=== PATIENT | female | born 1975 | race Caucasian/White ===

== ENCOUNTER → 2017-03-07 | Outpatient (CLI) | payer BC ==
[~2017-03-07] MED LIST: OXYC1SOL5 PO
== END ==
LOC: CLAB 13:34
PROVIDERS: ATTEND Obstetrics & Gynecology Gynecologic Oncology
DX: C56.9 Malignant neoplasm of unspecified ovary (principal)

== ENCOUNTER → 2017-03-15 | Outpatient (CLI) | payer BC ==
[2017-03-15 07:56] LABS: AUTOMATED NEUTROPHIL # 1.7 TH/MM3 (1.8-7.7); EOSINOPHIL % 0.9 % (0.0-4.0); HEMATOCRIT 40.3 % (35.0-46.0); HEMOGLOBIN 14.1 GM/DL (11.6-15.3); LYMPH % 46.1 % (9.0-44.0); LYMPHOCYTE # 2.1 TH/MM3 (1.0-4.8); MEAN CORPUSCULAR HEMOGLOBIN 31.4 PG (27.0-34.0); MEAN CORPUSCULAR HGB CONC 34.9 % (32.0-36.0); MEAN PLATELET VOLUME 6.7 FL (7.0-11.0); MONO % 13.6 % (0.0-8.0); MONOCYTE # 0.6 TH/MM3 (0-0.9); NEUT % 38.4 % (16.0-70.0); PLATELET COUNT 371 TH/MM3 (150-450); RED BLOOD COUNT 4.48 MIL/MM3 (4.00-5.30); RED CELL DISTRIBUTION WIDTH 15.2 % (11.6-17.2); WHITE BLOOD COUNT 4.5 TH/MM3 (4.0-11.0)
[2017-03-15 08:36] LABS: BICARBONATE 29.3 MEQ/L (21.0-32.0); CALCIUM 8.4 MG/DL (8.5-10.1); CREATININE 0.66 MG/DL (0.50-1.00)
== END ==
LOC: CLAB 07:20
PROVIDERS: ATTEND Obstetrics & Gynecology Gynecologic Oncology
DX: C56.9 Malignant neoplasm of unspecified ovary (principal); R19.00 Intra-abdominal and pelvic swelling, mass and lump, unspecified site
CPT/HCPCS: 36415; 80048; 85025

== ENCOUNTER → 2017-04-05 | Outpatient (CLI) | payer BC ==
[2017-04-05 08:14] LABS: AUTOMATED NEUTROPHIL # 1.8 TH/MM3 (1.8-7.7); BASOPHIL % 0.9 % (0.0-2.0); EOSINOPHIL # 0.1 TH/MM3 (0-0.4); EOSINOPHIL % 1.6 % (0.0-4.0); HEMO FLAGS DIFF FINAL; LYMPH % 46.1 % (9.0-44.0); LYMPHOCYTE # 2.2 TH/MM3 (1.0-4.8); MEAN CELL VOLUME 91.5 FL (80.0-100.0); MEAN CORPUSCULAR HEMOGLOBIN 31.4 PG (27.0-34.0); MEAN CORPUSCULAR HGB CONC 34.3 % (32.0-36.0); MONO % 12.8 % (0.0-8.0); NEUT % 38.6 % (16.0-70.0); PLATELET COUNT 343 TH/MM3 (150-450); RED BLOOD COUNT 4.59 MIL/MM3 (4.00-5.30); RED CELL DISTRIBUTION WIDTH 17.8 % (11.6-17.2); WHITE BLOOD COUNT 4.7 TH/MM3 (4.0-11.0)
[2017-04-05 08:33] LABS: BICARBONATE 28.1 MEQ/L (21.0-32.0)
== END ==
LOC: CLAB 07:37
PROVIDERS: ATTEND Obstetrics & Gynecology Gynecologic Oncology
DX: C56.9 Malignant neoplasm of unspecified ovary (principal)
CPT/HCPCS: 36415; 80048; 85025

== ENCOUNTER → 2017-04-19 | Outpatient (CLI) | payer BC ==
[2017-04-19 15:31] LABS: AUTOMATED NEUTROPHIL # 5.2 TH/MM3 (1.8-7.7); BASOPHIL # 0.1 TH/MM3 (0-0.2); BASOPHIL % 1.1 % (0.0-2.0); EOSINOPHIL # 0.3 TH/MM3 (0-0.4); EOSINOPHIL % 3.2 % (0.0-4.0); HEMATOCRIT 42.5 % (35.0-46.0); HEMO FLAGS DIFF FINAL; LYMPH % 24.6 % (9.0-44.0); MEAN CELL VOLUME 91.6 FL (80.0-100.0); MEAN CORPUSCULAR HEMOGLOBIN 31.4 PG (27.0-34.0); MEAN CORPUSCULAR HGB CONC 34.3 % (32.0-36.0); MONO % 6.8 % (0.0-8.0); NEUT % 64.3 % (16.0-70.0); PLATELET COUNT 307 TH/MM3 (150-450); RED BLOOD COUNT 4.64 MIL/MM3 (4.00-5.30); RED CELL DISTRIBUTION WIDTH 18.7 % (11.6-17.2); WHITE BLOOD COUNT 8.1 TH/MM3 (4.0-11.0)
[2017-04-19 16:04] LABS: BICARBONATE 26.2 MEQ/L (21.0-32.0); POTASSIUM 3.6 MEQ/L (3.5-5.1)
== END ==
LOC: CLAB 15:14
PROVIDERS: ATTEND Obstetrics & Gynecology Gynecologic Oncology
DX: C56.9 Malignant neoplasm of unspecified ovary (principal); R19.00 Intra-abdominal and pelvic swelling, mass and lump, unspecified site
CPT/HCPCS: 36415; 80048; 85025

== ENCOUNTER 2017-05-01 21:52 | Emergency (ER) | payer BC ==
[~2017-05-01] VITALS: Ht 170.2 cm; Wt 104.5 kg
[2017-05-01] MEDS ORDERED: IOHEXOL 350 MG/ML 10 ML VIAL (for RAD DIAG) IVCONTRAST ONE (21:53)
[2017-05-01 21:54] VITALS: BP 142/101; PULSE 124; RESP 18; TEMP 100; O2SAT 97
[2017-05-01] MEDS ORDERED: SODIUM CHLOR 0.9% 1000 ML INJ 1,000 ML IV SCH (22:53)
[2017-05-01] MEDS ORDERED: SODIUM CHLORIDE 0.9% FLUSH 10 ML FLUSH IV FLUSH PRN (23:00)
[2017-05-01] MEDS ORDERED: MORPHINE SULFATE 4 MG/ML INJ IV PUSH ONE (23:00)
[2017-05-01] MEDS ORDERED: PROCHLORPERAZINE INJ 10 MG/2 ML VIAL IV PUSH ONE (23:00)
[2017-05-01 23:05] VITALS: RESP 19; O2SAT 98
--- NOTE | 2017-05-01 23:14 | RADRPT ---
EXAM DATE/TIME: 05/01/2017 23:10 [facility] COMPARISON: No previous studies available for comparison. INDICATIONS : Shortness of breath, pain in lower portion of chest. MEDICAL HISTORY : None. SURGICAL HISTORY : Infusaport. ENCOUNTER: Initial ACUITY: 1 day PAIN SCORE: 0/10 LOCATION: Bilateral chest FINDINGS: There is a right internal jugular CT compatible [id number]-m-Rizx in place with tip overlying the SVC. Th e heart size is normal. The lungs are clear. CONCLUSION: No acute disease. Miguel Mcdaniel MD on May 01, 2017 at 23:12 Board Certified Radiologist. This report was verified electronically.
[2017-05-01 23:23] LABS: AUTOMATED NEUTROPHIL # 5.2 TH/MM3 (1.8-7.7); BASOPHIL % 0.6 % (0.0-2.0); EOSINOPHIL # 0.3 TH/MM3 (0-0.4); EOSINOPHIL % 3.5 % (0.0-4.0); HEMATOCRIT 40.2 % (35.0-46.0); HEMOGLOBIN 14.2 GM/DL (11.6-15.3); LYMPH % 26.3 % (9.0-44.0); MEAN CELL VOLUME 91.6 FL (80.0-100.0); MEAN CORPUSCULAR HEMOGLOBIN 32.4 PG (27.0-34.0); MEAN CORPUSCULAR HGB CONC 35.3 % (32.0-36.0); MONOCYTE # 0.2 TH/MM3 (0-0.9); NEUT % 67.6 % (16.0-70.0); PLATELET COUNT 248 TH/MM3 (150-450); RED BLOOD COUNT 4.39 MIL/MM3 (4.00-5.30); RED CELL DISTRIBUTION WIDTH 17.3 % (11.6-17.2); WHITE BLOOD COUNT 7.7 TH/MM3 (4.0-11.0)
[2017-05-01 23:46] LABS: ALBUMIN 3.6 GM/DL (3.4-5.0); ALT (GPT) 113 U/L (10-53); AST (GOT) 85 U/L (15-37); BICARBONATE 28.4 MEQ/L (21.0-32.0); BLOOD UREA NITROGEN 8 MG/DL (7-18); CALCIUM 8.4 MG/DL (8.5-10.1); CHLORIDE 107 MEQ/L (98-107); CREATININE 0.69 MG/DL (0.50-1.00); GLOMERULAR FILTRATION RATE 94 ML/MIN (>89); GLUCOSE,RANDOM 108 MG/DL (74-106); LIPASE 128 U/L (73-393); SODIUM (NA) 142 MEQ/L (136-145)
[2017-05-01 23:48] LABS: ALKALINE PHOSPHATASE 84 U/L (45-117); TOTAL BILIRUBIN ADULT 0.7 MG/DL (0.2-1.0)
[2017-05-02] MEDS ORDERED: DIATRIZOATE MEGLUM/DIATRIZOATE SOD 9 ML CUP ONE (01:19)
--- NOTE | 2017-05-02 03:00 | PD ---
HPI Chief Complaint: Abdominal Pain Time Seen by Provider: 22:44 Travel History International Travel<30 days: No Contact w/Intl Traveler<30days: No Traveled to known affect area: No History of Present Illness HPI This is a 42-year-old female with a history of ovarian cancer, presents today with complaints of abdominal pain. The patient also reports low-grade fever. She denies any vomiting. She denies any diarrhea. She reports the pain is in her right lateral abdominal area. She reports it feels tighter than normal. She reports having chemotherapy last week. She denies a previous history of neutropenia. There are no other complaints. PFSH Past Medical History Cancer: Yes (OVARIAN) Cardiovascular Problems: No Chemotherapy: Yes Diabetes: No Endocrine: No Genitourinary: No Hepatitis: No Hiatal Hernia: No Immune Disorder: No Medical other: No Musculoskeletal: No Neurologic: No Psychiatric: No Reproductive: Yes (OVARTIAN CA ) Respiratory: No Immunizations Current: No Thyroid Disease: No ?: Not : 6 Para: 1 Miscarriage: 1 : 4 Past Surgical History Abdominal Surgery: No AICD: No Body Medical Devices: IMPLANTED PORT RIGHT CHEST Cardiac Surgery: No Ear Surgery: No Endocrine Surgery: No Eye Surgery: No Genitourinary Surgery: No Gynecologic Surgery: Yes (11/07 HYSTERECTOMY) Joint Replacement: No Oral Surgery: No Pacemaker: No Thoracic Surgery: Yes (IMPLANTED PORT) Social History Alcohol Use: No Tobacco Use: No Substance Use: No Allergies-Medications (Allergen,Severity, Reaction): Coded Allergies: No Known Allergies (Verified , 03/09/15) Reported Meds & Prescriptions Reported Meds & Active Scripts Active Oxycodone/Acetaminophen 5 mg/325 mg 1 Tab Tab 1 Tab PO Q4H PRN Review of Systems Except as stated in HPI: all other systems reviewed are Neg General / Constitutional: Positive: Fever, No: Chills HENT: No: Headaches, Neck Pain Cardiovascular: No: Chest Pain or Discomfort, Palpitations Respiratory: No: Cough, Shortness of Breath Gastrointestinal: Positive: Abdominal Pain, No: Nausea, Vomiting, Diarrhea, Hematemesis, Hematochezia Genitourinary: No: Frequency, Dysuria Musculoskeletal: No: Weakness, Pain Neurologic: No: Weakness, Headache Physical Exam Narrative GENERAL: Well-nourished, well-developed patient, in no acute distress. SKIN: Focused skin assessment warm/dry. HEAD: Normocephalic/atraumatic. EYES: No scleral icterus. No injection or drainage. NECK: Supple, trachea midline. No JVD or lymphadenopathy. CARDIOVASCULAR: Regular rate and rhythm without murmurs, gallops, or rubs. RESPIRATORY: Breath sounds equal bilaterally. No accessory muscle use. GASTROINTESTINAL: Abdomen soft, nondistended. She has tenderness to palpation in the right lateral abdominal area. There is no rebound or guarding. MUSCULOSKELETAL: No cyanosis, or edema. NEUROLOGICAL: Awake and alert. Cranial nerves II through XII intact. Motor grossly within normal limits. Five out of 5 muscle strength in all muscle groups. Normal speech. Data Data Last Documented VS Vital Signs Date Time Temp Pulse Resp B/P (MAP) Pulse Ox O2 Delivery O2 Flow Rate FiO2 05/01/17 23:05 19 98 Room Air 05/01/17 21:54 100.0 124 Orders Orders Complete Blood Count With Diff (05/01/17 22:53) Comprehensive Metabolic Panel (05/01/17 22:53) Lipase (05/01/17 22:53) Lactic Acid (05/01/17 22:53) Urinalysis - C+S If Indicated (05/01/17 22:53) Iv Access Insert/Monitor (05/01/17 22:53) Ecg Monitoring (05/01/17 22:53) Oximetry (05/01/17 22:53) Morphine Inj (Morphine Inj) (05/01/17 23:00) Sodium Chlor 0.9% 1000 Ml Inj (Ns 1000 M (05/01/17 22:53) Sodium Chloride 0.9% Flush (Ns Flush) (05/01/17 23:00) Chest, Single Ap (05/01/17 22:53) Prochlorperazine Inj (Compazine Inj) (05/01/17 23:00) Ct Abd/Pel W Iv Contrast(Rout) (05/02/17 22:53) Oral Contrast - Adult (05/02/17 01:19) Diatrizoate Liq ( Gastroview Liq) (05/02/17 01:19) Iohexol 350 Inj (Omnipaque 350 Inj) (05/01/17 21:53) Potassium Chloride (Kcl) (05/02/17 05:00) Labs Laboratory Tests Test 05/01/17 03:55 05/01/17 22:55 05/02/17 04:30 White Blood Count 7.7 TH/MM3 Red Blood Count 4.39 MIL/MM3 Hemoglobin 14.2 GM/DL Hematocrit 40.2 % Mean Corpuscular Volume 91.6 FL Mean Corpuscular Hemoglobin 32.4 PG Mean Corpuscular Hemoglobin Concent 35.3 % Red Cell Distribution Width 17.3 % Platelet Count 248 TH/MM3 Mean Platelet Volume 7.0 FL Neutrophils (%) (Auto) 67.6 % Lymphocytes (%) (Auto) 26.3 % Monocytes (%) (Auto) 2.0 % Eosinophils (%) (Auto) 3.5 % Basophils (%) (Auto) 0.6 % Neutrophils # (Auto) 5.2 TH/MM3 Lymphocytes # (Auto) 2.0 TH/MM3 Monocytes # (Auto) 0.2 TH/MM3 Eosinophils # (Auto) 0.3 TH/MM3 Basophils # (Auto) 0.0 TH/MM3 CBC Comment DIFF FINAL Differential Comment Blood Urea Nitrogen 8 MG/DL Creatinine 0.69 MG/DL Random Glucose 108 MG/DL Total Protein 7.0 GM/DL Albumin 3.6 GM/DL Calcium Level 8.4 MG/DL Alkaline Phosphatase 84 U/L Aspartate Amino Transf (AST/SGOT) 85 U/L Alanine Aminotransferase (ALT/SGPT) 113 U/L Total Bilirubin 0.7 MG/DL Sodium Level 142 MEQ/L Potassium Level 3.4 MEQ/L Chloride Level 107 MEQ/L Carbon Dioxide Level 28.4 MEQ/L Anion Gap 7 MEQ/L Estimat Glomerular Filtration Rate 94 ML/MIN Lipase 128 U/L Lactic Acid Level 1.0 mmol/L Urine Color YELLOW Urine Turbidity CLEAR Urine pH 5.5 Urine Specific [place] GREATER THAN 1.050 Urine Protein TRACE mg/dL Urine Glucose (UA) NEG mg/dL Urine Ketones NEG mg/dL Urine Occult Blood TRACE Urine Nitrite NEG Urine Bilirubin NEG Urine Urobilinogen LESS THAN 2.0 MG/DL Urine Leukocyte Esterase NEG Urine RBC LESS THAN 1 /hpf Urine WBC 2 /hpf Urine Squamous Epithelial Cells 2 /hpf Urine Mucus FEW /lpf Microscopic Urinalysis Comment CULT NOT INDICATED MDM Medical Decision Making Medical Screen Exam Complete: Yes Emergency Medical Condition: Yes Differential Diagnosis Appendicitis versus cholecystitis versus bowel obstruction versus metastatic lesion Narrative Course 42-year-old female history of ovarian cancer, extensive metastases of right sided abdominal pain. The patient denies any diarrhea or vomiting. She did have a low-grade temperature when she initially arrived. Patient's white count is within normal limits. Lactic acid is 1. The rest of her electrolytes look within normal limits except for slightly elevated transaminases. A CT scan of the abdomen pelvis reveals liver steatosis with this some ascites. Patient's had previous studies in the past. Urinalysis is within normal limits. The patient be discharged with a prescription for hydrocodone/ibuprofen. She'll be told to take that as needed for pain. She'll follow up with her oncologist and primary care physician for further evaluation of the liver enzyme elevation. Her calcium was slightly low and she was given potassium replacement here. She' ll be instructed to increase her potassium rich foods. Diagnosis Primary Impression: Abdominal pain Additional Impressions: mild hypokalemia Elevated transaminase level Steatosis of liver History of ovarian cancer mild ascites Additional Instructions: Follow up with your oncologist and primary care physician. Return if worsening discomfort. Increase her potassium rich foods i.e., green leafy vegetables, citrus, bananas. Med/Other Pt SpecificInfo: Prescription(s) given Scripts Hydrocodone-Ibuprofen (Hydrocodone-Ibuprofen) 7.5-200 Mg Tab 1 TAB PO Q6H Y for PAIN, #10 TAB 0 Refills Prov: Tye Izaguirre MD 05/02/17 Disposition: 01 DISCHARGE HOME Condition: Stable Tye Izaguirre MD May 02, 2017 03:00
--- NOTE | 2017-05-02 03:42 | RADRPT ---
EXAM DATE/TIME: 05/02/2017 02:20 [facility] COMPARISON: No previous studies available for comparison. INDICATIONS : Abdomen pain. IV CONTRAST: 75 cc Omnipaque 350 (iohexol) IV ORAL CONTRAST: Prescribed oral contrast ingested. RADIATION DOSE: 12.55 CTDIvol (mGy) MEDICAL HISTORY : Carcinoma, not otherwise specified. SURGICAL HISTORY : Hysterectomy. ENCOUNTER: Initial ACUITY: 1 day PAIN SCALE: 5/10 LOCATION: Bilateral abdomen TECHNIQUE: Volumetric scanning of the abdomen and pelvis was performed. Using automated exposure control and ad justment of the mA and/or kV according to patient size, radiation dose was kept as low as reasonably achievable to obtain optimal diagnostic quality images. DICOM format image data is available electro nically for review and comparison. FINDINGS: LOWER LUNGS: The visualized lower lungs are clear. LIVER: There is diffuse decreased attenuation to the liver without focal hepatic lesions. The gallbladder is unremarkable. SPLEEN: Normal size without lesion. PANCREAS: Within normal limits. KIDNEYS: Normal in size and shape. There is no mass, stone or hydronephrosis. ADRENAL GLANDS: Within normal limits. VASCULAR: There is no aortic aneurysm. BOWEL/MESENTERY: The stomach, small bowel, and colon demonstrate no acute abnormality. There is no free intraperitone al air. There is a mild amount of ascites seen in the paracolic gutter regions especially on the righ t and in the pelvis. ABDOMINAL WALL: Within normal limits. RETROPERITONEUM: There is no lymphadenopathy. BLADDER: No wall thickening or mass. REPRODUCTIVE: The patient is status post hysterectomy. A pelvic mass is not seen. INGUINAL: There is no lymphadenopathy or hernia. MUSCULOSKELETAL: Within normal limits for patient age. CONCLUSION: 1. Mild ascites. 2. Hepatic steatosis. Miguel Mcdaniel MD on May 02, 2017 at 3:38 Board Certified Radiologist. This report was verified electronically.
[2017-05-02 04:53] LABS: BILIRUBIN, URINE NEG (NEG); BLOOD, URINE TRACE (NEG); GLUCOSE,URINE NEG (NEG); KETONE, URINE NEG (NEG); MUCUS URINE FEW /lpf (OCC); NITRITE,URINE NEG (NEG); PH, URINE 5.5 (5.0-8.5); SQUAMOUS EPITHELIAL CELL URINE 2 /hpf (0-5); URINE COLOR YELLOW (YELLW/STRAW); URINE LEUKOCYTE ESTERASE NEG (NEG)
[2017-05-02] MEDS ORDERED: POTASSIUM CHLORIDE 10 MEQ CONTROLLED RELEASE TAB PO ONE (05:00)
[2017-05-02] MEDS ORDERED: HYDR7.5T76 PO (05:01)
== END 2017-05-02 05:30 | disposition home or self-care (01) ==
LOC: NEPE 21:52
DX: R10.9 Unspecified abdominal pain (principal); E87.6 Hypokalemia; K76.0 Fatty (change of) liver, not elsewhere classified; Z85.43 Personal history of malignant neoplasm of ovary
CPT/HCPCS: 71010; 74177; 80053; 81001; 83605; 83690; 85025; 96361; 96374; 96375; 99285; J0780; J2270; J7030; Q9963; Q9967

== ENCOUNTER 2017-09-01 07:41 | Day surgery (SDC) | payer BC ==
[~2017-09-01 07:41] MED LIST changes: +HYDR7.5T76 PO
[2017-09-01 08:06] VITALS: BP 150/89; PULSE 115; RESP 16; TEMP 98.8; O2SAT 97
[2017-09-01 09:38] VITALS: BP 119/70; PULSE 104; RESP 16; TEMP 98.8; O2SAT 97
[2017-09-01] MEDS ORDERED: LIDOCAINE HCL 1% 20 ML VIAL ONE (09:44)
[2017-09-01 09:48] VITALS: BP 123/74; PULSE 107; RESP 16; O2SAT 99
--- NOTE | 2017-09-01 14:54 | RADRPT ---
EXAM DATE/TIME: 09/01/2017 07:59 [facility] COMPARISON: No previous studies available for comparison. EXTERNAL COMPARISON: [facility], CT ABDOMEN & PELVIS W/CONTRAST, Jul 03 2014, US ABDOMEN COMPLETE, June 27. INDICATIONS : Ascites. MEDICAL HISTORY : Carcinoma, ovarian. Pelvic mass. Ascites. SURGICAL HISTORY : Hysterectomy. Chest port. Paracentesis. Chemotherapy. ENCOUNTER: Subsequent ACUITY: 1 week PAIN SCORE: 6/10 LOCATION: Left lower quadrant FLUID: Total volume of 3,000 cc of clear, yellow fluid was removed. Fluid was discarded. Paracentesis was therapeutic only. Post procedure scanning reveals no hematoma or other complication. TECHNIQUE: 1. Ultrasound guidance for abdominal paracentesis. 2. Paracentesis. The risks, benefits, and alternatives to ultrasound guided paracentesis were explained to the patient in detail including the risk of bleeding and infection. Written and verbal informed consent was obt ained. With the patient on the ultrasound table, ultrasound imaging was used to select the most appropriate approach for paracentesis. Overlying skin was prepped and draped in the usual sterile fashion and wi th a local anesthetic, a dermatotomy was made with an 11 blade scalpel. A 6 Filipino Ixm-C-qwzeaves ca theter was introduced into the peritoneal cavity and fluid was collected. The patient tolerated the procedure well and left the ultrasound suite in stable condition. CONCLUSION: Uncomplicated ultrasound guided paracentesis. Abhilash Abdi MD on September 01, 2017 at 14:50 Board Certified Radiologist. This report was verified electronically.
== END 2017-09-01 10:17 | disposition home or self-care (01) ==
LOC: HRAD 07:41 → HRIP 07:42 → HRAD 10:17
PROVIDERS: ATTEND Nurse Practitioner Family
DX: R18.8 Other ascites (principal)
CPT/HCPCS: 49083; C1729

== ENCOUNTER 2017-09-20 07:27 | Day surgery (SDC) | payer BC ==
[2017-09-20] MEDS: ALBUMIN HUMAN 25% 12.5GM-W/25GM FOR 37.5GM IV (09:50)
[2017-09-20] MEDS: ALBUMIN HUMAN 25% 25GM-W/12.5GM FOR 37.5GM IV (09:50)
[2017-09-20] MEDS ORDERED: LIDOCAINE HCL 1% 20 ML VIAL (12:28)
== END 2017-09-20 10:39 | disposition home or self-care (01) ==
LOC: HRAD 07:27 → HRIP 09:39 → HRAD 10:39
DX: R18.8 Other ascites (principal); Z85.43 Personal history of malignant neoplasm of ovary; Z92.3 Personal history of irradiation
CPT/HCPCS: 49083; 96365

== ENCOUNTER → 2017-09-20 | Outpatient (CLI) | DX: R79.1 Abnormal coagulation profile (principal) ==

== ENCOUNTER 2017-10-27 09:20 | Day surgery (SDC) | payer BC ==
[~2017-10-27 09:20] MED LIST changes: -ACET300T2 PO; -ALPR.5 PO; -METO25TA3 PO; -TRAM50TA PO
[2017-10-27 10:44] VITALS: BP 146/100; PULSE 121; RESP 16; TEMP 98.7; O2SAT 98
[2017-10-27 10:49] VITALS: BP 150/101
[2017-10-27 10:56] VITALS: BP 150/100
[2017-10-27] MEDS ORDERED: ALBUMIN 25% INJ 0 ML IV ONE (11:45)
[2017-10-27 12:15] VITALS: BP_SYST 113; BP_SYST 143; BP_DIAS 79; PULSE 110; PULSE 113; RESP 18; TEMP 98.7; O2SAT 97
[2017-10-27 12:30] VITALS: BP 147/83; PULSE 109; RESP 17; O2SAT 96
--- NOTE | 2017-10-27 13:10 | RADRPT ---
EXAM DATE: 10/27/2017 12:36 PM EDT AGE/SEX: 42 years / Female INDICATIONS: Ascites. CLINICAL DATA: This is the patient's sequela encounter. Patient reports that signs and symptoms have been present for 1 month and indicates a pain score of 6/10. MEDICAL/SURGICAL HISTORY: . Ovarian Cancer. . . Pelvic mass. Hysterectomy. P ort placement. COMPARISON: [facility] – [place], [place], US GUIDED ABD PARACENTESIS, 09/20/2017. . FLUID: Total volume of 2,900 cc of clear, yellow fluid was removed. Fluid was discarded. Paracentesis was th erapeutic only. . . TECHNIQUE: Ultrasound guidance for abdominal paracentesis. Paracentesis. The risks, benefits, and alternatives to ultrasound guided paracentesis were explained to the patient in detail including the risk of bleeding and infection. Written and verbal informed consent was obt ained. With the patient on the ultrasound table, ultrasound imaging was used to select the most appropriate approach for paracentesis. Overlying skin was prepped and draped in the usual sterile fashion and wi th a local anesthetic, a dermatotomy was made with an 11 blade scalpel. A 6 Haitian [id number]-P-[id number] ca theter was introduced into the peritoneal cavity and fluid was collected. Post procedure scanning reveals no hematoma or other complication. The patient tolerated the procedu re well and left the ultrasound suite in stable condition. FINDINGS: Successful ultrasound-guided paracentesis as described above. CONCLUSION: 1. Successful ultrasound-guided paracentesis. Electronically signed by: Watson Ledesma MD 10/27/2017 1:09 PM EDT
== END 2017-10-27 12:59 | disposition home or self-care (01) ==
LOC: HRAD 09:20 → HRIP 09:21 → HRAD 12:59
PROVIDERS: ATTEND Obstetrics & Gynecology Gynecologic Oncology
DX: R18.8 Other ascites (principal); C56.9 Malignant neoplasm of unspecified ovary
CPT/HCPCS: 49083; C1729

== ENCOUNTER → 2017-10-27 | Outpatient (CLI) | payer BC ==
[~2017-10-27] MED LIST changes: +ACET300T2 PO; +ALPR.5 PO; +METO25TA3 PO; +TRAM50TA PO
[2017-10-27 10:00] LABS: HEMATOCRIT 39.6 % (35.0-46.0); HEMOGLOBIN 13.7 GM/DL (11.6-15.3); MEAN CELL VOLUME 84.9 FL (80.0-100.0); MEAN CORPUSCULAR HEMOGLOBIN 29.4 PG (27.0-34.0); MEAN CORPUSCULAR HGB CONC 34.6 % (32.0-36.0); MEAN PLATELET VOLUME 6.7 FL (7.0-11.0); PLATELET COUNT 354 TH/MM3 (150-450); RED BLOOD COUNT 4.67 MIL/MM3 (4.00-5.30); RED CELL DISTRIBUTION WIDTH 14.2 % (11.6-17.2); WHITE BLOOD COUNT 6.3 TH/MM3 (4.0-11.0)
[2017-10-27 10:04] LABS: INTERNATIONAL NORMALIZED RATIO 1.2 RATIO
[2017-10-27 20:35] LABS: BICARBONATE 23.9 MEQ/L (21.0-32.0); CALCIUM 8.5 MG/DL (8.5-10.1); CREATININE 0.76 MG/DL (0.50-1.00)
== END ==
LOC: CLAB 09:12
PROVIDERS: ATTEND Obstetrics & Gynecology Gynecologic Oncology
DX: C56.9 Malignant neoplasm of unspecified ovary (principal); R19.00 Intra-abdominal and pelvic swelling, mass and lump, unspecified site
CPT/HCPCS: 36415; 80048; 85027; 85610

== ENCOUNTER 2017-10-28 16:53 | Inpatient (IN) | payer BC ==
[~2017-10-28] VITALS: Ht 165.1 cm; Wt 99.7 kg
[2017-10-28] VITALS (8 sets, daily range): BP systolic 142–164; BP diastolic 85–99; PULSE 123–145; RESP 18–20; TEMP 98; O2SAT 90–98
[2017-10-28] MEDS ORDERED: PROCHLORPERAZINE INJ 10 MG/2 ML VIAL IV PUSH ONE (17:30)
[2017-10-28] MEDS ORDERED: SODIUM CHLORIDE 0.9% FLUSH 10 ML FLUSH IV FLUSH PRN ×2 (17:30→21:45)
[2017-10-28] MEDS ORDERED: HYDROmorphone HCL PF 1 MG/ML VIAL IVS ONE (17:30)
--- NOTE | 2017-10-28 17:33 | PD ---
HPI Chief Complaint: Abdominal Pain Time Seen by Provider: 17:04 Travel History International Travel<30 days: No Contact w/Intl Traveler<30days: No Traveled to known affect area: No History of Present Illness HPI The patient was seen and examined in the presence of the nurse. This patient has recurrent metastatic ovarian cancer. It spread to her omentum. She gets recurrent paracentesis for ascites. She had this yesterday. She has chronic bilateral upper quadrant pains for at least 6 months. However today they are worse than usual. This prompted her visit. She is having a lot of pain there. She is considering a retry of chemotherapy but currently not on any medications. Symptoms are severe. No alleviating factors. No exacerbating factors. She is not having fever or vomiting. PFSH Past Medical History Cancer: Yes (OVARIAN) Cardiovascular Problems: No Chemotherapy: Yes Diabetes: No Diminished Hearing: No Endocrine: No Genitourinary: No Hepatitis: No Hiatal Hernia: No Immune Disorder: No Musculoskeletal: No Neurologic: No Psychiatric: No Reproductive: Yes (OVARTIAN CA ) Respiratory: No Immunizations Current: No Thyroid Disease: No Influenza Vaccination: No ?: Not : 6 Para: 1 Miscarriage: 1 : 4 Past Surgical History Abdominal Surgery: No AICD: No Body Medical Devices: IMPLANTED PORT RIGHT CHEST Cardiac Surgery: No Ear Surgery: No Endocrine Surgery: No Eye Surgery: No Genitourinary Surgery: No Gynecologic Surgery: Yes (11/07 HYSTERECTOMY) Hysterectomy: Yes Joint Replacement: No Oral Surgery: No Pacemaker: No Thoracic Surgery: Yes (IMPLANTED PORT) Other Surgery: Yes Social History Alcohol Use: No Tobacco Use: No Substance Use: No Allergies-Medications (Allergen,Severity, Reaction): Coded Allergies: No Known Allergies (Verified Allergy, Unknown, 10/28/17) Reported Meds & Prescriptions Reported Meds & Active Scripts Active No Active Prescriptions or Reported Medications Review of Systems General / Constitutional: No: Fever Eyes: No: Visual changes HENT: No: Headaches Cardiovascular: Positive: Tachycardia, No: Chest Pain or Discomfort Respiratory: No: Shortness of Breath Gastrointestinal: Positive: Abdominal Pain Genitourinary: No: Dysuria Musculoskeletal: No: Pain Skin: No Rash Neurologic: No: Weakness Psychiatric: Positive: Anxiety, No: Depression Endocrine: No: Polydipsia Hematologic/Lymphatic: No: Easy Bruising Physical Exam Narrative GENERAL: Well-nourished, well-developed patient with abdominal pain . SKIN: Focused skin assessment reveals no rash and nodules. Skin is Warm and dry. HEAD: Atraumatic. Normocephalic. EYES: Pupils equal and round. No scleral icterus. No injection or drainage. ENT: No nasal bleeding or discharge. Mucous membranes pink and moist. NECK: Trachea midline. No JVD. CARDIOVASCULAR: Regular rate and rhythm. No murmur appreciated. Tachycardic 130 RESPIRATORY: No accessory muscle use. Clear to auscultation. Breath sounds equal bilaterally. GASTROINTESTINAL: Abdomen soft, some upper quadrant tenderness without rebound or guarding. Some distention. Hepatic and splenic margins not palpable. MUSCULOSKELETAL: No obvious deformities. No clubbing. No cyanosis. No edema. NEUROLOGICAL: Awake and alert. No obvious cranial nerve deficits. Motor grossly within normal limits. Normal speech. PSYCHIATRIC: Anxious mood and affect; insight and judgment normal. Data Data Last Documented VS Vital Signs Date Time Temp Pulse Resp B/P (MAP) Pulse Ox O2 Delivery O2 Flow Rate FiO2 10/28/17 22:10 129 18 97 Nasal Cannula 2.00 10/28/17 19:49 147/86 (106) 10/28/17 16:56 98.0 Orders Orders Complete Blood Count With Diff (10/28/17 17:27) Comprehensive Metabolic Panel (10/28/17 17:27) Lipase (10/28/17 17:27) Prothrombin Time / Inr (Pt) (10/28/17 17:27) Act Partial Throm Time (Ptt) (10/28/17 17:27) Ct Abd/Pel W Iv Contrast(Rout) (10/28/17 17:27) Ecg Monitoring (10/28/17 17:27) NPO (10/28/17 17:27) Sodium Chloride 0.9% Flush (Ns Flush) (10/28/17 17:30) Prochlorperazine Inj (Compazine Inj) (10/28/17 17:30) Hydromorphone Pf Inj (Dilaudid Pf Inj) (10/28/17 17:45) Iohexol 350 Inj (Omnipaque 350 Inj) (10/28/17 18:10) Electrocardiogram (10/28/17 ) Ct Thorax/ Chest Wo Iv Contras (10/28/17 ) Place In Observation (10/28/17 ) Vital Signs (Adult) Q4H (10/28/17 21:45) Activity Oob With Assistance (10/28/17 21:45) Can Filling And Closing Machine Tender / Telemetry .CONTINUOUS (10/28/17 21:45) Intake + Output JOSE.QSHIFT (10/28/17 21:45) Diet Regular Basic (10/29/17 Breakfast) Sodium Chloride 0.9% Flush (Ns Flush) (10/28/17 21:45) Sodium Chloride 0.9% Flush (Ns Flush) (10/29/17 09:00) Metoclopramide Inj (Reglan Inj) (10/28/17 21:45) Comprehensive Metabolic Panel (10/29/17 06:00) Complete Blood Count With Diff (10/29/17 06:00) Scd Bilateral/Knee High JOSE.BID (10/28/17 21:45) Enmanuel Bilateral/Knee High JOSE.QSHIFT (10/28/17 21:46) Acetaminophen (Tylenol) (10/28/17 21:45) Oxycodone (Roxicodone) (10/28/17 21:45) Docusate Sodium-Senna (Keturah-Colace) (10/29/17 09:00) Magnesium Hydroxide Liq (Milk Of Magnesi (10/28/17 21:45) Sennosides (Senokot) (10/28/17 21:45) Bisacodyl Supp (Dulcolax Supp) (10/28/17 21:45) Lactulose Liq (Lactulose Liq) (10/28/17 21:45) Consult Traffic Control Operator Oncology (10/28/17 ) Us Guided Abd Paracentesis (10/28/17 ) Peritoneal Cell Count + Diff (10/28/17 21:45) Fluid Culture And Gram Stain (10/28/17 21:45) Cytology Request For Service (10/28/17 21:45) Hydromorphone Pf Inj (Dilaudid Pf Inj) (10/28/17 22:15) Labs Laboratory Tests Test 10/28/17 17:30 White Blood Count 8.3 TH/MM3 Red Blood Count 5.01 MIL/MM3 Hemoglobin 14.8 GM/DL Hematocrit 44.3 % Mean Corpuscular Volume 88.4 FL Mean Corpuscular Hemoglobin 29.6 PG Mean Corpuscular Hemoglobin Concent 33.5 % Red Cell Distribution Width 13.6 % Platelet Count 416 TH/MM3 Mean Platelet Volume 7.1 FL Neutrophils (%) (Auto) 66.5 % Lymphocytes (%) (Auto) 22.4 % Monocytes (%) (Auto) 8.1 % Eosinophils (%) (Auto) 1.0 % Basophils (%) (Auto) 2.0 % Neutrophils # (Auto) 5.4 TH/MM3 Lymphocytes # (Auto) 1.9 TH/MM3 Monocytes # (Auto) 0.7 TH/MM3 Eosinophils # (Auto) 0.1 TH/MM3 Basophils # (Auto) 0.2 TH/MM3 CBC Comment DIFF FINAL Differential Comment Prothrombin Time 12.0 SEC Prothromb Time International Ratio 1.2 RATIO Activated Partial Thromboplast Time 24.8 SEC Blood Urea Nitrogen 3 MG/DL Creatinine 0.64 MG/DL Random Glucose 103 MG/DL Total Protein 6.6 GM/DL Albumin 2.6 GM/DL Calcium Level 8.5 MG/DL Alkaline Phosphatase 87 U/L Aspartate Amino Transf (AST/SGOT) 28 U/L Alanine Aminotransferase (ALT/SGPT) 19 U/L Total Bilirubin 1.0 MG/DL Sodium Level 138 MEQ/L Potassium Level 3.4 MEQ/L Chloride Level 103 MEQ/L Carbon Dioxide Level 22.0 MEQ/L Anion Gap 13 MEQ/L Estimat Glomerular Filtration Rate 102 ML/MIN Lipase 124 U/L MDM Medical Decision Making Medical Screen Exam Complete: Yes Emergency Medical Condition: Yes Medical Record Reviewed: Yes Differential Diagnosis Exacerbation of chronic abdominal pain, obstruction, perforation Narrative Course I have reviewed the patient's electronic medical record. Reviewed her oncologist note from 3 weeks ago. Reviewed her labs and paracentesis note from yesterday Lab studies sent I gave her 5 mg IV Compazine and 1 mg IV Dilaudid for symptom relief CT of abdomen pelvis shows significant ascites and findings consistent with known metastatic ovarian cancer. I reviewed her EKG which shows sinus tachycardia Is a regular narrow complex sinus rhythm with clear P and T waves for each QRS Given her anasarca I had concern for pericardial effusion with her tachycardia She went back to the CT scanner to get a CT of the chest to rule out pericardial effusion. She only has trace pericardial fluid. She has a small pleural effusion. She is not short of breath. She does not have any chest pain or pleuritic symptoms. PE is in the differential but I felt pericardial effusion more important to rule out. After 4+ hours in the ER she is still having significant tachycardia. No hypotension or fever. She does not look septic nor toxic. I reviewed with the hospitalist will admit Diagnosis Primary Impression: Abdominal pain Qualified Codes: R10.10 - Upper abdominal pain, unspecified Additional Impressions: Ovarian cancer Qualified Codes: C56.9 - Malignant neoplasm of unspecified ovary Sinus tachycardia Admitting Information Admitting Physician Requests: Admit Scripts No Active Prescriptions or Reported Meds Mariano Burleson MD Oct 28, 2017 17:33
[2017-10-28] MEDS ORDERED: HYDROmorphone HCL PF 2 MG/ML VIAL IV PUSH ONE (17:45)
[2017-10-28 17:52] LABS: AUTOMATED NEUTROPHIL # 5.4 TH/MM3 (1.8-7.7); BASOPHIL # 0.2 TH/MM3 (0-0.2); EOSINOPHIL # 0.1 TH/MM3 (0-0.4); HEMATOCRIT 44.3 % (35.0-46.0); HEMOGLOBIN 14.8 GM/DL (11.6-15.3); LYMPH % 22.4 % (9.0-44.0); LYMPHOCYTE # 1.9 TH/MM3 (1.0-4.8); MEAN CELL VOLUME 88.4 FL (80.0-100.0); MEAN CORPUSCULAR HEMOGLOBIN 29.6 PG (27.0-34.0); MEAN CORPUSCULAR HGB CONC 33.5 % (32.0-36.0); MEAN PLATELET VOLUME 7.1 FL (7.0-11.0); MONO % 8.1 % (0.0-8.0); MONOCYTE # 0.7 TH/MM3 (0-0.9); NEUT % 66.5 % (16.0-70.0); PLATELET COUNT 416 TH/MM3 (150-450); RED BLOOD COUNT 5.01 MIL/MM3 (4.00-5.30); RED CELL DISTRIBUTION WIDTH 13.6 % (11.6-17.2); WHITE BLOOD COUNT 8.3 TH/MM3 (4.0-11.0)
[2017-10-28 18:03] LABS: CHLORIDE 103 MEQ/L (98-107); SODIUM (NA) 138 MEQ/L (136-145)
[2017-10-28 18:06] LABS: CALCIUM 8.5 MG/DL (8.5-10.1)
[2017-10-28 18:07] LABS: ALBUMIN 2.6 GM/DL (3.4-5.0); BLOOD UREA NITROGEN 3 MG/DL (7-18); GLUCOSE,RANDOM 103 MG/DL (74-106)
[2017-10-28 18:08] LABS: INTERNATIONAL NORMALIZED RATIO 1.2 RATIO
[2017-10-28 18:09] LABS: ALT (GPT) 19 U/L (10-53); AST (GOT) 28 U/L (15-37)
[2017-10-28 18:10] LABS: CREATININE 0.64 MG/DL (0.50-1.00); GLOMERULAR FILTRATION RATE 102 ML/MIN (>89)
[2017-10-28] MEDS ORDERED: IOHEXOL 350 MG/ML 10 ML VIAL (for RAD DIAG) IVCONTRAST ONE (18:10)
[2017-10-28 18:11] LABS: TOTAL PROTEIN 6.6 GM/DL (6.4-8.2)
[2017-10-28 18:12] LABS: ALKALINE PHOSPHATASE 87 U/L (45-117)
--- NOTE | 2017-10-28 18:37 | RADRPT ---
EXAM DATE: 10/28/2017 6:12 PM EDT AGE/SEX: 42 years / Female INDICATIONS: Bilateral upper quadrant pain and low back pain. CLINICAL DATA: This is the patient's initial encounter. Patient reports that signs and symptoms have been present for 2 days and indicates a pain score of 10/10. MEDICAL/SURGICAL HISTORY: Carcinoma, ovarian. Hysterectomy. ORAL CONTRAST: No oral contrast ingested. RADIATION DOSE: 21.25 CTDI (mGy) COMPARISON: [facility] – [place], CT ABDOMEN & PELVIS W CONTRAST, 05/02/2017. . TECHNIQUE: Multiple contiguous axial images were obtained through the abdomen and pelvis following b olus infusion of 90 ml Omnipaque 350 (iohexol) nonionic water-soluble contrast as a single exam dos e. No oral contrast ingested. Using automated exposure control and adjustment of the mA and/or kV ac cording to patient size, the radiation dose was kept as low as reasonably achievable to obtain optima l diagnostic quality images. FINDINGS: There is a small right-sided pleural effusion which is a new finding since April 2000. Since the prior exam there is interval development of severe ascites. No acute finding is identified in the liver, spleen, adrenals, kidneys or pancreas. No calcified gallstones or biliary ductal dilata tion. There is mild mural thickening of bowel which can sometimes be seen with ascites. Reportedly there is a history of ovarian carcinoma. There is a mass in the left lower quadrant measur ing up to 5.9 x 3.4 there cm which is slightly increased from previous measurements of 5.1 x 2.3 cm. There is also a new cystic appearing lesion in the left pelvic sidewall measuring by 3.1 cm and locul ated fluid in the lower right pelvis adjacent to the rectum measuring up to 8.6r by 4.7 cm. On image #63 of series 2 there is a suspected 2 cm mesenteric lymph node that has developed. CONCLUSION: 1. Development of severe ascites in patient with reported history of ovarian carcinoma. There is inc rease in size of a mesenteric lymph node as above as well as increase in size in the left lower quadr ant mass and loculated fluid or cysts in the lower pelvis as above. There is some mural thickening of bowel sometimes seen with ascites. No new liver lesions. 2. Development of small right pleural effusion. Electronically signed by: Adeel Avina MD 10/28/2017 6:35 PM EDT
--- NOTE | 2017-10-28 20:49 | RADRPT ---
EXAM DATE: 10/28/2017 8:45 PM EDT AGE/SEX: 42 years / Female INDICATIONS: Pericardial effusion. CLINICAL DATA: This is the patient's initial encounter. Patient reports that signs and symptoms have been present for 1 day and indicates a pain score of 0/10. MEDICAL/SURGICAL HISTORY: Carcinoma, ovarian. Hysterectomy. RADIATION DOSE: 18.01 CTDI (mGy) COMPARISON: No prior exams available for comparison. TECHNIQUE: Multiple contiguous axial images were obtained through the chest without contrast. Image s were obtained in suspended respiration using multiple row detector helical technique. Using automa beny exposure control and adjustment of the mA and/or kV according to patient size, radiation dose was kept as low as reasonably achievable to obtain optimal diagnostic quality images. FINDINGS: There is a small right-sided pleural effusion. No left effusion. Trace pericardial fluid. Right-sided [id number] is in superior vena cava. No lung mass or adenopathy to suggest metastatic disease. Upper abdomen reveals severe ascites. CONCLUSION: 1. Negative for metastatic disease to the thorax. Trace pericardial fluid. Small right pleural effus ion. Electronically signed by: Adeel Avina MD 10/28/2017 8:48 PM EDT
[2017-10-28] MEDS ORDERED: LACTULOSE SYRUP 20 GM/30 ML CUP PO PRN (21:45)
[2017-10-28] MEDS ORDERED: ACETAMINOPHEN 325 MG TAB PO PRN (21:45)
[2017-10-28] MEDS ORDERED: SENNOSIDES 8.6 MG TAB PO PRN (21:45)
[2017-10-28] MEDS ORDERED: BISACODYL 10 MG SUPP RECTAL PRN (21:45)
[2017-10-28] MEDS ORDERED: HYDROmorphone HCL PF 2 MG/ML VIAL IV PRN (22:15)
[2017-10-29] VITALS (7 sets, daily range): BP systolic 135–168; BP diastolic 88–104; PULSE 75–136; RESP 18–20; TEMP 96.9–98.8; O2SAT 95–98
[2017-10-29] MEDS: METOCLOPRAMIDE HCL 10 MG/2 ML VIAL IV PUSH PRN ×3 (02:46→21:14)
[2017-10-29 07:38] LABS: AUTOMATED NEUTROPHIL # 4.2 TH/MM3 (1.8-7.7); BASOPHIL % 0.3 % (0.0-2.0); EOSINOPHIL # 0.1 TH/MM3 (0-0.4); EOSINOPHIL % 0.8 % (0.0-4.0); HEMATOCRIT 42.2 % (35.0-46.0); HEMOGLOBIN 14.1 GM/DL (11.6-15.3); LYMPH % 22.3 % (9.0-44.0); LYMPHOCYTE # 1.5 TH/MM3 (1.0-4.8); MEAN CELL VOLUME 89.4 FL (80.0-100.0); MEAN CORPUSCULAR HEMOGLOBIN 29.8 PG (27.0-34.0); MEAN CORPUSCULAR HGB CONC 33.3 % (32.0-36.0); MONO % 10.1 % (0.0-8.0); MONOCYTE # 0.7 TH/MM3 (0-0.9); NEUT % 66.5 % (16.0-70.0); PLATELET COUNT 377 TH/MM3 (150-450); RED BLOOD COUNT 4.72 MIL/MM3 (4.00-5.30); RED CELL DISTRIBUTION WIDTH 13.8 % (11.6-17.2); WHITE BLOOD COUNT 6.5 TH/MM3 (4.0-11.0)
[2017-10-29 07:49] LABS: CHLORIDE 103 MEQ/L (98-107); SODIUM (NA) 139 MEQ/L (136-145)
[2017-10-29 07:59] LABS: CALCIUM 8.4 MG/DL (8.5-10.1)
[2017-10-29 08:00] LABS: ALBUMIN 2.5 GM/DL (3.4-5.0); BICARBONATE 27.5 MEQ/L (21.0-32.0); BLOOD UREA NITROGEN 4 MG/DL (7-18); GLUCOSE,RANDOM 86 MG/DL (74-106)
[2017-10-29 08:03] LABS: ALT (GPT) 17 U/L (10-53); AST (GOT) 22 U/L (15-37); CREATININE 0.49 MG/DL (0.50-1.00); GLOMERULAR FILTRATION RATE 139 ML/MIN (>89)
[2017-10-29 08:04] LABS: TOTAL BILIRUBIN ADULT 0.7 MG/DL (0.2-1.0); TOTAL PROTEIN 6.4 GM/DL (6.4-8.2)
[2017-10-29 08:05] LABS: ALKALINE PHOSPHATASE 84 U/L (45-117)
[2017-10-29] MEDS: DOCUSATE SODIUM 50 MG/SENNA 8.6 MG TAB PO SCH ×2 (08:44→21:00)
[2017-10-29] MEDS: SODIUM CHLORIDE 0.9% FLUSH 10 ML FLUSH IV FLUSH SCH ×2 (08:48→20:59)
--- NOTE | 2017-10-29 11:02 | MB ---
cc: Mayank Delgado MD,Haley Alba MD DATE: 10/29/2017 REASON FOR CONSULTATION: Ovarian cancer, abdominal pain, ascites and a desire to change treatment plan. PATIENT PROFILE: The patient is a 42-year-old white female. She has never been . She has 2 children; a son, age 21 and a son, age 9. She lives alone. She was born in [place]. 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 She does not smoke and does not drink. HISTORY OF PRESENT ILLNESS: The patient was diagnosed with stage IIIc ovarian cancer in 06/2014. She received preoperative chemotherapy with carboplatin and Taxol. She had definitive surgery on 11/07/2014, consisting of a hysterectomy and bilateral salpingo-oophorectomy. 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 She went on to receive additional postoperative chemotherapy and received a total of 11 cycles of carboplatin and Taxol, completing treatment in 05/2015. She subsequently relapsed and received gemcitabine and then gemcitabine and carboplatin. She developed progressive disease recently and was started on niraparib, which is a PARP inhibitor, about 6 weeks ago; she is BRCA negative. Of recent, she has had problems either tolerating the medicine or progression of disease with worsening ascites. She recently went to [facility] for a second opinion and the physician she saw recommended weekly Taxol with Avastin. This Monday, she had a paracentesis with the removal of 5000 mL of fluid. She felt immediately better and but unfortunately has returned to the hospital due to worsening pain. She had a CT of the abdomen and pelvis again on 10/28/2017 showing the development of severe ascites. Mesenteric lymph nodes have increased in size. She is uncomfortable. She has required narcotics for pain control. She would like to begin the new treatment regimen as soon as possible. PAST SURGICAL HISTORY: 1. On 11/06/2014, T[facility]BSO for stage IIIC ovarian cancer. 2. Port placement. PAST MEDICAL HISTORY: No medical problems except as related to her ovarian cancer. MEDICATIONS: None. ALLERGIES: NONE. FAMILY HISTORY: Noncontributory. REVIEW OF SYSTEMS: Notable for the abdominal pain, fullness, occasional burning in the upper abdomen. It is otherwise unremarkable for all systems. LABORATORY STUDIES: On 10/29/2017, hemoglobin 14; white count 6500; platelets 377,000. Electrolytes, BUN, creatinine and liver function tests are normal. Most recent CA-125 is 112 on 04/27/2017. If there are other values available, I do not have them. PHYSICAL EXAMINATION: GENERAL: Reveals a pleasant female, supine in bed. She is not in any immediate distress. The abdomen is moderately distended. VITAL SIGNS: Blood pressure 150/95, respiratory rate 18, pulse 100, afebrile, O2 saturation 95 percent. HEENT: Head is normocephalic. Sclerae and conjunctivae are normal. Oropharynx unremarkable. LYMPHATICS: There is no cervical, supraclavicular, axillary or inguinal adenopathy. HEART: Regular rate and rhythm. LUNGS: Clear, without rales, wheezes, or rhonchi. ABDOMEN: Distended. There is gross ascites. I cannot feel any masses. EXTREMITIES: Trace edema. MUSCULOSKELETAL: no tenderness NEUROLOGIC: No focal weakness. Cognition and affect normal. SKIN: Normal. ADDITIONAL RADIOGRAPHIC STUDIES: On 10/28/2017, patient had a CT of the thorax. She has a small right pleural effusion. ASSESSMENT: The patient is a 42-year-old female who was diagnosed with stage III ovarian cancer in 06/2014 and has received 11 cycles of carboplatin and Taxol, as well as definitive surgery. She relapsed and was treated with gemcitabine and then gemcitabine and carboplatin. She most recently has been treated with a PARP inhibitor, but only for a limited amount of time. She now appears to have progression of disease. She has returned from [facility] and the suggestion was to treat her with Taxol and Avastin. PLAN: 1. She is uncomfortable. She still has a great deal of abdominal ascites remaining. - recommendation is a paracentesis as soon as possible and then home. 2. She needs to get treatment underway. I spoke to Dr. James by phone this morning and subsequent to this, his nurse, Vicky Redd. Shortly after discharge, the patient will contact Dr. James' office and arrangements will be made for an appointment this week to begin treatment with Taxol and Avastin. I have spoken with the patient's hospitalist, Dr. Mendez. She will arrange for the paracentesis and then following this, the patient can go home. At this point, nothing further to add. MD ODETTE Antony , 09:54 AM , 11:00 AM MTDNeal
--- NOTE | 2017-10-29 11:21 | HHI.HP ---
[facility] No Primary Care Physician Admission Diagnosis abd pain, ovarian cancer, persistent sinus tachycardia Diagnoses: Chief Complaint: Abdominal pain Travel History International Travel<30 Days: No Contact w/Intl Traveler <30 Da: No Traveled to Known Affected Are: No History of Present Illness This patient is a very pleasant 42-year-old female with a known history of ovarian cancer and metastases thereof. She has omental disease. She has recurrent ascites. 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 Patient's complaining of quite a bit of pain which is severe and not radiating and local as to the abdominal cavity. She had no nausea or vomiting or diarrhea. She is quite a bit of ascites and has undergone recurrent paracentesis due to this issue. She has not had any fevers or chills. Did speak with the radiologist to expect to do a paracentesis in the a.m. Patient has also had persistent tachycardia for years. It is worse now with increased abdominal discomfort and with pain. It is sinus tach. Patient also admits some anxiety. Care plan discussed with the oncology team and the nursing team as well as the patient Review of Systems Constitutional: DENIES: Diaphoretic episodes, Fatigue, Fever, Weight gain, Weight loss, Chills, Dizziness, Change in appetite, Night Sweats Endocrine: DENIES: Abnorml menstrual pattern, Heat/cold intolerance, Polydipsia , Polyuria, Polyphagia Eyes: DENIES: Blurred vision, Diplopia, Eye inflammation, Eye pain, Vision loss , Photosensitivity, Double Vision Ears, nose, mouth, throat: DENIES: Tinnitus, Hearing loss, Vertigo, Nasal discharge, Oral lesions, Throat pain, Hoarseness, Ear Pain, Running Nose, Epistaxis, Sinus Pain, Toothache, Odynophagia Respiratory: DENIES: Apneas, Cough, Snoring, Wheezing, Hemoptysis, Sputum production, Shortness of breath Cardiovascular: DENIES: Chest pain, Palpitations, Syncope, Dyspnea on Exertion , PND, Lower Extremity Edema, Orthopnea, Claudication Gastrointestinal: COMPLAINS OF: Abdominal pain, DENIES: Black stools, Bloody stools, Constipation, Diarrhea, Nausea, Vomiting, Difficulty Swallowing, Anorexia Genitourinary: DENIES: Abnormal vaginal bleeding, Dysmenorrhea, Dyspareunia, Sexual dysfunction, Urinary frequency, Urinary incontinence, Urgency, Hematuria , Dysuria, Nocturia, Vaginal discharge Musculoskeletal: DENIES: Joint pain, Muscle aches, Stiffness, Joint Swelling, Back pain, Neck pain Integumentary: DENIES: Abnormal pigmentation, Pruritus, Rash, Nail changes, Breast masses, Breast skin changes, Nipple discharge Hematologic/lymphatic: DENIES: Bruising, Lymphadenopathy Immunologic/allergic: DENIES: Eczema, Urticaria Neurologic: DENIES: Abnormal gait, Headache, Localized weakness, Paresthesias, Seizures, Speech Problems, Tremor, Poor Balance Psychiatric: COMPLAINS OF: Anxiety, DENIES: Confusion, Mood changes, Depression , Hallucinations, Agitation, Suicidal Ideation, Homicidal Ideation, Delusions Except as stated in HPI: all other systems reviewed are Neg Past Family Social History Past Medical History Ovarian cancer Past Surgical History Port placement Hysterectomy Reported Medications She denies Allergies: Coded Allergies: No Known Allergies (Verified Allergy, Unknown, 10/28/17) Active Ordered Medications Reviewed in the EMR Family History Hypertension Social History Employed No tobacco alcohol dependency Lives with her family Physical Exam Vital Signs Vital Signs Date Time Temp Pulse Resp B/P (MAP) Pulse Ox O2 Delivery O2 Flow Rate FiO2 10/29/17 08:00 98.8 136 18 164/100 (121) 95 150/98 (115) 10/29/17 08:00 112 10/29/17 07:45 97 Nasal Cannula 2.00 10/29/17 05:10 96.9 75 20 137/88 (104) 97 10/29/17 00:00 98.1 125 20 141/88 (105) 98 10/28/17 22:55 129 20 151/99 (116) 97 Nasal Cannula 2.00 10/28/17 22:10 129 18 97 Nasal Cannula 2.00 10/28/17 21:23 134 18 98 Nasal Cannula 2.00 10/28/17 19:54 20 95 Nasal Cannula 2.00 10/28/17 19:51 145 20 90 Room Air 10/28/17 19:49 142 20 147/86 (106) 96 Room Air 10/28/17 18:27 123 18 142/85 (104) 96 Room Air 10/28/17 16:56 98.0 145 20 164/93 (116) 98 Physical Exam GENERAL: This is a well-nourished, well-developed patient, in no apparent distress. SKIN: No rashes, ecchymoses or lesions. Cool and dry. HEAD: Atraumatic. Normocephalic. No temporal or scalp tenderness. EYES: Pupils equal round and reactive. Extraocular motions intact. No scleral icterus. No injection or drainage. ENT: Nose without bleeding, purulent drainage or septal hematoma. Throat without erythema, tonsillar hypertrophy or exudate. Uvula midline. Airway patent. NECK: Trachea midline. No JVD or lymphadenopathy. Supple, nontender, no meningeal signs. CARDIOVASCULAR: Sinus tachycardia without murmurs, gallops, or rubs. RESPIRATORY: Clear to auscultation. Breath sounds equal bilaterally. No wheezes , rales, or rhonchi. GASTROINTESTINAL: Abdomen soft, minimally tender r, mildly distended. No hepato -splenomegaly, or palpable masses. No guarding. MUSCULOSKELETAL: Extremities without clubbing, cyanosis, or edema. No joint tenderness, effusion, or edema noted. No calf tenderness. Negative Homans sign bilaterally. NEUROLOGICAL: Awake and alert. Cranial nerves II through XII intact. Motor and sensory grossly within normal limits. Five out of 5 muscle strength in all muscle groups. Normal speech. Laboratory Laboratory Tests Test 10/28/17 17:30 10/29/17 06:19 White Blood Count 8.3 6.5 Red Blood Count 5.01 4.72 Hemoglobin 14.8 14.1 Hematocrit 44.3 42.2 Mean Corpuscular Volume 88.4 89.4 Mean Corpuscular Hemoglobin 29.6 29.8 Mean Corpuscular Hemoglobin Concent 33.5 33.3 Red Cell Distribution Width 13.6 13.8 Platelet Count 416 377 Mean Platelet Volume 7.1 7.0 Neutrophils (%) (Auto) 66.5 66.5 Lymphocytes (%) (Auto) 22.4 22.3 Monocytes (%) (Auto) 8.1 10.1 Eosinophils (%) (Auto) 1.0 0.8 Basophils (%) (Auto) 2.0 0.3 Neutrophils # (Auto) 5.4 4.2 Lymphocytes # (Auto) 1.9 1.5 Monocytes # (Auto) 0.7 0.7 Eosinophils # (Auto) 0.1 0.1 Basophils # (Auto) 0.2 0.0 CBC Comment DIFF FINAL DIFF FINAL Differential Comment Prothrombin Time 12.0 Prothromb Time International Ratio 1.2 Activated Partial Thromboplast Time 24.8 Blood Urea Nitrogen 3 4 Creatinine 0.64 0.49 Random Glucose 103 86 Total Protein 6.6 6.4 Albumin 2.6 2.5 Calcium Level 8.5 8.4 Alkaline Phosphatase 87 84 Aspartate Amino Transf (AST/SGOT) 28 22 Alanine Aminotransferase (ALT/SGPT) 19 17 Total Bilirubin 1.0 0.7 Sodium Level 138 139 Potassium Level 3.4 3.9 Chloride Level 103 103 Carbon Dioxide Level 22.0 27.5 Anion Gap 13 9 Estimat Glomerular Filtration Rate 102 139 Lipase 124 Result Diagram: 10/29/17 0619 10/29/17 0619 Imaging Last Impressions Abdomen/Pelvis CT 10/28/17 1727 Signed Impressions: CONCLUSION: 1. Development of severe ascites in patient with reported history of ovarian c arcinoma. There is increase in size of a mesenteric lymph node as above as well as increase in size in the left lower quadrant mass and loculated fluid or cys ts in the lower pelvis as above. There is some mural thickening of bowel someti mes seen with ascites. No new liver lesions. 2. Development of small right pleural effusion. Chest CT 10/28/17 0000 Signed Impressions: CONCLUSION: 1. Negative for metastatic disease to the thorax. Trace pericardial fluid. Sma ll right pleural effusion. Caprini VTE Risk Assessment Caprini VTE Risk Assessment: Mod/High Risk (score >= 2) Caprini Risk Assessment Model Point Value = 1 Point Value = 2 Point Value = 3 Point Value = 5 Age 41-60 Minor surgery BMI > 25 kg/m2 Swollen legs Varicose veins or History of unexplained or recurrent spontaneous Oral contraceptives or hormone replacement Sepsis (< 1 month) Serious lung disease, including pneumonia (< 1 month) Abnormal pulmonary function Acute myocardial infarction Congestive heart failure (< 1 month) History of inflammatory bowel disease Medical patient at bed rest Age 61-74 Arthroscopic surgery Major open surgery (> 45 min) Laparoscopic surgery (> 45 min) Malignancy Confined to bed (> 72 hours) Immobilizing plaster cast Central venous access Age >= 75 History of VTE Family history of VTE Factor V Leiden Prothrombin [id number] Lupus anticoagulant Anticardiolipin antibodies Elevated serum homocysteine Heparin-induced thrombocytopenia Other congenital or acquired thrombophilia Stroke (< 1 month) Elective arthroplasty Hip, pelvis, or leg fracture Acute spinal cord injury (< 1 month) Prophylaxis Regimen Total Risk Factor Score Risk Level Prophylaxis Regimen 0-1 Low Early ambulation 2 Moderate Order ONE of the following: *Sequential Compression Device (SCD) *Heparin 5000 units SQ BID 3-4 Higher Order ONE of the following medications: *Heparin 5000 units SQ TID *Enoxaparin/Lovenox 40 mg SQ daily (WT < 150 kg, CrCl > 30 mL/min) *Enoxaparin/Lovenox 30 mg SQ daily (WT < 150 kg, CrCl > 10-29 mL/min) *Enoxaparin/Lovenox 30 mg SQ BID (WT < 150 kg, CrCl > 30 mL/min) AND/OR *Sequential Compression Device (SCD) 5 or more Highest Order ONE of the following medications: *Heparin 5000 units SQ TID (Preferred with Epidurals) *Enoxaparin/Lovenox 40 mg SQ daily (WT < 150 kg, CrCl > 30 mL/min) *Enoxaparin/Lovenox 30 mg SQ daily (WT < 150 kg, CrCl > 10-29 mL/min) *Enoxaparin/Lovenox 30 mg SQ BID (WT < 150 kg, CrCl > 30 mL/min) AND *Sequential Compression Device (SCD) Assessment and Plan Problem List: (1) Ovarian cancer ICD Code: C56.9 - Ovarian cancer Status: Acute Plan: With ascites, for paracentesis D/W oncology for outpatient oncology follow-up (2) Sinus tachycardia ICD Code: R00.0 - Tachycardia, unspecified Status: Acute Plan: Possibly due to ascites versus anxiety We will add some Xanax in expect paracentesis in a.m. Code Status full code Problem Qualifiers (1) Ovarian cancer: Qualified Codes: C56.9 - Malignant neoplasm of unspecified ovary Tata Mendez MD Oct 29, 2017 11:21
--- NOTE | 2017-10-29 13:32 | EKG ---
Date Performed: 10/28/2017 Time Performed: 19:09:36 PTAGE: 42 years EKG: ATRIAL FLUTTER/TACHYCARDIA WITH RAPID VENTRICULAR RESPONSE NONSPECIFIC ST & T-WAVE ABNORMAL ITY ABNORMAL RHYTHM ECG PREVIOUS TRACING : 10/29/1996 18.02 Rate has increased significantly since the prior tracing wi th nonspecific ST-T changes. Clinical correlation recommended. DOCTOR: Raji Rodrigez Interpretating Date/Time 10/29/2017 13:31:38
[2017-10-29] MEDS: ALPRAZolam 0.5 MG TAB PO PRN (13:53)
[2017-10-29] MEDS ORDERED: cloNIDine HCL 0.1 MG TAB PO PRN (20:30)
[2017-10-29] MEDS: MAGNESIUM HYDROXIDE SUSP 30 ML CUP PO PRN (21:13)
[2017-10-30] VITALS (8 sets, daily range): BP systolic 125–140; BP diastolic 85–102; PULSE 101–151; RESP 18–22; TEMP 97.5–98.5; O2SAT 95–98
[2017-10-30] MEDS: MAGNESIUM HYDROXIDE SUSP 30 ML CUP PO PRN (04:04)
[2017-10-30] MEDS: METOCLOPRAMIDE HCL 10 MG/2 ML VIAL IV PUSH PRN ×2 (04:04→09:02)
[2017-10-30] MEDS: DOCUSATE SODIUM 50 MG/SENNA 8.6 MG TAB PO SCH ×2 (08:07→09:01)
[2017-10-30] MEDS: SODIUM CHLORIDE 0.9% FLUSH 10 ML FLUSH IV FLUSH SCH (09:10)
[2017-10-30] MEDS: ALPRAZolam 0.5 MG TAB PO PRN (09:16)
--- NOTE | 2017-10-30 11:57 | HHI.DCPOC ---
Discharge Care Plan Diagnosis: (1) Ascites (2) Ovarian cancer (3) Sinus tachycardia Goals to Promote Your Health * To prevent worsening of your condition and complications * To maintain your health at the optimal level Directions to Meet Your Goals Take your medications as prescribed Follow your dietary instruction Follow activity as directed Keep your appointments as scheduled Take your immunizations and boosters as scheduled If your symptoms worsen call your PCP, if no PCP go to Urgent Care Center or Emergency Room Smoking is Dangerous to Your Health. Avoid second hand smoke Call the 24-hour hour crisis hotline for domestic abuse at Tata Mendez MD Oct 30, 2017 11:56
[2017-10-30] MEDS ORDERED: METO25TA3 PO (11:58)
[2017-10-30] MEDS ORDERED: ALPR.5 PO (11:58)
[2017-10-30] MEDS ORDERED: TRAM50TA PO (11:58)
[2017-10-30] MEDS ORDERED: METOPROLOL TARTRATE 25 MG TAB PO SCH (12:00)
--- NOTE | 2017-10-30 12:20 | HHI.PR ---
Subjective Remarks Patient seen and evaluated in follow-up for abdominal pain secondary to ascites (likely secondary to ovarian cancer). 5 L removed off of paracentesis today. Heart rate improved. Patient asymptomatic. Discharge plans discussed with patient Objective Vitals Vital Signs Date Time Temp Pulse Resp B/P (MAP) Pulse Ox O2 Delivery O2 Flow Rate FiO2 10/30/17 11:55 125/85 (98) 10/30/17 11:35 97.7 137 22 140/89 (106) 97 10/30/17 08:00 97.5 134 22 140/100 (113) 95 10/30/17 04:00 98.0 132 18 138/98 (111) 97 10/30/17 00:19 98.5 123 18 138/102 (114) 98 10/29/17 20:40 98.2 127 18 168/104 (125) 98 160/98 (118) 10/29/17 16:00 97.8 129 18 135/97 (110) 98 10/29/17 14:54 20 I/O 10/29/17 10/29/17 10/29/17 10/30/17 10/30/17 10/30/17 07:00 15:00 23:00 07:00 15:00 23:00 Intake Total 480 ml 600 ml 480 ml Balance 480 ml 600 ml 480 ml Intake Oral 480 ml 600 ml 480 ml # Voids 1 3 2 # Bowel Movements 0 Result Diagram: 10/29/17 0619 10/29/17 0619 Imaging Last Impressions Abdomen/Pelvis CT 10/28/17 1727 Signed Impressions: CONCLUSION: 1. Development of severe ascites in patient with reported history of ovarian c arcinoma. There is increase in size of a mesenteric lymph node as above as well as increase in size in the left lower quadrant mass and loculated fluid or cys ts in the lower pelvis as above. There is some mural thickening of bowel someti mes seen with ascites. No new liver lesions. 2. Development of small right pleural effusion. Chest CT 10/28/17 0000 Signed Impressions: CONCLUSION: 1. Negative for metastatic disease to the thorax. Trace pericardial fluid. Sma ll right pleural effusion. Objective Remarks GENERAL: This is a well-nourished, well-developed patient, in no apparent distress. CARDIOVASCULAR:sinus tachy without murmurs, gallops, or rubs. RESPIRATORY: Clear to auscultation. Breath sounds equal bilaterally. No wheezes , rales, or rhonchi. GASTROINTESTINAL: Abdomen soft, non-tender, nondistended. Normal active bowel sounds MUSCULOSKELETAL: Extremities without clubbing, cyanosis, or edema. NEURO: Alert & Oriented x4 to person, place, time, situation. Moves all ext x4 Procedures Paracentesis, over 5 L removed A/P Problem List: (1) Ovarian cancer ICD Code: C56.9 - Ovarian cancer Status: Acute Plan: Status post paracentesis with improvement in discomfort Discharge plans continue Discussed with patient and mom at bedside (2) Sinus tachycardia ICD Code: R00.0 - Tachycardia, unspecified Status: Acute Plan: Possibly due to ascites versus anxiety Continue Xanax and pain medication Improved after paracentesis Add Lopressor also due to elevated blood pressures which have been consistent per patient Assessment and Plan Discharge home Activity unrestricted Diet regular Problem Qualifiers (1) Ovarian cancer: Qualified Codes: C56.9 - Malignant neoplasm of unspecified ovary Tata Mendez MD Oct 30, 2017 12:20
[2017-10-30] MEDS ORDERED: LIDOCAINE HCL 1% 30 ML VIAL SQ ONE (12:54)
[2017-10-30 13:05] LABS: PERITONEAL BASO 1 %; PERITONEAL EOS 2 %
[2017-10-30 13:06] LABS: PERITONEAL LYMPHS 86 %; PERITONEAL MESOTHELIAL 3 %; PERITONEAL MONOS 2 %; PERITONEAL POLYS(SEGS) 6 %
[2017-10-30 13:07] LABS: PERITONEAL RBC 208 /MM3 (0-0)
[2017-10-30] MEDS ORDERED: ACET300T2 PO (15:17)
--- NOTE | 2017-10-30 16:47 | RADRPT ---
EXAM DATE: 10/30/2017 11:48 AM EDT AGE/SEX: 42 years / Female INDICATIONS: Ascites. CLINICAL DATA: This is the patient's sequela encounter. Patient reports that signs and symptoms have been present for 3 days and indicates a pain score of 3/10. MEDICAL/SURGICAL HISTORY: . Ovarian Cancer. . . Pelvic mass. Hysterectomy. Po rt placement. COMPARISON: [facility] [place] GUIDED ABD PARACENTESIS, 10/27/2017. . FLUID: Total volume of 5,900 cc of clear, yellow fluid was removed. Fluid was sent to lab for ordered studie s. . . TECHNIQUE: Ultrasound guidance for abdominal paracentesis. Paracentesis. The risks, benefits, and alternatives to ultrasound guided paracentesis were explained to the patient in detail including the risk of bleeding and infection. Written and verbal informed consent was obt ained. With the patient on the ultrasound table, ultrasound imaging was used to select the most appropriate approach for paracentesis. Overlying skin was prepped and draped in the usual sterile fashion and wi th a local anesthetic, a dermatotomy was made with an 11 blade scalpel. A 6 Serbian Saf-T -centesis c atheter was introduced into the peritoneal cavity and fluid was collected. Post procedure scanning reveals no hematoma or other complication. The patient tolerated the procedu re well and left the ultrasound suite in stable condition. CONCLUSION: 1. Uncomplicated paracentesis. Electronically signed by: Kristopher Heart MD 10/30/2017 4:46 PM EDT
--- NOTE | 2017-10-30 22:50 | EKG ---
Date Performed: 10/30/2017 Time Performed: 12:28:08 PTAGE: 42 years EKG: ATRIAL FLUTTER/ATRIAL FIBRILLATION WITH RAPID VENTRICULAR RESPONSE NONSPECIFIC T-WAVE ABNOR MALITY ABNORMAL ECG PREVIOUS TRACING : 10/28/2017 19.09 DOCTOR: Jenelle Mckeon Interpretating Date/Time 10/30/2017 22:49:12
== END 2017-10-30 17:49 | disposition home or self-care (01) | DRG 755 ==
LOC: PHED 16:53 → PHEDA 22:38 → PH3A 23:05
PROVIDERS: ADMIT Hospitalist; ATTEND Hospitalist
PROC: 0W9G3ZZ Drainage of Peritoneal Cavity, Percutaneous Approach (ICD-10-PCS; principal; 2017-10-30)
DX: C56.9 Malignant neoplasm of unspecified ovary (principal); R18.8 Other ascites; J90 Pleural effusion, not elsewhere classified; R00.0 Tachycardia, unspecified; F41.9 Anxiety disorder, unspecified; R03.0 Elevated blood-pressure reading, without diagnosis of hypertension; Z92.21 Personal history of antineoplastic chemotherapy; Z90.710 Acquired absence of both cervix and uterus
CPT/HCPCS: 49083; 71250; 74177; 80053; 83690; 85025; 85610; 85730; 87070; 87205; 88112; 88305; 89051; 93005; 96374; 96375; C1729; J0780; J1170; J2765; Q9967

== ENCOUNTER 2017-12-18 12:06 | Inpatient (IN) ==
--- NOTE | 2017-12-18 13:12 | ED ---
HPI General Chief complaint: Abdominal Pain Stated complaint: constipation Time Seen by Provider: 12/18/17 12:58 History of Present Illness HPI narrative: 42-year-old female with history of ovarian cancer presents for evaluation of abdominal pain/distention, decreased appetite, constipation. She reports that she has not had a bowel movement over the past week. Over the past 2 days she has developed generalized abdominal pain, bloating sensation, constant, no aggravating or relieving factors. She reports that she one episode of foul-smelling emesis yesterday evening. She reports decreased appetite over the past several days. Denies chest pain, shortness of breath, cough, congestion, dysuria, fevers or chills. Her oncologist is Dr. James. Last chemotherapy was 3 days ago. No other complaints. Related Data Home Medications Medication Instructions Recorded Confirmed omeprazole 20 mg PO DAILY 12/18/17 12/18/17 Allergies Allergy/AdvReac Type Severity Reaction Status Date / Time No Known Allergies Allergy Verified 12/18/17 12:42 Review of Systems Except as stated in HPI: all other systems reviewed are negative REPLACED BY [facility] Social History Social History Substance History: No History of Abuse Second Hand Smoke Exposure: No Smoking Status: Never smoker How Often Do You Have a Drink Containing Alcohol: Never Recent Travel in [place] within the Last 8 Weeks: No Recent Out of Country Travel within the Last 8 Weeks: No Immunization History Tetanus Immunization: Unsure Hx Influenza Vaccine This Season: Yes Exam Narrative Exam Narrative: GENERAL: This is a ill-appearing female who is in no acute distress. She is noted to be tachycardic SKIN: Warm and dry. HEAD: Atraumatic. Normocephalic. EYES: Pupils equal and round. No scleral icterus. No injection or drainage. ENT: No nasal bleeding or discharge. Dry mucous membranes. NECK: Trachea midline. No JVD. CARDIOVASCULAR: Tachycardic rate. No murmur appreciated. RESPIRATORY: No accessory muscle use. Clear to auscultation. Breath sounds equal bilaterally. GASTROINTESTINAL: Abdomen distended, generalized tenderness to palpation without guarding. MUSCULOSKELETAL: No obvious deformities. No clubbing. No cyanosis. No edema. NEUROLOGICAL: Awake and alert. No obvious cranial nerve deficits. Motor grossly within normal limits. Normal speech. Course Initial Documented Vital Signs Temperature 97.4 F L 12/18/17 12:22 Pulse Rate 147 H 12/18/17 12:22 Respiratory Rate 20 12/18/17 12:22 Blood Pressure 108/85 12/18/17 12:22 Pulse Oximetry 99 12/18/17 12:22 Last Documented Vital Signs Temperature 97.4 F L 12/18/17 12:22 Pulse Rate 113 H 12/18/17 16:37 Respiratory Rate 18 12/18/17 16:37 Blood Pressure 123/85 12/18/17 16:37 Pulse Oximetry 96 12/18/17 16:37 Medical Decision Making MDM Narrative Medical decision making narrative: The patient was placed on ECG monitoring pulse oximetry. A 12 EKG was obtained revealing sinus tachycardia with a rate of 140. Lab work, CT abdomen and pelvis is been ordered. Page for her oncologist has been placed. Normal saline administered. She is declining antiemetics or pain medication. Discussed with allyson Cuevas chief arson division with Dr. James, reports that the patient frequently gets therapeutic paracentesis, last one was in late October however. Studies reveal a small bowel obstruction as well as persistent ascites. Discussed with the on-call surgeon Dr. Rushing who comes see the patient. Discussed again with Mason, along with Dr. Jerez, request an NG tube at low intermittent suction. They are happy to consult during the patient's admission. The patient will be admitted to the medicine team. Differential Diagnosis Differential Diagnosis: Ascites, obstruction, colitis, dehydration, chemotherapy side effect, electrolyte abnormality Lab Data Result diagrams: 12/18/17 13:14 12/18/17 13:14 Lab Results 12/18/17 12/18/17 12/18/17 Range/Units 13:14 13:14 13:14 WBC 5.4 (4.0-11.0) th/mm3 RBC 5.36 H (4.00-5.30) mil/mm3 Hgb 15.5 H (11.6-15.3) gm/dL Hct 46.3 H (35.0-46.0) % MCV 86.3 (80.0-100.0) fL MCH 29.0 (27.0-34.0) pg MCHC 33.6 (32.0-36.0) % RDW 17.6 H (11.6-17.2) % Plt Count 152 (150-450) th/mm3 MPV 7.7 (7.0-11.0) fL Neut % (Auto) 74.5 H (16.0-70.0) % Lymph % (Auto) 22.5 (9.0-44.0) % [place] % (Auto) 2.5 (0.0-8.0) % Eos % (Auto) 0.2 (0.0-4.0) % Baso % (Auto) 0.3 (0.0-2.0) % Neut # (Auto) 4.0 (1.8-7.7) th/mm3 Lymph # (Auto) 1.2 (1.0-4.8) th/mm3 [place] # (Auto) 0.1 (0.0-0.9) th/mm3 Eos # (Auto) 0.0 (0.0-0.4) th/mm3 Baso # (Auto) 0.0 (0.0-0.2) th/mm3 WBC Differential . Differential Comment Auto diff final PT (9.8-11.6) sec INR Ratio APTT (24.3-30.1) sec Sodium 134 L (136-145) meq/L Potassium 4.7 (3.5-5.1) meq/L Chloride 97 L (98-107) meq/L Carbon Dioxide 27.3 (21.0-32.0) meq/L Anion Gap 10 (5-15) meq/L BUN 12 (7-18) mg/dL Creatinine 0.60 (0.50-1.00) mg/dL Estimated GFR Greater than 89 (>89) mL/min Random Glucose 66 L (74-106) mg/dL Lactic Acid 2.7 H (0.4-2.0) mmol/L Calcium 7.1 L* (8.5-10.1) mg/dL Prot Corrected Calcium 8.4 L (8.5-10.1) mg/dL Total Bilirubin 0.8 (0.2-1.0) mg/dL AST 76 H (15-37) U/L ALT 37 (10-53) U/L Alkaline Phosphatase 91 (45-117) U/L Total Protein 4.8 L (6.4-8.2) g/dL Albumin 2.0 L (3.4-5.0) g/dL Lipase 24 L (73-393) U/L 12/18/17 Range/Units 13:48 WBC (4.0-11.0) th/mm3 RBC (4.00-5.30) mil/mm3 Hgb (11.6-15.3) gm/dL Hct (35.0-46.0) % MCV (80.0-100.0) fL MCH (27.0-34.0) pg MCHC (32.0-36.0) % RDW (11.6-17.2) % Plt Count (150-450) th/mm3 MPV (7.0-11.0) fL Neut % (Auto) (16.0-70.0) % Lymph % (Auto) (9.0-44.0) % [place] % (Auto) (0.0-8.0) % Eos % (Auto) (0.0-4.0) % Baso % (Auto) (0.0-2.0) % Neut # (Auto) (1.8-7.7) th/mm3 Lymph # (Auto) (1.0-4.8) th/mm3 [place] # (Auto) (0.0-0.9) th/mm3 Eos # (Auto) (0.0-0.4) th/mm3 Baso # (Auto) (0.0-0.2) th/mm3 WBC Differential Differential Comment PT 13.4 H (9.8-11.6) sec INR 1.3 Ratio APTT 28.5 (24.3-30.1) sec Sodium (136-145) meq/L Potassium (3.5-5.1) meq/L Chloride (98-107) meq/L Carbon Dioxide (21.0-32.0) meq/L Anion Gap (5-15) meq/L BUN (7-18) mg/dL Creatinine (0.50-1.00) mg/dL Estimated GFR (>89) mL/min Random Glucose (74-106) mg/dL Lactic Acid (0.4-2.0) mmol/L Calcium (8.5-10.1) mg/dL Prot Corrected Calcium (8.5-10.1) mg/dL Total Bilirubin (0.2-1.0) mg/dL AST (15-37) U/L ALT (10-53) U/L Alkaline Phosphatase (45-117) U/L Total Protein (6.4-8.2) g/dL Albumin (3.4-5.0) g/dL Lipase (73-393) U/L Imaging Data Radiologist's impression: Abdomen/Pelvis CT 12/18/17 12:58 CONCLUSION: 1. Compared with October 28 there is interval development of small bowel dilatation to about 5.5 cm with distal terminal ileum and colonic decompression characteristic of a distal small bowel obstruction. 2. Multiloculated ascites is similar in appearance to prior exam. 3. Previous right pleural effusion has decreased in size. 4. Increase in fatty infiltration of the liver since October 28. Discharge Plan Discharge Disposition Patient Disposition: 30 Still Patient Discharge Condition Condition: Stable Discharge Details Diagnosis: Small bowel obstruction, Hypocalcemia, Dehydration Physicians Team ED Provider: Brenna Echevarria ED Midlevel Provider: Pb Vega Primary Care Provider: Primary Care Patricia Garcia Rxs /Orders / Referrals /Forms Prescriptions: No Action omeprazole 20 mg Capsule,Delayed Release(Dr/Ec) 20 mg PO DAILY RF: 0 Status ED Status: With Doctor
[2017-12-18] MEDS ORDERED: Sod Chloride 0.9% Inj 1,000 ML IV.CONT SCH (13:15)
[2017-12-18 13:47] LABS: Baso % (Auto) 0.3 % (0.0-2.0); Eos % (Auto) 0.2 % (0.0-4.0); Hematocrit 46.3 % (35.0-46.0); Hemoglobin 15.5 gm/dL (11.6-15.3); Lymph # (Auto) 1.2 th/mm3 (1.0-4.8); Lymph % (Auto) 22.5 % (9.0-44.0); Mean Corpuscular HGB Conc 33.6 % (32.0-36.0); Mean Corpuscular Volume 86.3 fL (80.0-100.0); Mean Platelet Volume 7.7 fL (7.0-11.0); Mono # (Auto) 0.1 th/mm3 (0.0-0.9); Mono % (Auto) 2.5 % (0.0-8.0); Neut % (Auto) 74.5 % (16.0-70.0); Platelet Count 152 th/mm3 (150-450); Red Blood Count 5.36 mil/mm3 (4.00-5.30); Red Cell Distribution Width 17.6 % (11.6-17.2); White Blood Count 5.4 th/mm3 (4.0-11.0)
[2017-12-18 14:14] LABS: Activated Partial Thrombo Time 28.5 sec (24.3-30.1); INR 1.3 Ratio; Prothrombin Time 13.4 sec (9.8-11.6)
[2017-12-18 15:20] LABS: Alanine Aminotransferase 37 U/L (10-53); Alkaline Phosphatase 91 U/L (45-117); Anion Gap 10 meq/L (5-15); Aspartate Aminotransferase 76 U/L (15-37); Blood Urea Nitrogen 12 mg/dL (7-18); Calcium 7.1 mg/dL (8.5-10.1); Carbon Dioxide 27.3 meq/L (21.0-32.0); Chloride 97 meq/L (98-107); Glomerular Filtration Rate Greater Than 89 mL/min (>89); Glucose,Random 66 mg/dL (74-106); Lipase 24 U/L (73-393); Potassium 4.7 meq/L (3.5-5.1); Sodium 134 meq/L (136-145); Total Protein 4.8 g/dL (6.4-8.2)
--- NOTE | 2017-12-18 15:45 | CT ---
EXAM DATE: 12/18/2017 3:28 PM EDT AGE/SEX: 42 years / Female INDICATIONS: Diffuse abdomen pain and vomiting today. CLINICAL DATA: This is the patient's initial encounter. Patient reports that signs and symptoms have been present for 1 day and indicates a pain score of 7/10. MEDICAL/SURGICAL HISTORY: Carcinoma, ovarian. None. ORAL CONTRAST: No oral contrast ingested. RADIATION DOSE: 10.54 CTDI (mGy) COMPARISON: [facility], CT ABDOMEN & PELVIS W CONTRAST, 10/28/2017. . TECHNIQUE: Multiple contiguous axial images were obtained through the abdomen and pelvis following b olus infusion of 83 ml Omnipaque 350 (iohexol) nonionic water-soluble contrast as a single exam dos e. No oral contrast ingested. Using automated exposure control and adjustment of the mA and/or kV ac cording to patient size, radiation dose was kept as low as reasonably achievable to obtain optimal di agnostic quality images. DICOM format image data is available electronically for review and comparis on. FINDINGS: There is trace right pleural fluid, improved from October 28. There is fatty infiltration of the liver. Spleen, adrenals, kidneys and pancreas demonstrate no acute findings. No calcified gallstones. Again seen is loculated ascites similar to October 28. There is interval dilatation of multiple small maryjane wel loops with decompressed colon and the distal portion of the terminal ileum. Small bowel measures up to about 5.5 cm in diameter. No free air. Loculated fluid collections in the pelvis are similar to prior examination. Reported his tory of ovarian cancer. CONCLUSION: 1. Compared with October 28 there is interval development of small bowel dilatation to about 5.5 cm wit h distal terminal ileum and colonic decompression characteristic of a distal small bowel obstruction. 2. Multiloculated ascites is similar in appearance to prior exam. 3. Previous right pleural effusion has decreased in size. 4. Increase in fatty infiltration of the liver since October 28. Electronically signed by: Adeel Avina MD 12/18/2017 3:44 PM EDT
[2017-12-18] MEDS ORDERED: Sod Chloride 0.9% Inj 1,000 ML IV.SIG ONE (16:11)
[2017-12-18] MEDS ORDERED: Calcium Gluconate Inj 1 GM in Sodium Chlor 0.9% Inj 90 ML IV.SIG ONE (16:12)
[2017-12-18] MEDS ORDERED: Calcium Chloride Inj 1 GM in Sodium Chlor 0.9% Inj 100 ML IV.SIG ONE (17:00)
[2017-12-18] MEDS ORDERED: Bisacodyl 10 MG Supp RECTAL PRN (17:59)
[2017-12-18 18:01] LABS: Bilirubin,Urine Negative (Negative); Clarity,Urine Clear (Clear); Color,Urine Yellow (Yellw/Straw); Glucose,Urine (UA) Negative (Negative); Leukocyte Esterase,Urine Negative (Negative); Nitrite,Urine Negative (Negative); Specific Gravity,Urine 1.029 (1.002-1.035); Squamous Epithelial Cell,Urine <1 /hpf (0-5); Urobilinogen,Urine 4 or Greater mg/dL (Less than 2)
--- NOTE | 2017-12-18 18:05 | P.HP ---
History of Present Illness Service: [facility] Primary Care Physician: No Primary Care Physician Chief Complaint: Abdominal pain History of Present Illness: 42 YOWF with history of ovarian cancer s/p hysterectomy and partial omentectomy in 2014 and now currently undergoing chemotherapy for recurrence presented to the ED with generalized abdominal pain, nausea, and vomiting. The patient reports she has had abdominal discomfort for months but in the last 2-3 days the pain has become unbearable. Her pain is especially worst in the epigastric region and she has had some associated fullness and distention. She has also had intermittent vomiting during the past couple months that she states has a fecal odor. In the past two days she hasn't been able to tolerate any oral intake because of the pressure in her abdomen. She states she hasn't passed flatus in "months." Her last BM was about a week ago and prior to that she was having small of amounts of liquid, nonbloody diarrhea. She endorses some shortness of breath that she attributes to her abdominal pressure. She states she has been belching frequently and even her belches are foul-smelling. Her oncologist is Dr. James and her last chemo was 3 days ago. 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 She was admitted back in October for similar abdominal pain and during that admission she had a paracentesis with 3.4L fluid removal as well as an EGD that showed esophagitis and multiple gastric ulcers. Inpatient Certification: I certify that the inpatient services were ordered in accordance with Medicare regulations governing the order. This includes certification that hospital inpatient services are reasonable and necessary and in the case of services not specified as inpatient-only under 42 CFR 419.22(n), that they are appropriately provided as inpatient services in accordance to with the 2-midnight benchmark under 43 CFR 412.3(e) Estimated Total Length of Stay (Days): 3 Plans for Post Hospital Care: Not yet determined Review of Systems All other systems reviewed negative except as stated in HPI PMFSH - History History Provided By: Patient - Medical History Medical History: Medical History (Last Reviewed 12/18/17 @ 18:21 by Marixa Post MD) Carcinomatosis Gastric ulcer History of hysterectomy Ascites Ovarian cancer Port-A-Cath in place - Family History Family History: Family History (Last Updated 12/18/17 @ 18:22 by Marixa Post MD) Mother Hypertension Father Kidney malignancy - Tobacco History Second Hand Smoke Exposure: No Smoking Status: Never smoker - Alcohol History How Often Do You Have a Drink Containing Alcohol: Never - Substance Use History Substance History: No History of Abuse - Travel History Recent Travel in the [place] Within the Last 8 Weeks: No Recent Travel Out of the Country Within the Last 8 Weeks: No - Immunization History Tetanus Immunization: Unsure Hx Influenza Vaccine This Season: Yes Medications and Allergies Active Medications: Active Medications Al Hydroxide/Mg Hydroxide (Milk Of Magnesia Liq) 30 ml PO Q12H PRN PRN Reason: Mild Constipation Bisacodyl (Dulcolax Supp) 10 mg RECTAL DAILY PRN PRN Reason: SEVERE CONSITIPATION Sodium Chloride (Ns Inj) 1,000 mls @ 100 mls/hr IV.CONT .Q10H AMIRA Last Infusion: 12/18/17 14:52 Dose: Infused Lactulose (Lactulose Liq) 30 ml PO DAILY PRN PRN Reason: SEVERE CONSITIPATION Ondansetron HCl (Zofran Inj) 4 mg IV.PUSH Q6H PRN PRN Reason: NAUSEA OR VOMITING Sennosides (Senokot) 17.2 mg PO Q12H PRN PRN Reason: Moderate Constipation Sodium Chloride (Ns Flush) 2 ml IV.FLUSH PRN PRN PRN Reason: FLUSH AFTER USING IV ACCESS Allergies Allergy/AdvReac Type Severity Reaction Status Date / Time No Known Allergies Allergy Verified 12/18/17 12:42 Home Medications Medication Instructions Recorded Confirmed Type omeprazole 20 mg PO DAILY 12/18/17 12/18/17 History Exam Vital signs: Vital Signs 12/18/17 12:22 12/18/17 12:56 12/18/17 13:27 Temperature 97.4 F L Pulse Rate 147 H 131 H Respiratory Rate 20 14 Blood Pressure 108/85 124/57 L Pulse Oximetry 99 96 96 12/18/17 16:37 Temperature Pulse Rate 113 H Respiratory Rate 18 Blood Pressure 123/85 Pulse Oximetry 96 Intake & Output 12/17/17 12/18/17 12/18/17 18:59 06:59 18:59 Intake Total 1000 / 1000 Balance 1000 / 1000 Weight 83.915 kg Intake: IV 1000 / 1000 NS Inj 1,000 ML @ 100 mls/hr IV 1000 / 1000 .CONT .Q10H AMIRA Rx#:[id number] Narrative: GENERAL: Chronically ill-appearing female laying in bed appearing uncomfortable. SKIN: Warm and dry. HEENT: AT/NC. Pupils equal and round. Dry mucous membranes. NECK: Supple no tender LAD or JVD. CHEST: Port in place. No surrounding erythema. HEART: RRR no m/r/g. LUNGS: CTAB without wheezes or crackles. ABDOMEN: Hypoactive BS. Mildly distended, epigastric TTP. No guarding or rebound. Foul-smelling belches. EXTREMITIES: No LE edema. NEURO: Awake and alert. Nonfocal. Results - Labs CBC & Chem 7: 12/18/17 13:14 12/18/17 13:14 Labs: Laboratory Results - last 24 hr 12/18/17 12/18/17 12/18/17 13:14 13:14 13:14 WBC 5.4 RBC 5.36 H Hgb 15.5 H Hct 46.3 H MCV 86.3 MCH 29.0 MCHC 33.6 RDW 17.6 H Plt Count 152 MPV 7.7 Neut % (Auto) 74.5 H Lymph % (Auto) 22.5 [place] % (Auto) 2.5 Eos % (Auto) 0.2 Baso % (Auto) 0.3 Neut # (Auto) 4.0 Lymph # (Auto) 1.2 [place] # (Auto) 0.1 Eos # (Auto) 0.0 Baso # (Auto) 0.0 WBC Differential . Differential Comment Auto diff final PT INR APTT Sodium 134 L Potassium 4.7 Chloride 97 L Carbon Dioxide 27.3 Anion Gap 10 BUN 12 Creatinine 0.60 Estimated GFR Greater than 89 Random Glucose 66 L Lactic Acid 2.7 H Calcium 7.1 L* Prot Corrected Calcium 8.4 L Total Bilirubin 0.8 AST 76 H ALT 37 Alkaline Phosphatase 91 Total Protein 4.8 L Albumin 2.0 L Lipase 24 L 12/18/17 13:48 WBC RBC Hgb Hct MCV MCH MCHC RDW Plt Count MPV Neut % (Auto) Lymph % (Auto) [place] % (Auto) Eos % (Auto) Baso % (Auto) Neut # (Auto) Lymph # (Auto) [place] # (Auto) Eos # (Auto) Baso # (Auto) WBC Differential Differential Comment PT 13.4 H INR 1.3 APTT 28.5 Sodium Potassium Chloride Carbon Dioxide Anion Gap BUN Creatinine Estimated GFR Random Glucose Lactic Acid Calcium Prot Corrected Calcium Total Bilirubin AST ALT Alkaline Phosphatase Total Protein Albumin Lipase - Imaging Impressions Abdomen/Pelvis CT 12/18/17 12:58 CONCLUSION: 1. Compared with October 28 there is interval development of small bowel dilatation to about 5.5 cm with distal terminal ileum and colonic decompression characteristic of a distal small bowel obstruction. 2. Multiloculated ascites is similar in appearance to prior exam. 3. Previous right pleural effusion has decreased in size. 4. Increase in fatty infiltration of the liver since October 28. Caprini VTE Risk Assessment Caprini VTE Risk Assessment: Moderate/High Risk (score >= 2) Caprini Risk Assessment Model: Point Value = 1 Point Value = 2 Point Value = 3 Point Value = 5 Age 41-60 Minor surgery BMI > 25 kg/m2 Swollen legs Varicose veins or History of unexplained or recurrent spontaneous Oral contraceptives or hormone replacement Sepsis (< 1 month) Serious lung disease, including pneumonia (< 1 month) Abnormal pulmonary function Acute myocardial infarction Congestive heart failure (< 1 month) History of inflammatory bowel disease Medical patient at bed rest Age 61-74 Arthroscopic surgery Major open surgery (> 45 min) Laparoscopic surgery (> 45 min) Malignancy Confined to bed (> 72 hours) Immobilizing plaster cast Central venous access Age >= 75 History of VTE Family history of VTE Factor V Leiden Prothrombin [id number] Lupus anticoagulant Anticardiolipin antibodies Elevated serum homocysteine Heparin-induced thrombocytopenia Other congenital or acquired thrombophilia Stroke (< 1 month) Elective arthroplasty Hip, pelvis, or leg fracture Acute spinal cord injury (< 1 month) Prophylaxis Regimen: Total Risk Factor Score Risk Level Prophylaxis Regimen 0-1 Low Early ambulation 2 Moderate Order ONE of the following: *Sequential Compression Device (SCD) *Heparin 5000 units SQ BID 3-4 Higher Order ONE of the following medications: *Heparin 5000 units SQ TID *Enoxaparin/Lovenox 40 mg SQ daily (WT < 150 kg, CrCl > 30 mL/min) *Enoxaparin/Lovenox 30 mg SQ daily (WT < 150 kg, CrCl > 10-29 mL/min) *Enoxaparin/Lovenox 30 mg SQ BID (WT < 150 kg, CrCl > 30 mL/min) AND/OR *Sequential Compression Device (SCD) 5 or more Highest Order ONE of the following medications: *Heparin 5000 units SQ TID (Preferred with Epidurals) *Enoxaparin/Lovenox 40 mg SQ daily (WT < 150 kg, CrCl > 30 mL/min) *Enoxaparin/Lovenox 30 mg SQ daily (WT < 150 kg, CrCl > 10-29 mL/min) *Enoxaparin/Lovenox 30 mg SQ BID (WT < 150 kg, CrCl > 30 mL/min) AND *Sequential Compression Device (SCD) Assessment and Plan - Plan 42 year old female with recurrent ovarian cancer admitted for SBO. 1. SBO - CT A/P showing interval development of small bowel dilatation with distal terminal ileum and colonic decompression characteristic of the distal SBO. There is multiloculated ascites similar from prior exam. Previous right pleural effusion has decreased in size - Lactic acid 2.1, repeat 1.1 - NPO - NGT - Zofran PRN - IV morphine and Dilaudid PRN - IV fluids - Incentive spirometer 2. Dehydration - Pt appears dry on exam - Tachycardic and mildly hypotensive on presentation - Bolused 1 L in the ED - H&H likely with hemoconcentration 3. Hypocalcemia - Likely secondary to dehydration - Protein corrected calcium is 8.4 - Given dextrose and calcium chloride in the ED - Monitor 4. Hypoglycemia - Glucose 66 on admission - D5 NS at 100 ml/hr since NPO 5. 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 James who is consulted 6. Gastric ulcers - Protonix IV 7. Shortness of breath - Check CXR - CT A/P showing small R pleural effusion, decreased in size from prior - Supplemental O2 PRN 8. Elevated AST - CT A/P showing worsening fatty infiltration - Monitor DVT prophylaxis: SCDs until she is evaluated by surgery Code Status: Full Discussed Condition With: Patient and his mother
[2017-12-18] MEDS ORDERED: Morphine Inj 4 MG/ML Vial IM PRN (18:30)
[2017-12-18] MEDS ORDERED: HYDROmorphone PF Inj 2 MG/ML Vial IV.PUSH PRN (18:31)
--- NOTE | 2017-12-18 18:47 | XR ---
EXAM DATE: 12/18/2017 6:42 PM EDT AGE/SEX: 42 years / Female INDICATIONS: Patient experiencing some shortness of breath with history of ovarian cancer. CLINICAL DATA: This is the patient's initial encounter. Patient reports that signs and symptoms have been present for 1 day and indicates a pain score of 8/10. MEDICAL/SURGICAL HISTORY: Carcinoma, ovarian. None. COMPARISON: POI, XR CHEST PA AND LAT, 12/01/2017. . FINDINGS: There is a lesser degree of inspiration when compared to prior chest x-ray. There is marked elevation of left hemidiaphragm the level of the hilum and stop the right lung appears clear and stop the hear t is normal in size. [id number] catheter tip projects in the right atrium. CONCLUSION: Significant elevation of the left hemidiaphragm and submaximal inspiration both lungs. Electronically signed by: Kristopher Baer MD 12/18/2017 6:46 PM EDT
[2017-12-18] MEDS: Pantoprazole Inj 40 MG Vial IV.PUSH SCH (22:17)
[2017-12-18] MEDS: Dextrose 5%/NaCl 0.9% Inj 1,000 ML IV.CONT SCH (22:23)
--- NOTE | 2017-12-19 08:28 | P.CON ---
History of Present Illness Service: stretcher and drier/onc Consult date: 12/19/17 Reason for Consult: ovarian cancer Primary Care Provider: No Primary Care Physician Family Provider: No Primary Care Physician Chief Complaint: Abdominal pain History of Present Illness: This is a 42 year old female known to stretcher and drier/onc clinic for a diagnosis of recurrent ovarian cancer stage 3C. She is currently on line 4 treatment with weekly Taxol and Avastin on day 1 and 15. She received Day 1 Taxol and Avastin on 12/15/17. Her Ca 125 is trending down and she was tolerating chemotherapy. She states she had an episode of vomiting and it had fecal foul smell. She denies flatus for quite sometime and states it has been about a week since her last BM. Imaging obtained in ER shown SBO and she was admitted to medicine service for management. General surgery was also consulted. NG tube was placed to LIWS. Patient is seen in consultation for the above findings. She has been fighting intermittent nausea/vomiting for many weeks. She has needed therapeutic paracentesis and IV hydration with electrolyte replacement as out patient. Review of Systems Constitutional: Reports weakness Gastrointestinal: Reports abdominal pain, Reports bloating, Reports constipation , Reports heartburn, Reports nausea, Reports vomiting PMFSH - History History Provided By: Patient - Medical History Medical History: Medical History (Last Reviewed 12/18/17 @ 22:26 by Amy Cardona RN) Carcinomatosis Gastric ulcer History of hysterectomy Ascites Ovarian cancer Port-A-Cath in place - Family History Family History: Family History (Last Updated 12/18/17 @ 18:22 by Marixa Post MD) Mother Hypertension Father Kidney malignancy - Tobacco History Second Hand Smoke Exposure: No Smoking Status: Never smoker - Alcohol History How Often Do You Have a Drink Containing Alcohol: Never - Substance Use History Substance History: No History of Abuse - Travel History Recent Travel in the [place] Within the Last 8 Weeks: No Recent Travel Out of the Country Within the Last 8 Weeks: No - Immunization History Tetanus Immunization: Unsure Hx Influenza Vaccine This Season: Yes Medications and Allergies Active Medications: Active Medications Al Hydroxide/Mg Hydroxide (Milk Of Kallie Liq) 30 ml PO Q12H PRN PRN Reason: Mild Constipation Bisacodyl (Dulcolax Supp) 10 mg RECTAL DAILY PRN PRN Reason: SEVERE CONSITIPATION Hydromorphone HCl (Dilaudid Pf Inj) 2 mg IV.PUSH Q4H PRN PRN Reason: BREAKTHROUGH PAIN Dextrose/Sodium Chloride (D5w/Normal Saline Inj) 1,000 mls @ 100 mls/hr IV.CONT .Q10H [facility] Last Admin: 12/18/17 22:23 Dose: 100 mls/hr Lactulose (Lactulose Liq) 30 ml PO DAILY PRN PRN Reason: SEVERE CONSITIPATION Morphine Sulfate (Morphine Inj) 4 mg IM Q4H PRN PRN Reason: PAIN SCALE 1 TO 10 Ondansetron HCl (Zofran Inj) 4 mg IV.PUSH Q6H PRN PRN Reason: NAUSEA OR VOMITING Pantoprazole Sodium (Protonix Inj) 40 mg IV.PUSH Q24H [facility] Last Admin: 12/18/17 22:17 Dose: Not Given Sennosides (Senokot) 17.2 mg PO Q12H PRN PRN Reason: Moderate Constipation Sodium Chloride (Ns Flush) 2 ml IV.FLUSH PRN PRN PRN Reason: FLUSH AFTER USING IV ACCESS Allergies Allergy/AdvReac Type Severity Reaction Status Date / Time No Known Allergies Allergy Verified 12/18/17 12:42 Home Medications Medication Instructions Recorded Confirmed Type omeprazole 40 mg PO BID 12/18/17 12/18/17 History Physical Exam Vital signs: Vital Signs 12/18/17 12:22 12/18/17 12:56 12/18/17 13:27 Temperature 97.4 F L Pulse Rate 147 H 131 H Respiratory Rate 20 14 Blood Pressure 108/85 124/57 L Pulse Oximetry 99 96 96 12/18/17 16:37 12/18/17 21:00 12/19/17 00:00 Temperature 97.9 F 97.4 F L Pulse Rate 113 H 126 H 112 H Respiratory Rate 18 18 18 Blood Pressure 123/85 115/88 119/82 Pulse Oximetry 96 97 97 12/19/17 08:00 Temperature 98.4 F Pulse Rate 119 H Respiratory Rate 18 Blood Pressure 124/85 Pulse Oximetry 96 Intake & Output 12/18/17 12/19/17 12/19/17 18:59 06:59 18:59 Intake Total 2109 Output Total 250 / 250 Balance 2109 -250 / -250 Weight 83.915 kg Intake: IV 2109 NS Inj 1,000 ML @ 100 mls/hr IV 1000 / 1000 .CONT .Q10H [facility] Rx#:[id number] Calcium Chloride Inj 1 GM In NS 110 / 110 Inj 100 ML @ 110 mls/hr IV.SIG ONCE ONE Rx#:[id number] NS Inj 1,000 ML @ Wide Open IV. 1000 / 1000 SIG BOLUS ONE Rx#:[id number] Output: Gastric Drainage 250 / 250 Right Nare 250 / 250 - Constitutional no acute distress, chronically ill appearing - Routine HEENT Exam Head: Present: normocephalic, atraumatic Eye: Present: EOMI, PERRL - Routine Neck Exam Present: supple - Routine Respiratory Exam Present: CTA bilaterally - Routine Cardiovascular Exam Present: tachycardia - Routine Abdominal Exam Present: distended, firm - Routine Skin Exam Present: intact - Routine Neurological Exam Present: oriented X3 sleepy - Detailed Neurological Exam: Coma Scale Eye Opening: To sound Verbal Response: Oriented Assessment and Plan - Assessment (1) Ovarian cancer Code(s): C56.9 - Malignant neoplasm of unspecified ovary Status: Chronic Plan: plan is to continue IV chemotherapy once SBO has resolved and she has been discharged from hospital. will hold IV chemo at this time s/p Taxol and Avastin daily labs: IV hydration and electrolyte replacement as needed (2) Small bowel obstruction Code(s): K56.609 - Unspecified intestinal obstruction, unspecified as to partial versus complete obstruction Status: Acute Plan: NPO NG tube to LIWS continue management per med team we thank for assistance with Mrs. Faizan Tran ANAI for nausea/vomiting IV hydration supportive care (1) Ovarian cancer Qualifiers: Laterality: bilateral Qualified Code(s): C56.1 - Malignant neoplasm of right ovary; C56.2 - Malignant neoplasm of left ovary
--- NOTE | 2017-12-19 09:31 | MB ---
cc: Dg Rushing MD DATE: 12/19/2017 CHIEF COMPLAINT: Abdominal pain, small-bowel obstruction. HISTORY OF PRESENT ILLNESS: The patient is a 42-year-old female with history of metastatic ovarian cancer. She has a history of hysterectomy and a history of open partial omentectomy. She is currently being treated with chemotherapy with Taxol and Avastin. She presents with acute onset of abdominal pain, nausea, vomiting. She states the pain started for several months, however, in the last couple days, it has been significantly worse. She states the pain is primarily epigastric, 4/10, worse with movement, better with lying still. She did have multiple episodes of vomiting at home. She also has had no bowel movement for a week and has not passed gas for months. She has never had any history of bowel obstruction in the past and states she has been tolerating chemo relatively well. Her last chemo was 3 days ago and she is planning for Taxol on for her metastatic ovarian cancer. She had a CT scan showing a small-bowel obstruction and an NG tube placed with appearance of 250 mL output. She states some improvement from this. PAST MEDICAL HISTORY: Gastric ulcer, carcinomatosis ovary. PAST SURGICAL HISTORY: 1. Hysterectomy. 2. Omentectomy, partial. 3. Port placement. MEDICATIONS: See EMR, Taxol and Avastin. ALLERGIES: NO KNOWN DRUG ALLERGIES. FAMILY HISTORY: Mother with hypertension. Father with kidney cancer. SOCIAL HISTORY: Denies smoking, ETOH or IVDA. REVIEW OF SYSTEMS: GENERAL: Denies fever or chills. HEENT: Denies eye pain, ear pain. NECK: Denies swelling or pain. LUNGS: Denies cough or wheeze. HEART: Denies palpitations or chest pain. ABDOMEN: Complains of nausea, vomiting, abdominal pain. GENITOURINARY: Denies dysuria or hematuria. ENDOCRINE: Denies polyuria or polydipsia. INTEGUMENT: Denies any masses or lesions. PHYSICAL EXAMINATION: GENERAL: The patient in no acute distress. VITAL SIGNS: Temperature 97.4, pulse 112, respirations 18, blood pressure 119/82, saturation 97%. HEENT: Pupils equal, round, reactive. NECK: Supple. Trachea midline. LUNGS: Bilateral expansion, clear. HEART: S1, S2 regular. ABDOMEN: Soft. Positive tenderness to palpation in the epigastric area. Mild distention. No rebound, no guarding. EXTREMITIES: Warm and well perfused. GENITOURINARY: Deferred. BACK: Normal curvature. INTEGUMENT: No obvious mass or lesion. NEUROLOGIC: 5/5 in motor all extremities. GCS 15. PSYCHIATRIC: Appropriate mood, appropriate judgment. LABORATORY AND DIAGNOSTIC DATA: WBC 5.4, hemoglobin 15.5, hematocrit 46.3, platelets 152. Sodium 134, potassium 4.7, chloride 97, BUN 12, creatinine 0.6, glucose 66, calcium 8.4, AST 76, ALT 37, lipase 24. IMAGING STUDIES: CT reviewed by myself showing small bowel loop dilation distal ileum decompressed, distal small bowel and colon. Ascites unchanged. Right pleural effusion. ASSESSMENT : The patient is a 42-year-old female with metastatic ovarian cancer and small-bowel obstruction. PLAN: After a full clinical workup, the patient with above-named issues. The patient has small-bowel obstruction. NG tube was placed to suction. At this point, we will attempt nonoperative management. I discussed with the patient in detail. Agree with NG tube to low intermittent suction. We will check abdominal x-ray. We will consider obtaining small bowel follow-through in 1-2 days to evaluate the obstruction. Discussed with the patient regarding the risk of surgery. She is currently on Avastin which puts her at high risk for any small bowel anastomosis. Therefore, the patient may warrant ostomy if operative intervention is entertained. The patient states understanding and agrees. We will continue to follow closely with abdominal exams, await pending results for abdominal x-ray. Thank you for this consultation. MD MICHAELLE Leon/ANGELITA , 09:13 AM , 09:22 AM
[2017-12-19 09:36] LABS: Baso % (Auto) 0.5 % (0.0-2.0); Eos % (Auto) 0.5 % (0.0-4.0); Hematocrit 43.1 % (35.0-46.0); Hemoglobin 14.4 gm/dL (11.6-15.3); Lymph % (Auto) 32.6 % (9.0-44.0); Mean Corpuscular HGB Conc 33.3 % (32.0-36.0); Mean Corpuscular Hemoglobin 29.2 pg (27.0-34.0); Mean Corpuscular Volume 87.6 fL (80.0-100.0); Mean Platelet Volume 7.7 fL (7.0-11.0); Mono # (Auto) 0.1 th/mm3 (0.0-0.9); Mono % (Auto) 3.7 % (0.0-8.0); Neut % (Auto) 62.7 % (16.0-70.0); Platelet Count 121 th/mm3 (150-450); Red Blood Count 4.92 mil/mm3 (4.00-5.30); Red Cell Distribution Width 17.9 % (11.6-17.2); White Blood Count 3.2 th/mm3 (4.0-11.0)
[2017-12-19 10:01] LABS: Alanine Aminotransferase 34 U/L (10-53); Alkaline Phosphatase 97 U/L (45-117); Anion Gap 9 meq/L (5-15); Blood Urea Nitrogen 11 mg/dL (7-18); Calcium 7.9 mg/dL (8.5-10.1); Carbon Dioxide 26.3 meq/L (21.0-32.0); Chloride 102 meq/L (98-107); Glomerular Filtration Rate Greater Than 89 mL/min (>89); Glucose,Random 108 mg/dL (74-106); Sodium 137 meq/L (136-145)
[2017-12-19 10:07] LABS: Aspartate Aminotransferase 46 U/L (15-37); Potassium 3.8 meq/L (3.5-5.1)
--- NOTE | 2017-12-19 10:28 | XR ---
EXAM DATE: 12/19/2017 10:26 AM EDT AGE/SEX: 42 years / Female INDICATIONS: Obstruction. Upper abdominal pain. CLINICAL DATA: This is the patient's subsequent encounter. Patient reports that signs and symptoms h ave been present for 4 - 6 days and indicates a pain score of 3/10. MEDICAL/SURGICAL HISTORY: Carcinoma, ovarian. Hysterectomy. COMPARISON: [facility] [place], CT ABDOMEN & PELVIS W CONTRAST, 12/18/2017. . FINDINGS: There are dilated small bowel loops in the left abdomen. No abnormal masses, calcifications, or org anomegaly is seen. The osseous structures are unremarkable. CONCLUSION: Dilated small bowel loops in the left abdomen again seen. Electronically signed by: Abhilash Abdi MD 12/19/2017 10:27 AM EDT
--- NOTE | 2017-12-19 11:10 | P.PN ---
Subjective Interval history: Pt seen and examined for f/u SBO. Reports feeling slightly better but still with abdominal discomfort and frequent foul-smelling belching. Still no BM or flatus. No other complaints. Physical Exam Vital signs: Vital Signs 12/18/17 12:22 12/18/17 12:56 12/18/17 13:27 Temperature 97.4 F L Pulse Rate 147 H 131 H Respiratory Rate 20 14 Blood Pressure 108/85 124/57 L Pulse Oximetry 99 96 96 12/18/17 16:37 12/18/17 21:00 12/19/17 00:00 Temperature 97.9 F 97.4 F L Pulse Rate 113 H 126 H 112 H Respiratory Rate 18 18 18 Blood Pressure 123/85 115/88 119/82 Pulse Oximetry 96 97 97 12/19/17 08:00 12/19/17 09:25 Temperature 98.4 F Pulse Rate 119 H Respiratory Rate 18 Blood Pressure 124/85 Pulse Oximetry 96 94 L Intake & Output 12/18/17 12/19/17 12/19/17 18:59 06:59 18:59 Intake Total 2109 Output Total 250 / 250 Balance 2109 -250 / -250 Weight 83.915 kg Intake: IV 2109 NS Inj 1,000 ML @ 100 mls/hr IV 1000 / 1000 .CONT .Q10H [facility] Rx#:[id number] Calcium Chloride Inj 1 GM In NS 110 / 110 Inj 100 ML @ 110 mls/hr IV.SIG ONCE ONE Rx#:[id number] NS Inj 1,000 ML @ Wide Open IV. 1000 / 1000 SIG BOLUS ONE Rx#:[id number] Output: Gastric Drainage 250 / 250 Right Nare 250 / 250 Narrative: GENERAL: Chronically ill-appearing female sitting in chair appearing uncomfortable. SKIN: Warm and dry. HEENT: NGT in place. CHEST: Port in place. No surrounding erythema. HEART: RRR no m/r/g. LUNGS: Poor respiratory effort otherwise clear. No wheezes or crackles. ABDOMEN: Hypoactive BS. Distended with epigastric TTP. NEURO: Awake and alert. Results - Labs CBC & Chem 7: 12/19/17 07:45 12/19/17 07:45 Laboratory Results - last 24 hr 08/06/18 08/06/18 08/06/18 13:14 13:14 13:14 WBC 5.4 RBC 5.36 H Hgb 15.5 H Hct 46.3 H MCV 86.3 MCH 29.0 MCHC 33.6 RDW 17.6 H Plt Count 152 MPV 7.7 Neut % (Auto) 74.5 H Lymph % (Auto) 22.5 [place] % (Auto) 2.5 Eos % (Auto) 0.2 Baso % (Auto) 0.3 Neut # (Auto) 4.0 Lymph # (Auto) 1.2 [place] # (Auto) 0.1 Eos # (Auto) 0.0 Baso # (Auto) 0.0 WBC Differential . Differential Comment Auto diff final PT INR APTT Sodium 134 L Potassium 4.7 Chloride 97 L Carbon Dioxide 27.3 Anion Gap 10 BUN 12 Creatinine 0.60 Estimated GFR Greater than 89 Random Glucose 66 L Lactic Acid 2.7 H Calcium 7.1 L* Prot Corrected Calcium 8.4 L Total Bilirubin 0.8 AST 76 H ALT 37 Alkaline Phosphatase 91 Total Protein 4.8 L Albumin 2.0 L Lipase 24 L Urine Color Urine Clarity Urine pH Ur Specific [place] Urine Protein Urine Glucose (UA) Urine Ketones Urine Occult Blood Urine Nitrate Urine Bilirubin Urine Urobilinogen Ur Leukocyte Esterase Urine WBC Ur Squamous Epith Cells Micro UA Comment Urine Culture Comments 12/18/17 12/18/17 12/18/17 13:48 17:45 17:48 WBC RBC Hgb Hct MCV MCH MCHC RDW Plt Count MPV Neut % (Auto) Lymph % (Auto) [place] % (Auto) Eos % (Auto) Baso % (Auto) Neut # (Auto) Lymph # (Auto) [place] # (Auto) Eos # (Auto) Baso # (Auto) WBC Differential Differential Comment PT 13.4 H INR 1.3 APTT 28.5 Sodium Potassium Chloride Carbon Dioxide Anion Gap BUN Creatinine Estimated GFR Random Glucose Lactic Acid 1.1 Calcium Prot Corrected Calcium Total Bilirubin AST ALT Alkaline Phosphatase Total Protein Albumin Lipase Urine Color Yellow Urine Clarity Clear Urine pH 6.0 Ur Specific [place] 1.029 Urine Protein Negative Urine Glucose (UA) Negative Urine Ketones Trace H Urine Occult Blood Negative Urine Nitrate Negative Urine Bilirubin Negative Urine Urobilinogen 4 or greater Ur Leukocyte Esterase Negative Urine WBC 2 Ur Squamous Epith Cells <1 Micro UA Comment Culture not ind Urine Culture Comments Culture not ind 12/19/17 12/19/17 07:45 07:45 WBC 3.2 L RBC 4.92 Hgb 14.4 Hct 43.1 MCV 87.6 MCH 29.2 MCHC 33.3 RDW 17.9 H Plt Count 121 L MPV 7.7 Neut % (Auto) 62.7 Lymph % (Auto) 32.6 [place] % (Auto) 3.7 Eos % (Auto) 0.5 Baso % (Auto) 0.5 Neut # (Auto) 2.0 Lymph # (Auto) 1.0 [place] # (Auto) 0.1 Eos # (Auto) 0.0 Baso # (Auto) 0.0 WBC Differential . Differential Comment Auto diff final PT INR APTT Sodium 137 Potassium 3.8 D Chloride 102 Carbon Dioxide 26.3 Anion Gap 9 BUN 11 Creatinine 0.49 L Estimated GFR Greater than 89 Random Glucose 108 H Lactic Acid Calcium 7.9 L D Prot Corrected Calcium Total Bilirubin 0.7 AST 46 H ALT 34 Alkaline Phosphatase 97 Total Protein 5.0 L Albumin 2.0 L Lipase Urine Color Urine Clarity Urine pH Ur Specific [place] Urine Protein Urine Glucose (UA) Urine Ketones Urine Occult Blood Urine Nitrate Urine Bilirubin Urine Urobilinogen Ur Leukocyte Esterase Urine WBC Ur Squamous Epith Cells Micro UA Comment Urine Culture Comments Microbiology 12/18/17 13:14 Blood - Peripheral Aerobic Blood Culture - Preliminary No growth in 1 day 12/18/17 13:14 Blood - Peripheral Anaerobic Blood Culture - Preliminary No growth in 1 day 12/18/17 13:09 Blood - Peripheral Aerobic Blood Culture - Preliminary No growth in 1 day 12/18/17 13:09 Blood - Peripheral Anaerobic Blood Culture - Preliminary No growth in 1 day - Imaging Impressions Chest X-Ray 12/18/17 00:00 CONCLUSION: Significant elevation of the left hemidiaphragm and submaximal inspiration both lungs. Abdomen/Pelvis CT 12/18/17 12:58 CONCLUSION: 1. Compared with October 28 there is interval development of small bowel dilatation to about 5.5 cm with distal terminal ileum and colonic decompression characteristic of a distal small bowel obstruction. 2. Multiloculated ascites is similar in appearance to prior exam. 3. Previous right pleural effusion has decreased in size. 4. Increase in fatty infiltration of the liver since October 28. Abdomen X-Ray 12/19/17 00:00 CONCLUSION: Dilated small bowel loops in the left abdomen again seen. Assessment and Plan - Assessment (1) Small bowel obstruction Code(s): K56.609 - Unspecified intestinal obstruction, unspecified as to partial versus complete obstruction Status: Acute (2) Ovarian cancer Code(s): C56.9 - Malignant neoplasm of unspecified ovary Status: Chronic - Plan 42 year old female with recurrent ovarian cancer admitted for SBO. 1. SBO - CT A/P showing interval development of small bowel dilatation with distal terminal ileum and colonic decompression characteristic of the distal SBO. There is multiloculated ascites similar from prior exam. Previous right pleural effusion has decreased in size - Lactic acid 2.1, repeat 1.1 - KUB this AMA showing dilated small bowel loops in the left abdomen - General surgery following - Possible small bowel follow through in next 1-2 days - NPO - NGT - Zofran PRN - IV morphine and Dilaudid PRN - IV fluids - Incentive spirometer - Encourage OOB 2. Dehydration - Continues to be tachycardic - Bolused 1 L in the ED - Increase IV fluids to 125 ml/hr 3. Hypocalcemia - improved - Likely secondary to dehydration - Protein corrected calcium is 8.4 - Given calcium chloride in the ED - Improved today 4. Hypoglycemia - resolved - Glucose 66 on admission - D5 in fluids 5. 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 James who is consulted 6. Gastric ulcers - Protonix IV 7. Shortness of breath - Improved - CXR with significant elevation of L hemidiaphragm - CT A/P showing small R pleural effusion, decreased in size from prior - Supplemental O2 PRN 8. Elevated AST - CT A/P showing worsening fatty infiltration - Monitor DVT prophylaxis: SCDs, Lovenox Discussed Condition With: Patient (2) Ovarian cancer Qualifiers: Laterality: bilateral Qualified Code(s): C56.1 - Malignant neoplasm of right ovary; C56.2 - Malignant neoplasm of left ovary
[2017-12-19] MEDS: Dextrose 5%/NaCl 0.9% Inj 1,000 ML IV.CONT SCH ×2 (20:59→21:07)
[2017-12-19] MEDS: Enoxaparin Inj 40 MG/0.4 ML Syringe SQ SCH ×2 (21:00→21:07)
[2017-12-19] MEDS: Pantoprazole Inj 40 MG Vial IV.PUSH SCH ×2 (21:07→22:27)
--- NOTE | 2017-12-19 23:43 | ECG ---
Date Performed: 12/18/2017 Time Performed: 12:31:28 PTAGE: 42 years EKG: SINUS TACHYCARDIA WITH SHORT LA INTERVAL NONSPECIFIC ST & T-WAVE ABNORMALITY ABNORMAL ECG PREVIOUS TRACING : 12/06/2017 10.46 Since the previous tracing, no significant change noted DOCTOR: Marco Antonio Dawn Interpretating Date/Time 12/19/2017 23:42:34
[2017-12-20] MEDS: Dextrose 5%/NaCl 0.9% Inj 1,000 ML IV.CONT SCH ×3 (06:18→17:01)
--- NOTE | 2017-12-20 07:59 | P.PNONC ---
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 states NG tube came out last night and needed to be reinserted denies pain, nausea or vomiting but had a lot of reflux last night has been OOB to ambulate and to chair denies flatus Objective Vital Signs/Intake & Output: Vital Signs 12/19/17 08:00 12/19/17 09:25 12/19/17 12:00 Temperature 98.4 F 98.5 F Pulse Rate 119 H 121 H Respiratory Rate 18 19 Blood Pressure 124/85 117/85 Pulse Oximetry 96 94 L 97 12/19/17 16:00 12/19/17 20:00 12/20/17 00:00 Temperature 98.3 F 97.2 F L 97.2 F L Pulse Rate 126 H 123 H 126 H Respiratory Rate 19 18 19 Blood Pressure 128/65 136/91 H 117/83 Pulse Oximetry 98 97 98 Intake & Output 12/19/17 12/20/17 12/20/17 18:59 06:59 18:59 Intake Total 100 / 100 Output Total 150 / 150 Balance -50 / -50 Weight 83.9 kg Intake: Oral 100 / 100 Output: Gastric Drainage 150 / 150 Right Nare 150 / 150 Other: # Voids 3 2 Result Diagrams: 12/19/17 07:45 12/19/17 07:45 Laboratory Results: Laboratory Results - last 24 hr 12/19/17 12/19/17 07:45 07:45 WBC 3.2 L RBC 4.92 Hgb 14.4 Hct 43.1 MCV 87.6 MCH 29.2 MCHC 33.3 RDW 17.9 H Plt Count 121 L MPV 7.7 Neut % (Auto) 62.7 Lymph % (Auto) 32.6 [place] % (Auto) 3.7 Eos % (Auto) 0.5 Baso % (Auto) 0.5 Neut # (Auto) 2.0 Lymph # (Auto) 1.0 [place] # (Auto) 0.1 Eos # (Auto) 0.0 Baso # (Auto) 0.0 WBC Differential . Differential Comment Auto diff final Sodium 137 Potassium 3.8 D Chloride 102 Carbon Dioxide 26.3 Anion Gap 9 BUN 11 Creatinine 0.49 L Estimated GFR Greater than 89 Random Glucose 108 H Calcium 7.9 L D Total Bilirubin 0.7 AST 46 H ALT 34 Alkaline Phosphatase 97 Total Protein 5.0 L Albumin 2.0 L Culture Results: Microbiology 12/18/17 13:14 Aerobic Blood Culture - Preliminary Blood - Peripheral No growth in 1 day Anaerobic Blood Culture - Preliminary No growth in 1 day 12/18/17 13:09 Aerobic Blood Culture - Preliminary Blood - Peripheral No growth in 1 day Anaerobic Blood Culture - Preliminary No growth in 1 day Imaging Studies: Impressions Abdomen X-Ray 12/19/17 00:00 CONCLUSION: Dilated small bowel loops in the left abdomen again seen. Medications: Active Medications Generic Name Dose Route Start Last Admin Trade Name Delonteq PRN Reason Stop Dose Admin Enoxaparin Sodium 40 mg 12/19/17 15:15 12/19/17 21:07 Lovenox Inj SQ Not Given DAILY@1600 [facility] Dextrose/Sodium Chloride 1,000 mls @ 125 mls/hr 12/18/17 20:00 12/20/17 06:18 D5w/Normal Saline Inj IV.CONT Not Given .Q8H [facility] Pantoprazole Sodium 40 mg 12/18/17 20:00 12/19/17 22:27 Protonix Inj IV.PUSH 40 mg Q24H [facility]A Administration Objective Remarks: GENERAL: Well-nourished, well-developed patient, acutely ill SKIN: Warm and dry. HEAD: Normocephalic. EYES: No scleral icterus. No injection or drainage. CARDIOVASCULAR: tachycardia, without murmurs. RESPIRATORY: Breath sounds equal bilaterally. No accessory muscle use. GASTROINTESTINAL: Abdomen distended and firm, decreased BS x 4 EXTREMITIES: teds and scds MUSCULOSKELETAL: Adequate muscle tone. NEUROLOGICAL: No obvious focal deficit. sleepy and oriented PSYCHIATRIC: Appropriate mood and affect; insight and judgment normal. Assessment/Plan (1) Ovarian cancer Code(s): C56.9 - Malignant neoplasm of unspecified ovary Status: Chronic (2) Small bowel obstruction Code(s): K56.609 - Unspecified intestinal obstruction, unspecified as to partial versus complete obstruction Status: Acute - Plan continue NPO with NG to LIWS encourage ambulation and OOB to chair general surgery following, conservative treatment at this time IVF for hydration supportive care will continue to hold IV chemotherapy during admission s/p Taxol and Avastin 12/15/17 (1) Ovarian cancer Qualifiers: Laterality: bilateral Qualified Code(s): C56.1 - Malignant neoplasm of right ovary; C56.2 - Malignant neoplasm of left ovary
--- NOTE | 2017-12-20 10:14 | P.PNIM ---
Subjective Interval history: Still with some abdominal discomfort. No other concerns at this time. Not passing gas no bowel movements. Has NG tube in place. Physical Exam Vital signs: Vital Signs 12/19/17 12:00 12/19/17 16:00 12/19/17 20:00 Temperature 98.5 F 98.3 F 97.2 F L Pulse Rate 121 H 126 H 123 H Respiratory Rate 19 19 18 Blood Pressure 117/85 128/65 136/91 H Pulse Oximetry 97 98 97 12/20/17 00:00 12/20/17 08:00 Temperature 97.2 F L 97.6 F Pulse Rate 126 H 121 H Respiratory Rate 19 18 Blood Pressure 117/83 117/82 Pulse Oximetry 98 97 Intake & Output 12/19/17 12/20/17 12/20/17 18:59 06:59 18:59 Intake Total 100 / 100 Output Total 150 / 150 Balance -50 / -50 Weight 83.9 kg Intake: Oral 100 / 100 Output: Gastric Drainage 150 / 150 Right Nare 150 / 150 Other: # Voids 3 2 Narrative: GENERAL: Chronically ill-appearing female laying in bed looking slightly uncomfortable. HEENT: NGT in place to suction. CHEST: Port in place. No surrounding erythema. HEART: RRR no m/r/g. LUNGS: Poor respiratory effort otherwise clear. No wheezes or crackles. ABDOMEN: Hypoactive BS. Distended with mild generalized tenderness NEURO: Awake and alert. Results - Labs CBC & Chem 7: 12/19/17 07:45 12/19/17 07:45 Microbiology 12/18/17 13:14 Blood - Peripheral Aerobic Blood Culture - Preliminary No growth in 1 day 12/18/17 13:14 Blood - Peripheral Anaerobic Blood Culture - Preliminary No growth in 1 day 12/18/17 13:09 Blood - Peripheral Aerobic Blood Culture - Preliminary No growth in 1 day 12/18/17 13:09 Blood - Peripheral Anaerobic Blood Culture - Preliminary No growth in 1 day - Imaging Impressions Abdomen X-Ray 12/19/17 00:00 CONCLUSION: Dilated small bowel loops in the left abdomen again seen. Assessment and Plan - Assessment (1) Small bowel obstruction Code(s): K56.609 - Unspecified intestinal obstruction, unspecified as to partial versus complete obstruction Status: Acute (2) Ovarian cancer Code(s): C56.9 - Malignant neoplasm of unspecified ovary Status: Chronic - Plan 42 year old female with recurrent ovarian cancer admitted for SBO. 1. SBOpersists - CT A/P showing interval development of small bowel dilatation with distal terminal ileum and colonic decompression characteristic of the distal SBO. There is multiloculated ascites similar from prior exam. Previous right pleural effusion has decreased in size - Lactic acid 2.1, repeat 1.1 - General surgery following - Possible small bowel follow through in next 1-2 days - NPO - NGT to suction - Zofran PRN - IV morphine as needed - IV fluids - Incentive spirometer - Encourage OOB and activity 2. Dehydration - Continues to be tachycardic - Bolused 1 L in the ED -Continue IV fluids to 125 ml/hr 3. Hypocalcemia - improved - Likely secondary to dehydration - Protein corrected calcium is 8.4 - Given calcium chloride in the ED - Improved today 4. Hypoglycemia - resolved - Glucose 66 on admission - D5 in fluids 5. 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 James who is consulted 6. Gastric ulcers - Protonix IV increase to twice daily 7. Shortness of breath - Improved - CXR with significant elevation of L hemidiaphragm - CT A/P showing small R pleural effusion, decreased in size from prior - Supplemental O2 PRN 8. Elevated AST - CT A/P showing worsening fatty infiltration - Monitor DVT prophylaxis: SCDs, Lovenox (2) Ovarian cancer Qualifiers: Laterality: bilateral Qualified Code(s): C56.1 - Malignant neoplasm of right ovary; C56.2 - Malignant neoplasm of left ovary
--- NOTE | 2017-12-20 11:53 | P.PNGS ---
<Judy Elizabeth - Last Filed: 12/20/17 12:01> Subjective Interval history: Walked in the hallways twice last night; wants to walk again today Less pain; still bloated feeling Physical Exam Vital signs: Vital Signs 12/19/17 12:00 12/19/17 16:00 12/19/17 20:00 Temperature 98.5 F 98.3 F 97.2 F L Pulse Rate 121 H 126 H 123 H Respiratory Rate 19 19 18 Blood Pressure 117/85 128/65 136/91 H Pulse Oximetry 97 98 97 12/20/17 00:00 12/20/17 08:00 Temperature 97.2 F L 97.6 F Pulse Rate 126 H 121 H Respiratory Rate 19 18 Blood Pressure 117/83 117/82 Pulse Oximetry 98 97 Intake & Output 12/19/17 12/20/17 12/20/17 18:59 06:59 18:59 Intake Total 100 / 100 Output Total 150 / 150 Balance -50 / -50 Weight 83.9 kg Intake: Oral 100 / 100 Output: Gastric Drainage 150 / 150 Right Nare 150 / 150 Other: # Voids 3 2 Narrative: Alert and awake Cardio: RRR Resp: CTAB Abd: distended; minimal tenderness NGT to LIWS Assessment and Plan - Assessment (1) Small bowel obstruction Code(s): K56.609 - Unspecified intestinal obstruction, unspecified as to partial versus complete obstruction Status: Acute Plan: 42 year old female with ovarian cancer; small bowel obstruction -Continue NGT to LIWS -OOB and mobilize -SBFT today <Dg Rushing - Last Filed: 12/26/17 20:50> Physical Exam Vital signs: Vital Signs 12/25/17 20:55 12/26/17 00:00 12/26/17 04:00 Temperature 98.1 F 97.7 F 97.9 F Pulse Rate 117 H 124 H 116 H Respiratory Rate 16 18 18 Blood Pressure 118/66 117/88 117/87 Pulse Oximetry 97 97 96 12/26/17 08:00 12/26/17 12:00 12/26/17 16:00 Temperature 98.1 F 98.5 F 98.6 F Pulse Rate 60 107 H 117 H Respiratory Rate 16 18 16 Blood Pressure 145/71 H 126/80 108/68 Pulse Oximetry 16 L 97 98 12/26/17 20:00 Temperature 98.2 F Pulse Rate 111 H Respiratory Rate 16 Blood Pressure 95/72 L Pulse Oximetry 98 Intake & Output 12/26/17 12/26/17 12/27/17 06:59 18:59 06:59 Intake Total 1400 / 1400 1000 / 1000 Output Total 150 / 150 850 / 850 Balance 1250 / 1250 150 / 150 Weight 97 kg Intake: IV 1000 / 1000 1000 / 1000 D5W/1/2NS + KCL 10 mEq Inj 1, 1000 / 1000 1000 / 1000 000 ML @ 125 mls/hr IV.CONT . Q8H AMIRA Rx#:[id number] Oral 400 / 400 Output: Urine 150 / 150 400 / 400 Gastric Drainage 450 / 450 Right Nare Nasogastric Tube 450 / 450 Other: # Voids 1 Date of Last Bowel Movement 12/25/17 12/25/17 # Bowel Movements 1 Assessment and Plan - Assessment (1) Small bowel obstruction Code(s): K56.609 - Unspecified intestinal obstruction, unspecified as to partial versus complete obstruction Status: Acute - Attending Attestation patient seen at bedside no acute issues no sxn attempt non op mgnt abdominal exams The exam, history, and the medical decision-making described in the above note were completed with the assistance of the mid-level provider. I reviewed and agree with the findings presented. I attest that I had a [id number] encounter with the patient on the same day, and personally performed and documented my assessment and findings in the medical record.
[2017-12-20] MEDS ORDERED: Diatrizoate Meglum/Diatrizoate Sod Liq 120 ML Bottle (for RAD diag) NG/OG ONE (13:00)
[2017-12-20] MEDS: Enoxaparin Inj 40 MG/0.4 ML Syringe SQ SCH (16:43)
[2017-12-20] MEDS: Pantoprazole Inj 40 MG Vial IV.PUSH SCH ×2 (16:43→23:27)
--- NOTE | 2017-12-21 05:21 | FL ---
EXAM DATE: 12/21/2017 4:41 AM EDT AGE/SEX: 42 years / Female INDICATIONS: Obstruction. CLINICAL DATA: This is the patient's subsequent encounter. Patient reports that signs and symptoms h ave been present for 1 week and indicates a pain score of 0/10. MEDICAL/SURGICAL HISTORY: Carcinoma, ovarian. Hysterectomy. COMPARISON: C, ABDOMEN 1V KUB, 12/19/2017. . FLUORO TIME: 0 IMAGE COUNT: 17 CONTRAST: FINDINGS: Preliminary film demonstrates dilated loops of small bowel overlying the mid abdomen and left upper q uadrant. There is mild fold thickening. There is a small amount of contrast in the urinary bladder. T here is no definite contrast in the colon up to 15.5 hours. CONCLUSION: Small bowel obstruction. Electronically signed by: Harman Soni MD 12/21/2017 5:19 AM EDT
[2017-12-21 06:28] LABS: Anion Gap 12 meq/L (5-15); Blood Urea Nitrogen 13 mg/dL (7-18); Calcium 8.1 mg/dL (8.5-10.1); Carbon Dioxide 27.6 meq/L (21.0-32.0); Chloride 104 meq/L (98-107); Glomerular Filtration Rate Greater Than 89 mL/min (>89); Glucose,Random 56 mg/dL (74-106); Potassium 3.4 meq/L (3.5-5.1); Sodium 144 meq/L (136-145)
--- NOTE | 2017-12-21 06:44 | MB ---
cc: Haley James MD DATE: 12/19/2017 Corrected Copy: 01/17/18 PHYSICIAN REQUESTING CONSULT: Dr. Marixa Post and Dr. Geetha Garcia REASON FOR CONSULTATION: Ovarian cancer. REASON FOR ADMISSION: Small-bowel obstruction. HISTORY OF PRESENT ILLNESS: This is a 42-year-old woman who is known to our service with recurrent ovarian cancer. She is seen by me. Her findings are reviewed. She is counseled and examined by me in conjunction with our nurse practitioner (Vicky Redd). I agree with her findings, assessment and plan of care. A 42-year-old female with recurrent stage IIIC ovarian cancer, who has recently been having a number of troublesome symptoms including abdominal distention, pressure, discomfort, reflux, nausea, some vomiting, intermittent bowel function, intermittent inability to take and tolerate food and has been requiring periodic therapeutic paracentesis. The aforementioned symptoms have been present and have not significantly changed despite active ongoing treatment and presents now having significant nausea and vomiting that was worse than her recent baseline. She has had absence of bowel function for several days and has presented to the emergency room where she was seen and evaluated. Exam and imaging showed a markedly distended abdomen with dilated loops of small bowel. CAT scan shows dilation of the proximal small bowel with small bowel loops measuring up to 5.5 cm with a decompressed ileum and colon suggesting small-bowel obstruction probably in the proximal to mid ileum. Carcinomatous changes are known to exist with the tumor burden consistent with her ovarian cancer and contributing to the underlying small-bowel obstruction. A nasogastric tube has been placed, which initially overnight, had out over 250 mL. She is seen now in consultation and grateful for the excellent medical care. She is seen now in consultation for further evaluation and recommendations. PAST MEDICAL HISTORY, SURGICAL HISTORY, FAMILY HISTORY, MEDICATIONS, REVIEW OF SYSTEMS, ALLERGIES: All reviewed and as are documented in the chart. PHYSICAL EXAMINATION: GENERAL: On exam, she appears to feel poorly both chronically ill and acutely ill. She is somnolent, but awake and able to respond to questions. She states that her biggest problem is the nausea and vomiting. At the present time, the abdominal pain had eased up to some extent and she reported being reasonably comfortable. HEENT: Mucous membranes are dry. SKIN: Pale, but warm. LUNGS: Clear. HEART: Rapid regular rate and rhythm. ABDOMEN: Tense, diffusely distended and uncomfortable on exam. DISCUSSION: Time is spent in discussion with Jocelyn Gloria. I am certainly sorry that she is feeling poorly. I explained the findings consistent with a small-bowel obstruction almost certainly related to the underlying ovarian cancer. The goal is to try to alleviate her symptoms, provide supportive care, decompress the bowel, provide IV fluids, correct electrolytes and see if it is possible to resolve this obstruction with conservative measures. I explained that there are times when conservative measures cannot correct the problem and surgery may be necessary. The difficulties there are how ovarian cancer tends to be multifocal and the obstruction and underlying cancer problem can be complex such that ultimately response to treatment will be required to alleviate problems and the difficulty in getting recurrent ovarian cancer that has been exposed to multiple lines of treatment to respond is discussed in brief and these discussions are in followup to a series of discussions we have had on prior encounters and seeing Jocelyn in our office. She did not have many questions at this time and again I am sorry she is feeling poorly. We will do what can be done to try to get her feeling better. ASSESSMENT: 1. Recurrent stage IIIC ovarian cancer. 2. Small-bowel obstruction with associated symptomatology, dehydration, and failure to thrive. PLAN: 1. Continue present management with nasogastric tube decompression, IV fluid hydration and correction of electrolytes and supportive care. 2. As her cancer treatment regimen was recently changed, it may still be too soon to determine whether or not there is the possibility of affective response. If response is present, thus far it has been limited as she continues to have significant problems and symptomatology. 3. Consider consultation with palliative care. Haley James MD KLM/JAN , 06:06 AM , 06:19 AM
[2017-12-21] MEDS: Dextrose 5%/NaCl 0.9% Inj 1,000 ML IV.CONT SCH ×4 (07:51→17:52)
--- NOTE | 2017-12-21 08:32 | P.PNONC ---
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 today, feels that she has passed a little gas this morning feels like she needs to have a BM, feels abdomen is less distended and less pain has been OOB to ambulate and to chair Objective Vital Signs/Intake & Output: Vital Signs 12/20/17 12:00 12/20/17 20:00 12/21/17 00:00 Temperature 98.1 F 97.5 F L 97.5 F L Pulse Rate 119 H 122 H 124 H Respiratory Rate 18 21 19 Blood Pressure 120/72 115/81 125/80 Pulse Oximetry 99 97 98 Intake & Output 12/20/17 12/21/17 12/21/17 18:59 06:59 18:59 Intake Total 0 / 0 Output Total 1000 / 1000 1200 / 1200 Balance -1000 / -1000 -1200 / -1200 Weight 83.9 kg Intake: Oral 0 / 0 Output: Gastric Drainage 1000 / 1000 1200 / 1200 Right Nare Nasogastric Tube 1000 / 1000 1200 / 1200 Other: # Voids 3 Result Diagrams: 12/19/17 07:45 12/21/17 05:04 Laboratory Results: Laboratory Results - last 24 hr 12/21/17 05:04 Sodium 144 Potassium 3.4 L Chloride 104 Carbon Dioxide 27.6 Anion Gap 12 BUN 13 Creatinine 0.58 Estimated GFR Greater than 89 Random Glucose 56 L Calcium 8.1 L Culture Results: Microbiology 12/18/17 13:14 Aerobic Blood Culture - Preliminary Blood - Peripheral No growth in 2 days Anaerobic Blood Culture - Preliminary No growth in 2 days 12/18/17 13:09 Aerobic Blood Culture - Preliminary Blood - Peripheral No growth in 2 days Anaerobic Blood Culture - Preliminary No growth in 2 days Imaging Studies: Impressions Small Bowel X-Ray 12/20/17 00:00 CONCLUSION: Small bowel obstruction. Medications: Active Medications Generic Name Dose Route Start Last Admin Trade Name Freq PRN Reason Stop Dose Admin Enoxaparin Sodium 40 mg 12/19/17 15:15 12/20/17 16:43 Lovenox Inj SQ 40 mg DAILY@1600 AMIRA Administration Dextrose/Sodium Chloride 1,000 mls @ 125 mls/hr 12/18/17 20:00 12/21/17 07:52 D5w/Normal Saline Inj IV.CONT Not Given .Q8H AMIRA Pantoprazole Sodium 40 mg 12/20/17 11:00 08/08/18 23:27 Protonix Inj IV.PUSH 40 mg Q12H AMIRA Administration Objective Remarks: GENERAL: Well-nourished, well-developed patient. SKIN: Warm and dry. HEAD: Normocephalic. EYES: No scleral icterus. No injection or drainage. GASTROINTESTINAL: Abdomen soft, mild distention. EXTREMITIES: teds and SCDs MUSCULOSKELETAL: Adequate muscle tone. NEUROLOGICAL: No obvious focal deficit. Awake, alert, and oriented x3. PSYCHIATRIC: Appropriate mood and affect; insight and judgment normal. Assessment/Plan (1) Ovarian cancer Code(s): C56.9 - Malignant neoplasm of unspecified ovary Status: Chronic (2) Small bowel obstruction Code(s): K56.609 - Unspecified intestinal obstruction, unspecified as to partial versus complete obstruction Status: Acute - Plan continue NPO with NG to LIWS encourage ambulation and OOB to chair general surgery following, conservative treatment at this time IVF for hydration supportive care will continue to hold IV chemotherapy during admission s/p Taxol and Avastin 12/15/17 12/21/17 patient needs to restart IVF OOB to ambulate and chair continue NG to LIWS ok for ice chips per general surgery continue to hold chemo during hospital stay Dr. James communicated with general surgery, conservative approach (1) Ovarian cancer Qualifiers: Laterality: bilateral Qualified Code(s): C56.1 - Malignant neoplasm of right ovary; C56.2 - Malignant neoplasm of left ovary
[2017-12-21] MEDS: Pantoprazole Inj 40 MG Vial IV.PUSH SCH (10:05)
--- NOTE | 2017-12-21 11:59 | XR ---
EXAM DATE: 12/21/2017 11:50 AM EDT AGE/SEX: 42 years / Female INDICATIONS: Obstruction. CLINICAL DATA: This is the patient's subsequent encounter. Patient reports that signs and symptoms h ave been present for 1 week and indicates a pain score of 0/10. MEDICAL/SURGICAL HISTORY: Carcinoma, ovarian. Hysterectomy. COMPARISON: [facility], SMALL BOWEL W GASTROGRAFIN, 12/20/2017. . FINDINGS: Distended loops of small bowel containing enteric contrast again noted. There remains no clear evide nce of contrast within the colon. Nasogastric tube with tip in the stomach. Stomach is decompressed. Some excreted contrast again seen in the urinary bladder. CONCLUSION: Findings typical of high-grade small bowel obstruction again noted. Still no contrast convincingly se en in the colon. Electronically signed by: Miguel Mccall MD 12/21/2017 11:58 AM EDT
--- NOTE | 2017-12-21 15:01 | P.PNIM ---
Subjective Interval history: FU SBO and ovarian cancer. Patient states her abdomen is slightly less descended , feels like she has to have a bowel movement but has not. She denies any chest pain, sob, or nausea. Does complain of being uncomfortable with ngt. Physical Exam Vital signs: Vital Signs 12/20/17 20:00 12/21/17 00:00 12/21/17 08:00 Temperature 97.5 F L 97.5 F L 97.4 F L Pulse Rate 122 H 124 H 123 H Respiratory Rate 21 19 17 Blood Pressure 115/81 125/80 121/78 Pulse Oximetry 97 98 96 12/21/17 12:00 Temperature 97.3 F L Pulse Rate 116 H Respiratory Rate 17 Blood Pressure 115/88 Pulse Oximetry 98 Intake & Output 12/20/17 12/21/17 12/21/17 18:59 06:59 18:59 Intake Total 0 / 0 Output Total 1000 / 1000 1200 / 1200 Balance -1000 / -1000 -1200 / -1200 Weight 83.9 kg Intake: Oral 0 / 0 Output: Gastric Drainage 1000 / 1000 1200 / 1200 Right Nare Nasogastric Tube 1000 / 1000 1200 / 1200 Other: # Voids 3 Narrative: GENERAL: Well-nourished, well-developed patient. SKIN: Warm and dry. HEAD: Normocephalic. EYES: No scleral icterus. No injection or drainage. GASTROINTESTINAL: Abdomen soft, mild distention. NGT to LIWS EXTREMITIES: teds and SCDs, no edema MUSCULOSKELETAL: Adequate muscle tone. NEUROLOGICAL: No obvious focal deficit. Awake, alert, and oriented x3. PSYCHIATRIC: Appropriate mood and affect; insight and judgment normal. Results - Labs CBC & Chem 7: 12/19/17 07:45 12/21/17 05:04 Laboratory Results - last 24 hr 12/21/17 05:04 Sodium 144 Potassium 3.4 L Chloride 104 Carbon Dioxide 27.6 Anion Gap 12 BUN 13 Creatinine 0.58 Estimated GFR Greater than 89 Random Glucose 56 L Calcium 8.1 L Microbiology 12/18/17 13:14 Blood - Peripheral Aerobic Blood Culture - Preliminary No growth in 3 days 12/18/17 13:14 Blood - Peripheral Anaerobic Blood Culture - Preliminary No growth in 3 days 12/18/17 13:09 Blood - Peripheral Aerobic Blood Culture - Preliminary No growth in 3 days 12/18/17 13:09 Blood - Peripheral Anaerobic Blood Culture - Preliminary No growth in 3 days - Imaging Impressions Small Bowel X-Ray 12/20/17 00:00 CONCLUSION: Small bowel obstruction. Abdomen X-Ray 12/21/17 00:00 CONCLUSION: Findings typical of high-grade small bowel obstruction again noted. Still no contrast convincingly seen in the colon. Assessment and Plan - Assessment (1) Small bowel obstruction Code(s): K56.609 - Unspecified intestinal obstruction, unspecified as to partial versus complete obstruction Status: Acute (2) Ovarian cancer Code(s): C56.9 - Malignant neoplasm of unspecified ovary Status: Chronic - Plan 42 year old female with recurrent ovarian cancer admitted for SBO. SBOpersists - CT A/P showing interval development of small bowel dilatation with distal terminal ileum and colonic decompression characteristic of the distal SBO. There is multiloculated ascites similar from prior exam. Previous right pleural effusion has decreased in size -Repeat KUB shows high-grade small bowel obstruction again noted. Still no contrast convincingly seen in the colon. - Lactic acid 2.1, repeat 1.1 - General surgery following, decision for surgery will be made later today - small bowel follow through confirmed SBO - NPO, ice chips allowed - NGT to suction - Zofran PRN - IV morphine as needed - Cont IV fluids - Incentive spirometer - Encourage OOB and activity 2. Dehydration, creatine stable - Continues to be tachycardic - Bolused 1 L in the ED -Continue IV fluids to 125 ml/hr 3. Hypocalcemia - improved, stable - Likely secondary to dehydration - Protein corrected calcium is 8.4 - Given calcium chloride in the ED - Cont to monitor 4. Hypoglycemia - resolved - Glucose 66 on admission - D5 in fluids 5. 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 James who is consulted and is following, chemo will be held while admitted 6. Gastric ulcers - Protonix IV increase to twice daily 7. Shortness of breath - Improved - CXR with significant elevation of L hemidiaphragm - CT A/P showing small R pleural effusion, decreased in size from prior - Supplemental O2 PRN -Monitor for worsening effusion if patient requires more O2 8. 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
[2017-12-21] MEDS: Enoxaparin Inj 40 MG/0.4 ML Syringe SQ SCH (17:52)
--- NOTE | 2017-12-21 18:36 | P.PNGS ---
Subjective Patient reports: no flatus (smear on toilet tissue, otherwise no bm, feels less distended) Physical Exam Vital signs: Vital Signs 12/20/17 20:00 12/21/17 00:00 12/21/17 08:00 Temperature 97.5 F L 97.5 F L 97.4 F L Pulse Rate 122 H 124 H 123 H Respiratory Rate 21 19 17 Blood Pressure 115/81 125/80 121/78 Pulse Oximetry 97 98 96 12/21/17 12:00 12/21/17 16:00 Temperature 97.3 F L 97.3 F L Pulse Rate 116 H 117 H Respiratory Rate 17 17 Blood Pressure 115/88 136/84 Pulse Oximetry 98 98 Intake & Output 12/20/17 12/21/17 12/21/17 18:59 06:59 18:59 Intake Total 0 / 0 Output Total 1000 / 1000 1200 / 1200 Balance -1000 / -1000 -1200 / -1200 Weight 83.9 kg Intake: Oral 0 / 0 Output: Gastric Drainage 1000 / 1000 1200 / 1200 Right Nare Nasogastric Tube 1000 / 1000 1200 / 1200 Other: # Voids 3 2 - Routine Respiratory Exam Present: CTA bilaterally - Routine Cardiovascular Exam Present: RRR - Routine Abdominal Exam Present: soft (distension, mild ttp) Assessment and Plan - Assessment (1) Small bowel obstruction Code(s): K56.609 - Unspecified intestinal obstruction, unspecified as to partial versus complete obstruction Status: Acute Plan: 42 year old female with ovarian cancer; small bowel obstruction -Continue NGT to LIWS -OOB and mobilize axr today - continue abdominal exams - if pt no improvement over the weekend then will consider operation early next week
[2017-12-22] MEDS: Pantoprazole Inj 40 MG Vial IV.PUSH SCH ×3 (01:13→17:21)
[2017-12-22] MEDS: Dextrose 5%/NaCl 0.9% Inj 1,000 ML IV.CONT SCH ×3 (05:14→17:20)
--- NOTE | 2017-12-22 08:13 | P.PN ---
Subjective Interval history: reports less abdominal distention, some flatus +/- bm rested better, pain controlled Physical Exam Vital signs: Vital Signs 12/21/17 12:00 12/21/17 16:00 12/21/17 20:00 Temperature 97.3 F L 97.3 F L 97.4 F L Pulse Rate 116 H 117 H 116 H Respiratory Rate 17 17 18 Blood Pressure 115/88 136/84 128/80 Pulse Oximetry 98 98 96 12/22/17 00:00 Temperature 97.4 F L Pulse Rate 124 H Respiratory Rate 18 Blood Pressure 112/77 Pulse Oximetry 97 Intake & Output 12/21/17 12/22/17 12/22/17 18:59 06:59 18:59 Intake Total 1060 / 1060 Output Total 1999 1000 / 1000 Balance -1999 60 60 Weight 84 kg Intake: IV 1000 / 1000 D5W/Normal Saline Inj 1,000 ML 1000 / 1000 @ 125 mls/hr IV.CONT .Q8H [facility] Rx#:[id number] Oral 60 60 Output: Gastric Drainage 1999 1000 / 1000 Right Nare Nasogastric Tube 1999 1000 / 1000 Other: # Voids 2 # Incontinent Voids 2 # Urine Diapers 2 # Bowel Movements 1 - Constitutional no acute distress - Routine HEENT Exam Head: Present: normocephalic Eye: Present: PERRL - Routine Respiratory Exam Present: CTA bilaterally - Routine Cardiovascular Exam Present: RRR - Routine Abdominal Exam Present: soft, distended (hypoactive bs) - Routine Neurological Exam Present: alert, oriented X3 - Routine Psychiatric Exam Present: normal affect Results - Labs CBC & Chem 7: 12/19/17 07:45 12/21/17 05:04 Microbiology 12/18/17 13:14 Blood - Peripheral Aerobic Blood Culture - Preliminary No growth in 3 days 12/18/17 13:14 Blood - Peripheral Anaerobic Blood Culture - Preliminary No growth in 3 days 12/18/17 13:09 Blood - Peripheral Aerobic Blood Culture - Preliminary No growth in 3 days 12/18/17 13:09 Blood - Peripheral Anaerobic Blood Culture - Preliminary No growth in 3 days - Imaging Impressions Abdomen X-Ray 12/21/17 00:00 CONCLUSION: Findings typical of high-grade small bowel obstruction again noted. Still no contrast convincingly seen in the colon. Assessment and Plan - Assessment (1) Ovarian cancer Code(s): C56.9 - Malignant neoplasm of unspecified ovary Status: Chronic Plan: plan is to continue IV chemotherapy once SBO has resolved and she has been discharged from hospital. will hold IV chemo at this time s/p Taxol and Avastin daily labs: IV hydration and electrolyte replacement as needed (2) Small bowel obstruction Code(s): K56.609 - Unspecified intestinal obstruction, unspecified as to partial versus complete obstruction Status: Acute Plan: NPO NG tube to LIWS continue management per med team we thank for assistance with Zeeshan Faizan Tran PRN for nausea/vomiting IV hydration supportive care - Plan HD #5 ovarian cancer, sbo ivfs, ngt, npo continued re-evaluate labs increase oob activity mixed picture clinically with significant increase in NGT output, but less symptomatic discussed with Dr. Rushing 12/21, continue conservative efforts over the next 2-3 days in effort to resolve if possible without surgical intervention (1) Ovarian cancer Qualifiers: Laterality: bilateral Qualified Code(s): C56.1 - Malignant neoplasm of right ovary; C56.2 - Malignant neoplasm of left ovary
--- NOTE | 2017-12-22 09:33 | P.PNGS ---
Subjective Patient reports: feels better (no vomiting or nausea, small flatus, scant bm) Physical Exam Vital signs: Vital Signs 12/21/17 12:00 12/21/17 16:00 12/21/17 20:00 Temperature 97.3 F L 97.3 F L 97.4 F L Pulse Rate 116 H 117 H 116 H Respiratory Rate 17 17 18 Blood Pressure 115/88 136/84 128/80 Pulse Oximetry 98 98 96 12/22/17 00:00 Temperature 97.4 F L Pulse Rate 124 H Respiratory Rate 18 Blood Pressure 112/77 Pulse Oximetry 97 Intake & Output 12/21/17 12/22/17 12/22/17 18:59 06:59 18:59 Intake Total 1060 / 1060 Output Total 1999 1000 / 1000 Balance -1999 60 / 60 Weight 84 kg Intake: IV 1000 / 1000 D5W/Normal Saline Inj 1,000 ML 1000 / 1000 @ 125 mls/hr IV.CONT .Q8H [facility] Rx#:[id number] Oral 60 / 60 Output: Gastric Drainage 1999 1000 / 1000 Right Nare Nasogastric Tube 1999 1000 / 1000 Other: # Voids 2 # Incontinent Voids 2 # Urine Diapers 2 # Bowel Movements 1 - Routine Abdominal Exam Present: soft (mild ttp, mild distension) Assessment and Plan - Assessment (1) Small bowel obstruction Code(s): K56.609 - Unspecified intestinal obstruction, unspecified as to partial versus complete obstruction Status: Acute Plan: 42 year old female with ovarian cancer; small bowel obstruction -Continue NGT to LIWS- advance ng 4cm -OOB and mobilize - continue abdominal exams - if pt no improvement over the weekend then will consider operation early next week - throat spray - Pt needs iv access for ivf, consider port access
[2017-12-22] MEDS ORDERED: Phenol 1.4% 180 ML Spray Bottle OROPHARYNG PRN (09:49)
--- NOTE | 2017-12-22 17:02 | P.PN ---
Subjective Interval history: Follow up: 42 year old female with recurrent ovarian cancer and SBO. Patient tearful and upset regarding IV access and requesting to be transferred to oncology floor abd less distended no N/V, scant flatus no BM Physical Exam Vital signs: Vital Signs 12/21/17 20:00 12/22/17 00:00 12/22/17 08:00 Temperature 97.4 F L 97.4 F L 97.8 F Pulse Rate 116 H 124 H 121 H Respiratory Rate 18 18 17 Blood Pressure 128/80 112/77 113/79 Pulse Oximetry 96 97 97 12/22/17 12:00 12/22/17 16:00 Temperature 98.1 F 98.1 F Pulse Rate 112 H 121 H Respiratory Rate 17 18 Blood Pressure 113/87 125/94 H Pulse Oximetry 98 98 Intake & Output 12/21/17 12/22/17 12/22/17 18:59 06:59 18:59 Intake Total 1060 / 1060 Output Total 1999 / 1999 1000 / 1000 800 / 800 Balance -1999 / -1999 60 / 60 -800 / -800 Weight 84 kg Intake: IV 1000 / 1000 D5W/Normal Saline Inj 1,000 ML 1000 / 1000 @ 125 mls/hr IV.CONT .Q8H [facility] Rx#:[id number] Oral 60 / 60 Output: Gastric Drainage 1999 1000 / 1000 800 / 800 Right Nare Nasogastric Tube 1999 1000 / 1000 800 / 800 Other: # Voids 2 # Incontinent Voids 2 # Urine Diapers 2 Date of Last Bowel Movement 12/21/17 # Bowel Movements 1 Narrative: GENERAL: This is a well-nourished, well-developed patient, tearful but in no apparent distress. CARDIOVASCULAR: Regular rate and rhythm RESPIRATORY: Clear to auscultation. Breath sounds equal bilaterally. GASTROINTESTINAL: Abdomen soft, non-tender, mildly distended. scant bowel sounds MUSCULOSKELETAL: Extremities without clubbing, cyanosis, or edema. NEURO: Alert & Oriented x4 to person, place, time, situation. Moves all ext x4 Results - Labs CBC & Chem 7: 12/19/17 07:45 12/21/17 05:04 Microbiology 12/18/17 13:14 Blood - Peripheral Aerobic Blood Culture - Preliminary No growth in 4 days 12/18/17 13:14 Blood - Peripheral Anaerobic Blood Culture - Preliminary No growth in 4 days 12/18/17 13:09 Blood - Peripheral Aerobic Blood Culture - Preliminary No growth in 4 days 12/18/17 13:09 Blood - Peripheral Anaerobic Blood Culture - Preliminary No growth in 4 days Assessment and Plan - Plan 42 year old female with recurrent ovarian cancer admitted for SBO. 1. SBOpersists - CT A/P showing interval development of small bowel dilatation with distal terminal ileum and colonic decompression characteristic of the distal SBO. There is multiloculated ascites similar from prior exam. Previous right pleural effusion has decreased in size -Repeat KUB shows high-grade small bowel obstruction again noted. Still no contrast convincingly seen in the colon. - Lactic acid 2.1, repeat 1.1 - General surgery following, decision for surgery will be made later today - small bowel follow through confirmed SBO - NPO, ice chips allowed - NGT to suction - Zofran PRN - IV morphine as needed - Cont IV fluids - Incentive spirometer - Encourage OOB and activity - general surgery and oncology also following - continue conservative management and supportive care until Monday then reevaluate need for surgery - Labs ordered and pending, awaiting RN to access PORT for IV hydration and Lab draws 2. Dehydration, creatine stable - Continues to be tachycardic - Bolused 1 L in the ED -Continue IV fluids to 125 ml/hr - plan to transfer patient to oncology floor and have outside repairer special PORT for IVFs and lab draws 3. Hypocalcemia - improved, stable - Likely secondary to dehydration - Protein corrected calcium is 8.4 - Given calcium chloride in the ED - Cont to monitor 4. Hypoglycemia - resolved - Glucose 66 on admission - D5 in fluids 5. 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 James who is consulted and is following, chemo will be held while admitted 6. Gastric ulcers - Protonix IV twice daily 7. Shortness of breath - resolved - CXR with significant elevation of L hemidiaphragm - CT A/P showing small R pleural effusion, decreased in size from prior - Supplemental O2 PRN -Monitor for worsening effusion if patient requires more O2 8. Elevated AST - CT A/P showing worsening fatty infiltration - Monitor DVT prophylaxis: SCDs, Lovenox Discussed Condition With: Supervising physician Dr. Sánchez, Patient and RN
[2017-12-22] MEDS: Enoxaparin Inj 40 MG/0.4 ML Syringe SQ SCH (17:20)
[2017-12-22 19:13] LABS: Baso % (Auto) 0.5 % (0.0-2.0); Eos % (Auto) 0.2 % (0.0-4.0); Hematocrit 42.2 % (35.0-46.0); Hemoglobin 13.9 gm/dL (11.6-15.3); Lymph # (Auto) 1.3 th/mm3 (1.0-4.8); Lymph % (Auto) 31.6 % (9.0-44.0); Mean Corpuscular Hemoglobin 29.3 pg (27.0-34.0); Mean Corpuscular Volume 88.7 fL (80.0-100.0); Mean Platelet Volume 7.3 fL (7.0-11.0); Mono # (Auto) 0.3 th/mm3 (0.0-0.9); Mono % (Auto) 8.1 % (0.0-8.0); Neut # (Auto) 2.5 th/mm3 (1.8-7.7); Neut % (Auto) 59.6 % (16.0-70.0); Platelet Count 192 th/mm3 (150-450); Red Blood Count 4.76 mil/mm3 (4.00-5.30); White Blood Count 4.3 th/mm3 (4.0-11.0)
[2017-12-22 19:31] LABS: Anion Gap 11 meq/L (5-15); Blood Urea Nitrogen 13 mg/dL (7-18); Calcium 7.6 mg/dL (8.5-10.1); Carbon Dioxide 28.4 meq/L (21.0-32.0); Chloride 108 meq/L (98-107); Glomerular Filtration Rate Greater Than 89 mL/min (>89); Glucose,Random 88 mg/dL (74-106); Magnesium 1.5 mg/dL (1.5-2.5); Potassium 3.2 meq/L (3.5-5.1); Sodium 147 meq/L (136-145)
[2017-12-22 19:32] LABS: Phosphorus 3.2 mg/dL (2.5-4.9)
[2017-12-23] MEDS: Dextrose 5%/NaCl 0.9% Inj 1,000 ML IV.CONT SCH ×2 (02:00→10:37)
[2017-12-23] MEDS: Pantoprazole Inj 40 MG Vial IV.PUSH SCH ×2 (02:40→12:58)
[2017-12-23 05:54] LABS: Calcium 7.4 mg/dL (8.5-10.1); Carbon Dioxide 27.7 meq/L (21.0-32.0); Potassium 3.1 meq/L (3.5-5.1)
[2017-12-23 05:56] LABS: Total Protein 4.8 g/dL (6.4-8.2)
[2017-12-23 05:57] LABS: Baso % (Auto) 0.4 % (0.0-2.0); Eos % (Auto) 0.2 % (0.0-4.0); Hematocrit 39.8 % (35.0-46.0); Lymph # (Auto) 1.1 th/mm3 (1.0-4.8); Lymph % (Auto) 28.7 % (9.0-44.0); Mean Corpuscular HGB Conc 32.8 % (32.0-36.0); Mean Corpuscular Hemoglobin 29.1 pg (27.0-34.0); Mean Corpuscular Volume 88.7 fL (80.0-100.0); Mean Platelet Volume 7.8 fL (7.0-11.0); Mono # (Auto) 0.4 th/mm3 (0.0-0.9); Mono % (Auto) 10.8 % (0.0-8.0); Neut # (Auto) 2.3 th/mm3 (1.8-7.7); Neut % (Auto) 59.9 % (16.0-70.0); Platelet Count 201 th/mm3 (150-450); Red Blood Count 4.48 mil/mm3 (4.00-5.30); White Blood Count 3.9 th/mm3 (4.0-11.0)
[2017-12-23] MEDS ORDERED: Mag Sulf 1 gm/100 ml Premix 100 ML IV.SIG ONE (12:17)
--- NOTE | 2017-12-23 12:21 | P.PNIM ---
Subjective Interval history: Patient reports that abdominal discomfort continues. Intermittent pressure sensation in her abdomen. Denies any nausea or vomiting currently. Denies any chest pain or shortness of breath. Physical Exam Vital signs: Vital Signs 12/22/17 16:00 12/22/17 20:00 12/23/17 00:00 Temperature 98.1 F 98.2 F Pulse Rate 121 H 127 H 115 H Respiratory Rate 18 16 18 Blood Pressure 125/94 H 111/87 Pulse Oximetry 98 97 99 12/23/17 04:00 Temperature Pulse Rate 119 H Respiratory Rate 16 Blood Pressure 132/90 Pulse Oximetry 99 Intake & Output 12/22/17 12/23/17 12/23/17 18:59 06:59 18:59 Intake Total 1100 / 1100 500 / 500 Output Total 800 / 800 Balance -800 / -800 1100 / 1100 500 / 500 Weight 84 kg Intake: IV 1100 / 1100 500 / 500 D5W/Normal Saline Inj 1,000 ML 1100 / 1100 500 / 500 @ 125 mls/hr IV.CONT .Q8H [facility] Rx#:[id number] Output: Gastric Drainage 800 / 800 Right Nare Nasogastric Tube 800 / 800 Other: Date of Last Bowel Movement 12/21/17 12/21/17 Narrative: GENERAL: Patient lying in bed. Appears comfortable. NG tube with bilious fluid. SKIN: Warm and dry. HEAD: Normocephalic. EYES: No scleral icterus. No injection or drainage. NECK: Supple, trachea midline. No JVD. CARDIOVASCULAR: Regular rate and rhythm without murmurs, gallops, or rubs. RESPIRATORY: Breath sounds equal bilaterally. No accessory muscle use. GASTROINTESTINAL: Abdomen soft, non-tender, nondistended. MUSCULOSKELETAL: No cyanosis, or edema. BACK: Nontender without obvious deformity. No CVA tenderness. Results - Labs CBC & Chem 7: 12/23/17 04:15 12/23/17 04:15 Laboratory Results - last 24 hr 12/22/17 12/22/17 12/23/17 18:25 18:25 04:15 WBC 4.3 3.9 L RBC 4.76 4.48 Hgb 13.9 13.0 Hct 42.2 39.8 MCV 88.7 88.7 MCH 29.3 29.1 MCHC 33.0 32.8 RDW 18.0 H 18.0 H Plt Count 192 D 201 MPV 7.3 7.8 Neut % (Auto) 59.6 59.9 Lymph % (Auto) 31.6 28.7 [place] % (Auto) 8.1 H 10.8 H Eos % (Auto) 0.2 0.2 Baso % (Auto) 0.5 0.4 Neut # (Auto) 2.5 2.3 Lymph # (Auto) 1.3 1.1 [place] # (Auto) 0.3 0.4 Eos # (Auto) 0.0 0.0 Baso # (Auto) 0.0 0.0 WBC Differential . . Differential Comment Auto diff final Auto diff final Sodium 147 H Potassium 3.2 L Chloride 108 H Carbon Dioxide 28.4 Anion Gap 11 BUN 13 Creatinine 0.70 Estimated GFR Greater than 89 Random Glucose 88 Calcium 7.6 L Prot Corrected Calcium Phosphorus 3.2 Magnesium 1.5 Total Bilirubin AST ALT Alkaline Phosphatase Total Protein Albumin 12/23/17 04:15 WBC RBC Hgb Hct MCV MCH MCHC RDW Plt Count MPV Neut % (Auto) Lymph % (Auto) [place] % (Auto) Eos % (Auto) Baso % (Auto) Neut # (Auto) Lymph # (Auto) [place] # (Auto) Eos # (Auto) Baso # (Auto) WBC Differential Differential Comment Sodium 150 H Potassium 3.1 L Chloride 111 H Carbon Dioxide 27.7 Anion Gap 11 BUN 14 Creatinine 0.82 Estimated GFR 77 L Random Glucose 114 H Calcium 7.4 L* Prot Corrected Calcium 8.7 Phosphorus Magnesium Total Bilirubin 0.6 AST 37 ALT 32 Alkaline Phosphatase 96 Total Protein 4.8 L Albumin 2.0 L Microbiology 12/18/17 13:14 Blood - Peripheral Aerobic Blood Culture - Final No growth in 5 days 12/18/17 13:14 Blood - Peripheral Anaerobic Blood Culture - Final No growth in 5 days 12/18/17 13:09 Blood - Peripheral Aerobic Blood Culture - Final No growth in 5 days 12/18/17 13:09 Blood - Peripheral Anaerobic Blood Culture - Final No growth in 5 days Assessment and Plan - Assessment (1) Small bowel obstruction Code(s): K56.609 - Unspecified intestinal obstruction, unspecified as to partial versus complete obstruction Status: Acute (2) Ovarian cancer Code(s): C56.9 - Malignant neoplasm of unspecified ovary Status: Chronic - Plan 42 year old female with recurrent ovarian cancer admitted for SBO. //SBOpersists - CT A/P showing interval development of small bowel dilatation with distal terminal ileum and colonic decompression characteristic of the distal SBO. There is multiloculated ascites similar from prior exam. Previous right pleural effusion has decreased in size -Repeat KUB shows high-grade small bowel obstruction again noted. Still no contrast convincingly seen in the colon. - Lactic acid 2.1, repeat 1.1 - General surgery following, decision for surgery will be made later today - small bowel follow through confirmed SBO - NPO, ice chips allowed - NGT to suction - Zofran PRN - IV morphine as needed - Cont IV fluids - Incentive spirometer - Encourage OOB and activity - general surgery and oncology also following - continue conservative management and supportive care until Monday then reevaluate need for surgery - Labs ordered and pending, awaiting RN to access PORT for IV hydration and Lab draws = Continue IV fluids. Continue NG tube to low intermittent suction. Surgery following. Appreciate assistance. //Dehydration, creatine stable - Continues to be tachycardic - Bolused 1 L in the ED -Continue IV fluids to 125 ml/hr - plan to transfer patient to oncology floor and have access assoc PORT for IVFs and lab draws //Hypernatremia. = 12/23 sodium 150. Switch to one half normal saline fluids and monitor. //Hypocalcemia - improved, stable - Likely secondary to dehydration - Protein corrected calcium is 8.4 - Given calcium chloride in the ED - Cont to monitor = 12/23. Corrected calcium acceptable. Continue to monitor. /Hypokalemia. -12/23. Potassium 3.1. Replace and monitor. 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 James who is consulted and is following, chemo will be held while admitted //Gastric ulcers - Protonix IV twice daily //Shortness of breath - resolved - CXR with significant elevation of L hemidiaphragm - CT A/P showing small R pleural effusion, decreased in size from prior - Supplemental O2 PRN -Monitor for worsening effusion if patient requires more O2 // Elevated AST - CT A/P showing worsening fatty infiltration - Monitor //DVT prophylaxis: SCDs, Lovenox Discussed Condition With: Patient, nurse Discharge Planning: Continued inpatient treatment. PT consulted. (2) Ovarian cancer Qualifiers: Laterality: bilateral Qualified Code(s): C56.1 - Malignant neoplasm of right ovary; C56.2 - Malignant neoplasm of left ovary
--- NOTE | 2017-12-23 16:34 | P.PN ---
Subjective Interval history: Not able to tolerate much by mouth. States that it feels like she needs to move her bowels but nothing comes out. States her abdomen is distended. Physical Exam Vital signs: Vital Signs 12/22/17 20:00 12/23/17 00:00 12/23/17 04:00 Temperature 98.2 F Pulse Rate 127 H 115 H 119 H Respiratory Rate 16 18 16 Blood Pressure 111/87 132/90 Pulse Oximetry 97 99 99 12/23/17 15:45 Temperature 98 F Pulse Rate 115 H Respiratory Rate 22 Blood Pressure 116/93 H Pulse Oximetry 96 Intake & Output 12/22/17 12/23/17 12/23/17 18:59 06:59 18:59 Intake Total 1100 / 1100 500 / 500 Output Total 800 / 800 Balance -800 / -800 1100 / 1100 500 / 500 Weight 84 kg Intake: IV 1100 / 1100 500 / 500 D5W/Normal Saline Inj 1,000 ML 1100 / 1100 500 / 500 @ 125 mls/hr IV.CONT .Q8H [facility] Rx#:[id number] Output: Gastric Drainage 800 / 800 Right Nare Nasogastric Tube 800 / 800 Other: Date of Last Bowel Movement 12/21/17 12/21/17 - Constitutional no acute distress - Routine Abdominal Exam Present: soft, distended Results - Labs CBC & Chem 7: 12/23/17 04:15 12/23/17 04:15 Laboratory Results - last 24 hr 12/22/17 12/22/17 12/23/17 18:25 18:25 04:15 WBC 4.3 3.9 L RBC 4.76 4.48 Hgb 13.9 13.0 Hct 42.2 39.8 MCV 88.7 88.7 MCH 29.3 29.1 MCHC 33.0 32.8 RDW 18.0 H 18.0 H Plt Count 192 D 201 MPV 7.3 7.8 Neut % (Auto) 59.6 59.9 Lymph % (Auto) 31.6 28.7 [place] % (Auto) 8.1 H 10.8 H Eos % (Auto) 0.2 0.2 Baso % (Auto) 0.5 0.4 Neut # (Auto) 2.5 2.3 Lymph # (Auto) 1.3 1.1 [place] # (Auto) 0.3 0.4 Eos # (Auto) 0.0 0.0 Baso # (Auto) 0.0 0.0 WBC Differential . . Differential Comment Auto diff final Auto diff final Sodium 147 H Potassium 3.2 L Chloride 108 H Carbon Dioxide 28.4 Anion Gap 11 BUN 13 Creatinine 0.70 Estimated GFR Greater than 89 Random Glucose 88 Calcium 7.6 L Prot Corrected Calcium Phosphorus 3.2 Magnesium 1.5 Total Bilirubin AST ALT Alkaline Phosphatase Total Protein Albumin 12/23/17 04:15 WBC RBC Hgb Hct MCV MCH MCHC RDW Plt Count MPV Neut % (Auto) Lymph % (Auto) [place] % (Auto) Eos % (Auto) Baso % (Auto) Neut # (Auto) Lymph # (Auto) [place] # (Auto) Eos # (Auto) Baso # (Auto) WBC Differential Differential Comment Sodium 150 H Potassium 3.1 L Chloride 111 H Carbon Dioxide 27.7 Anion Gap 11 BUN 14 Creatinine 0.82 Estimated GFR 77 L Random Glucose 114 H Calcium 7.4 L* Prot Corrected Calcium 8.7 Phosphorus Magnesium Total Bilirubin 0.6 AST 37 ALT 32 Alkaline Phosphatase 96 Total Protein 4.8 L Albumin 2.0 L Microbiology 12/18/17 13:14 Blood - Peripheral Aerobic Blood Culture - Final No growth in 5 days 12/18/17 13:14 Blood - Peripheral Anaerobic Blood Culture - Final No growth in 5 days 12/18/17 13:09 Blood - Peripheral Aerobic Blood Culture - Final No growth in 5 days 12/18/17 13:09 Blood - Peripheral Anaerobic Blood Culture - Final No growth in 5 days Assessment and Plan - Assessment (1) Small bowel obstruction Code(s): K56.609 - Unspecified intestinal obstruction, unspecified as to partial versus complete obstruction Status: Acute Plan: Persistent obstruction likely secondary to progressive or substantial disease. Hyponatremic and hypokalemic. Will likely need operative intervention this next week. - Plan Discussed Condition With: Patient - Attending Attestation I attest that I had a [id number] encounter with the patient on the same day, and personally performed and documented my assessment and findings in the medical record. The following services were provided during this hospital visit: Chart data review, vital sign assessments/reviewing monitor data Review of consultation notes if present Medication orders/review and/or management Ordering and/or reviewing lab tests Ordering and/or interpreting/reviewing x-rays and/or diagnostic studies Care of the patient and discussion of the patient with the care team Documentation time To help prompt me to consider important information that might be impacting today's encounter and assessment, Information from prior notes written by myself or my colleagues may have been "brought forward/copy and pasted" into today's note.
[2017-12-23] MEDS: Potassium Chlor 20 mEq Premix 20 MEQ/100 ML PIGGYBACK IV.SIG SCH ×2 (17:02→21:26)
[2017-12-23] MEDS: Enoxaparin Inj 40 MG/0.4 ML Syringe SQ SCH (17:08)
[2017-12-23] MEDS: KCL 10 mEq/D5W/NaCl 0.45% Inj 1,000 ML IV.CONT SCH ×2 (17:31→22:34)
[2017-12-23] MEDS ORDERED: Potassium Chlor 20 mEq Premix 20 MEQ/100 ML PIGGYBACK IV.SIG SCH (19:45)
[2017-12-24] MEDS: Pantoprazole Inj 40 MG Vial IV.PUSH SCH ×2 (00:03→10:31)
[2017-12-24] MEDS: KCL 10 mEq/D5W/NaCl 0.45% Inj 1,000 ML IV.CONT SCH ×2 (06:26→14:07)
[2017-12-24 06:50] LABS: Baso % (Auto) 0.5 % (0.0-2.0); Eos % (Auto) 0.3 % (0.0-4.0); Hematocrit 37.8 % (35.0-46.0); Hemoglobin 12.7 gm/dL (11.6-15.3); Lymph # (Auto) 1.2 th/mm3 (1.0-4.8); Mean Corpuscular HGB Conc 33.6 % (32.0-36.0); Mean Corpuscular Hemoglobin 29.7 pg (27.0-34.0); Mean Corpuscular Volume 88.3 fL (80.0-100.0); Mean Platelet Volume 7.1 fL (7.0-11.0); Mono # (Auto) 0.3 th/mm3 (0.0-0.9); Mono % (Auto) 8.1 % (0.0-8.0); Neut # (Auto) 2.4 th/mm3 (1.8-7.7); Neut % (Auto) 61.1 % (16.0-70.0); Platelet Count 192 th/mm3 (150-450); Red Blood Count 4.27 mil/mm3 (4.00-5.30)
[2017-12-24 07:21] LABS: Albumin 1.9 g/dL (3.4-5.0); Calcium 6.7 mg/dL (8.5-10.1); Carbon Dioxide 26.6 meq/L (21.0-32.0); Magnesium 1.6 mg/dL (1.5-2.5); Phosphorus 2.4 mg/dL (2.5-4.9); Potassium 3.5 meq/L (3.5-5.1)
--- NOTE | 2017-12-24 10:16 | P.PNGS ---
Subjective Patient reports: still having pain, no flatus (small bms) Physical Exam Vital signs: Vital Signs 12/23/17 15:45 12/23/17 16:00 12/23/17 19:33 Temperature 98 F 98.2 F 98.5 F Pulse Rate 115 H 115 H 115 H Respiratory Rate 22 20 20 Blood Pressure 116/93 H 115/93 H 120/89 Pulse Oximetry 96 97 99 12/23/17 23:59 12/24/17 04:00 Temperature 98.3 F 98 F Pulse Rate 113 H 110 H Respiratory Rate 18 20 Blood Pressure 117/72 114/88 Pulse Oximetry 97 98 Intake & Output 12/23/17 12/24/17 12/24/17 18:59 06:59 18:59 Intake Total 740 / 740 2300 / 2300 Output Total 400 / 400 Balance 740 / 740 1900 / 1900 Weight 83.4 kg Intake: IV 500 / 500 2300 / 2300 D5W/Normal Saline Inj 1,000 ML 500 / 500 1000 / 1000 @ 125 mls/hr IV.CONT .Q8H [facility] Rx#:[id number] D5W/1/2NS + KCL 10 mEq Inj 1, 1000 / 1000 000 ML @ 125 mls/hr IV.CONT . Q8H [facility] Rx#:[id number] Magnesium Sulfate 1 gm/D5W 100 100 / 100 ml Premix 100 ML @ 100 mls/hr IV.SIG ONCE ONE Rx#:[id number] KCl 20 mEq Premix Inj 20 meq In 200 / 200 100 ml @ 50 mls/hr IV.SIG Q2H [facility] Rx#:[id number] Oral 240 / 240 Output: Gastric Drainage 400 / 400 Right Nare Nasogastric Tube 400 / 400 Other: Date of Last Bowel Movement 12/24/17 # Bowel Movements 1 - Routine Respiratory Exam Present: CTA bilaterally - Routine Cardiovascular Exam Present: RRR - Routine Abdominal Exam Present: soft, distended Assessment and Plan - Assessment (1) Small bowel obstruction Code(s): K56.609 - Unspecified intestinal obstruction, unspecified as to partial versus complete obstruction Status: Acute Plan: 42 year old female with ovarian cancer; small bowel obstruction -Continue NGT to LIWS -OOB and mobilize - continue abdominal exams - pt still appears to have very slow progression will plan for or tomorrow - throat spray -axr
--- NOTE | 2017-12-24 11:27 | P.PNIM ---
Subjective Interval history: Patient says she is feeling all right. Denies any chest pain shortness of breath. Continues to report intermittent sharp abdominal pain. Physical Exam Vital signs: Vital Signs 12/23/17 15:45 12/23/17 16:00 12/23/17 19:33 Temperature 98 F 98.2 F 98.5 F Pulse Rate 115 H 115 H 115 H Respiratory Rate 22 20 20 Blood Pressure 116/93 H 115/93 H 120/89 Pulse Oximetry 96 97 99 12/23/17 23:59 12/24/17 04:00 Temperature 98.3 F 98 F Pulse Rate 113 H 110 H Respiratory Rate 18 20 Blood Pressure 117/72 114/88 Pulse Oximetry 97 98 Intake & Output 12/23/17 12/24/17 12/24/17 18:59 06:59 18:59 Intake Total 740 / 740 2300 / 2300 Output Total 400 / 400 Balance 740 / 740 1900 / 1900 Weight 83.4 kg Intake: IV 500 / 500 2300 / 2300 D5W/Normal Saline Inj 1,000 ML 500 / 500 1000 / 1000 @ 125 mls/hr IV.CONT .Q8H [facility] Rx#:[id number] D5W/1/2NS + KCL 10 mEq Inj 1, 1000 / 1000 000 ML @ 125 mls/hr IV.CONT . Q8H [facility] Rx#:[id number] Magnesium Sulfate 1 gm/D5W 100 100 / 100 ml Premix 100 ML @ 100 mls/hr IV.SIG ONCE ONE Rx#:[id number] KCl 20 mEq Premix Inj 20 meq In 200 / 200 100 ml @ 50 mls/hr IV.SIG Q2H [facility] Rx#:[id number] Oral 240 / 240 Output: Gastric Drainage 400 / 400 Right Nare Nasogastric Tube 400 / 400 Other: Date of Last Bowel Movement 12/24/17 # Bowel Movements 1 Narrative: GENERAL: Patient lying in bed. Appears comfortable. NG tube with bilious fluid as before. SKIN: Warm and dry. HEAD: Normocephalic. EYES: No scleral icterus. No injection or drainage. NECK: Supple, trachea midline. No JVD. CARDIOVASCULAR: Regular rate and rhythm without murmurs, gallops, or rubs. RESPIRATORY: Breath sounds equal bilaterally. No accessory muscle use. GASTROINTESTINAL: Abdomen soft, non-tender, nondistended. MUSCULOSKELETAL: No cyanosis, or edema. BACK: Nontender without obvious deformity. No CVA tenderness. Results - Labs CBC & Chem 7: 12/24/17 06:40 12/24/17 06:35 Laboratory Results - last 24 hr 12/24/17 12/24/17 06:35 06:40 WBC 4.0 RBC 4.27 Hgb 12.7 Hct 37.8 MCV 88.3 MCH 29.7 MCHC 33.6 RDW 18.0 H Plt Count 192 MPV 7.1 Neut % (Auto) 61.1 Lymph % (Auto) 30.0 [place] % (Auto) 8.1 H Eos % (Auto) 0.3 Baso % (Auto) 0.5 Neut # (Auto) 2.4 Lymph # (Auto) 1.2 [place] # (Auto) 0.3 Eos # (Auto) 0.0 Baso # (Auto) 0.0 WBC Differential . Differential Comment Auto diff final Sodium 149 H Potassium 3.5 Chloride 115 H Carbon Dioxide 26.6 Anion Gap 7 BUN 13 Creatinine 0.78 Estimated GFR 81 L Random Glucose 107 H Calcium 6.7 L* Phosphorus 2.4 L Magnesium 1.6 Albumin 1.9 L Microbiology 12/18/17 13:14 Blood - Peripheral Aerobic Blood Culture - Final No growth in 5 days 12/18/17 13:14 Blood - Peripheral Anaerobic Blood Culture - Final No growth in 5 days 12/18/17 13:09 Blood - Peripheral Aerobic Blood Culture - Final No growth in 5 days 12/18/17 13:09 Blood - Peripheral Anaerobic Blood Culture - Final No growth in 5 days Assessment and Plan - Assessment (1) Small bowel obstruction Code(s): K56.609 - Unspecified intestinal obstruction, unspecified as to partial versus complete obstruction Status: Acute (2) Ovarian cancer Code(s): C56.9 - Malignant neoplasm of unspecified ovary Status: Chronic - Plan 42 year old female with recurrent ovarian cancer admitted for SBO. //SBOpersists - CT A/P showing interval development of small bowel dilatation with distal terminal ileum and colonic decompression characteristic of the distal SBO. There is multiloculated ascites similar from prior exam. Previous right pleural effusion has decreased in size -Repeat KUB shows high-grade small bowel obstruction again noted. Still no contrast convincingly seen in the colon. - Lactic acid 2.1, repeat 1.1 - General surgery following, decision for surgery will be made later today - small bowel follow through confirmed SBO - NPO, ice chips allowed - NGT to suction - Zofran PRN - IV morphine as needed - Cont IV fluids - Incentive spirometer - Encourage OOB and activity - general surgery and oncology also following - continue conservative management and supportive care until Monday then reevaluate need for surgery - Labs ordered and pending, awaiting RN to access PORT for IV hydration and Lab draws = Continue IV fluids. Continue NG tube to low intermittent suction. Surgery following. Appreciate assistance. = 12/24. Plan for surgery tomorrow. Appreciate surgical assistance. //Dehydration, creatine stable - Continues to be tachycardic - Bolused 1 L in the ED -Continue IV fluids to 125 ml/hr - plan to transfer patient to oncology floor and have ice hockey coach PORT for IVFs and lab draws = Continue IV fluids. //Hypernatremia. = 12/23 sodium 150. Switch to one half normal saline fluids and monitor. = 12/24. Sodium 149 continue half normal saline. //Hypocalcemia - improved, stable - Likely secondary to dehydration - Protein corrected calcium is 8.4 - Given calcium chloride in the ED - Cont to monitor = 12/23. Corrected calcium acceptable. Continue to monitor. = 12/24. Corrected calcium 8.4. 1 g of calcium gluconate. Monitor /Hypokalemia. -12/23. Potassium 3.1. Replace and monitor. = 12/24. Potassium 3.5. Continue to monitor. 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 James who is consulted and is following, chemo will be held while admitted //Gastric ulcers - Protonix IV twice daily //Shortness of breath - resolved - CXR with significant elevation of L hemidiaphragm - CT A/P showing small R pleural effusion, decreased in size from prior - Supplemental O2 PRN -Monitor for worsening effusion if patient requires more O2 // Elevated AST - CT A/P showing worsening fatty infiltration - Monitor //DVT prophylaxis: SCDs, Lovenox Discharge Planning: Continued inpatient treatment. PT consulted. The surgery tomorrow. (2) Ovarian cancer Qualifiers: Laterality: bilateral Qualified Code(s): C56.1 - Malignant neoplasm of right ovary; C56.2 - Malignant neoplasm of left ovary
[2017-12-24] MEDS ORDERED: CALCIUM CHLORIDE IV.SIG ONE ×2 (12:00→13:00)
[2017-12-24] MEDS ORDERED: Mag Sulf 1 gm/100 ml Premix 100 ML IV.SIG ONE (12:00)
[2017-12-24] MEDS ORDERED: SODIUM CHLOR 0.9% IV.SIG ONE ×2 (12:00→13:00)
[2017-12-24 14:48] LABS: Albumin 1.9 g/dL (3.4-5.0)
[2017-12-24 14:49] LABS: Total Protein 4.6 g/dL (6.4-8.2)
[2017-12-24] MEDS: Enoxaparin Inj 40 MG/0.4 ML Syringe SQ SCH (16:08)
[2017-12-25] MEDS: Pantoprazole Inj 40 MG Vial IV.PUSH SCH ×2 (00:36→12:17)
[2017-12-25] MEDS: KCL 10 mEq/D5W/NaCl 0.45% Inj 1,000 ML IV.CONT SCH ×3 (00:39→19:35)
[2017-12-25] MEDS ORDERED: Chlorhexidine Gluconate 2% 1 Pack (2 Cloths) TOPICAL SCH (03:15)
[2017-12-25] MEDS ORDERED: Sodium Chlor 0.9% Inj 500 ML IV.SIG SCH (04:00)
[2017-12-25 04:48] LABS: Baso % (Auto) 0.2 % (0.0-2.0); Eos % (Auto) 0.4 % (0.0-4.0); Hematocrit 38.2 % (35.0-46.0); Hemoglobin 12.5 gm/dL (11.6-15.3); Lymph # (Auto) 1.7 th/mm3 (1.0-4.8); Lymph % (Auto) 35.9 % (9.0-44.0); Mean Corpuscular HGB Conc 32.8 % (32.0-36.0); Mean Corpuscular Hemoglobin 29.7 pg (27.0-34.0); Mean Corpuscular Volume 90.6 fL (80.0-100.0); Mean Platelet Volume 7.1 fL (7.0-11.0); Mono # (Auto) 0.7 th/mm3 (0.0-0.9); Mono % (Auto) 13.6 % (0.0-8.0); Neut # (Auto) 2.4 th/mm3 (1.8-7.7); Neut % (Auto) 49.9 % (16.0-70.0); Platelet Count 185 th/mm3 (150-450); Red Blood Count 4.21 mil/mm3 (4.00-5.30); White Blood Count 4.8 th/mm3 (4.0-11.0)
[2017-12-25 04:55] LABS: Activated Partial Thrombo Time 41.4 sec (24.3-30.1); INR 1.4 Ratio; Prothrombin Time 14.4 sec (9.8-11.6)
[2017-12-25 05:10] LABS: Albumin 1.9 g/dL (3.4-5.0); Calcium 6.7 mg/dL (8.5-10.1); Carbon Dioxide 25.8 meq/L (21.0-32.0); Magnesium 1.6 mg/dL (1.5-2.5); Phosphorus 2.3 mg/dL (2.5-4.9); Potassium 3.7 meq/L (3.5-5.1)
--- NOTE | 2017-12-25 07:43 | P.PNONC ---
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 to voice states having a lot of cramping pain and reflux scheduled for surgery today with general surgery for SBO Objective Vital Signs/Intake & Output: Vital Signs 12/24/17 12:00 12/24/17 16:00 12/24/17 20:00 Temperature 98.4 F 97.4 F L 97.7 F Pulse Rate 110 H 117 H 108 H Respiratory Rate 16 18 16 Blood Pressure 113/76 119/84 125/69 Pulse Oximetry 97 96 97 12/25/17 00:45 12/25/17 03:43 Temperature 98.1 F 97.2 F L Pulse Rate 107 H 116 H Respiratory Rate 18 18 Blood Pressure 115/80 121/90 Pulse Oximetry 96 97 Intake & Output 12/24/17 12/25/17 12/25/17 18:59 06:59 18:59 Intake Total 1000 / 1000 1000 / 1000 Output Total 150 / 150 Balance 1000 / 1000 850 / 850 Weight 83.4 kg 83 kg Intake: IV 1000 / 1000 1000 / 1000 D5W/1/2NS + KCL 10 mEq Inj 1, 1000 / 1000 1000 / 1000 000 ML @ 125 mls/hr IV.CONT . Q8H [facility] Rx#:[id number] Output: Gastric Drainage 150 / 150 Right Nare Nasogastric Tube 150 / 150 Other: # Urine Diapers 2 Date of Last Bowel Movement 12/24/17 # Incontinent Bowel Movements 4 Result Diagrams: 12/25/17 03:40 12/25/17 03:40 Laboratory Results: Laboratory Results - last 24 hr 12/24/17 12/25/17 12/25/17 06:35 03:40 03:40 WBC 4.8 RBC 4.21 Hgb 12.5 Hct 38.2 MCV 90.6 MCH 29.7 MCHC 32.8 RDW 19.0 H Plt Count 185 MPV 7.1 Neut % (Auto) 49.9 Lymph % (Auto) 35.9 [place] % (Auto) 13.6 H Eos % (Auto) 0.4 Baso % (Auto) 0.2 Neut # (Auto) 2.4 Lymph # (Auto) 1.7 [place] # (Auto) 0.7 Eos # (Auto) 0.0 Baso # (Auto) 0.0 WBC Differential . Differential Comment Auto diff final PT INR APTT Sodium 146 H Potassium 3.7 Chloride 112 H Carbon Dioxide 25.8 Anion Gap 8 BUN 13 Creatinine 0.78 Estimated GFR 81 L Random Glucose 93 Calcium 6.7 L* Phosphorus 2.3 L Magnesium 1.6 Total Bilirubin 0.6 Direct Bilirubin 0.3 H Indirect Bilirubin 0.3 AST 37 ALT 30 Alkaline Phosphatase 96 Total Protein 4.6 L Albumin 1.9 L 1.9 L Blood Type Blood Type Recheck Antibody Screen 12/25/17 12/25/17 12/25/17 03:40 03:40 03:40 WBC RBC Hgb Hct MCV MCH MCHC RDW Plt Count MPV Neut % (Auto) Lymph % (Auto) [place] % (Auto) Eos % (Auto) Baso % (Auto) Neut # (Auto) Lymph # (Auto) [place] # (Auto) Eos # (Auto) Baso # (Auto) WBC Differential Differential Comment PT Cancelled 14.4 H INR Cancelled 1.4 APTT 41.4 H Sodium Potassium Chloride Carbon Dioxide Anion Gap BUN Creatinine Estimated GFR Random Glucose Calcium Phosphorus Magnesium Total Bilirubin Direct Bilirubin Indirect Bilirubin AST ALT Alkaline Phosphatase Total Protein Albumin Blood Type AB Positive Blood Type Recheck Not needed Antibody Screen Negative Culture Results: Microbiology 12/18/17 13:14 Aerobic Blood Culture - Final Blood - Peripheral No growth in 5 days Anaerobic Blood Culture - Final No growth in 5 days 12/18/17 13:09 Aerobic Blood Culture - Final Blood - Peripheral No growth in 5 days Anaerobic Blood Culture - Final No growth in 5 days Medications: Active Medications Generic Name Dose Route Start Last Admin Trade Name Freq PRN Reason Stop Dose Admin Enoxaparin Sodium 40 mg 12/19/17 15:15 12/24/17 16:08 Lovenox Inj SQ 40 mg DAILY@1600 [facility] Administration Potassium Chloride/Dextrose/Sod Cl 1,000 mls @ 125 mls/hr 12/23/17 12:15 00:39 D5w/1/2ns + Kcl 10 Meq Inj IV.CONT 130 mls/hr .Q8H [facility] Administration Padimate O 1 applicatio 12/25/17 00:32 12/25/17 01:36 Chapstick TOPICAL 1 applicatio UNSCH PRN Administration DRY LIPS Pantoprazole Sodium 40 mg 12/20/17 11:00 12/25/17 00:36 Protonix Inj IV.PUSH 40 mg Q12H [facility] Administration Objective Remarks: GENERAL: Well-nourished, well-developed patient. ill appearing SKIN: Warm and dry. HEAD: Normocephalic. EYES: No scleral icterus. No injection or drainage. CARDIOVASCULAR: tacky RESPIRATORY: Breath sounds equal bilaterally. No accessory muscle use. GASTROINTESTINAL: Abdomen distended, NG to LIWS MUSCULOSKELETAL: Adequate muscle tone. NEUROLOGICAL: No obvious focal deficit. Assessment/Plan (1) Ovarian cancer Code(s): C56.9 - Malignant neoplasm of unspecified ovary Status: Chronic (2) Small bowel obstruction Code(s): K56.609 - Unspecified intestinal obstruction, unspecified as to partial versus complete obstruction Status: Acute - Plan continue NPO with NG to LIWS encourage ambulation and OOB to chair general surgery following, conservative treatment at this time IVF for hydration supportive care will continue to hold IV chemotherapy during admission s/p Taxol and Avastin 12/15/17 12/21/17 patient needs to restart IVF OOB to ambulate and chair continue NG to LIWS ok for ice chips per general surgery continue to hold chemo during hospital stay Dr. James communicated with general surgery, conservative approach 12/25/17 for surgery today d/t continued SBO without improvement NPO NG to LIWS supportive care continue to hold IV chemo during hospitalization and recovery (1) Ovarian cancer Qualifiers: Laterality: bilateral Qualified Code(s): C56.1 - Malignant neoplasm of right ovary; C56.2 - Malignant neoplasm of left ovary
[2017-12-25] MEDS ORDERED: Morphine Inj 4 MG/ML Vial IV.CONT PRN (10:36)
--- NOTE | 2017-12-25 12:58 | P.DIET ---
Nutritional Evaluation Type of nutrition evaluation: initial Screening comments: NPO Screen Subjective Subjective Comments: NGT Objective - Diagnosis Small Bowel Obstruction, Dehydration, Electrolyte - Objective Diet Order: NPO Assessment Assessment: NPO Screen. Pt NPO x 4-Days. Please Consult RD if Needed Recommendations: Pt NPO x 4-Days. Please Consult RD if Needed
--- NOTE | 2017-12-25 14:28 | P.PNIM ---
Subjective Interval history: Patient reports that abdominal discomfort is under control. She denies any nausea or vomiting. NG tube is been clamped and patient is trying clears. She says the tube feels like it is to one side of her throat when she turns, to the other when she turns the other way. No gilda pain. I unfortunately misread patient's kidney function as another patients on my list just prior to going in the room, and inadvertently told the patient that her kidney function was down and that she would need a Crowder catheter, a renal ultrasound. Upon leaving the room I discovered this error and immediately returned to apologize. Patient excepted my apology. Physical Exam Vital signs: Vital Signs 12/24/17 16:00 12/24/17 20:00 12/25/17 00:45 Temperature 97.4 F L 97.7 F 98.1 F Pulse Rate 117 H 108 H 107 H Respiratory Rate 18 16 18 Blood Pressure 119/84 125/69 115/80 Pulse Oximetry 96 97 96 12/25/17 03:43 12/25/17 09:33 12/25/17 12:29 Temperature 97.2 F L 98.0 F 98.2 F Pulse Rate 116 H 102 H 105 H Respiratory Rate 18 18 18 Blood Pressure 121/90 122/80 112/84 Pulse Oximetry 97 97 97 Intake & Output 12/24/17 12/25/17 12/25/17 18:59 06:59 18:59 Intake Total 1000 / 1000 1000 / 1000 1323.5 / 1323.5 Output Total 150 / 150 Balance 1000 / 1000 1000 / 1000 1173.5 / 1173.5 Weight 83.4 kg 83 kg Intake: IV 1000 / 1000 1000 / 1000 1203.5 / 1203.5 D5W/1/2NS + KCL 10 mEq Inj 1, 1000 / 1000 1000 / 1000 1000 / 1000 000 ML @ 125 mls/hr IV.CONT . Q8H [facility] Rx#:[id number] Oral 120 / 120 Output: Gastric Drainage 150 / 150 Right Nare Nasogastric Tube 150 / 150 Other: # Voids 2 Date of Last Bowel Movement 12/24/17 # Bowel Movements 4 Narrative: GENERAL: Patient lying in bed. Appears comfortable. SKIN: Warm and dry. HEAD: Normocephalic. EYES: No scleral icterus. No injection or drainage. NECK: Supple, trachea midline. No JVD. CARDIOVASCULAR: Regular rate and rhythm without murmurs, gallops, or rubs. RESPIRATORY: Breath sounds equal bilaterally. No accessory muscle use. GASTROINTESTINAL: Abdomen soft, non-tender, nondistended. MUSCULOSKELETAL: No cyanosis, or edema. BACK: Nontender without obvious deformity. No CVA tenderness. Results - Labs CBC & Chem 7: 12/25/17 03:40 12/25/17 03:40 Laboratory Results - last 24 hr 12/24/17 12/25/17 12/25/17 06:35 03:40 03:40 WBC 4.8 RBC 4.21 Hgb 12.5 Hct 38.2 MCV 90.6 MCH 29.7 MCHC 32.8 RDW 19.0 H Plt Count 185 MPV 7.1 Neut % (Auto) 49.9 Lymph % (Auto) 35.9 [place] % (Auto) 13.6 H Eos % (Auto) 0.4 Baso % (Auto) 0.2 Neut # (Auto) 2.4 Lymph # (Auto) 1.7 [place] # (Auto) 0.7 Eos # (Auto) 0.0 Baso # (Auto) 0.0 WBC Differential . Differential Comment Auto diff final PT INR APTT Sodium 146 H Potassium 3.7 Chloride 112 H Carbon Dioxide 25.8 Anion Gap 8 BUN 13 Creatinine 0.78 Estimated GFR 81 L Random Glucose 93 Calcium 6.7 L* Phosphorus 2.3 L Magnesium 1.6 Total Bilirubin 0.6 Direct Bilirubin 0.3 H Indirect Bilirubin 0.3 AST 37 ALT 30 Alkaline Phosphatase 96 Total Protein 4.6 L Albumin 1.9 L 1.9 L Blood Type Blood Type Recheck Antibody Screen 12/25/17 12/25/17 12/25/17 03:40 03:40 03:40 WBC RBC Hgb Hct MCV MCH MCHC RDW Plt Count MPV Neut % (Auto) Lymph % (Auto) [place] % (Auto) Eos % (Auto) Baso % (Auto) Neut # (Auto) Lymph # (Auto) [place] # (Auto) Eos # (Auto) Baso # (Auto) WBC Differential Differential Comment PT Cancelled 14.4 H INR Cancelled 1.4 APTT 41.4 H Sodium Potassium Chloride Carbon Dioxide Anion Gap BUN Creatinine Estimated GFR Random Glucose Calcium Phosphorus Magnesium Total Bilirubin Direct Bilirubin Indirect Bilirubin AST ALT Alkaline Phosphatase Total Protein Albumin Blood Type AB Positive Blood Type Recheck Not needed Antibody Screen Negative Assessment and Plan - Assessment (1) Small bowel obstruction Code(s): K56.609 - Unspecified intestinal obstruction, unspecified as to partial versus complete obstruction Status: Acute (2) Ovarian cancer Code(s): C56.9 - Malignant neoplasm of unspecified ovary Status: Chronic - Plan 42 year old female with recurrent ovarian cancer admitted for SBO. //SBOpersists - CT A/P showing interval development of small bowel dilatation with distal terminal ileum and colonic decompression characteristic of the distal SBO. There is multiloculated ascites similar from prior exam. Previous right pleural effusion has decreased in size -Repeat KUB shows high-grade small bowel obstruction again noted. Still no contrast convincingly seen in the colon. - Lactic acid 2.1, repeat 1.1 - General surgery following, decision for surgery will be made later today - small bowel follow through confirmed SBO - NPO, ice chips allowed - NGT to suction - Zofran PRN - IV morphine as needed - Cont IV fluids - Incentive spirometer - Encourage OOB and activity - general surgery and oncology also following - continue conservative management and supportive care until Monday then reevaluate need for surgery - Labs ordered and pending, awaiting RN to access PORT for IV hydration and Lab draws = Continue IV fluids. Continue NG tube to low intermittent suction. Surgery following. Appreciate assistance. = 12/24. Plan for surgery tomorrow. Appreciate surgical assistance. = 12/25. General surgery has clamped NG tube and patient is trying clears. Appreciate surgery assistance. //Dehydration, creatine stable - Continues to be tachycardic - Bolused 1 L in the ED -Continue IV fluids to 125 ml/hr - plan to transfer patient to oncology floor and have patient access coordinator PORT for IVFs and lab draws = Continue IV fluids. //Hypernatremia. = 12/23 sodium 150. Switch to one half normal saline fluids and monitor. = 12/24. Sodium 149 continue half normal saline. //Hypocalcemia - improved, stable - Likely secondary to dehydration - Protein corrected calcium is 8.4 - Given calcium chloride in the ED - Cont to monitor = 12/23. Corrected calcium acceptable. Continue to monitor. = 12/24. Corrected calcium 8.4. 1 g of calcium gluconate. Monitor = 12/25. Corrected calcium 8.4. No need to replace. Continue to monitor. /Hypokalemia. -12/23. Potassium 3.1. Replace and monitor. = 12/24. Potassium 3.5. Continue to monitor. 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 James who is consulted and is following, chemo will be held while admitted //Gastric ulcers - Protonix IV twice daily //Shortness of breath - resolved - CXR with significant elevation of L hemidiaphragm - CT A/P showing small R pleural effusion, decreased in size from prior - Supplemental O2 PRN -Monitor for worsening effusion if patient requires more O2 // Elevated AST - CT A/P showing worsening fatty infiltration - Monitor //DVT prophylaxis: SCDs, Lovenox Discharge Planning: Continued inpatient treatment. PT consulted. NG tube clamping trial ongoing. Appreciate surgical assistance. (2) Ovarian cancer Qualifiers: Laterality: bilateral Qualified Code(s): C56.1 - Malignant neoplasm of right ovary; C56.2 - Malignant neoplasm of left ovary
[2017-12-25] MEDS: Enoxaparin Inj 40 MG/0.4 ML Syringe SQ SCH (18:15)
--- NOTE | 2017-12-25 21:17 | P.PNGS ---
Subjective Patient reports: bowel movement (small bm, abdomen less distended) Physical Exam Vital signs: Vital Signs 12/25/17 00:45 12/25/17 03:43 12/25/17 09:33 Temperature 98.1 F 97.2 F L 98.0 F Pulse Rate 107 H 116 H 102 H Respiratory Rate 18 18 Blood Pressure 115/80 121/90 122/80 Pulse Oximetry 96 97 97 12/25/17 12:29 12/25/17 18:14 12/25/17 20:55 Temperature 98.2 F 97.4 F L 98.1 F Pulse Rate 105 H 111 H 117 H Respiratory Rate 18 18 16 Blood Pressure 112/84 127/94 H 118/66 Pulse Oximetry 97 97 97 Intake & Output 12/25/17 12/25/17 12/26/17 06:59 18:59 06:59 Intake Total 1000 / 1000 1323.5 / 1323.5 400 / 400 Output Total 150 / 150 Balance 1000 / 1000 1173.5 / 1173.5 400 / 400 Weight 83 kg Intake: IV 1000 / 1000 1203.5 / 1203.5 D5W/1/2NS + KCL 10 mEq Inj 1, 1000 / 1000 1000 / 1000 000 ML @ 125 mls/hr IV.CONT . Q8H [facility] Rx#:[id number] Oral 120 / 120 400 / 400 Output: Gastric Drainage 150 / 150 Right Nare Nasogastric Tube 150 / 150 Other: # Voids 2 1 Date of Last Bowel Movement 12/24/17 12/25/17 12/25/17 # Bowel Movements 4 1 - Routine Abdominal Exam Present: soft (mild distended) Assessment and Plan - Assessment (1) Small bowel obstruction Code(s): K56.609 - Unspecified intestinal obstruction, unspecified as to partial versus complete obstruction Status: Acute Plan: 42 year old female with ovarian cancer; small bowel obstruction - NGT clamp and trial of clears -OOB and mobilize - continue abdominal exams - pt still appears to have very slow progression will plan for or if fails po challenge - throat spray
[2017-12-26] MEDS: Pantoprazole Inj 40 MG Vial IV.PUSH SCH ×3 (00:11→22:36)
[2017-12-26] MEDS: KCL 10 mEq/D5W/NaCl 0.45% Inj 1,000 ML IV.CONT SCH ×3 (04:01→19:14)
--- NOTE | 2017-12-26 06:08 | XR ---
EXAM DATE: 12/26/2017 5:52 AM EDT AGE/SEX: 42 years / Female INDICATIONS: Obstruction. CLINICAL DATA: This is the patient's subsequent encounter. Patient reports that signs and symptoms h ave been present for 1 week and indicates a pain score of 0/10. MEDICAL/SURGICAL HISTORY: Carcinoma, ovarian. Hypertension. None. COMPARISON: [facility] [place], ABDOMEN 1V KUB, 12/21/2017. . FINDINGS: The abdominal bowel gas pattern is normal. Residual contrast in large bowel. No abnormal masses, ca lcifications, or organomegaly is seen. Nasogastric tube with tip in stomach. The osseous structures a re unremarkable. CONCLUSION: Residual contrast in large bowel. Electronically signed by: Abhilash Abdi MD 12/26/2017 6:06 AM EDT
--- NOTE | 2017-12-26 08:38 | P.PN ---
Subjective Interval history: no new c/o, understandably a bit frustrated but remains hopeful no n/v, small flatus +/- bm Physical Exam Vital signs: Vital Signs 12/25/17 09:33 12/25/17 12:29 12/25/17 18:14 Temperature 98.0 F 98.2 F 97.4 F L Pulse Rate 102 H 105 H 111 H Respiratory Rate 18 18 18 Blood Pressure 122/80 112/84 127/94 H Pulse Oximetry 97 97 97 12/25/17 20:00 12/25/17 20:55 12/26/17 00:00 Temperature 98.1 F 97.7 F Pulse Rate 117 H 124 H Respiratory Rate 18 16 18 Blood Pressure 118/66 117/88 Pulse Oximetry 97 97 12/26/17 04:00 Temperature 97.9 F Pulse Rate 116 H Respiratory Rate 18 Blood Pressure 117/87 Pulse Oximetry 96 Intake & Output 12/25/17 12/26/17 12/26/17 18:59 06:59 18:59 Intake Total 1323.5 / 1323.5 1400 / 1400 Output Total 150 / 150 150 / 150 125 / 125 Balance 1173.5 / 1173.5 1250 / 1250 -125 / -125 Weight 97 kg Intake: IV 1203.5 / 1203.5 1000 / 1000 D5W/1/2NS + KCL 10 mEq Inj 1, 1000 / 1000 1000 / 1000 000 ML @ 125 mls/hr IV.CONT . Q8H [facility] Rx#:[id number] Oral 120 / 120 400 / 400 Output: Urine 150 / 150 Gastric Drainage 150 / 150 125 / 125 Right Nare Nasogastric Tube 150 / 150 125 / 125 Other: # Voids 2 1 Date of Last Bowel Movement 12/25/17 12/25/17 # Bowel Movements 4 1 - Constitutional no acute distress - Routine Respiratory Exam Present: CTA bilaterally - Routine Cardiovascular Exam Present: RRR - Routine Abdominal Exam Present: soft (minimal distention, no significant ascites, fullness in epigastrium) - Routine Neurological Exam Present: alert, oriented X3 Results - Labs CBC & Chem 7: 12/25/17 03:40 12/25/17 03:40 - Imaging Impressions Abdomen X-Ray 12/26/17 06:00 CONCLUSION: Residual contrast in large bowel. Assessment and Plan - Assessment (1) Ovarian cancer Code(s): C56.9 - Malignant neoplasm of unspecified ovary Status: Chronic Plan: plan is to continue IV chemotherapy once SBO has resolved and she has been discharged from hospital. will hold IV chemo at this time s/p Taxol and Avastin daily labs: IV hydration and electrolyte replacement as needed (2) Small bowel obstruction Code(s): K56.609 - Unspecified intestinal obstruction, unspecified as to partial versus complete obstruction Status: Acute Plan: NPO NG tube to LIWS continue management per med team we thank for assistance with Zeeshan Faizan Tran ANAI for nausea/vomiting IV hydration supportive care - Plan HD #9 ovarian cancer, sbo discussed with Dr. Rushing yesterday, will continue with conservative efforts. ivfs, ngt, npo continued (1) Ovarian cancer Qualifiers: Laterality: bilateral Qualified Code(s): C56.1 - Malignant neoplasm of right ovary; C56.2 - Malignant neoplasm of left ovary
--- NOTE | 2017-12-26 09:27 | US ---
EXAM DATE: 12/26/2017 9:18 AM EDT AGE/SEX: 42 years / Female INDICATIONS: Left leg swelling. CLINICAL DATA: This is the patient's initial encounter. Patient reports that signs and symptoms have been present for 3 days and indicates a pain score of 4/10. MEDICAL/SURGICAL HISTORY: . Ascites. Carcinomatosis. Gastric ulcer. Ovarian cancer. Hysterecto my. Port a cath placement. COMPARISON: POI, US LEG VENOUS DOPPLER, BILATERAL, 01/09/2015. . TECHNIQUE: Venous ultrasound of both lower extremities was performed from the inguinal ligament to t he proximal calf. Real-time, color Doppler and spectral tracing, compression and augmentation techni ques were used. FINDINGS: At the common femoral bifurcation, there is some nonocclusive thrombus identified extendin g peripherally into the proximal aspect of the SFV. Deep venous system is otherwise fully compressibl e throughout the remaining portions of the left lower extremity with normal venous Doppler waveforms. Trifurcation tributaries are also patent CONCLUSION: 1. Nonocclusive thrombus in the very distal aspect of the left common femoral vein extending into th e proximal superficial femoral vein. 2. Deep venous system is otherwise patent. No SVT. Electronically signed by: Eldon Burton MD 12/26/2017 9:26 AM EDT
[2017-12-26] MEDS: Clotrimazole 1% Cream 15 GM Tube TOPICAL SCH (11:01)
[2017-12-26 13:07] LABS: Baso % (Auto) 0.4 % (0.0-2.0); Eos % (Auto) 0.3 % (0.0-4.0); Hematocrit 38.6 % (35.0-46.0); Hemoglobin 12.9 gm/dL (11.6-15.3); Lymph # (Auto) 1.7 th/mm3 (1.0-4.8); Lymph % (Auto) 34.2 % (9.0-44.0); Mean Corpuscular HGB Conc 33.3 % (32.0-36.0); Mean Corpuscular Hemoglobin 29.6 pg (27.0-34.0); Mean Corpuscular Volume 88.9 fL (80.0-100.0); Mean Platelet Volume 6.7 fL (7.0-11.0); Mono # (Auto) 0.7 th/mm3 (0.0-0.9); Neut # (Auto) 2.6 th/mm3 (1.8-7.7); Neut % (Auto) 51.1 % (16.0-70.0); Platelet Count 132 th/mm3 (150-450); Red Blood Count 4.35 mil/mm3 (4.00-5.30); Red Cell Distribution Width 18.9 % (11.6-17.2); White Blood Count 5.1 th/mm3 (4.0-11.0)
--- NOTE | 2017-12-26 13:12 | P.PNIM ---
Subjective Interval history: Reports abdominal pain continues. Denies any chest pain or shortness of breath. Says she does not feel like she needs to pee, does not eat since yesterday. She notes bilateral lower extremity edema, says she does not want to be on fluids. Physical Exam Vital signs: Vital Signs 12/25/17 18:14 12/25/17 20:00 12/25/17 20:55 Temperature 97.4 F L 98.1 F Pulse Rate 111 H 117 H Respiratory Rate 18 18 16 Blood Pressure 127/94 H 118/66 Pulse Oximetry 97 97 12/26/17 00:00 12/26/17 04:00 12/26/17 08:00 Temperature 97.7 F 97.9 F 98.1 F Pulse Rate 124 H 116 H 60 Respiratory Rate 18 18 16 Blood Pressure 117/88 117/87 145/71 H Pulse Oximetry 97 96 16 L 12/26/17 12:00 Temperature 98.5 F Pulse Rate 107 H Respiratory Rate 18 Blood Pressure 126/80 Pulse Oximetry 97 Intake & Output 12/25/17 12/26/17 12/26/17 18:59 06:59 18:59 Intake Total 1323.5 / 1323.5 1400 / 1400 Output Total 150 / 150 150 / 150 125 / 125 Balance 1173.5 / 1173.5 1250 / 1250 -125 / -125 Weight 97 kg Intake: IV 1203.5 / 1203.5 1000 / 1000 D5W/1/2NS + KCL 10 mEq Inj 1, 1000 / 1000 1000 / 1000 000 ML @ 125 mls/hr IV.CONT . Q8H [facility] Rx#:[id number] Oral 120 / 120 400 / 400 Output: Urine 150 / 150 Gastric Drainage 150 / 150 125 / 125 Right Nare Nasogastric Tube 150 / 150 125 / 125 Other: # Voids 2 1 Date of Last Bowel Movement 12/25/17 12/25/17 12/25/17 # Bowel Movements 4 1 Narrative: GENERAL: Patient lying in bed. Appears comfortable. SKIN: Warm and dry. HEAD: Normocephalic. EYES: No scleral icterus. No injection or drainage. NECK: Supple, trachea midline. No JVD. CARDIOVASCULAR: Regular rate and rhythm without murmurs, gallops, or rubs. RESPIRATORY: Breath sounds equal bilaterally. No accessory muscle use. GASTROINTESTINAL: Abdomen soft, non-tender, nondistended. MUSCULOSKELETAL: No cyanosis. 1+ peripheral edema bilaterally. BACK: Nontender without obvious deformity. No CVA tenderness. Results - Labs CBC & Chem 7: 12/26/17 12:50 12/25/17 03:40 Laboratory Results - last 24 hr 12/26/17 12:50 WBC 5.1 RBC 4.35 Hgb 12.9 Hct 38.6 MCV 88.9 MCH 29.6 MCHC 33.3 RDW 18.9 H Plt Count 132 L MPV 6.7 L Neut % (Auto) 51.1 Lymph % (Auto) 34.2 [place] % (Auto) 14.0 H Eos % (Auto) 0.3 Baso % (Auto) 0.4 Neut # (Auto) 2.6 Lymph # (Auto) 1.7 [place] # (Auto) 0.7 Eos # (Auto) 0.0 Baso # (Auto) 0.0 WBC Differential . Differential Comment Auto diff final - Imaging Impressions Venous Doppler Study 12/26/17 00:00 CONCLUSION: 1. Nonocclusive thrombus in the very distal aspect of the left common femoral vein extending into the proximal superficial femoral vein. 2. Deep venous system is otherwise patent. No SVT. Abdomen X-Ray 12/26/17 06:00 CONCLUSION: Residual contrast in large bowel. Assessment and Plan - Assessment (1) Small bowel obstruction Code(s): K56.609 - Unspecified intestinal obstruction, unspecified as to partial versus complete obstruction Status: Acute (2) Ovarian cancer Code(s): C56.9 - Malignant neoplasm of unspecified ovary Status: Chronic - Plan 42 year old female with recurrent ovarian cancer admitted for SBO. //SBOpersists - CT A/P showing interval development of small bowel dilatation with distal terminal ileum and colonic decompression characteristic of the distal SBO. There is multiloculated ascites similar from prior exam. Previous right pleural effusion has decreased in size -Repeat KUB shows high-grade small bowel obstruction again noted. Still no contrast convincingly seen in the colon. - Lactic acid 2.1, repeat 1.1 - General surgery following, decision for surgery will be made later today - small bowel follow through confirmed SBO - NPO, ice chips allowed - NGT to suction - Zofran PRN - IV morphine as needed - Cont IV fluids - Incentive spirometer - Encourage OOB and activity - general surgery and oncology also following - continue conservative management and supportive care until Monday then reevaluate need for surgery - Labs ordered and pending, awaiting RN to access PORT for IV hydration and Lab draws = Continue IV fluids. Continue NG tube to low intermittent suction. Surgery following. Appreciate assistance. = 12/24. Plan for surgery tomorrow. Appreciate surgical assistance. = 12/25. General surgery has clamped NG tube and patient is trying clears. Appreciate surgery assistance. = 12/26. For surgery today //Nonocclusive left femoral DVT. As seen on ultrasound. Patient has not received anticoagulation yet. Have notified surgery and hematology. Will need anticoagulation as soon as possible after surgery. //Urinary retention. Bladder scan 600 mL. Crowder ordered. //Dehydration, creatine stable - Continues to be tachycardic - Bolused 1 L in the ED -Continue IV fluids to 125 ml/hr - plan to transfer patient to oncology floor and have automotive accessory installer PORT for IVFs and lab draws = Continue IV fluids. //Hypernatremia. = 12/23 sodium 150. Switch to one half normal saline fluids and monitor. = 12/24. Sodium 149 continue half normal saline. = 12/25. Sodium 146 = 12/26. Labs pending. //Hypocalcemia - improved, stable - Likely secondary to dehydration - Protein corrected calcium is 8.4 - Given calcium chloride in the ED - Cont to monitor = 12/23. Corrected calcium acceptable. Continue to monitor. = 12/24. Corrected calcium 8.4. 1 g of calcium gluconate. Monitor = 12/25. Corrected calcium 8.4. No need to replace. Continue to monitor. /Hypokalemia. -12/23. Potassium 3.1. Replace and monitor. = 12/24. Potassium 3.5. Continue to monitor. 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 James who is consulted and is following, chemo will be held while admitted //Gastric ulcers - Protonix IV twice daily //Shortness of breath - resolved - CXR with significant elevation of L hemidiaphragm - CT A/P showing small R pleural effusion, decreased in size from prior - Supplemental O2 PRN -Monitor for worsening effusion if patient requires more O2 // Elevated AST - CT A/P showing worsening fatty infiltration - Monitor //DVT prophylaxis: SCDs, Lovenox Discharge Planning: Continued inpatient treatment. PT consulted. Plan for surgery We will need oncology and surgery clearance. (2) Ovarian cancer Qualifiers: Laterality: bilateral Qualified Code(s): C56.1 - Malignant neoplasm of right ovary; C56.2 - Malignant neoplasm of left ovary
[2017-12-26] MEDS ORDERED: Heparin 10,000 UNITS/10 ML Vial (for IV use) IV.PUSH STA (13:27)
[2017-12-26] MEDS ORDERED: Heparin Drip 25,000 UNIT/250 ML BAG IV.CONT PRN (13:27)
[2017-12-26 13:47] LABS: Calcium 6.5 mg/dL (8.5-10.1); Carbon Dioxide 24.2 meq/L (21.0-32.0); Potassium 3.7 meq/L (3.5-5.1)
--- NOTE | 2017-12-26 14:01 | P.PNGS ---
Subjective Patient reports: still having pain (pt failed po challenge ng back to sxn, no bm ) Physical Exam Vital signs: Vital Signs 12/25/17 18:14 12/25/17 20:00 12/25/17 20:55 Temperature 97.4 F L 98.1 F Pulse Rate 111 H 117 H Respiratory Rate 18 18 16 Blood Pressure 127/94 H 118/66 Pulse Oximetry 97 97 12/26/17 00:00 12/26/17 04:00 12/26/17 08:00 Temperature 97.7 F 97.9 F 98.1 F Pulse Rate 124 H 116 H 60 Respiratory Rate 18 18 16 Blood Pressure 117/88 117/87 145/71 H Pulse Oximetry 97 96 16 L 12/26/17 12:00 Temperature 98.5 F Pulse Rate 107 H Respiratory Rate 18 Blood Pressure 126/80 Pulse Oximetry 97 Intake & Output 12/25/17 12/26/17 12/26/17 18:59 06:59 18:59 Intake Total 1323.5 / 1323.5 1400 / 1400 Output Total 150 / 150 150 / 150 125 / 125 Balance 1173.5 / 1173.5 1250 / 1250 -125 / -125 Weight 97 kg Intake: IV 1203.5 / 1203.5 1000 / 1000 D5W/1/2NS + KCL 10 mEq Inj 1, 1000 / 1000 1000 / 1000 000 ML @ 125 mls/hr IV.CONT . Q8H [facility] Rx#:[id number] Oral 120 / 120 400 / 400 Output: Urine 150 / 150 Gastric Drainage 150 / 150 125 / 125 Right Nare Nasogastric Tube 150 / 150 125 / 125 Other: # Voids 2 1 Date of Last Bowel Movement 12/25/17 12/25/17 12/25/17 # Bowel Movements 4 1 - Routine Respiratory Exam Present: CTA bilaterally - Routine Cardiovascular Exam Present: RRR - Routine Abdominal Exam Present: soft, distended Assessment and Plan - Assessment (1) Small bowel obstruction Code(s): K56.609 - Unspecified intestinal obstruction, unspecified as to partial versus complete obstruction Status: Acute Plan: 42 year old female with ovarian cancer; small bowel obstruction, us shows non occlusive dvt, pt was plan for surgery but taken of schedule Dr. Sanchez started heparin gtt for 24-48 prior to surgery - NGTsxn -OOB and mobilize - continue abdominal exams - pt still appears to have very slow progression will plan for or in a few days - throat spray
[2017-12-26 14:18] LABS: Total Protein 4.4 g/dL (6.4-8.2)
[2017-12-26 15:30] LABS: INR 1.8 Ratio; Prothrombin Time 18.1 sec (9.8-11.6)
[2017-12-26] MEDS: Potassium Chloride Inj 10 MEQ in Sodium Chloride 0.45 % Inj 1,000 ML IV.CONT SCH (15:55)
--- NOTE | 2017-12-26 16:08 | P.PNWCN ---
Wound Care Nurse Consult Description: Consult for ileostomy marking per Dr Rushing. Communicated with: Patient Patient mother at bedside ESTELLA Calles RN Additional information: *LATE ENTRY* Patient seen from [phone] for ileostomy teaching, marking with 3 sites chosen.
--- NOTE | 2017-12-26 19:54 | P.CON ---
History of Present Illness Service: Hematology/oncology Consult date: 12/26/17 Requesting Physician: Moe Sanchez Reason for Consult: Nonocclusive lower extremity deep venous thrombosis. Primary Care Provider: No Primary Care Physician Family Provider: No Primary Care Physician Chief Complaint: Abdominal pain and bloating. History of Present Illness: Ms. 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 She had stage IIIc disease at the time of diagnosis. The patient reports undergoing systemic chemotherapy with a combination of carboplatin and Taxol for total of 11 cycles between June 2014 and May 2015. After 3 or 4 cycles of systemic chemotherapy she underwent RIRI and BSO with omentectomy in the summer 2014. After completion of postoperative chemotherapy in the early part of 2015 she reports remaining in remission for about 18 months at which point she relapsed. Patient has since then been on systemic therapy initially with rechallenge with carboplatin and paclitaxel and subsequently was initiated on single agent gemcitabine on which she remained between February 2017 and July 2017. She has since then been initiated on weekly paclitaxel with Avastin once every 3 weeks. About a week and a half ago the patient began to notice increasing abdominal distention, bloating and nausea after eating. She was unable to tolerate the symptoms and presented to this hospital for further workup and evaluation. Imaging studies of the abdomen revealed findings consistent with small bowel obstruction most likely related to peritoneal carcinomatosis related to ovarian cancer. The patient has been on n.p.o. status with an NG tube in place, she has been evaluated by the surgical team who had been planning to take her to the operating room for a diverting ileostomy for management of the SBO. The patient reports symptoms of swelling of her lower extremities bilaterally, she underwent On which he remained between ultrasound Doppler studies on 2017 and this revealed a nonocclusive thrombosis involving the very distal aspect of the left common femoral vein extending into the proximal superficial femoral vein. The patient has been initiated on IV heparin infusion. The oncology service/hematology service is been asked to see her for management of anticoagulation. It should be noted that the patient has not eaten in over a week and her INR levels are elevated as well which is typically not the case with heparin infusions (most likely related to vitamin K deficiency). Review of Systems Constitutional: Reports anorexia, Reports malaise, Reports weakness, Reports weight loss Eyes: Denies blind spots, Denies blurry vision Ears, Nose, Mouth, and Throat: Denies abnormal hearing, Denies change in voice Cardiovascular: Reports shortness of breath with activity, Denies chest pain, Denies shortness of breath, Denies shortness of breath causing sudden awakening Respiratory: Denies cough, Denies shortness of breath, Denies snoring, Denies stridor, Denies wheezing Gastrointestinal: Reports abdominal pain, Reports bloating, Reports feeling full early, Reports nausea, Reports vomiting Genitourinary: Denies blood in urine Musculoskeletal: Denies abnormal walking Neurologic: Reports weakness, Denies abnormal hearing, Denies abnormal speech, Denies headache(s) Psychiatric: Reports anxiety Endocrine: Reports cold intolerance Hematologic/Lymphatic: Denies easy bleeding Allergic/Immunologic: Denies GI upset with certain foods PMFSH - History History Provided By: Patient - Medical History Medical History: Medical History (Last Reviewed 12/26/17 @ 07:52 by Aleks Brandon, PT) Carcinomatosis Gastric ulcer History of hysterectomy Ascites Ovarian cancer Port-A-Cath in place - Family History Family History: Family History (Last Reviewed 12/26/17 @ 07:53 by Aleks Brandon, TAZ) Mother Hypertension Father Kidney malignancy - Tobacco History Second Hand Smoke Exposure: No Smoking Status: Never smoker - Alcohol History How Often Do You Have a Drink Containing Alcohol: Never - Substance Use History Substance History: No History of Abuse - Travel History Recent Travel in the [place] Within the Last 8 Weeks: No Recent Travel Out of the Country Within the Last 8 Weeks: No - Immunization History Tetanus Immunization: Unsure Hx Influenza Vaccine This Season: Yes Medications and Allergies Active Medications: Active Medications Al Hydroxide/Mg Hydroxide (Milk Of Magnbrien Liq) 30 ml PO Q12H PRN PRN Reason: Mild Constipation Bisacodyl (Dulcolax Supp) 10 mg RECTAL DAILY PRN PRN Reason: SEVERE CONSITIPATION Chlorhexidine Gluconate (Chlorhexidine 2% Cloth) 3 pack [employer] [facility] Stop: 12/28/17 03:09 Clotrimazole (Lotrimin 1% Cream) 1 applicatio TOPICAL BID [facility] Last Admin: 12/26/17 11:01 Dose: 1 applicatio Hydromorphone HCl (Dilaudid Pf Inj) 2 mg IV.PUSH Q4H PRN PRN Reason: BREAKTHROUGH PAIN Lactated Ringer's (Lr 1000 Ml Inj) 1,000 mls @ 30 mls/hr IV.SIG .Q24H [facility] Stop: 12/28/17 03:09 Last Admin: 12/26/17 05:59 Dose: Not Given Sodium Chloride (Ns Inj) 500 mls @ 30 mls/hr IV.SIG .Q10H [facility] Stop: 12/28/17 03:09 Heparin Sodium/Dextrose (Heparin/D5w 25,000 U/250 Ml) 25,000 unit in 250 mls @ 17 mls/hr IV.CONT TITRATE PRN; Protocol PRN Reason: Per Protocol Last Admin: 12/26/17 15:57 Dose: 1,700 units/hr, 17 mls/hr Potassium Chloride 10 meq/ (Sodium Chloride) 1,005 mls @ 80 mls/hr IV.CONT .[id number] [facility] Last Admin: 12/26/17 15:55 Dose: Not Given Lactulose (Lactulose Liq) 30 ml PO DAILY PRN PRN Reason: SEVERE CONSITIPATION Morphine Sulfate (Morphine Inj) 4 mg IV.CONT Q4H PRN PRN Reason: PAIN SCALE 1 TO 10 Last Admin: 12/25/17 10:10 Dose: 4 mg Ondansetron HCl (Zofran Inj) 4 mg IV.PUSH Q6H PRN PRN Reason: NAUSEA OR VOMITING Padimate O ([place]stick) 1 applicatio TOPICAL UNSCH PRN PRN Reason: DRY LIPS Last Admin: 12/25/17 01:36 Dose: 1 applicatio Pantoprazole Sodium (Protonix Inj) 40 mg IV.PUSH Q12H [facility] Last Admin: 12/26/17 11:01 Dose: 40 mg Povidone Iodine (Betadine 5% Antisepsis Kit) 1 applicatio EACH [employer] [facility] Stop: 12/28/17 03:09 Sennosides (Senokot) 17.2 mg PO Q12H PRN PRN Reason: Moderate Constipation Sodium Chloride (Ns Flush) 2 ml IV.FLUSH PRN PRN PRN Reason: FLUSH AFTER USING IV ACCESS Throat Lozenges (Chloraseptic [place]) 2 spray OROPHARYNG Q2H PRN PRN Reason: sore throat Allergies Allergy/AdvReac Type Severity Reaction Status Date / Time No Known Allergies Allergy Verified 12/18/17 12:42 Home Medications Medication Instructions Recorded Confirmed Type omeprazole 40 mg PO BID 12/18/17 12/18/17 History Physical Exam Vital signs: Vital Signs 12/25/17 20:00 12/25/17 20:55 12/26/17 00:00 Temperature 98.1 F 97.7 F Pulse Rate 117 H 124 H Respiratory Rate 18 16 18 Blood Pressure 118/66 117/88 Pulse Oximetry 97 97 12/26/17 04:00 12/26/17 08:00 12/26/17 12:00 Temperature 97.9 F 98.1 F 98.5 F Pulse Rate 116 H 60 107 H Respiratory Rate 18 16 18 Blood Pressure 117/87 145/71 H 126/80 Pulse Oximetry 96 16 L 97 12/26/17 16:00 Temperature 98.6 F Pulse Rate 117 H Respiratory Rate 16 Blood Pressure 108/68 Pulse Oximetry 98 Intake & Output 12/26/17 12/26/17 12/27/17 06:59 18:59 06:59 Intake Total 1400 / 1400 1000 / 1000 Output Total 150 / 150 850 / 850 Balance 1250 / 1250 150 / 150 Weight 97 kg Intake: IV 1000 / 1000 1000 / 1000 D5W/1/2NS + KCL 10 mEq Inj 1, 1000 / 1000 1000 / 1000 000 ML @ 125 mls/hr IV.CONT . Q8H [facility] Rx#:[id number] Oral 400 / 400 Output: Urine 150 / 150 400 / 400 Gastric Drainage 450 / 450 Right Nare Nasogastric Tube 450 / 450 Other: # Voids 1 Date of Last Bowel Movement 12/25/17 12/25/17 # Bowel Movements 1 Narrative: Young/middle-aged female, laying in bed, appears to be no acute distress. She has alopecia chemotherapy. She has an NG tube in 1 for nostrils. She appears to be generally pale and chronically ill. - Routine HEENT Exam Head: Present: normocephalic Eye: Present: EOMI, PERRL - Routine Neck Exam Present: supple, full ROM. Absent: JVD, lymphadenopathy - Routine Respiratory Exam Absent: accessory muscle use, rales, rhonchi, stridor, wheezes, crackles - Routine Cardiovascular Exam Present: RRR, S1, S2 - Routine Abdominal Exam Present: soft Comments: Distended abdomen, tender to deep palpation, no organ enlargement. Positive bowel sounds. - Detailed Abdominal Exam Bowel sounds: hypoactive - Routine Extremities Exam Present: edema, pulses intact. Absent: cyanosis, clubbing, tenderness - Routine Skin Exam Present: intact - Routine Neurological Exam Present: alert, oriented X3, CN II-XII intact. Absent: sensory deficit, motor deficit - Detailed Neurological Exam: Coma Scale Eye Opening: Spontaneous - Routine Psychiatric Exam Present: normal affect Assessment and Plan - Plan Ms. Gloria with a diagnosis of recurrent high-grade ovarian serous carcinoma , initially diagnosed in June 2014, status post carboplatin and Taxol followed by surgical resection followed by additional cycles of carboplatin and Taxol in the postoperative setting. She completed initial phase of treatment in May 2015 and remained in remission for the next 18 months. When she relapsed she was rechallenge with carboplatin and Taxol and received this for several months, when her disease progress she was initiated on single agent weekly gemcitabine and remained on this for about 7 months between the fall 2016 in spring 2017. After progressing on single agent gemcitabine she was transitioned to combination therapy with weekly paclitaxel and Avastin. Her disease seems now to be progressing from a clinical standpoint with new onset peritoneal carcinomatosis and resultant bowel obstruction. She has not been able to consume oral intake for the past 8-9 days. She now has what appears to be a lower extremity deep venous thrombosis ( nonocclusive) secondary to her diagnosis of recurrent ovarian carcinoma, Avastin is also associated with increased risk of venous thrombus embolism. Ultrasound Doppler studies performed on 01/05/2018 described the lower extremity deep venous thrombosis to be nonocclusive and involving the distal aspect of the common femoral vein. She has been initiated on IV heparin infusion for therapeutic anticoagulation. Coags indicate appropriate elevation in PT and PTT levels consistent with heparin infusion. Her INR level seems to be inappropriately elevated, this is likely related to deficiency of vitamin K related clotting factors which is likely secondary to her poor oral intake. Recommendations: 1. Lower extremity deep venous thrombosis involving the distal common femoral vein: Provoked by her diagnosis of ovarian cancer and also her lack of mobility , additional risk factor includes treatment with Avastin in the recent past. At this point I would recommend anticoagulation, heparin seems to be reasonable option given the likelihood of the patient undergoing surgical intervention for management of her small bowel obstruction. I do however foresee her being coagulopathic even after heparin effect is reversed due to her malnourishment and depletion of vitamin K dependent coagulation factors. This is evidenced by her elevated INR levels which typically should not be impacted by a heparin infusion. To facilitate eventual surgical intervention I think it would be reasonable to offer Ms. Gloria a slow intravenous infusion of vitamin K. This should help replete the vitamin K dependent coagulation factors she will need to maintain postoperative hemostasis. She will however remain on IV heparin infusion which will maintain therapeutic anticoagulation so as to not render this patient prothrombotic after vitamin K infusion. Thank you very much for asking me to see this very nice patient.
[2017-12-27] MEDS: Clotrimazole 1% Cream 15 GM Tube TOPICAL SCH ×3 (00:27→21:59)
[2017-12-27] MEDS: Potassium Chloride Inj 10 MEQ in Sodium Chloride 0.45 % Inj 1,000 ML IV.CONT SCH ×2 (04:23→18:27)
[2017-12-27 05:11] LABS: Hematocrit 37.4 % (35.0-46.0); Hemoglobin 12.5 gm/dL (11.6-15.3); Mean Corpuscular HGB Conc 33.4 % (32.0-36.0); Mean Corpuscular Hemoglobin 29.4 pg (27.0-34.0); Mean Platelet Volume 7.2 fL (7.0-11.0); Platelet Count 133 th/mm3 (150-450); Red Blood Count 4.25 mil/mm3 (4.00-5.30); Red Cell Distribution Width 18.7 % (11.6-17.2); White Blood Count 5.7 th/mm3 (4.0-11.0)
--- NOTE | 2017-12-27 08:25 | P.PNONC ---
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 she is understandably concerned that she is dying. support provided her only pain is rectal spasms, she states the Morphine is not helping just making her drowsy I will start Ativan 0.5mg IV PRN. Objective Vital Signs/Intake & Output: Vital Signs 12/26/17 08:00 12/26/17 12:00 12/26/17 16:00 Temperature 98.1 F 98.5 F 98.6 F Pulse Rate 60 107 H 117 H Respiratory Rate 16 18 16 Blood Pressure 145/71 H 126/80 108/68 Pulse Oximetry 16 L 97 98 12/26/17 20:00 12/26/17 22:45 12/26/17 23:28 Temperature 98.2 F 98.4 F Pulse Rate 111 H 110 H 109 H Respiratory Rate 16 16 16 Blood Pressure 95/72 L 103/69 103/65 Pulse Oximetry 98 97 98 12/27/17 04:00 Temperature 97.6 F Pulse Rate 95 H Respiratory Rate 18 Blood Pressure 102/87 Pulse Oximetry 98 Intake & Output 12/26/17 12/27/17 12/27/17 18:59 06:59 18:59 Intake Total 1000 / 1000 55 / 55 0 / 0 Output Total 850 / 850 300 / 300 Balance 150 / 150 -245 / -245 0 / 0 Weight 90.7 kg Intake: IV 1000 / 1000 55 / 55 0 / 0 D5W/1/2NS + KCL 10 mEq Inj 1, 1000 / 1000 000 ML @ 125 mls/hr IV.CONT . Q8H [facility] Rx#:[id number] Vitamin K Inj 10 MG In D5W Inj 55 / 55 50 ML @ 102 mls/hr IV.SIG ONCE ONE Rx#:[id number] Output: Urine 400 / 400 300 / 300 Gastric Drainage 450 / 450 Right Nare Nasogastric Tube 450 / 450 Other: Date of Last Bowel Movement 12/25/17 12/26/17 # Bowel Movements 1 Result Diagrams: 12/27/17 04:35 12/26/17 12:50 Laboratory Results: Laboratory Results - last 24 hr 12/26/17 12/26/17 12/26/17 12:50 12:50 14:30 WBC 5.1 RBC 4.35 Hgb 12.9 Hct 38.6 MCV 88.9 MCH 29.6 MCHC 33.3 RDW 18.9 H Plt Count 132 L MPV 6.7 L Neut % (Auto) 51.1 Lymph % (Auto) 34.2 [place] % (Auto) 14.0 H Eos % (Auto) 0.3 Baso % (Auto) 0.4 Neut # (Auto) 2.6 Lymph # (Auto) 1.7 [place] # (Auto) 0.7 Eos # (Auto) 0.0 Baso # (Auto) 0.0 WBC Differential . Differential Comment Auto diff final PT 18.1 H INR 1.8 APTT 43.0 H Sodium 143 Potassium 3.7 Chloride 111 H Carbon Dioxide 24.2 Anion Gap 8 BUN 11 Creatinine 0.76 Estimated GFR 84 L Random Glucose 90 Calcium 6.5 L* Prot Corrected Calcium 7.9 L Total Protein 4.4 L 12/27/17 12/27/17 12/27/17 00:44 03:41 04:35 WBC 5.7 RBC 4.25 Hgb 12.5 Hct 37.4 MCV 88.0 MCH 29.4 MCHC 33.4 RDW 18.7 H Plt Count 133 L MPV 7.2 Neut % (Auto) Lymph % (Auto) [place] % (Auto) Eos % (Auto) Baso % (Auto) Neut # (Auto) Lymph # (Auto) [place] # (Auto) Eos # (Auto) Baso # (Auto) WBC Differential Differential Comment PT INR APTT Greater than 277.5 H* Greater than 277.5 H* Sodium Potassium Chloride Carbon Dioxide Anion Gap BUN Creatinine Estimated GFR Random Glucose Calcium Prot Corrected Calcium Total Protein 12/27/17 06:58 WBC RBC Hgb Hct MCV MCH MCHC RDW Plt Count MPV Neut % (Auto) Lymph % (Auto) [place] % (Auto) Eos % (Auto) Baso % (Auto) Neut # (Auto) Lymph # (Auto) [place] # (Auto) Eos # (Auto) Baso # (Auto) WBC Differential Differential Comment PT INR APTT 72.8 H D Sodium Potassium Chloride Carbon Dioxide Anion Gap BUN Creatinine Estimated GFR Random Glucose Calcium Prot Corrected Calcium Total Protein Culture Results: Microbiology 12/27/17 00:15 Stool Occult Blood (FANNIE) - Final Stool Hemoccult positive Imaging Studies: Impressions Venous Doppler Study 12/26/17 00:00 CONCLUSION: 1. Nonocclusive thrombus in the very distal aspect of the left common femoral vein extending into the proximal superficial femoral vein. 2. Deep venous system is otherwise patent. No SVT. Medications: Active Medications Generic Name Dose Route Start Last Admin Trade Name Freq PRN Reason Stop Dose Admin Clotrimazole 1 applicatio 12/26/17 09:00 12/27/17 00:27 Lotrimin 1% Cream TOPICAL 1 applicatio BID [facility] Administration Lactated Ringer's 1,000 mls @ 30 mls/hr 12/25/17 03:15 12/27/17 04:25 Lr 1000 Ml Inj IV.SIG 12/28/17 03:09 Not Given .Q24H [facility] Heparin Sodium/Dextrose 25,000 unit in 250 mls @ 17 mls/hr 12/26/17 13:27 01:39 Heparin/D5w 25,000 U/250 Ml IV.CONT 0 units/hr TITRATE PRN 0 mls/hr Per Protocol Titration Protocol 1,700 UNITS/HR Potassium Chloride 10 meq/ 1,005 mls @ 80 mls/hr 12/26/17 15:00 12/27/17 04: 23 Sodium Chloride IV.CONT 80 mls/hr .[id number] [facility] Administration Morphine Sulfate 4 mg 12/25/17 10:36 12/25/17 10:10 Morphine Inj IV.CONT 4 mg Q4H PRN Administration PAIN SCALE 1 TO 10 Padimate O 1 applicatio 12/25/17 00:32 12/25/17 01:36 Chapstick TOPICAL 1 applicatio UNSCH PRN Administration DRY LIPS Pantoprazole Sodium 40 mg 12/20/17 11:00 12/26/17 22:36 Protonix Inj IV.PUSH 40 mg Q12H [facility] Administration Sodium Chloride 2 ml 12/18/17 12:58 12/26/17 22:37 Ns Flush IV.FLUSH 2 ml PRN PRN Administration FLUSH AFTER USING IV ACCESS Objective Remarks: GENERAL: acutely ill SKIN: Warm and dry. HEAD: Normocephalic. EYES: No scleral icterus. No injection or drainage. CARDIOVASCULAR: Regular rate and rhythm RESPIRATORY: Breath sounds equal bilaterally. GASTROINTESTINAL: Abdomen soft, distended. NG to LIWS EXTREMITIES: No cyanosis, swelling to LLE MUSCULOSKELETAL: Adequate muscle tone. Assessment/Plan (1) Ovarian cancer Code(s): C56.9 - Malignant neoplasm of unspecified ovary Status: Chronic - Plan continue NPO with NG to LIWS encourage ambulation and OOB to chair general surgery following, conservative treatment at this time IVF for hydration supportive care will continue to hold IV chemotherapy during admission s/p Taxol and Avastin 12/15/17 12/21/17 patient needs to restart IVF OOB to ambulate and chair continue NG to LIWS ok for ice chips per general surgery continue to hold chemo during hospital stay Dr. James communicated with general surgery, conservative approach 12/25/17 for surgery today d/t continued SBO without improvement NPO NG to LIWS supportive care continue to hold IV chemo during hospitalization and recovery 12/27/17 Left LE DVT, Dr. Aviles Hem/Onc consulted and appreciate assistance in care...surgery placed on hold. Heparin gtt, was on hold d/t elevated aPTT, restarted at lower dose patient still would consider surgical intervention would like to talk with Palliative Care, consult placed to help clarify goals and establish health care surrogate supportive care Morphine for pain Ativan 0.5mg IVP PRN added continue NG to LIWS (1) Ovarian cancer Qualifiers: Laterality: bilateral Qualified Code(s): C56.1 - Malignant neoplasm of right ovary; C56.2 - Malignant neoplasm of left ovary
[2017-12-27] MEDS ORDERED: Calcium Chloride Inj 1 GM/10 ML Syringe IV.PUSH ONE (10:33)
--- NOTE | 2017-12-27 10:38 | P.PNIM ---
Subjective Interval history: Patient reports no changes. Denies any chest pain or shortness of breath. Reports lower abdominal cramping continues. Physical Exam Vital signs: Vital Signs 12/26/17 12:00 12/26/17 16:00 12/26/17 20:00 Temperature 98.5 F 98.6 F 98.2 F Pulse Rate 107 H 117 H 111 H Respiratory Rate 18 16 16 Blood Pressure 126/80 108/68 95/72 L Pulse Oximetry 97 98 98 12/26/17 22:45 12/26/17 23:28 12/27/17 04:00 Temperature 98.4 F 97.6 F Pulse Rate 110 H 109 H 95 H Respiratory Rate 16 16 18 Blood Pressure 103/69 103/65 102/87 Pulse Oximetry 97 98 98 Intake & Output 12/26/17 12/27/17 12/27/17 18:59 06:59 18:59 Intake Total 1000 / 1000 55 / 55 0 / 0 Output Total 850 / 850 300 / 300 Balance 150 / 150 -245 / -245 0 / 0 Weight 90.7 kg Intake: IV 1000 / 1000 55 / 55 0 / 0 D5W/1/2NS + KCL 10 mEq Inj 1, 1000 / 1000 000 ML @ 125 mls/hr IV.CONT . Q8H [facility] Rx#:[id number] Vitamin K Inj 10 MG In D5W Inj 55 / 55 50 ML @ 102 mls/hr IV.SIG ONCE ONE Rx#:[id number] Output: Urine 400 / 400 300 / 300 Gastric Drainage 450 / 450 Right Nare Nasogastric Tube 450 / 450 Other: Date of Last Bowel Movement 12/25/17 12/26/17 # Bowel Movements 1 Narrative: GENERAL: Patient sitting up in bed. Appears comfortable. SKIN: Warm and dry. HEAD: Normocephalic. EYES: No scleral icterus. No injection or drainage. NECK: Supple, trachea midline. No JVD . CARDIOVASCULAR: Regular rate and rhythm without murmurs, gallops, or rubs. RESPIRATORY: Breath sounds equal bilaterally. No accessory muscle use. GASTROINTESTINAL: Abdomen soft, non-tender, nondistended. MUSCULOSKELETAL: No cyanosis. +2 edema bilaterally as before. BACK: Nontender without obvious deformity. No CVA tenderness. Results - Labs CBC & Chem 7: 12/27/17 04:35 12/26/17 12:50 Laboratory Results - last 24 hr 12/26/17 12/26/17 12/26/17 12:50 12:50 14:30 WBC 5.1 RBC 4.35 Hgb 12.9 Hct 38.6 MCV 88.9 MCH 29.6 MCHC 33.3 RDW 18.9 H Plt Count 132 L MPV 6.7 L Neut % (Auto) 51.1 Lymph % (Auto) 34.2 [place] % (Auto) 14.0 H Eos % (Auto) 0.3 Baso % (Auto) 0.4 Neut # (Auto) 2.6 Lymph # (Auto) 1.7 [place] # (Auto) 0.7 Eos # (Auto) 0.0 Baso # (Auto) 0.0 WBC Differential . Differential Comment Auto diff final PT 18.1 H INR 1.8 APTT 43.0 H Sodium 143 Potassium 3.7 Chloride 111 H Carbon Dioxide 24.2 Anion Gap 8 BUN 11 Creatinine 0.76 Estimated GFR 84 L Random Glucose 90 Calcium 6.5 L* Prot Corrected Calcium 7.9 L Total Protein 4.4 L 12/27/17 12/27/17 12/27/17 00:44 03:41 04:35 WBC 5.7 RBC 4.25 Hgb 12.5 Hct 37.4 MCV 88.0 MCH 29.4 MCHC 33.4 RDW 18.7 H Plt Count 133 L MPV 7.2 Neut % (Auto) Lymph % (Auto) [place] % (Auto) Eos % (Auto) Baso % (Auto) Neut # (Auto) Lymph # (Auto) [place] # (Auto) Eos # (Auto) Baso # (Auto) WBC Differential Differential Comment PT INR APTT Greater than 277.5 H* Greater than 277.5 H* Sodium Potassium Chloride Carbon Dioxide Anion Gap BUN Creatinine Estimated GFR Random Glucose Calcium Prot Corrected Calcium Total Protein 12/27/17 06:58 WBC RBC Hgb Hct MCV MCH MCHC RDW Plt Count MPV Neut % (Auto) Lymph % (Auto) [place] % (Auto) Eos % (Auto) Baso % (Auto) Neut # (Auto) Lymph # (Auto) [place] # (Auto) Eos # (Auto) Baso # (Auto) WBC Differential Differential Comment PT INR APTT 72.8 H D Sodium Potassium Chloride Carbon Dioxide Anion Gap BUN Creatinine Estimated GFR Random Glucose Calcium Prot Corrected Calcium Total Protein Microbiology 12/27/17 00:15 Stool Stool Occult Blood (FANNIE) - Final Hemoccult positive Assessment and Plan - Assessment (1) Small bowel obstruction Code(s): K56.609 - Unspecified intestinal obstruction, unspecified as to partial versus complete obstruction Status: Acute (2) Ovarian cancer Code(s): C56.9 - Malignant neoplasm of unspecified ovary Status: Chronic - Plan 42 year old female with recurrent ovarian cancer admitted for SBO. //SBOpersists - CT A/P showing interval development of small bowel dilatation with distal terminal ileum and colonic decompression characteristic of the distal SBO. There is multiloculated ascites similar from prior exam. Previous right pleural effusion has decreased in size -Repeat KUB shows high-grade small bowel obstruction again noted. Still no contrast convincingly seen in the colon. - Lactic acid 2.1, repeat 1.1 - General surgery following, decision for surgery will be made later today - small bowel follow through confirmed SBO - NPO, ice chips allowed - NGT to suction - Zofran PRN - IV morphine as needed - Cont IV fluids - Incentive spirometer - Encourage OOB and activity - general surgery and oncology also following - continue conservative management and supportive care until Monday then reevaluate need for surgery - Labs ordered and pending, awaiting RN to access PORT for IV hydration and Lab draws = Continue IV fluids. Continue NG tube to low intermittent suction. Surgery following. Appreciate assistance. = 12/24. Plan for surgery tomorrow. Appreciate surgical assistance. = 12/25. General surgery has clamped NG tube and patient is trying clears. Appreciate surgery assistance. = 12/26. For surgery today //Nonocclusive left femoral DVT. As seen on ultrasound. Patient has not received anticoagulation yet. Have notified surgery and hematology. Will need anticoagulation as soon as possible after surgery. = Hematology following. Appreciate assistance. Discussed with hematology and with general surgery. Will continue heparin drip until noon, discontinue heparin drip and plan for surgery this evening. //Possible urinary retention. =Bladder scan 600 mL, however patient voided 400 after this. Kidney function appears stable. We will continue to monitor kidney function. //Dehydration, creatine stable - Continues to be tachycardic - Bolused 1 L in the ED -Continue IV fluids to 125 ml/hr - plan to transfer patient to oncology floor and have patient access PORT for IVFs and lab draws = Continue IV fluids. //Hypernatremia. = 12/23 sodium 150. Switch to one half normal saline fluids and monitor. = 12/24. Sodium 149 continue half normal saline. = 12/25. Sodium 146 = 12/26. Labs pending. = 12/27. Resolved on labs yesterday. //Hypocalcemia - improved, stable - Likely secondary to dehydration - Protein corrected calcium is 8.4 - Given calcium chloride in the ED - Cont to monitor = 12/23. Corrected calcium acceptable. Continue to monitor. = 12/24. Corrected calcium 8.4. 1 g of calcium gluconate. Monitor = 12/25. Corrected calcium 8.4. No need to replace. Continue to monitor. = 12/27. Correct calcium 8.1 yesterday. Will give some calcium chloride today. Continue to monitor. /Hypokalemia. -12/23. Potassium 3.1. Replace and monitor. = 12/24. Potassium 3.5. Continue to monitor. = 12/27. Resolved. Continue to monitor. 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 James who is consulted and is following, chemo will be held while admitted //Gastric ulcers - Protonix IV twice daily //Shortness of breath - resolved - CXR with significant elevation of L hemidiaphragm - CT A/P showing small R pleural effusion, decreased in size from prior - Supplemental O2 PRN -Monitor for worsening effusion if patient requires more O2 // Elevated AST - CT A/P showing worsening fatty infiltration - Monitor //DVT prophylaxis: SCDs, Lovenox Discharge Planning: Continued inpatient treatment. PT consulted. Plan for surgery We will need oncology and surgery clearance. (2) Ovarian cancer Qualifiers: Qualified Code(s): C56.1 - Malignant neoplasm of right ovary; C56.2 - Malignant neoplasm of left ovary
--- NOTE | 2017-12-27 10:40 | P.PNONC ---
Subjective Interval history: Ill-appearing female patient, lying on her right side in bed, in no acute distress. Patient visibly emotionally upset. Her mother is at the bedside giving support. When asked how she is doing, the patient responded "besides the fact that I might be dying". Patient's primary oncology team has placed an order for palliative consult to assist the patient. Awaiting surgery for small bowel obstruction. Heparin drip on hold for surgery. Objective Vital Signs/Intake & Output: Vital Signs 12/26/17 12:00 12/26/17 16:00 12/26/17 20:00 Temperature 98.5 F 98.6 F 98.2 F Pulse Rate 107 H 117 H 111 H Respiratory Rate 18 16 16 Blood Pressure 126/80 108/68 95/72 L Pulse Oximetry 97 98 98 12/26/17 22:45 12/26/17 23:28 12/27/17 04:00 Temperature 98.4 F 97.6 F Pulse Rate 110 H 109 H 95 H Respiratory Rate 16 16 18 Blood Pressure 103/69 103/65 102/87 Pulse Oximetry 97 98 98 Intake & Output 12/26/17 12/27/17 12/27/17 18:59 06:59 18:59 Intake Total 1000 / 1000 55 / 55 0 / 0 Output Total 850 / 850 300 / 300 Balance 150 / 150 -245 / -245 0 / 0 Weight 90.7 kg Intake: IV 1000 / 1000 55 / 55 0 / 0 D5W/1/2NS + KCL 10 mEq Inj 1, 1000 / 1000 000 ML @ 125 mls/hr IV.CONT . Q8H [facility] Rx#:[id number] Vitamin K Inj 10 MG In D5W Inj 55 / 55 50 ML @ 102 mls/hr IV.SIG ONCE ONE Rx#:[id number] Output: Urine 400 / 400 300 / 300 Gastric Drainage 450 / 450 Right Nare Nasogastric Tube 450 / 450 Other: Date of Last Bowel Movement 12/25/17 12/26/17 # Bowel Movements 1 Result Diagrams: 12/27/17 04:35 12/26/17 12:50 Laboratory Results: Laboratory Results - last 24 hr 12/26/17 12/26/17 12/26/17 12:50 12:50 14:30 WBC 5.1 RBC 4.35 Hgb 12.9 Hct 38.6 MCV 88.9 MCH 29.6 MCHC 33.3 RDW 18.9 H Plt Count 132 L MPV 6.7 L Neut % (Auto) 51.1 Lymph % (Auto) 34.2 [place] % (Auto) 14.0 H Eos % (Auto) 0.3 Baso % (Auto) 0.4 Neut # (Auto) 2.6 Lymph # (Auto) 1.7 [place] # (Auto) 0.7 Eos # (Auto) 0.0 Baso # (Auto) 0.0 WBC Differential . Differential Comment Auto diff final PT 18.1 H INR 1.8 APTT 43.0 H Sodium 143 Potassium 3.7 Chloride 111 H Carbon Dioxide 24.2 Anion Gap 8 BUN 11 Creatinine 0.76 Estimated GFR 84 L Random Glucose 90 Calcium 6.5 L* Prot Corrected Calcium 7.9 L Total Protein 4.4 L 12/27/17 12/27/17 12/27/17 00:44 03:41 04:35 WBC 5.7 RBC 4.25 Hgb 12.5 Hct 37.4 MCV 88.0 MCH 29.4 MCHC 33.4 RDW 18.7 H Plt Count 133 L MPV 7.2 Neut % (Auto) Lymph % (Auto) [place] % (Auto) Eos % (Auto) Baso % (Auto) Neut # (Auto) Lymph # (Auto) [place] # (Auto) Eos # (Auto) Baso # (Auto) WBC Differential Differential Comment PT INR APTT Greater than 277.5 H* Greater than 277.5 H* Sodium Potassium Chloride Carbon Dioxide Anion Gap BUN Creatinine Estimated GFR Random Glucose Calcium Prot Corrected Calcium Total Protein 12/27/17 06:58 WBC RBC Hgb Hct MCV MCH MCHC RDW Plt Count MPV Neut % (Auto) Lymph % (Auto) [place] % (Auto) Eos % (Auto) Baso % (Auto) Neut # (Auto) Lymph # (Auto) [place] # (Auto) Eos # (Auto) Baso # (Auto) WBC Differential Differential Comment PT INR APTT 72.8 H D Sodium Potassium Chloride Carbon Dioxide Anion Gap BUN Creatinine Estimated GFR Random Glucose Calcium Prot Corrected Calcium Total Protein Culture Results: Microbiology 12/27/17 00:15 Stool Occult Blood (FANNIE) - Final Stool Hemoccult positive Medications: Active Medications Generic Name Dose Route Start Last Admin Trade Name Freq PRN Reason Stop Dose Admin Clotrimazole 1 applicatio 12/26/17 09:00 12/27/17 00:27 Lotrimin 1% Cream TOPICAL 1 applicatio BID [facility] Administration Lactated Ringer's 1,000 mls @ 30 mls/hr 12/25/17 03:15 12/27/17 04:25 Lr 1000 Ml Inj IV.SIG 12/28/17 03:09 Not Given .Q24H [facility] Heparin Sodium/Dextrose 25,000 unit in 250 mls @ 17 mls/hr 12/26/17 13:27 01:39 Heparin/D5w 25,000 U/250 Ml IV.CONT 0 units/hr TITRATE PRN 0 mls/hr Per Protocol Titration Protocol 1,700 UNITS/HR Potassium Chloride 10 meq/ 1,005 mls @ 80 mls/hr 12/26/17 15:00 12/27/17 04: 23 Sodium Chloride IV.CONT 80 mls/hr .[id number] [facility] Administration Morphine Sulfate 4 mg 12/25/17 10:36 12/25/17 10:10 Morphine Inj IV.CONT 4 mg Q4H PRN Administration PAIN SCALE 1 TO 10 Padimate O 1 applicatio 12/25/17 00:32 12/25/17 01:36 Chapstick TOPICAL 1 applicatio UNSCH PRN Administration DRY LIPS Pantoprazole Sodium 40 mg 12/20/17 11:00 12/26/17 22:36 Protonix Inj IV.PUSH 40 mg Q12H [facility] Administration Sodium Chloride 2 ml 12/18/17 12:58 12/26/17 22:37 Ns Flush IV.FLUSH 2 ml PRN PRN Administration FLUSH AFTER USING IV ACCESS Objective Remarks: GENERAL: Ill-appearing female patient, lying in bed. In no acute distress. SKIN: Warm and dry. HEAD: Normocephalic. NG tube to left nare. EYES: No scleral icterus. No injection or drainage. NECK: Supple, trachea midline. CARDIOVASCULAR: Regular rate and rhythm without murmurs. RESPIRATORY: Posterior breath sounds clear, equal bilaterally. No accessory muscle use. On room air. GASTROINTESTINAL: Abdomen soft, non-tender, nondistended. +BS EXTREMITIES: No cyanosis, or edema. MUSCULOSKELETAL: Adequate muscle tone. NEUROLOGICAL: No obvious focal deficit. Awake, alert, and oriented x3. PSYCHIATRIC: Flat affect; insight and judgment normal. Assessment/Plan (1) Ovarian cancer Code(s): C56.9 - Malignant neoplasm of unspecified ovary Status: Chronic (2) Small bowel obstruction Code(s): K56.609 - Unspecified intestinal obstruction, unspecified as to partial versus complete obstruction Status: Acute - Plan This is an unfortunate 42-year-old female patient, who is currently under the care of Dr. James for recurrent ovarian cancer. She was admitted for/and found to have a small bowel obstruction and DVT. Hematology has been consulted for DVT. Her INR level was inappropriately elevated, likely related to deficiency of vitamin K related clotting factors which is likely secondary to her poor oral intake. The patient was administered vitamin K and was started on a heparin drip. Plan: 1. DVT. Heparin drip held this a.m. due to an elevated APTT > 277.5. Surgeon was contacted by the attending physician, Dr. Sanchez, and they stated that they would be operating today and to stop the heparin drip by 11:00. Heparin remains on hold for surgery and we will resume this once cleared by the surgeon. When the heparin is resumed restart at a lower dose 11ml/hr. 2. Recurrent ovarian cancer. Management per Dr. James. 3. Continue to monitor CBC, PT/INR and APTT. 4. Small bowel obstruction, pending surgery today. 5. Continue supportive care. (1) Ovarian cancer Qualifiers: Laterality: bilateral Qualified Code(s): C56.1 - Malignant neoplasm of right ovary; C56.2 - Malignant neoplasm of left ovary
[2017-12-27] MEDS: Pantoprazole Inj 40 MG Vial IV.PUSH SCH (11:38)
[2017-12-27] MEDS ORDERED: Lidocaine PF 1% Inj 5 ML Syringe INFILTRATN ONE (12:00)
[2017-12-27] MEDS ORDERED: Phenylephrine/NS 1000 MCG/10ML Syringe IV.PUSH ONE (12:00)
[2017-12-27] MEDS ORDERED: Succinylcholine Inj 100 MG/5 ML Syringe IV.PUSH ONE (12:00)
[2017-12-27] MEDS ORDERED: Calcium Chloride Inj 0.5 GM in Sodium Chlor 0.9% Inj 100 ML IV.SIG ONE (13:00)
--- NOTE | 2017-12-27 15:01 | P.CONPAL ---
Consult Service: Palliative Care Requesting Physician: Vicky Redd Reason for Consult: a. To assist with evaluation and management of symptoms including: pain, weakness, N/V. b. To assist medical decision maker(s) with: better understanding of current medical conditions; weighing benefits/burdens of medical treatment options; making medical treatment decisions. Primary Care Provider: No Primary Care Physician History of Present Illness History of Present Illness: Ms. Gloria is a 42 year old female with past medical history of gastric ulcer and recurrent Stage IIIC Ovarian cancer diagnosed in June 2014. She was treated initially with Taxol/ Carbo followed by surgical resection ( Completed May 2015) and was in remission for 18 months. Upon relapse, she was rechallenged with Taxol/Carboplatin for several months, then changed to single agent Gemzar (until Spring 2017) when she was found to have disease progression. After progressing on single agent gemcitabine she was transitioned to combination therapy with weekly Taxol and Avastin. She is post Line 4 weekly Taxol with Avastin on Day 1 and 15 on 12/15/17. Patient has had increasing abdominal distention and N/V over the past 3-4 weeks. She presented to [facility] emergency department on 12/18/17 after an episode of vomiting what appeared and smelled like fecal content. Her last BM was [address] abdomen/pelvis revealed interval development of of small bowel dilatation to 5.5cm with distal terminal ileum and colonic decompression consistent with distal small bowel obstruction likely due to peritoneal carcinomatosis (disease progression), multiloculated ascites stable, decreased right pleural effusion and increase in fatty infiltration of live compared to October 28 imaging. NG tube to LIWS was placed for bowel rest/ decompression. General surgery, Dr. Rushing was consulted. [facility]EL[facility] oncology, Dr. James was consulted and continues to follow. She has not had a bowel movement and failed PO challenge, requiring NG back to suction. Despite medical management the patient has persistent bowel obstruction. On 12/26/17, venous Doppler US of left LE revealed nonocclusive thrombus in the distal aspect of the left common femoral vein extending into the proximal superficial femoral vein, otherwise deep venous system patent. Surgery was placed on hold, she was started on heparin drip for at least 24 prior to surgery. Hematology, Dr. Aviles was consulted for DVT with recommendation to continue IV heparin infusion which will maintain therapeutic anticoagulation so as to not render this patient prothrombotic after vitamin K infusion. Palliative care was consulted to assist with clarification of medical treatment goals, symptom management and assistance in completion of written advanced directives. Dr. Rushing present upon my arrival to see patient, plan for surgery this evening (12/27/17). Met with patient, mother and 2 friends at bedside. Also present [facility] LCSW. Patient is awake and alert. She is anxious to proceed with surgery, wanting to get it over with in hopes she will feel better. She is appropriately tearful. She is worried about her children (Khris, age 21 lives in [place] and Ed , age 9 lives with patient), she "doesn't want to leave them." She is afraid she is going to . We had a long talk about the gravity of her Ovarian cancer. We reviewed that surgery may provide her benefit and the ability to get back to treatment or that the cancer could continue to progress despite collective efforts to treat it. She does not want "things sugar coated." She verbalizes that she needs to know what is happening. I promised her that I would be open and honest with her and family. She "does not want to in the hospital." She is going to complete designation of health care surrogate prior to surgery this evening. She plans to complete Living Will and to get other affairs in order. She would like to speak with her family more before completing the [facility] paperwork. She wants her mother to serve as HCS, but wants to be sure she "can do it." She does not want to plan the burden of decision making in her son, Khris who is only 21. We talked about her limits. She desires FULL CODE for now, she knows to let me know if she ever wants to change this. She and family/ friends speak very openly about the situation and are very appreciative that we are going to be here to assist. I provided my cell number should they need to get in touch with me. Advised we will continue to follow. No new medication recommendations at this time. She does not allow me to perform full physical exam after conversation. Function/Cognitive Trajectory: Patient has had ongoing trajectory of decline including physical and nutritional decline in the past 3-4 weeks. Prior to this she was caring for herself and her 9 year old. Review of Systems Constitutional: Reports anorexia, Reports daytime sleepiness, Reports fatigue, Reports lack of energy, Reports weakness Eyes: Denies blind spots, Denies blurry vision, Denies bulging eyes, Denies change in vision, Denies double vision, Denies discharge, Denies dry eyes, Denies floaters, Denies irritation, Denies itchy eyes, Denies loss of vision, Denies pain, Denies requires corrective lenses, Denies sensitivity to light, Denies other Ears, Nose, Mouth, and Throat: Reports dry mouth, Reports sore throat Cardiovascular: Reports generalized swelling, Reports shortness of breath with activity Respiratory: Reports shortness of breath with activity Gastrointestinal: Reports abdominal pain, Reports change in bowel habits ( constipation), Reports constipation, Reports nausea, Reports pain with swallowing (due to NG tube), Reports vomiting, Reports other (vomited fecal content) Musculoskeletal: Reports muscle weakness Neurologic: Reports weakness Psychiatric: Reports anxiety, Reports change in appetite (decreased), Reports depression Endocrine: Denies cold intolerance, Denies excessive sweating, Denies flushing, Denies heat intolerance, Denies increased hunger, Denies increased thirst, Denies increased urination, Denies rapid, pounding, or irregular heartbeat, Denies other Hematologic/Lymphatic: Reports easy bruising PMFSH - History History Provided By: Patient - Medical History Medical History: Medical History (Last Reviewed 12/26/17 @ 07:52 by Aleks Brandon, PT) Carcinomatosis Gastric ulcer Ascites Ovarian cancer Port-A-Cath in place - Surgical History Surgical History: Surgical History (Last Updated 12/27/17 @ 16:08 by Paty Billings) History of hysterectomy (Acute) - Family History Family History: Family History (Last Reviewed 12/26/17 @ 07:53 by Aleks Brandon, PT) Mother Hypertension Father Kidney malignancy - Tobacco History Second Hand Smoke Exposure: No Smoking Status: Never smoker - Alcohol History How Often Do You Have a Drink Containing Alcohol: Never - Substance Use History Substance History: No History of Abuse - Travel History Recent Travel in the [place] Within the Last 8 Weeks: No Recent Travel Out of the Country Within the Last 8 Weeks: No - Immunization History Tetanus Immunization: Unsure Hx Influenza Vaccine This Season: Yes Medications and Allergies Active Medications: Active Medications Al Hydroxide/Mg Hydroxide (Milk Of Magnbrien Liq) 30 ml PO Q12H PRN PRN Reason: Mild Constipation Bisacodyl (Dulcolax Supp) 10 mg RECTAL DAILY PRN PRN Reason: SEVERE CONSITIPATION Chlorhexidine Gluconate (Chlorhexidine 2% Cloth) 3 pack TOPICAL MULTIPLE CUT OFF SAW OPERATOR [facility] Stop: 12/28/17 03:09 Clotrimazole (Lotrimin 1% Cream) 1 applicatio TOPICAL BID [facility] Last Admin: 12/27/17 11:38 Dose: 1 applicatio Hydromorphone HCl (Dilaudid Pf Inj) 2 mg IV.PUSH Q4H PRN PRN Reason: BREAKTHROUGH PAIN Lactated Ringer's (Lr 1000 Ml Inj) 1,000 mls @ 30 mls/hr IV.SIG .Q24H [facility] Stop: 12/28/17 03:09 Last Admin: 12/27/17 04:25 Dose: Not Given Sodium Chloride (Ns Inj) 500 mls @ 30 mls/hr IV.SIG .Q10H [facility] Stop: 12/28/17 03:09 Heparin Sodium/Dextrose (Heparin/D5w 25,000 U/250 Ml) 25,000 unit in 250 mls @ 17 mls/hr IV.CONT TITRATE PRN; Protocol PRN Reason: Per Protocol Last Titration: 12/27/17 01:39 Dose: 0 units/hr, 0 mls/hr Potassium Chloride 10 meq/ (Sodium Chloride) 1,005 mls @ 80 mls/hr IV.CONT .[id number] [facility] Last Admin: 12/27/17 04:23 Dose: 80 mls/hr Lactulose (Lactulose Liq) 30 ml PO DAILY PRN PRN Reason: SEVERE CONSITIPATION Lorazepam (Ativan Inj) 0.5 mg IV.PUSH Q6H PRN PRN Reason: ANXIETY Morphine Sulfate (Morphine Inj) 4 mg IV.CONT Q4H PRN PRN Reason: PAIN SCALE 1 TO 10 Last Admin: 12/25/17 10:10 Dose: 4 mg Ondansetron HCl (Zofran Inj) 4 mg IV.PUSH Q6H PRN PRN Reason: NAUSEA OR VOMITING Padimate O (Chapstick) 1 applicatio TOPICAL UNSCH PRN PRN Reason: DRY LIPS Last Admin: 12/25/17 01:36 Dose: 1 applicatio Pantoprazole Sodium (Protonix Inj) 40 mg IV.PUSH Q12H [facility] Last Admin: 12/27/17 11:38 Dose: 40 mg Povidone Iodine (Betadine 5% Antisepsis Kit) 1 applicatio EACH NARE MULTIPLE CUT OFF SAW OPERATOR [facility] Stop: 12/28/17 03:09 Sennosides (Senokot) 17.2 mg PO Q12H PRN PRN Reason: Moderate Constipation Sodium Chloride (Ns Flush) 2 ml IV.FLUSH PRN PRN PRN Reason: FLUSH AFTER USING IV ACCESS Last Admin: 12/26/17 22:37 Dose: 2 ml Throat Lozenges (Chloraseptic [place]) 2 spray OROPHARYNG Q2H PRN PRN Reason: sore throat Allergies Allergy/AdvReac Type Severity Reaction Status Date / Time No Known Allergies Allergy Verified 12/18/17 12:42 Home Medications Medication Instructions Recorded Confirmed Type omeprazole 40 mg PO BID 12/18/17 12/18/17 History Advance Directives Living Will: No Healthcare Surrogate: No Health Care Surrogate Name and Number: Considering completion of HCS prior to surgery, left paperwork at bedside Power of Performance Improvement Director: No Today's verbally stated goals: Patient elects FULL CODE and desires continued aggressive care including surgery at this time in hopes she will be able to return home to care for her son and get chemotherapy. She is realistic and wants medical team to be open and honest. She does not want to in the hospital. Family/friends goals: Support patient decision for continued aggressive care. Ethical and Legal Issues: Patient is currently capacitated to make her own health care decisions. She is considering completion of written advanced directives. She verbalizes she would want her mother to serve as HCS should she lose capacity. Physical Exam Vital Signs: Vital Signs - 24 hr 12/26/17 16:00 12/26/17 20:00 12/26/17 22:45 Temperature 98.6 F 98.2 F 98.4 F Pulse Rate 117 H 111 H 110 H Respiratory Rate 16 16 16 Blood Pressure 108/68 95/72 L 103/69 Pulse Oximetry 98 98 97 12/26/17 23:28 12/27/17 04:00 12/27/17 08:00 Temperature 97.6 F 98 F Pulse Rate 109 H 95 H 96 H Respiratory Rate 16 18 20 Blood Pressure 103/65 102/87 106/58 L Pulse Oximetry 98 98 97 I&O: Intake & Output 12/25/17 12/26/17 12/27/17 12/28/17 06:59 06:59 06:59 06:59 Intake Total 1999 2723.5 / 2723.5 1055 / 1055 0 / 0 Output Total 300 / 300 1150 / 1150 325 / 325 Balance 1999 2423.5 / 2423.5 -95 / -95 -325 / -325 Weight 83 kg 97 kg 90.7 kg Physical Exam: CONSTITUTIONAL/GENERAL: This is an adequately nourished patient, in no apparent distress. TUBES/LINES/DRAINS: NG tube to LIWS, Port. SKIN: No jaundice, rashes, or lesions. Ecchymoses on upper extremities. Pale. HEAD: Hair thinning noted. EYES: Pupils equal and round. ENT: Hearing grossly normal. Nose without bleeding or purulent drainage. Throat without visible erythema, exudates, masses, or lesions. CARDIOVASCULAR: heart rate 96. RESPIRATORY/CHEST: unlabored respirations at rest. GASTROINTESTINAL: Abdomen distended. GENITOURINARY: Voiding adequately. MUSCULOSKELETAL: Extremities with edema noted. LYMPHATICS: Not examined. NEUROLOGICAL: Awake and alert. Cognitively sharp. Moves all extremities. PSYCHIATRIC: Appropriately tearful with difficult conversation. Diagnostic Tests Laboratory: Laboratory Results - last 72 hr 12/24/17 12/25/17 12/25/17 06:35 03:40 03:40 WBC 4.8 RBC 4.21 Hgb 12.5 Hct 38.2 MCV 90.6 MCH 29.7 MCHC 32.8 RDW 19.0 H Plt Count 185 MPV 7.1 Neut % (Auto) 49.9 Lymph % (Auto) 35.9 [place] % (Auto) 13.6 H Eos % (Auto) 0.4 Baso % (Auto) 0.2 Neut # (Auto) 2.4 Lymph # (Auto) 1.7 [place] # (Auto) 0.7 Eos # (Auto) 0.0 Baso # (Auto) 0.0 WBC Differential . Differential Comment Auto diff final PT INR APTT Sodium 146 H Potassium 3.7 Chloride 112 H Carbon Dioxide 25.8 Anion Gap 8 BUN 13 Creatinine 0.78 Estimated GFR 81 L Random Glucose 93 Calcium 6.7 L* Prot Corrected Calcium Phosphorus 2.3 L Magnesium 1.6 Total Bilirubin 0.6 Direct Bilirubin 0.3 H Indirect Bilirubin 0.3 AST 37 ALT 30 Alkaline Phosphatase 96 Total Protein 4.6 L Albumin 1.9 L 1.9 L Blood Type Blood Type Recheck Antibody Screen 12/25/17 12/25/17 12/25/17 03:40 03:40 03:40 WBC RBC Hgb Hct MCV MCH MCHC RDW Plt Count MPV Neut % (Auto) Lymph % (Auto) [place] % (Auto) Eos % (Auto) Baso % (Auto) Neut # (Auto) Lymph # (Auto) [place] # (Auto) Eos # (Auto) Baso # (Auto) WBC Differential Differential Comment PT Cancelled 14.4 H INR Cancelled 1.4 APTT 41.4 H Sodium Potassium Chloride Carbon Dioxide Anion Gap BUN Creatinine Estimated GFR Random Glucose Calcium Prot Corrected Calcium Phosphorus Magnesium Total Bilirubin Direct Bilirubin Indirect Bilirubin AST ALT Alkaline Phosphatase Total Protein Albumin Blood Type AB Positive Blood Type Recheck Not needed Antibody Screen Negative 12/26/17 12/26/17 12/26/17 12:50 12:50 14:30 WBC 5.1 RBC 4.35 Hgb 12.9 Hct 38.6 MCV 88.9 MCH 29.6 MCHC 33.3 RDW 18.9 H Plt Count 132 L MPV 6.7 L Neut % (Auto) 51.1 Lymph % (Auto) 34.2 [place] % (Auto) 14.0 H Eos % (Auto) 0.3 Baso % (Auto) 0.4 Neut # (Auto) 2.6 Lymph # (Auto) 1.7 [place] # (Auto) 0.7 Eos # (Auto) 0.0 Baso # (Auto) 0.0 WBC Differential . Differential Comment Auto diff final PT 18.1 H INR 1.8 APTT 43.0 H Sodium 143 Potassium 3.7 Chloride 111 H Carbon Dioxide 24.2 Anion Gap 8 BUN 11 Creatinine 0.76 Estimated GFR 84 L Random Glucose 90 Calcium 6.5 L* Prot Corrected Calcium 7.9 L Phosphorus Magnesium Total Bilirubin Direct Bilirubin Indirect Bilirubin AST ALT Alkaline Phosphatase Total Protein 4.4 L Albumin Blood Type Blood Type Recheck Antibody Screen 12/27/17 12/27/17 12/27/17 00:44 03:41 04:35 WBC 5.7 RBC 4.25 Hgb 12.5 Hct 37.4 MCV 88.0 MCH 29.4 MCHC 33.4 RDW 18.7 H Plt Count 133 L MPV 7.2 Neut % (Auto) Lymph % (Auto) [place] % (Auto) Eos % (Auto) Baso % (Auto) Neut # (Auto) Lymph # (Auto) [place] # (Auto) Eos # (Auto) Baso # (Auto) WBC Differential Differential Comment PT INR APTT Greater than 277.5 H* Greater than 277.5 H* Sodium Potassium Chloride Carbon Dioxide Anion Gap BUN Creatinine Estimated GFR Random Glucose Calcium Prot Corrected Calcium Phosphorus Magnesium Total Bilirubin Direct Bilirubin Indirect Bilirubin AST ALT Alkaline Phosphatase Total Protein Albumin Blood Type Blood Type Recheck Antibody Screen 12/27/17 06:58 WBC RBC Hgb Hct MCV MCH MCHC RDW Plt Count MPV Neut % (Auto) Lymph % (Auto) [place] % (Auto) Eos % (Auto) Baso % (Auto) Neut # (Auto) Lymph # (Auto) [place] # (Auto) Eos # (Auto) Baso # (Auto) WBC Differential Differential Comment PT INR APTT 72.8 H D Sodium Potassium Chloride Carbon Dioxide Anion Gap BUN Creatinine Estimated GFR Random Glucose Calcium Prot Corrected Calcium Phosphorus Magnesium Total Bilirubin Direct Bilirubin Indirect Bilirubin AST ALT Alkaline Phosphatase Total Protein Albumin Blood Type Blood Type Recheck Antibody Screen Result Diagrams: 12/27/17 04:35 12/26/17 12:50 Microbiology: Microbiology 12/27/17 00:15 Stool Occult Blood (FANNIE) - Final Stool Hemoccult positive Patient/Family Conference Present at Family Conference: Met with patient, mother and 2 friends at bedside. Family Conference Time: 45 Family Conference Location: Bedside Issues Discussed: * Palliative care role, purpose, approach * Additional medical, psychosocial, and spiritual history * Patients general health, functional status, and cognitive changes in the months leading up to the current hospitalization * Patient/family understanding of the current medical problems * Patient/family understanding of prognosis * Patients goals of care as best understood from advance directives and/or conversations and/or values * Current medical treatment options and benefits/burdens of those options * Likely scenarios comparing ongoing aggressive care with a transition to comfort measures only * Questions answered to the best of my ability * Palliative care contact information provided Assessment and Plan - Disease Oriented Problem List (1) Small bowel obstruction (2) Hypocalcemia (3) Dehydration (4) Ovarian cancer - Symptom Scale (1) Pain 0-10 Scale: 1 (2) Nausea & vomiting 0-10 Scale: Unable to quantify (3) Weakness 0-10 Scale: Unable to quantify Pertinent Non-Medical Issues: Psychosocial: Single. Has 2 sons (Khris 21 in [place] and Ed age 9 lives with patient). She is supported by friends and family. 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 Spiritual: [employer]. Legal:Patient is currently capacitated to make her own health care decisions. She is considering completion of written advanced directives. She verbalizes she would want her mother to serve as HCS should she lose capacity. Left Living Will and Designation of Health Care Surrogate forms at bedside per her request for completion. Ethical issues impacting care: No known concerns at this time. Important Contacts: * Niesha Gloria, mother: [phone] Prognosis: Patient is sweet, unfortunate 42 year old with progressive ovarian cancer despite Line 4 of chemotherapy, admitted with SBO. Overall prognosis is poor. Treatment is palliative. Hospice appropriate if goals are comfort oriented. Plan: * Patient is currently capacitated to make her own health care decisions. She is considering completion of written advanced directives. She verbalizes she would want her mother to serve as HCS should she lose capacity. Left Living Will and Designation of Health Care Surrogate forms at bedside per her request for completion. * FULL CODE * Desires continued aggressive care including surgical intervention for SBO in hopes to recover enough to return to treatment for ovarian cancer. She is realistic and wants medical team to be open and honest regarding her condition. She DOES NOT want to in the hospital. * SYMPTOMS: Pain: abdominal pain secondary to progressive ovarian cancer with peritoneal carcinomatosis, small bowel obstruction, DVT, debility, dehydration, etc. She reports a rectal pain/pressure that is unrelieved with Morphine 4mg IV every 4 hours PRN. No new medication recommendations at this time as she is scheduled for surgery later today. Will continue to monitor and make recommendations as needed. * Palliative care number provided. * Palliative care will continue to follow to assist with symptom management and further clarification of medical treatment goals throughout hospital course. Appreciation Thank you for the opportunity to participate in the care of Jocelyn Gloria. Attestation Attestation: To help prompt me to consider important information that might be impacting today's encounter and assessment, information from prior notes written by myself or my colleagues may have been "brought forward" into today's note. My signature on this note, however, is an attestation that I personally performed the exam, history, and/or decision-making noted today, and, unless otherwise indicated, the interactions with patient, family, and staff as well as the review of records all occurred today. I also attest that the listed assessment and stated plan reflect my best clinical judgment today based on the combination of historical information, prior notes, and today's exam/ interactions. When time spent is documented, it refers only to time spent today by the signer, or if indicated, combined time spent today by collaborating physician/nurse practitioner.
[2017-12-27] MEDS ORDERED: Bupivacaine/Epinephrine 0.5% Inj 50 ML Vial ONE (20:52)
[2017-12-27] MEDS ORDERED: Sugammadex Inj 200 MG/2 ML Vial IV.PUSH ONE (22:11)
[2017-12-27] MEDS ORDERED: Albumin Human 5% Inj 500 ML IV.SIG ONE (22:11)
[2017-12-27 23:48] LABS: Baso % (Auto) 0.3 % (0.0-2.0); Eos % (Auto) 0.2 % (0.0-4.0); Hematocrit 27.5 % (35.0-46.0); Hemoglobin 9.2 gm/dL (11.6-15.3); Lymph # (Auto) 1.6 th/mm3 (1.0-4.8); Lymph % (Auto) 35.3 % (9.0-44.0); Mean Corpuscular HGB Conc 33.4 % (32.0-36.0); Mean Corpuscular Hemoglobin 29.5 pg (27.0-34.0); Mean Corpuscular Volume 88.3 fL (80.0-100.0); Mean Platelet Volume 6.7 fL (7.0-11.0); Mono # (Auto) 0.5 th/mm3 (0.0-0.9); Mono % (Auto) 10.5 % (0.0-8.0); Neut # (Auto) 2.4 th/mm3 (1.8-7.7); Neut % (Auto) 53.7 % (16.0-70.0); Platelet Count 95 th/mm3 (150-450); Red Blood Count 3.11 mil/mm3 (4.00-5.30); Red Cell Distribution Width 18.8 % (11.6-17.2); White Blood Count 4.4 th/mm3 (4.0-11.0)
[2017-12-28 00:02] LABS: Anion Gap 8 meq/L (5-15); Blood Urea Nitrogen 10 mg/dL (7-18); Calcium 6.1 mg/dL (8.5-10.1); Chloride 111 meq/L (98-107); Glomerular Filtration Rate Greater Than 89 mL/min (>89); Glucose,Random 73 mg/dL (74-106); Potassium 4.1 meq/L (3.5-5.1); Sodium 143 meq/L (136-145)
[2017-12-28 00:15] LABS: Total Protein 3.2 g/dL (6.4-8.2)
[2017-12-28 00:27] LABS: Ovalocytes 1+; Platelet Morphology Normal (Normal)
--- NOTE | 2017-12-28 01:07 | P.OP ---
- Preoperative Diagnosis (1) Small bowel obstruction - Postoperative Diagnosis (1) Small bowel obstruction Date of procedure: 12/28/17 Procedure: dx lap ex lap small bowel resection end ileostomy extensive LEMUEL >60 minutes g tube Anesthesia: GETA Surgeon: Dg Rushing MD Estimated blood loss (mL): 100 Pathology: other (small bowel) Operation and Findings: extensive carcinomatosis multiple involved small bowel loops adhesions distal obstruction
[2017-12-28] MEDS ORDERED: Dextrose 50% in Water Syringe 50 ML ONE (01:28)
[2017-12-28] MEDS ORDERED: Dextrose 50% in Water 50 ML Vial IV.PUSH SCH (01:30)
[2017-12-28] MEDS ORDERED: Morphine Inj 4 MG/ML Vial ONE (01:34)
[2017-12-28] MEDS ORDERED: fentaNYL Citrate Inj 100 MCG/2 ML Ampul ONE (01:34)
[2017-12-28] MEDS ORDERED: *morphine SULFATE 10 MG/ML PERIprocedure ONLY ONE (01:39)
--- NOTE | 2017-12-28 01:57 | P.CONCC ---
History of Present Illness Service: Critical Care Medicine Consult date: 12/28/17 Requesting Physician: Dg Rushing Reason for Consult: Post op Critical care management Primary Care Provider: No Primary Care Physician Family Provider: No Primary Care Physician Chief Complaint: Abdominal pain and bloating. History of Present Illness: 42-year-old female with past medical history of stage IIIc ovarian cancer ( poorly differentiated adenocarcinoma) diagnosed in 06/2014 who underwent systemic chemotherapy and then RIRI and BSO with omentectomy in 2014. She underwent postoperative chemotherapy and then was in remission about 18 months when she developed recurrence treated with multiple chemo regimens. Prior to admission, she had received paclitaxel and Avastin started 12/15/17. She was admitted 12/18/17 after she presented with 1 week history of abdominal distension , obstipation and emesis with feculent odor. CT findings were consistent with SBO and previously diagnosed intraperitoneal carcinomatosis. She was managed conservatively with NGT but did not improve and diagnostic lap was planned. Meanwhile, she had BLE u/s on 12/26 that showed nonocclusive thrombus of the left distal common femoral and proximal superficial femoral veins. She was started on heparin drip and surgery was postponed pending 24 hours of heparin. She has now undergone ex lap with resection of distal small bowel, end-ileostomy , lysis of adhesions and evacuation of 4.5 L of ascites, G tube placement. Critical care management sent has been consulted to assist with her care. She received 2700 of crystalloid intraoperatively. EBL was 200. Urine output was 180. She was extubated in OR and is groggy post-extubation. She complains of 8/ 10 abdominal pain. Her hgb is 9.2 from 12.5 pre-op and she is receiving 2 units PRBC per surgery. Denies CP/SOB. Review of Systems Constitutional: Reports anorexia Ears, Nose, Mouth, and Throat: Reports dry mouth Cardiovascular: Denies chest pain Respiratory: Denies shortness of breath Gastrointestinal: Reports abdominal pain Musculoskeletal: Denies back pain Neurologic: Denies headache(s) Endocrine: Denies excessive sweating Hematologic/Lymphatic: Denies easy bleeding Allergic/Immunologic: Denies lip swelling PMFSH - History History Provided By: Patient - Medical History Medical History: Medical History (Last Reviewed 12/28/17 @ 02:19 by Bobbi Patricio MD) Carcinomatosis Gastric ulcer Ascites Ovarian cancer Port-A-Cath in place - Surgical History Surgical History: Surgical History (Last Reviewed 12/28/17 @ 02:19 by Bobbi Patricio MD) History of hysterectomy (Chronic) - Family History Family History: Family History (Last Reviewed 12/28/17 @ 02:19 by Bobbi Patricio MD) Mother Hypertension Father Kidney malignancy - Tobacco History Second Hand Smoke Exposure: No Smoking Status: Never smoker - Alcohol History How Often Do You Have a Drink Containing Alcohol: Never - Substance Use History Substance History: No History of Abuse - Travel History Recent Travel in the [place] Within the Last 8 Weeks: No Recent Travel Out of the Country Within the Last 8 Weeks: No - Immunization History Tetanus Immunization: Unsure Hx Influenza Vaccine This Season: Yes Medications and Allergies Active Medications: Active Medications Al Hydroxide/Mg Hydroxide (Milk Of Kallie Licaitlin) 30 ml PO Q12H PRN PRN Reason: Mild Constipation Bisacodyl (Dulcolax Supp) 10 mg RECTAL DAILY PRN PRN Reason: SEVERE CONSITIPATION Chlorhexidine Gluconate (Chlorhexidine 2% Cloth) 3 pack TOPICAL ENGINE [facility] Stop: 12/28/17 03:09 Clotrimazole (Lotrimin 1% Cream) 1 applicatio TOPICAL BID [facility] Last Admin: 12/27/17 21:59 Dose: Not Given Hydromorphone HCl (Dilaudid Pf Inj) 2 mg IV.PUSH Q4H PRN PRN Reason: BREAKTHROUGH PAIN Lactated Ringer's (Lr 1000 Ml Inj) 1,000 mls @ 30 mls/hr IV.SIG .Q24H [facility] Stop: 12/28/17 03:09 Last Admin: 12/27/17 04:25 Dose: Not Given Sodium Chloride (Ns Inj) 500 mls @ 30 mls/hr IV.SIG .Q10H [facility] Stop: 12/28/17 03:09 Heparin Sodium/Dextrose (Heparin/D5w 25,000 U/250 Ml) 25,000 unit in 250 mls @ 17 mls/hr IV.CONT TITRATE PRN; Protocol PRN Reason: Per Protocol Last Titration: 12/27/17 01:39 Dose: 0 units/hr, 0 mls/hr Potassium Chloride 10 meq/ (Sodium Chloride) 1,005 mls @ 80 mls/hr IV.CONT .[id number] [facility] Last Admin: 12/27/17 18:27 Dose: 80 mls/hr Metronidazole/Sodium Chloride (Flagyl 500 Mg Inj) 100 mls @ 100 mls/hr IV.SIG Q8H AMIRA Cefazolin Sodium 2,000 mg/ (Sodium Chloride) 100 mls @ 200 mls/hr IV.SIG Q8H AMIRA Lactulose (Lactulose Liq) 30 ml PO DAILY PRN PRN Reason: SEVERE CONSITIPATION Lorazepam (Ativan Inj) 0.5 mg IV.PUSH Q6H PRN PRN Reason: ANXIETY Miscellaneous Information ([facility] Nursing Information) 1 each OTHER UNSCH PRN PRN Reason: SEE LABEL COMMENTS Stop: 12/29/17 01:40 Morphine Sulfate (Morphine Inj) 4 mg IV.CONT Q4H PRN PRN Reason: PAIN SCALE 1 TO 10 Last Admin: 12/25/17 10:10 Dose: 4 mg Ondansetron HCl (Zofran Inj) 4 mg IV.PUSH Q6H PRN PRN Reason: NAUSEA OR VOMITING Padimate O ([place]stick) 1 applicatio TOPICAL UNSCH PRN PRN Reason: DRY LIPS Last Admin: 12/25/17 01:36 Dose: 1 applicatio Pantoprazole Sodium (Protonix Inj) 40 mg IV.PUSH Q12H AMIRA Last Admin: 12/27/17 11:38 Dose: 40 mg Povidone Iodine (Betadine 5% Antisepsis Kit) 1 applicatio EACH NARE ENGINE [facility] Stop: 12/28/17 03:09 Sennosides (Senokot) 17.2 mg PO Q12H PRN PRN Reason: Moderate Constipation Sodium Chloride (Ns Flush) 2 ml IV.FLUSH PRN PRN PRN Reason: FLUSH AFTER USING IV ACCESS Last Admin: 12/26/17 22:37 Dose: 2 ml Throat Lozenges (Chloraseptic [place]) 2 spray OROPHARYNG Q2H PRN PRN Reason: sore throat Allergies Allergy/AdvReac Type Severity Reaction Status Date / Time No Known Allergies Allergy Verified 12/18/17 12:42 Home Medications Medication Instructions Recorded Confirmed Type omeprazole 40 mg PO BID 12/18/17 12/18/17 History Physical Exam Vital signs: Vital Signs 12/27/17 04:00 12/27/17 08:00 12/27/17 12:00 Temperature 97.6 F 98 F 98 F Pulse Rate 95 H 96 H 95 H Respiratory Rate 18 20 18 Blood Pressure 102/87 106/58 L 108/80 Pulse Oximetry 98 97 98 12/27/17 16:00 12/27/17 20:00 12/28/17 01:27 Temperature 97.5 F L 96.9 F L 97.4 F L Pulse Rate 100 H 104 H 112 H Respiratory Rate 18 16 15 Blood Pressure 120/67 109/69 91/66 L Pulse Oximetry 97 98 100 Intake & Output 12/27/17 12/27/17 12/28/17 06:59 18:59 06:59 Intake Total 55 / 55 1005 / 1005 2700 / 2700 Output Total 300 / 300 325 / 325 380 / 380 Balance -245 / -245 680 / 680 2320 / 2320 Weight 90.7 kg Intake: IV 55 / 55 1005 / 1005 KCl Inj 10 MEQ In 1/2 Normal 1005 / 1005 Saline Inj 1,000 ML @ 80 mls/hr IV.CONT .[id number] [facility] Rx#: [id number] Calcium Chloride Inj 0.5 GM In 0 / 0 NS Inj 100 ML @ 110 mls/hr IV. SIG ONCE ONE Rx#:[id number] Vitamin K Inj 10 MG In D5W Inj 55 / 55 50 ML @ 102 mls/hr IV.SIG ONCE ONE Rx#:[id number] Oral 0 / 0 Anesthesia Amount 2700 / 2700 Intake (Blood Product) Amt 0 / 0 Rbc As-3 Leukoreduced Unit 0 / 0 [id number] Output: Urine 300 / 300 Estimated Blood Loss 200 / 200 Urine Amount (Catheter) 180 / 180 Indwelling Urethral Catheter 180 / 180 Gastric Drainage 325 / 325 Right Nare Nasogastric Tube 325 / 325 Other: # Voids 2 # Incontinent Voids 2 Date of Last Bowel Movement 12/26/17 12/27/17 12/27/17 # Bowel Movements 1 1 1 Narrative: GENERAL: Well-nourished, well-developed patient, pale appearing, laying in PACU bed, sleepy but arouses to voice. SKIN: Warm and dry. Port accessed R chest. HEAD: Atraumatic. Normocephalic. EYES: Pupils equal and round, 2mm and sluggishly reactive bilateral. No scleral icterus. No injection or drainage. ENT: No nasal bleeding or discharge. Mucous membranes moist. NECK: Trachea midline. No JVD. CARDIOVASCULAR: Tachycardic, regular, sinus tach on the monitor rate 110s. No murmurs rubs or gallops. RESPIRATORY: Breathing comfortably with no accessory muscle use. Clear to auscultation bilaterally. On 3 L nasal cannula. GASTROINTESTINAL: Abdominal binder in place. Dressing in place over midline vertical incision. Ileostomy right abdomen, small clot of blood adherent. ARNOL drain left lower quadrant with serosanguineous output. G tube in place. Bowel sounds present, hypoactive. MUSCULOSKELETAL: Extremities without clubbing, cyanosis. 1+bipedal edema. NEUROLOGICAL: Sleepy but arouses to voice and is oriented x3. No obvious cranial nerve deficits. Motor grossly within normal limits. - Urinary Catheter Management Indwelling Urethral Catheter Cath placed during this visit: yes Reason for continuing: Hourly intake/output Insertion date: 12/27/17 Insertion time: 21:10 Assessment and Plan - Problem List (1) S/P exploratory laparotomy Code(s): Z98.890 - Other specified postprocedural states Status: Acute (2) Small bowel obstruction Code(s): K56.609 - Unspecified intestinal obstruction, unspecified as to partial versus complete obstruction Status: Acute (3) Hypocalcemia Code(s): E83.51 - Hypocalcemia Status: Acute (4) Ovarian cancer Code(s): C56.9 - Malignant neoplasm of unspecified ovary Status: Chronic (5) History of hysterectomy Code(s): Z90.710 - Acquired absence of both cervix and uterus Status: Chronic (6) S/P ileostomy Code(s): Z93.2 - Ileostomy status Status: Acute (7) Acute blood loss anemia Code(s): D62 - Acute posthemorrhagic anemia Status: Acute (8) Ascites Code(s): R18.8 - Other ascites Status: Resolved (9) Gastrojejunostomy tube status Code(s): Z93.4 - Other artificial openings of gastrointestinal tract status Status: Acute (10) 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 (not getting relief with morphine) RESP: Routine airway per anesthesia. Extubated in OR. Nasal cannula wean as tolerated. Incentive spirometry CV: Monitor hemodynamics Appears BP 90s/60s, tachy 110s. Appears will need further fluid replacement. Start with LR bolus 1 L, D5L @ 125/hr, monitor UOP and give additional fluids as needed. GI: SBO s/p ex lap with partial SB resection, ileostomy, LEMUEL, G tube placement by Dr. Rushing 12/27/17. Intraperitoneal carcinomatosis GERD NPO G-tube in place. Monitor ARNOL output, management per gen surgery. Timing of diet advancement will be up to general surgery. Protonix as per below. Bowel regimen FEN/RENAL: Crowder in place. Monitor intake and output hourly. Check magnesium and phosphorus now and continue to monitor electrolytes and replace as indicated. ID: Perioperative cefazolin and Flagyl per general surgery. HEME: Nonocclusive thrombus left distal common femoral and proximal superficial femoral per u/s 12/26/17. Acute blood loss anemia Receiving 2 units packed red cells 12/28/17 per general surgery. Post-op labs pending, monitor CBC. On heparin drip per hematology recommendations. Dr. Rushing states resume heparin at 7 am 12/28/17. Resumed without bolus based on response to prior bolus , monitor to ensure she becomes therapeutic. Coagulopathy INR elevated, suspected secondary to vit K depletion due to poor po intake. Received Vitamin K 10 mg infusion 12/26 per hematology. Recurrent Ovarian Cancer Followed by Heme/onc and chemicals fermentation operator/onc Dr. James. ENDO: Given 1/2 amp of D50 per anesthesia for glucose in 70s. Will monitor, added dextrose to MIVF as per above. PROPH: Heparin drip for DVT treatment/prophylaxis as per discussion above. Protonix IV for stress ulcer prophylaxis and history of GERD ACCESS: Port accessed R chest. Palliative care team was consulted by medical oncology and is following. Patients goals remain aggressive. Discussed with Dr. Rushing Full code Level 3 Consult (4) Ovarian cancer Qualifiers: Laterality: bilateral Qualified Code(s): C56.1 - Malignant neoplasm of right ovary; C56.2 - Malignant neoplasm of left ovary
[2017-12-28 02:08] LABS: Baso % (Auto) 0.5 % (0.0-2.0); Eos % (Auto) 0.2 % (0.0-4.0); Hematocrit 32.7 % (35.0-46.0); Hemoglobin 11.2 gm/dL (11.6-15.3); Lymph # (Auto) 1.4 th/mm3 (1.0-4.8); Lymph % (Auto) 28.1 % (9.0-44.0); Mean Corpuscular HGB Conc 34.3 % (32.0-36.0); Mean Corpuscular Hemoglobin 30.4 pg (27.0-34.0); Mean Corpuscular Volume 88.6 fL (80.0-100.0); Mean Platelet Volume 6.9 fL (7.0-11.0); Mono # (Auto) 0.4 th/mm3 (0.0-0.9); Mono % (Auto) 7.5 % (0.0-8.0); Neut # (Auto) 3.1 th/mm3 (1.8-7.7); Neut % (Auto) 63.7 % (16.0-70.0); Platelet Count 121 th/mm3 (150-450); Red Blood Count 3.69 mil/mm3 (4.00-5.30); Red Cell Distribution Width 18.6 % (11.6-17.2); White Blood Count 4.8 th/mm3 (4.0-11.0)
[2017-12-28 02:36] LABS: Calcium 6.1 mg/dL (8.5-10.1); Carbon Dioxide 23.5 meq/L (21.0-32.0); Potassium 3.9 meq/L (3.5-5.1)
[2017-12-28] MEDS ORDERED: Magnesium Sulfate Inj 4 GM in Sodium Chlor 0.9% Inj 92 ML IV.SIG PRN (02:51)
[2017-12-28] MEDS ORDERED: Potassium Chlor 20 mEq Premix 20 MEQ/100 ML PIGGYBACK IV.SIG PRN ×2 (02:51)
[2017-12-28] MEDS ORDERED: Magnesium Oxide 400 MG Tablet PO PRN (02:51)
[2017-12-28] MEDS ORDERED: Potassium Phosphate 500 MG Soluble Tablet PO PRN ×2 (02:51)
[2017-12-28] MEDS ORDERED: Magnesium Sulfate Inj 2 GM in Sodium Chlor 0.9% Inj 96 ML IV.SIG PRN (02:51)
[2017-12-28] MEDS ORDERED: Potassium Chloride 25 MEQ Effervescent Tablet PO PRN (02:51)
[2017-12-28] MEDS ORDERED: Potassium Phosphate Inj 30 MMOL in Sodium Chlor 0.9% Inj 250 ML IV.SIG PRN (02:51)
[2017-12-28] MEDS ORDERED: Potassium Chlor 40 mEq Premix 40 MEQ/100 ML PIGGYBACK IV.SIG PRN (02:51)
[2017-12-28] MEDS ORDERED: Sodium Phosphate Inj 30 MMOL in Sodium Chlor 0.9% Inj 250 ML IV.SIG PRN (02:51)
[2017-12-28] MEDS ORDERED: Calcium Chloride Inj 2 GM in Dextrose 5% in Water Inj 100 ML IV.SIG ONE ×2 (02:56)
[2017-12-28 02:57] LABS: Total Protein 3.3 g/dL (6.4-8.2)
[2017-12-28] MEDS: ceFAZolin Inj 2,000 MG in Sodium Chlor 0.9% Inj 80 ML IV.SIG SCH ×3 (03:13→17:20)
[2017-12-28] MEDS: Dextrose 5%/Lactated Ringer's 1,000 ML IV.CONT SCH ×4 (03:13→17:36)
[2017-12-28 03:23] LABS: Magnesium 1.1 mg/dL (1.5-2.5)
[2017-12-28] MEDS ORDERED: HYDROmorphone PF Inj 2 MG/ML Vial IV.PUSH PRN (03:29)
[2017-12-28] MEDS ORDERED: Morphine Inj 4 MG/ML Vial IV.PUSH PRN (03:30)
[2017-12-28] MEDS: Pantoprazole Inj 40 MG Vial IV.PUSH SCH ×3 (03:43→22:00)
--- NOTE | 2017-12-28 06:33 | MP ---
cc: Dg Rushing MD DATE OF OPERATION: 12/28/2017 PREOPERATIVE DIAGNOSIS: Malignant small bowel obstruction. POSTOPERATIVE DIAGNOSIS: Malignant small bowel obstruction. PROCEDURE PERFORMED: 1. Diagnostic laparoscopy. 2. Exploratory laparotomy. 3. Small bowel resection. 4. End ileostomy 5. Lysis of adhesions, greater than 60 minutes. 6. Gastrostomy tube placement. SURGEON: Dg Rushing MD. PRODUCTION BROACHING MACHINE OPERATOR: Alex Davis MD. Dr. Alex Davis was necessary due to complexity of the surgical case. Dr. Davis assisted with camera control, retraction, and facilitating the case. ANESTHESIA: GETA. IV FLUIDS: See anesthesia sheet. ESTIMATED BLOOD LOSS: 100 mL. DRAINS: A 19-[place] Reinier drain in pelvis. COMPLICATIONS: None. WOUND CLASSIFICATION: Clean/contaminated. FINDINGS: Carcinomatosis, malignant small-bowel obstruction distally, multiple loops of essentially entire small bowel encased in adhesions and tumor. Good hemostasis. SPECIMENS: Small bowel. INDICATIONS FOR PROCEDURE: The patient is a 42-year-old female who presents with acute onset abdominal pain, small-bowel obstruction, history of advanced stage ovarian cancer with this metastasis. The patient developed acute obstruction. A trial period of the NG tube decompression and conservative management was failed medical management; and therefore, decision was made for operative intervention. Discussed with the patient in detail regarding the likely need for ileostomy and the risk being on Avastin. The patient agreed. DETAILS OF PROCEDURE: The patient was taken to the operating suite, placed in supine position. She was prepped and draped in the usual sterile fashion after induction of general endotracheal anesthesia. Brief timeout demonstrating correct patient, procedure, surgical site. We were all agreeable to this. Attention first directed to the left upper quadrant where a stab beatriz incision was made after injection of local anesthetic with a 15 blade. The Visiport Optiview port was used to enter the abdomen safely. On inspection, there was noted to be significant amount of ascites. Two other ports were placed, 1 infraumbilical and 1 left lower quadrant port. Approximately 3 liters of ascites was drained from the abdomen. Upon inspection, the bowel was noted to be extremely markedly dilated. There were multiple adherent points of the bowel and difficulty for running or even mobilization. At this point, termination of diagnostic laparoscopy and an exploratory laparotomy was done. Midline incision was done with electro Bovie electrocautery down to the fascia, which was incised. A Bookwalter retractor was placed for self-retaining retraction device. Dr. Davis assisted with some retraction suturing and also assisted with the camera control. On further inspection again, the bowel was noted to be extremely dilated, thickened. There was noted to be multiple peritoneal carcinoma seeding throughout the abdomen. Abdomen was very adherent and stuck down to the retroperitoneum. Examination and mobilization in the right lower quadrant done with tedious dissection and lysis of adhesions and tumor. Once this distal segment was somewhat mobilized, we did identify the point of obstruction in the terminal ileum. A small bowel resection was done with a 75 SARA green load stapler x2 for both proximal and distal segments. This segment was sent for pathology. The distal segment looked somewhat dusky, therefore, re-resection was done in order to obtain a viable bowel. Abdomen washed out with 3 liters of normal saline. Hemostasis was obtained at multiple points. SNoW anticoagulant was also placed. After running the bowel, again noted to be significantly scarred, but we were able to mobilize some distal segment. A circular incision was made at a premarked ostomy site. This was done with electro Bovie cautery down to the fascia. A cruciate incision was made, 3 fingers fit inside of the ileostomy hole. [place] used to grab the ileostomy blind end and brought through the surgical wound. Next, the gastrostomy tube was done. A 24-[place] gastrostomy tube was obtained and the stomach was identified after further take down the falciform ligament. Again, there was some scarring of her abdominal portion. Pursestring placed on the stomach enterotomy and gastrotomy was done with electro Bovie electrocautery. A 24-[place] gastrostomy tube with stab beatriz incision was made in the left upper quadrant and a tonsil used to bring the tube in to the surgical tapia. This cannulated the stomach. A pursestring tied and 3 tacking 3-0 silk sutures were used to adhere the stomach to the anterior abdominal wall. Snuggly in place. Then 2-0 nylon placed in the foot in order to further snug the wall in place. Next, a 19-[place] Reinier drain was obtained and placed in the pelvis through an incision in the left upper quadrant. A 2-[address] it in place. Next, the abdomen was closed with a #1 looped PDS x2. Irrigation of subcuticular tissues and hemostasis obtained with Bovie cautery. Skin stapled. The ALYSA dressing placed. Maturation of the end ileostomy was done with 3-0 Vicryl to a [place] ileostomy. This was done in a radial pattern. Ostomy appliance in place. The patient tolerated the procedure well. There were no intraoperative complications. All operative counts were correct at the end of the procedure. The patient was extubated and taken to PACU. MD MICHAELLE Leon/ying , 01:54 AM , 02:09 AM MTDNeal
[2017-12-28 08:00] LABS: Baso % (Auto) 0.1 % (0.0-2.0); Eos % (Auto) 0.1 % (0.0-4.0); Hematocrit 42.6 % (35.0-46.0); Hemoglobin 14.1 gm/dL (11.6-15.3); Lymph # (Auto) 0.7 th/mm3 (1.0-4.8); Lymph % (Auto) 9.8 % (9.0-44.0); Mean Corpuscular HGB Conc 33.1 % (32.0-36.0); Mean Corpuscular Volume 90.6 fL (80.0-100.0); Mean Platelet Volume 7.3 fL (7.0-11.0); Mono # (Auto) 0.5 th/mm3 (0.0-0.9); Mono % (Auto) 7.2 % (0.0-8.0); Neut % (Auto) 82.8 % (16.0-70.0); Platelet Count 101 th/mm3 (150-450); Red Cell Distribution Width 16.9 % (11.6-17.2); White Blood Count 7.2 th/mm3 (4.0-11.0)
[2017-12-28 08:06] LABS: Activated Partial Thrombo Time 56.8 sec (24.3-30.1); INR 1.5 Ratio; Prothrombin Time 14.7 sec (9.8-11.6)
[2017-12-28 08:09] LABS: Albumin 1.8 g/dL (3.4-5.0); Anion Gap 7 meq/L (5-15); Blood Urea Nitrogen 9 mg/dL (7-18); Calcium 7.8 mg/dL (8.5-10.1); Carbon Dioxide 23.4 meq/L (21.0-32.0); Chloride 110 meq/L (98-107); Glomerular Filtration Rate Greater Than 89 mL/min (>89); Glucose,Random 137 mg/dL (74-106); Magnesium 2.4 mg/dL (1.5-2.5); Phosphorus 3.9 mg/dL (2.5-4.9); Potassium 4.3 meq/L (3.5-5.1); Sodium 140 meq/L (136-145)
[2017-12-28] MEDS: Clotrimazole 1% Cream 15 GM Tube TOPICAL SCH ×2 (08:31→21:59)
[2017-12-28] MEDS: Heparin Drip 25,000 UNIT/250 ML BAG IV.CONT PRN (08:31)
--- NOTE | 2017-12-28 09:04 | P.PNONC ---
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 s/p X Lap resection of SBO with ileostomy and G tube placement patient readily fall back to sleep RN states she has been sleepy since surgery, no overnight issues patient states pain is controlled electrolyte replacement overnight Objective Vital Signs/Intake & Output: Vital Signs 12/27/17 12:00 12/27/17 16:00 12/27/17 20:00 Temperature 98 F 97.5 F L 96.9 F L Pulse Rate 95 H 100 H 104 H Respiratory Rate 18 18 16 Blood Pressure 108/80 120/67 109/69 Pulse Oximetry 98 97 98 12/28/17 01:15 12/28/17 01:27 12/28/17 01:30 Temperature 97.4 F L 97.4 F L Pulse Rate 118 H 112 H 111 H Respiratory Rate 16 15 16 Blood Pressure 92/61 L 91/66 L 97/66 L Pulse Oximetry 100 100 100 12/28/17 01:45 12/28/17 02:00 12/28/17 02:15 Temperature Pulse Rate 109 H 110 H 113 H Respiratory Rate 12 12 12 Blood Pressure 100/66 108/70 102/72 Pulse Oximetry 100 100 100 12/28/17 02:30 12/28/17 02:45 12/28/17 03:00 Temperature 97.6 F Pulse Rate 119 H 115 H 116 H Respiratory Rate 16 16 16 Blood Pressure 100/66 110/70 102/68 Pulse Oximetry 100 100 100 12/28/17 03:37 12/28/17 04:00 12/28/17 05:06 Temperature 97.8 F 97.8 F Pulse Rate 110 H 114 H 110 H Respiratory Rate 12 12 10 L Blood Pressure 108/73 116/80 Pulse Oximetry 100 99 Intake & Output 12/27/17 12/28/17 12/28/17 18:59 06:59 18:59 Intake Total 1005 / 1005 4670 / 4670 1100 / 1100 Output Total 325 / 325 1100 / 1100 Balance 680 / 680 3570 / 3570 1100 / 1100 Weight 93.9 kg Intake: IV 1005 / 1005 1320 / 1320 1100 / 1100 KCl Inj 10 MEQ In 1/2 Normal 1005 / 1005 Saline Inj 1,000 ML @ 80 mls/hr IV.CONT .[id number] [facility] Rx#: [id number] Calcium Chloride Inj 2 GM In 120 / 120 D5W Inj 100 ML @ 120 mls/hr IV. SIG ONCE ONE Rx#:[id number] Calcium Chloride Inj 0.5 GM In 0 / 0 NS Inj 100 ML @ 110 mls/hr IV. SIG ONCE ONE Rx#:[id number] LR 1000 mL Inj 1,000 ML @ Wide 1000 / 1000 1000 / 1000 Open IV.SIG BOLUS ONE Rx#: [id number] Magnesium Sulfate Inj 4 GM In 100 / 100 NS Inj 92 ML @ 50 mls/hr IV.SIG UNSCH PRN Rx#:[id number] Ancef Inj 2,000 MG In NS Inj 80 100 / 100 ML @ 200 mls/hr IV.SIG Q8H [facility] Rx#:[id number] Flagyl 500 MG Inj 100 ML @ 100 100 / 100 mls/hr IV.SIG Q8H [facility] Rx#: [id number] Oral 0 / 0 Anesthesia Amount 2700 / 2700 Other 250 / 250 Rbc As-3 Leukoreduced Unit 250 / 250 [id number] Intake (Blood Product) Amt 400 / 400 Rbc As-3 Leukoreduced Unit 400 / 400 [id number] Rbc As-3 Leukoreduced Unit 0 / 0 [id number] Output: Estimated Blood Loss 200 / 200 Urine Amount (Catheter) 280 / 280 Indwelling Urethral Catheter 280 / 280 Stool Amount (Stoma) 100 / 100 Right Lower Abdomen 100 / 100 Gastric Drainage 325 / 325 150 / 150 Gastrostomy Tube (PEG) 150 / 150 Right Nare Nasogastric Tube 325 / 325 Wound Drainage 370 / 370 # 1 Abdomen 370 / 370 Other: Other Intake Source Rbc As-3 Leukoreduced Unit Saline Solution [id number] # Voids 2 # Incontinent Voids 2 Date of Last Bowel Movement 12/27/17 12/27/17 # Bowel Movements 1 1 Result Diagrams: 12/28/17 07:41 12/28/17 07:41 Laboratory Results: Laboratory Results - last 24 hr 12/27/17 12/27/17 12/28/17 23:26 23:26 00:03 CBC w Diff WBC 4.4 Corrected WBC RBC 3.11 L Hgb 9.2 L D Hct 27.5 L MCV 88.3 MCH 29.5 MCHC 33.4 RDW 18.8 H Plt Count 95 L MPV 6.7 L Prelim Diff (Auto) Slide review pending Immature Gran % (Auto) Neut % (Auto) 53.7 Lymph % (Auto) 35.3 [place] % (Auto) 10.5 H Eos % (Auto) 0.2 Baso % (Auto) 0.3 Immature Gran # (Auto) Neut # (Auto) 2.4 Lymph # (Auto) 1.6 [place] # (Auto) 0.5 Eos # (Auto) 0.0 Baso # (Auto) 0.0 WBC Differential . Diff Scan Auto diff confirmed Seg Neuts % (Manual) Band Neuts % (Manual) Lymphocytes % (Manual) Atypical Lymphs % (Man) Monocytes % (Manual) Eosinophils % (Manual) Basophils % (Manual) Metamyelocytes % (Man) Myelocytes % (Man) Promyelocytes % (Man) Blast Cells % (Manual) Plasma Cell % (Manual) Other Cells % Abs Neuts (Manual) Nucleated RBCs/100 WBC Differential Comment . Hypersegmented Neuts Smudge Cells Toxic Granulation Toxic Vacuolation Dohle Bodies Platelet Estimate Low L Platelet Morphology Normal RBC Morphology Dimorphic RBCs Polychromasia Basophilic Stippling Spherocytes Pappenheimer Bodies Sickle Cells Target Cells Tear Drop Cells Ovalocytes 1+ H Stomatocytes Helmet Cells [place] Bodies Yale Cells Acanthocytes (Spur) Rouleaux Keratocytes Hematology Comments PT INR APTT Sodium 143 Potassium 4.1 Chloride 111 H Carbon Dioxide 24.0 Anion Gap 8 BUN 10 Creatinine 0.59 Estimated GFR Greater than 89 POC Glucose Random Glucose 73 L Calcium 6.1 L* Prot Corrected Calcium 8.1 L Phosphorus Magnesium Total Protein 3.2 L D Albumin Blood Type Antibody Screen MTS Gel Crossmatch See Detail 12/28/17 12/28/17 12/28/17 00:42 02:00 02:00 CBC w Diff WBC 4.8 Corrected WBC RBC 3.69 L Hgb 11.2 L D Hct 32.7 L MCV 88.6 MCH 30.4 MCHC 34.3 RDW 18.6 H Plt Count 121 L MPV 6.9 L Prelim Diff (Auto) Immature Gran % (Auto) Neut % (Auto) 63.7 Lymph % (Auto) 28.1 [place] % (Auto) 7.5 Eos % (Auto) 0.2 Baso % (Auto) 0.5 Immature Gran # (Auto) Neut # (Auto) 3.1 Lymph # (Auto) 1.4 [place] # (Auto) 0.4 Eos # (Auto) 0.0 Baso # (Auto) 0.0 WBC Differential . Diff Scan Seg Neuts % (Manual) Band Neuts % (Manual) Lymphocytes % (Manual) Atypical Lymphs % (Man) Monocytes % (Manual) Eosinophils % (Manual) Basophils % (Manual) Metamyelocytes % (Man) Myelocytes % (Man) Promyelocytes % (Man) Blast Cells % (Manual) Plasma Cell % (Manual) Other Cells % Abs Neuts (Manual) Nucleated RBCs/100 WBC Differential Comment Auto diff final Hypersegmented Neuts Smudge Cells Toxic Granulation Toxic Vacuolation Dohle Bodies Platelet Estimate Platelet Morphology RBC Morphology Dimorphic RBCs Polychromasia Basophilic Stippling Spherocytes Pappenheimer Bodies Sickle Cells Target Cells Tear Drop Cells Ovalocytes Stomatocytes Helmet Cells [place] Bodies Yale Cells Acanthocytes (Spur) Rouleaux Keratocytes Hematology Comments PT INR APTT Sodium 142 Potassium 3.9 Chloride 110 H Carbon Dioxide 23.5 Anion Gap 9 BUN 10 Creatinine 0.73 Estimated GFR 88 L POC Glucose Random Glucose 134 H Calcium 6.1 L* Prot Corrected Calcium 8.1 L Phosphorus Magnesium Total Protein 3.3 L Albumin Blood Type AB Positive Antibody Screen Negative MTS Gel Crossmatch 12/28/17 12/28/17 12/28/17 02:00 05:52 07:35 CBC w Diff WBC Corrected WBC RBC Hgb Hct MCV MCH MCHC RDW Plt Count MPV Prelim Diff (Auto) Immature Gran % (Auto) Neut % (Auto) Lymph % (Auto) [place] % (Auto) Eos % (Auto) Baso % (Auto) Immature Gran # (Auto) Neut # (Auto) Lymph # (Auto) [place] # (Auto) Eos # (Auto) Baso # (Auto) WBC Differential Diff Scan Seg Neuts % (Manual) Band Neuts % (Manual) Lymphocytes % (Manual) Atypical Lymphs % (Man) Monocytes % (Manual) Eosinophils % (Manual) Basophils % (Manual) Metamyelocytes % (Man) Myelocytes % (Man) Promyelocytes % (Man) Blast Cells % (Manual) Plasma Cell % (Manual) Other Cells % Abs Neuts (Manual) Nucleated RBCs/100 WBC Differential Comment Hypersegmented Neuts Smudge Cells Toxic Granulation Toxic Vacuolation Dohle Bodies Platelet Estimate Platelet Morphology RBC Morphology Dimorphic RBCs Polychromasia Basophilic Stippling Spherocytes Pappenheimer Bodies Sickle Cells Target Cells Tear Drop Cells Ovalocytes Stomatocytes Helmet Cells [place] Bodies Yale Cells Acanthocytes (Spur) Rouleaux Keratocytes Hematology Comments PT 14.7 H INR 1.5 APTT 56.8 H D Sodium Potassium Chloride Carbon Dioxide Anion Gap BUN Creatinine Estimated GFR POC Glucose 107 Random Glucose Calcium Prot Corrected Calcium Phosphorus 3.0 Magnesium 1.1 L Total Protein Albumin Blood Type Antibody Screen MTS Gel Crossmatch 12/28/17 12/28/17 07:41 07:41 CBC w Diff Compounding And Finishing Supervisor WBC 7.2 Corrected WBC Compounding And Finishing Supervisor RBC 4.70 Hgb 14.1 D Hct 42.6 MCV 90.6 MCH 30.0 MCHC 33.1 RDW 16.9 Plt Count 101 L MPV 7.3 Prelim Diff (Auto) Compounding And Finishing Supervisor Immature Gran % (Auto) Compounding And Finishing Supervisor Neut % (Auto) 82.8 H Lymph % (Auto) 9.8 [place] % (Auto) 7.2 Eos % (Auto) 0.1 Baso % (Auto) 0.1 Immature Gran # (Auto) Compounding And Finishing Supervisor Neut # (Auto) 6.0 Lymph # (Auto) 0.7 L [place] # (Auto) 0.5 Eos # (Auto) 0.0 Baso # (Auto) 0.0 WBC Differential . Diff Scan Compounding And Finishing Supervisor Seg Neuts % (Manual) Compounding And Finishing Supervisor Band Neuts % (Manual) Compounding And Finishing Supervisor Lymphocytes % (Manual) Compounding And Finishing Supervisor Atypical Lymphs % (Man) Compounding And Finishing Supervisor Monocytes % (Manual) Compounding And Finishing Supervisor Eosinophils % (Manual) Compounding And Finishing Supervisor Basophils % (Manual) Compounding And Finishing Supervisor Metamyelocytes % (Man) Compounding And Finishing Supervisor Myelocytes % (Man) Compounding And Finishing Supervisor Promyelocytes % (Man) Compounding And Finishing Supervisor Blast Cells % (Manual) Compounding And Finishing Supervisor Plasma Cell % (Manual) Compounding And Finishing Supervisor Other Cells % Compounding And Finishing Supervisor Abs Neuts (Manual) Compounding And Finishing Supervisor Nucleated RBCs/100 WBC Compounding And Finishing Supervisor Differential Comment Auto diff final Hypersegmented Neuts Compounding And Finishing Supervisor Smudge Cells Compounding And Finishing Supervisor Toxic Granulation Compounding And Finishing Supervisor Toxic Vacuolation Compounding And Finishing Supervisor Dohle Bodies Compounding And Finishing Supervisor Platelet Estimate Compounding And Finishing Supervisor Platelet Morphology Compounding And Finishing Supervisor RBC Morphology Compounding And Finishing Supervisor Dimorphic RBCs Compounding And Finishing Supervisor Polychromasia Compounding And Finishing Supervisor Basophilic Stippling Compounding And Finishing Supervisor Spherocytes Compounding And Finishing Supervisor Pappenheimer Bodies Compounding And Finishing Supervisor Sickle Cells Compounding And Finishing Supervisor Target Cells Compounding And Finishing Supervisor Tear Drop Cells Compounding And Finishing Supervisor Ovalocytes Compounding And Finishing Supervisor Stomatocytes Compounding And Finishing Supervisor Helmet Cells Compounding And Finishing Supervisor [place] Bodies Compounding And Finishing Supervisor Yale Cells Compounding And Finishing Supervisor Acanthocytes (Spur) Compounding And Finishing Supervisor Rouleaux Compounding And Finishing Supervisor Keratocytes Compounding And Finishing Supervisor Hematology Comments Compounding And Finishing Supervisor PT INR APTT Sodium 140 Potassium 4.3 Chloride 110 H Carbon Dioxide 23.4 Anion Gap 7 BUN 9 Creatinine 0.61 Estimated GFR Greater than 89 POC Glucose Random Glucose 137 H Calcium 7.8 L D Prot Corrected Calcium Phosphorus 3.9 Magnesium 2.4 D Total Protein Albumin 1.8 L Blood Type Antibody Screen MTS Gel Crossmatch Culture Results: Microbiology 12/27/17 00:15 Stool Occult Blood (FANNIE) - Final Stool Hemoccult positive Medications: Active Medications Generic Name Dose Route Start Last Admin Trade Name Freq PRN Reason Stop Dose Admin Clotrimazole 1 applicatio 12/26/17 09:00 12/28/17 08:31 Lotrimin 1% Cream TOPICAL 1 applicatio BID [facility] Administration Metronidazole/Sodium Chloride 100 mls @ 100 mls/hr 12/28/17 02:00 12/28/17 04 :43 Flagyl 500 Mg Inj IV.SIG Infused Q8H [facility] Infusion Cefazolin Sodium 2,000 mg/ 100 mls @ 200 mls/hr 12/28/17 02:00 12/28/17 03:43 Sodium Chloride IV.SIG Infused Q8H [facility] Infusion Dextrose/Lactated Ringer's 1,000 mls @ 125 mls/hr 12/28/17 02:30 12/28/17 03: 13 D5w/Lr Inj IV.CONT 125 mls/hr .Q8H [facility] Administration Magnesium Sulfate Inj 4 gm/ 100 mls @ 50 mls/hr 12/28/17 02:51 12/28/17 08:16 Sodium Chloride IV.SIG Infused UNSCH PRN Infusion For Magnesium 0.9 - 1.1 mg/dL Heparin Sodium/Dextrose 25,000 unit in 250 mls @ 17 mls/hr 12/28/17 07:00 08:31 Heparin/D5w 25,000 U/250 Ml IV.CONT 1,600 units/hr TITRATE PRN 16 mls/hr Per Protocol Administration Protocol 1,700 UNITS/HR Padimate O 1 applicatio 12/25/17 00:32 12/28/17 08:31 Chapstick TOPICAL 1 applicatio UNSCH PRN Administration DRY LIPS Pantoprazole Sodium 40 mg 12/20/17 11:00 12/28/17 03:43 Protonix Inj IV.PUSH 40 mg Q12H [facility] Administration Sodium Chloride 2 ml 12/18/17 12:58 12/26/17 22:37 Ns Flush IV.FLUSH 2 ml PRN PRN Administration FLUSH AFTER USING IV ACCESS Objective Remarks: GENERAL: acutely ill SKIN: Warm and dry. HEAD: Normocephalic. EYES: No scleral icterus. No injection or drainage. LYMPHATIC: No adenopathy. CARDIOVASCULAR: tachycardia RESPIRATORY: No accessory muscle use, NC GASTROINTESTINAL: Abdomen soft, non-tender, nondistended. EXTREMITIES: bilat LE edema MUSCULOSKELETAL: Adequate muscle tone. 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
--- NOTE | 2017-12-28 10:49 | P.PNONC ---
Subjective Interval history: Hematology Note Afebrile Patient resting in bed with eyes closed. Mom at bedside. Denies any overt pain No bleeding Denies shortness of breath Objective Vital Signs/Intake & Output: Vital Signs 12/27/17 12:00 12/27/17 16:00 12/27/17 20:00 Temperature 98 F 97.5 F L 96.9 F L Pulse Rate 95 H 100 H 104 H Respiratory Rate 18 18 16 Blood Pressure 108/80 120/67 109/69 Pulse Oximetry 98 97 98 12/28/17 01:15 12/28/17 01:27 12/28/17 01:30 Temperature 97.4 F L 97.4 F L Pulse Rate 118 H 112 H 111 H Respiratory Rate 16 15 16 Blood Pressure 92/61 L 91/66 L 97/66 L Pulse Oximetry 100 100 100 12/28/17 01:45 12/28/17 02:00 12/28/17 02:15 Temperature Pulse Rate 109 H 110 H 113 H Respiratory Rate 12 12 12 Blood Pressure 100/66 108/70 102/72 Pulse Oximetry 100 100 100 12/28/17 02:30 12/28/17 02:45 12/28/17 03:00 Temperature 97.6 F Pulse Rate 119 H 115 H 116 H Respiratory Rate 16 16 16 Blood Pressure 100/66 110/70 102/68 Pulse Oximetry 100 100 100 12/28/17 03:37 12/28/17 04:00 12/28/17 05:06 Temperature 97.8 F 97.8 F Pulse Rate 110 H 114 H 110 H Respiratory Rate 12 12 10 L Blood Pressure 108/73 116/80 Pulse Oximetry 100 99 12/28/17 08:00 Temperature 97.5 F L Pulse Rate 110 H Respiratory Rate 10 L Blood Pressure 109/72 Pulse Oximetry 98 Intake & Output 12/27/17 12/28/17 12/28/17 18:59 06:59 18:59 Intake Total 1005 / 1005 4670 / 4670 1100 / 1100 Output Total 325 / 325 1100 / 1100 Balance 680 / 680 3570 / 3570 1100 / 1100 Weight 207 lb 0.225 oz 207 lb 0.225 oz Intake: IV 1005 / 1005 1320 / 1320 1100 / 1100 KCl Inj 10 MEQ In 1/2 Normal 1005 / 1005 Saline Inj 1,000 ML @ 80 mls/hr IV.CONT .[id number] [facility] Rx#: [id number] Calcium Chloride Inj 2 GM In 120 / 120 D5W Inj 100 ML @ 120 mls/hr IV. SIG ONCE ONE Rx#:[id number] Calcium Chloride Inj 0.5 GM In 0 / 0 NS Inj 100 ML @ 110 mls/hr IV. SIG ONCE ONE Rx#:[id number] LR 1000 mL Inj 1,000 ML @ Wide 1000 / 1000 1000 / 1000 Open IV.SIG BOLUS ONE Rx#: [id number] Magnesium Sulfate Inj 4 GM In 100 / 100 NS Inj 92 ML @ 50 mls/hr IV.SIG UNSCH PRN Rx#:[id number] Ancef Inj 2,000 MG In NS Inj 80 100 / 100 ML @ 200 mls/hr IV.SIG Q8H [facility] Rx#:[id number] Flagyl 500 MG Inj 100 ML @ 100 100 / 100 mls/hr IV.SIG Q8H [facility] Rx#: [id number] Oral 0 / 0 Anesthesia Amount 2700 / 2700 Other 250 / 250 Rbc As-3 Leukoreduced Unit 250 / 250 [id number] Intake (Blood Product) Amt 400 / 400 Rbc As-3 Leukoreduced Unit 400 / 400 [id number] Rbc As-3 Leukoreduced Unit 0 / 0 [id number] Output: Estimated Blood Loss 200 / 200 Urine Amount (Catheter) 280 / 280 Indwelling Urethral Catheter 280 / 280 Stool Amount (Stoma) 100 / 100 Right Lower Abdomen 100 / 100 Gastric Drainage 325 / 325 150 / 150 Gastrostomy Tube (PEG) 150 / 150 Right Nare Nasogastric Tube 325 / 325 Wound Drainage 370 / 370 # 1 Abdomen 370 / 370 Other: Other Intake Source Rbc As-3 Leukoreduced Unit Saline Solution [id number] # Voids 2 # Incontinent Voids 2 Date of Last Bowel Movement 12/27/17 12/27/17 # Bowel Movements 1 1 Weight On Admission 207 lb 0.225 oz Result Diagrams: 12/28/17 07:41 12/28/17 07:41 Laboratory Results: Laboratory Results - last 24 hr 12/27/17 12/27/17 12/28/17 23:26 23:26 00:03 CBC w Diff WBC 4.4 Corrected WBC RBC 3.11 L Hgb 9.2 L D Hct 27.5 L MCV 88.3 MCH 29.5 MCHC 33.4 RDW 18.8 H Plt Count 95 L MPV 6.7 L Prelim Diff (Auto) Slide review pending Immature Gran % (Auto) Neut % (Auto) 53.7 Lymph % (Auto) 35.3 [place] % (Auto) 10.5 H Eos % (Auto) 0.2 Baso % (Auto) 0.3 Immature Gran # (Auto) Neut # (Auto) 2.4 Lymph # (Auto) 1.6 [place] # (Auto) 0.5 Eos # (Auto) 0.0 Baso # (Auto) 0.0 WBC Differential . Diff Scan Auto diff confirmed Seg Neuts % (Manual) Band Neuts % (Manual) Lymphocytes % (Manual) Atypical Lymphs % (Man) Monocytes % (Manual) Eosinophils % (Manual) Basophils % (Manual) Metamyelocytes % (Man) Myelocytes % (Man) Promyelocytes % (Man) Blast Cells % (Manual) Plasma Cell % (Manual) Other Cells % Abs Neuts (Manual) Nucleated RBCs/100 WBC Differential Comment . Hypersegmented Neuts Smudge Cells Toxic Granulation Toxic Vacuolation Dohle Bodies Platelet Estimate Low L Platelet Morphology Normal RBC Morphology Dimorphic RBCs Polychromasia Basophilic Stippling Spherocytes Pappenheimer Bodies Sickle Cells Target Cells Tear Drop Cells Ovalocytes 1+ H Stomatocytes Helmet Cells [place] Bodies Graham Cells Acanthocytes (Spur) Rouleaux Keratocytes Hematology Comments PT INR APTT Sodium 143 Potassium 4.1 Chloride 111 H Carbon Dioxide 24.0 Anion Gap 8 BUN 10 Creatinine 0.59 Estimated GFR Greater than 89 POC Glucose Random Glucose 73 L Calcium 6.1 L* Prot Corrected Calcium 8.1 L Phosphorus Magnesium Total Protein 3.2 L D Albumin Blood Type Antibody Screen MTS Gel Crossmatch See Detail 12/28/17 12/28/17 12/28/17 00:42 02:00 02:00 CBC w Diff WBC 4.8 Corrected WBC RBC 3.69 L Hgb 11.2 L D Hct 32.7 L MCV 88.6 MCH 30.4 MCHC 34.3 RDW 18.6 H Plt Count 121 L MPV 6.9 L Prelim Diff (Auto) Immature Gran % (Auto) Neut % (Auto) 63.7 Lymph % (Auto) 28.1 [place] % (Auto) 7.5 Eos % (Auto) 0.2 Baso % (Auto) 0.5 Immature Gran # (Auto) Neut # (Auto) 3.1 Lymph # (Auto) 1.4 [place] # (Auto) 0.4 Eos # (Auto) 0.0 Baso # (Auto) 0.0 WBC Differential . Diff Scan Seg Neuts % (Manual) Band Neuts % (Manual) Lymphocytes % (Manual) Atypical Lymphs % (Man) Monocytes % (Manual) Eosinophils % (Manual) Basophils % (Manual) Metamyelocytes % (Man) Myelocytes % (Man) Promyelocytes % (Man) Blast Cells % (Manual) Plasma Cell % (Manual) Other Cells % Abs Neuts (Manual) Nucleated RBCs/100 WBC Differential Comment Auto diff final Hypersegmented Neuts Smudge Cells Toxic Granulation Toxic Vacuolation Dohle Bodies Platelet Estimate Platelet Morphology RBC Morphology Dimorphic RBCs Polychromasia Basophilic Stippling Spherocytes Pappenheimer Bodies Sickle Cells Target Cells Tear Drop Cells Ovalocytes Stomatocytes Helmet Cells [place] Bodies Trace Cells Acanthocytes (Spur) Rouleaux Keratocytes Hematology Comments PT INR APTT Sodium 142 Potassium 3.9 Chloride 110 H Carbon Dioxide 23.5 Anion Gap 9 BUN 10 Creatinine 0.73 Estimated GFR 88 L POC Glucose Random Glucose 134 H Calcium 6.1 L* Prot Corrected Calcium 8.1 L Phosphorus Magnesium Total Protein 3.3 L Albumin Blood Type AB Positive Antibody Screen Negative MTS Gel Crossmatch 12/28/17 12/28/17 12/28/17 02:00 05:52 07:35 CBC w Diff WBC Corrected WBC RBC Hgb Hct MCV MCH MCHC RDW Plt Count MPV Prelim Diff (Auto) Immature Gran % (Auto) Neut % (Auto) Lymph % (Auto) [place] % (Auto) Eos % (Auto) Baso % (Auto) Immature Gran # (Auto) Neut # (Auto) Lymph # (Auto) [place] # (Auto) Eos # (Auto) Baso # (Auto) WBC Differential Diff Scan Seg Neuts % (Manual) Band Neuts % (Manual) Lymphocytes % (Manual) Atypical Lymphs % (Man) Monocytes % (Manual) Eosinophils % (Manual) Basophils % (Manual) Metamyelocytes % (Man) Myelocytes % (Man) Promyelocytes % (Man) Blast Cells % (Manual) Plasma Cell % (Manual) Other Cells % Abs Neuts (Manual) Nucleated RBCs/100 WBC Differential Comment Hypersegmented Neuts Smudge Cells Toxic Granulation Toxic Vacuolation Dohle Bodies Platelet Estimate Platelet Morphology RBC Morphology Dimorphic RBCs Polychromasia Basophilic Stippling Spherocytes Pappenheimer Bodies Sickle Cells Target Cells Tear Drop Cells Ovalocytes Stomatocytes Helmet Cells [place] Bodies Graham Cells Acanthocytes (Spur) Rouleaux Keratocytes Hematology Comments PT 14.7 H INR 1.5 APTT 56.8 H D Sodium Potassium Chloride Carbon Dioxide Anion Gap BUN Creatinine Estimated GFR POC Glucose 107 Random Glucose Calcium Prot Corrected Calcium Phosphorus 3.0 Magnesium 1.1 L Total Protein Albumin Blood Type Antibody Screen MTS Gel Crossmatch 12/28/17 12/28/17 07:41 07:41 CBC w Diff Investor Relations Manager WBC 7.2 Corrected WBC Investor Relations Manager RBC 4.70 Hgb 14.1 D Hct 42.6 MCV 90.6 MCH 30.0 MCHC 33.1 RDW 16.9 Plt Count 101 L MPV 7.3 Prelim Diff (Auto) Investor Relations Manager Immature Gran % (Auto) Investor Relations Manager Neut % (Auto) 82.8 H Lymph % (Auto) 9.8 [place] % (Auto) 7.2 Eos % (Auto) 0.1 Baso % (Auto) 0.1 Immature Gran # (Auto) Investor Relations Manager Neut # (Auto) 6.0 Lymph # (Auto) 0.7 L [place] # (Auto) 0.5 Eos # (Auto) 0.0 Baso # (Auto) 0.0 WBC Differential . Diff Scan Investor Relations Manager Seg Neuts % (Manual) Investor Relations Manager Band Neuts % (Manual) Investor Relations Manager Lymphocytes % (Manual) Investor Relations Manager Atypical Lymphs % (Man) Investor Relations Manager Monocytes % (Manual) Investor Relations Manager Eosinophils % (Manual) Investor Relations Manager Basophils % (Manual) Investor Relations Manager Metamyelocytes % (Man) Investor Relations Manager Myelocytes % (Man) Investor Relations Manager Promyelocytes % (Man) Investor Relations Manager Blast Cells % (Manual) Investor Relations Manager Plasma Cell % (Manual) Investor Relations Manager Other Cells % Investor Relations Manager Abs Neuts (Manual) Investor Relations Manager Nucleated RBCs/100 WBC Investor Relations Manager Differential Comment Auto diff final Hypersegmented Neuts Investor Relations Manager Smudge Cells Investor Relations Manager Toxic Granulation Investor Relations Manager Toxic Vacuolation Investor Relations Manager Dohle Bodies Investor Relations Manager Platelet Estimate Investor Relations Manager Platelet Morphology Investor Relations Manager RBC Morphology Investor Relations Manager Dimorphic RBCs Investor Relations Manager Polychromasia Investor Relations Manager Basophilic Stippling Investor Relations Manager Spherocytes Investor Relations Manager Pappenheimer Bodies Investor Relations Manager Sickle Cells Investor Relations Manager Target Cells Investor Relations Manager Tear Drop Cells Investor Relations Manager Ovalocytes Investor Relations Manager Stomatocytes Investor Relations Manager Helmet Cells Investor Relations Manager [place] Bodies Investor Relations Manager Graham Cells Investor Relations Manager Acanthocytes (Spur) Investor Relations Manager Rouleaux Investor Relations Manager Keratocytes Investor Relations Manager Hematology Comments Investor Relations Manager PT INR APTT Sodium 140 Potassium 4.3 Chloride 110 H Carbon Dioxide 23.4 Anion Gap 7 BUN 9 Creatinine 0.61 Estimated GFR Greater than 89 POC Glucose Random Glucose 137 H Calcium 7.8 L D Prot Corrected Calcium Phosphorus 3.9 Magnesium 2.4 D Total Protein Albumin 1.8 L Blood Type Antibody Screen MTS Gel Crossmatch Culture Results: Microbiology 12/27/17 00:15 Stool Occult Blood (FANNIE) - Final Stool Hemoccult positive Medications: Active Medications Generic Name Dose Route Start Last Admin Trade Name Freq PRN Reason Stop Dose Admin Clotrimazole 1 applicatio 12/26/17 09:00 12/28/17 08:31 Lotrimin 1% Cream TOPICAL 1 applicatio BID AMIRA Administration Metronidazole/Sodium Chloride 100 mls @ 100 mls/hr 12/28/17 02:00 12/28/17 04 :43 Flagyl 500 Mg Inj IV.SIG Infused Q8H AMIRA Infusion Cefazolin Sodium 2,000 mg/ 100 mls @ 200 mls/hr 12/28/17 02:00 12/28/17 03:43 Sodium Chloride IV.SIG Infused Q8H [facility] Infusion Dextrose/Lactated Ringer's 1,000 mls @ 125 mls/hr 12/28/17 02:30 12/28/17 03: 13 D5w/Lr Inj IV.CONT 125 mls/hr .Q8H AMIRA Administration Magnesium Sulfate Inj 4 gm/ 100 mls @ 50 mls/hr 12/28/17 02:51 12/28/17 08:16 Sodium Chloride IV.SIG Infused UNSCH PRN Infusion For Magnesium 0.9 - 1.1 mg/dL Heparin Sodium/Dextrose 25,000 unit in 250 mls @ 17 mls/hr 12/28/17 07:00 10:24 Heparin/D5w 25,000 U/250 Ml IV.CONT 1,100 units/hr TITRATE PRN 11 mls/hr Per Protocol Titration Protocol 1,700 UNITS/HR Padimate O 1 applicatio 12/25/17 00:32 12/28/17 08:31 Chapstick TOPICAL 1 applicatio UNSCH PRN Administration DRY LIPS Pantoprazole Sodium 40 mg 12/20/17 11:00 12/28/17 03:43 Protonix Inj IV.PUSH 40 mg Q12H AMIRA Administration Sodium Chloride 2 ml 12/18/17 12:58 12/26/17 22:37 Ns Flush IV.FLUSH 2 ml PRN PRN Administration FLUSH AFTER USING IV ACCESS Objective Remarks: GENERAL: Middle-aged female resting in bed with eyes closed. She is quiet and reserved. SKIN: Warm and dry. HEAD: Normocephalic. EYES: No scleral icterus. No injection or drainage. NECK: Supple, trachea midline. No JVD or lymphadenopathy. CARDIOVASCULAR: + S1/S2. Tachycardic. RESPIRATORY: Clear anteriorly. Breathing unlabored at rest. GASTROINTESTINAL: Abdomen soft, non-tender, nondistended. EXTREMITIES: Generalized edema. NEUROLOGICAL: Sleepy but awakens to verbal stimuli. Moving all extremities. No obvious focal deficit. Assessment/Plan (1) Ovarian cancer Code(s): C56.9 - Malignant neoplasm of unspecified ovary Status: Chronic (2) Small bowel obstruction Code(s): K56.609 - Unspecified intestinal obstruction, unspecified as to partial versus complete obstruction Status: Acute (3) DVT (deep venous thrombosis) Code(s): I82.409 - Acute embolism and thrombosis of unspecified deep veins of unspecified lower extremity Status: Acute - Plan 42-year-old female with metastatic ovarian cancer found to have a DVT. The patient had exploratory laparotomy with resection of small bowel obstruction, lysis of adhesions, ileostomy and G-tube placement on 12/27/17 1. Heparin drip resumed earlier this morning. I have instructed the ICU nurse to decrease the dose to 1100 U/h as she was supratherapeutic on her APTT on the previous dose of 1600 U/h. 2. Monitor closely for bleeding. Monitor CBC. 3. Defer to [facility] oncology for oncologic decisions in this unfortunate patient with metastatic ovarian cancer. (1) Ovarian cancer Qualifiers: Laterality: bilateral Qualified Code(s): C56.1 - Malignant neoplasm of right ovary; C56.2 - Malignant neoplasm of left ovary
--- NOTE | 2017-12-28 16:32 | P.PNPAL ---
Reason for Visit Reason for visit: a. To assist with evaluation and management of symptoms including: pain, weakness. b. To assist medical decision maker(s) with: better understanding of current medical conditions; weighing benefits/burdens of medical treatment options; making medical treatment decisions. Subjective Subjective/Interval History: Patient seen and examined in room. No family at bedside. Discussed with surgery team and nursing staff. Patient was transferred to surgical ICU after diagnostic laparoscopy, exploratory laparotomy, small bowel resection, end ileostomy, lysis of adhesions greater than 60 minutes, evacuation of 4L ascites and gastrostomy tube placement on 12/28/[address] Rushing. Operative note indicates findings of extensive carcinomatosis, multiple involved small loops of bowel, adhesions, distal obstruction. She was transferred to intensive care post surgery. Product Support Rep is following now. Patient is lethargic during my visit. She falls off to sleep during my visit. She has abdominal pain, unable to quantify or qualify to lethargy, she nods yes when asked if pain is being controlled with medication. Spoke with her mother, Niesha who feels pain is being controlled though medication is making her sleepy. Family prefers her to be sleepy rather than to be painful at this time. Clinical data: * Afebrile. Heart rate 108, respiratory rate 10, blood pressure 115/73, oxygen saturation 99% * WBC 7.2, hemoglobin 14.1, hematocrit 42.6, platelet 101, neutrophil 82.8% * Sodium 140, potassium 4.3, chloride 110, carbon dioxide 23.4, BUN 9, creatinine 0.61, GFR greater than 89, calcium 7.8, phosphorus 3.9, magnesium 2.4 * Albumin 1.8 * On heparin drip * Post 2 units packed red blood cells Patient remembers me from my prior visit. She reports she has my number in her phone. Will continue to follow. Family/Friend Interactions: Spoke with patient's mother, Niesha via telephone. She reports that patient completed living well, designation of healthcare surrogate and power of plumbing engineer paperwork with an plumbing engineer on 12/27/17, copies requested. She will bring advance directives on 12/29/17. Questions answered, she voices appreciation for call. Advance Directives Health Care Surrogate Name and Number: Considering completion of HCS prior to surgery, left paperwork at bedside Documented care wishes:: Awaiting copies of written advance directives. Significant change in goals:: FULL CODE. Goals remain aggressive at this time. Objective Vital Signs: Vital Signs 12/27/17 16:00 12/27/17 20:00 12/28/17 01:15 Temperature 97.5 F L 96.9 F L 97.4 F L Pulse Rate 100 H 104 H 118 H Respiratory Rate 18 16 16 Blood Pressure 120/67 109/69 92/61 L Pulse Oximetry 97 98 100 12/28/17 01:27 12/28/17 01:30 12/28/17 01:45 Temperature 97.4 F L Pulse Rate 112 H 111 H 109 H Respiratory Rate 15 16 12 Blood Pressure 91/66 L 97/66 L 100/66 Pulse Oximetry 100 100 100 12/28/17 02:00 12/28/17 02:15 12/28/17 02:30 Temperature Pulse Rate 110 H 113 H 119 H Respiratory Rate 12 12 16 Blood Pressure 108/70 102/72 100/66 Pulse Oximetry 100 100 100 12/28/17 02:45 12/28/17 03:00 12/28/17 03:37 Temperature 97.6 F 97.8 F Pulse Rate 115 H 116 H 110 H Respiratory Rate 16 16 12 Blood Pressure 110/70 102/68 108/73 Pulse Oximetry 100 100 100 12/28/17 04:00 12/28/17 05:06 12/28/17 08:00 Temperature 97.8 F 97.5 F L Pulse Rate 114 H 110 H 110 H Respiratory Rate 12 10 L 10 L Blood Pressure 116/80 109/72 Pulse Oximetry 99 98 12/28/17 12:00 Temperature 97.7 F Pulse Rate 108 H Respiratory Rate 10 L Blood Pressure 115/73 Pulse Oximetry 99 Intake & Output 12/27/17 12/28/17 12/28/17 18:59 06:59 18:59 Intake Total 1005 / 1005 4670 / 4670 2300 / 2300 Output Total 325 / 325 1100 / 1100 Balance 680 / 680 3570 / 3570 2300 / 2300 Weight 93.9 kg 93.9 kg Intake: IV 1005 / 1005 1320 / 1320 2300 / 2300 D5W/LR Inj 1,000 ML @ 125 mls/ 1000 / 1000 hr IV.CONT .Q8H [facility] Rx#: [id number] KCl Inj 10 MEQ In 1/2 Normal 1005 / 1005 Saline Inj 1,000 ML @ 80 mls/hr IV.CONT .[id number] [facility] Rx#: [id number] Calcium Chloride Inj 2 GM In 120 / 120 D5W Inj 100 ML @ 120 mls/hr IV. SIG ONCE ONE Rx#:[id number] Calcium Chloride Inj 0.5 GM In 0 / 0 NS Inj 100 ML @ 110 mls/hr IV. SIG ONCE ONE Rx#:[id number] LR 1000 mL Inj 1,000 ML @ Wide 1000 / 1000 1000 / 1000 Open IV.SIG BOLUS ONE Rx#: [id number] Magnesium Sulfate Inj 4 GM In 100 / 100 NS Inj 92 ML @ 50 mls/hr IV.SIG UNSCH PRN Rx#:[id number] Ancef Inj 2,000 MG In NS Inj 80 100 / 100 100 / 100 ML @ 200 mls/hr IV.SIG Q8H [facility] Rx#:[id number] Flagyl 500 MG Inj 100 ML @ 100 100 / 100 100 / 100 mls/hr IV.SIG Q8H [facility] Rx#: [id number] Oral 0 / 0 Anesthesia Amount 2700 / 2700 Other 250 / 250 Rbc As-3 Leukoreduced Unit 250 / 250 [id number] Intake (Blood Product) Amt 400 / 400 Rbc As-3 Leukoreduced Unit 400 / 400 [id number] Rbc As-3 Leukoreduced Unit 0 / 0 [id number] Output: Estimated Blood Loss 200 / 200 Urine Amount (Catheter) 280 / 280 Indwelling Urethral Catheter 280 / 280 Stool Amount (Stoma) 100 / 100 Right Lower Abdomen 100 / 100 Gastric Drainage 325 / 325 150 / 150 Gastrostomy Tube (PEG) 150 / 150 Right Nare Nasogastric Tube 325 / 325 Wound Drainage 370 / 370 # 1 Abdomen 370 / 370 Other: Other Intake Source Rbc As-3 Leukoreduced Unit Saline Solution [id number] # Voids 2 # Incontinent Voids 2 Date of Last Bowel Movement 12/27/17 12/27/17 # Bowel Movements 1 1 Weight On Admission 93.9 kg Physical Exam: CONSTITUTIONAL/GENERAL: This is an adequately nourished patient, in no apparent distress. TUBES/LINES/DRAINS: NC, right Port, gastrostomy tube, ileostomy, ARNOL drain. SKIN: No jaundice, rashes, or lesions. Ecchymoses on upper extremities. Pale. HEAD: Hair thinning noted. EYES: eyes closed. ENT: Hearing grossly normal. dry mucous membranes. CARDIOVASCULAR: heart rate 108. RESPIRATORY/CHEST: unlabored respirations at rest. GASTROINTESTINAL: Abdominal binder in place, ARNOL drain with serosanguineous drainage. Ileostomy right abdomen. G tube. GENITOURINARY: Voiding adequately. MUSCULOSKELETAL: Extremities with edema noted. NEUROLOGICAL: Lethargic, arouses briefly. Moves all extremities. PSYCHIATRIC: Lethargic. Diagnostic Tests Laboratory: Laboratory Results - last 72 hr 12/26/17 12/26/17 12/26/17 12:50 12:50 14:30 CBC w Diff WBC 5.1 Corrected WBC RBC 4.35 Hgb 12.9 Hct 38.6 MCV 88.9 MCH 29.6 MCHC 33.3 RDW 18.9 H Plt Count 132 L MPV 6.7 L Prelim Diff (Auto) Immature Gran % (Auto) Neut % (Auto) 51.1 Lymph % (Auto) 34.2 [place] % (Auto) 14.0 H Eos % (Auto) 0.3 Baso % (Auto) 0.4 Immature Gran # (Auto) Neut # (Auto) 2.6 Lymph # (Auto) 1.7 [place] # (Auto) 0.7 Eos # (Auto) 0.0 Baso # (Auto) 0.0 WBC Differential . Diff Scan Seg Neuts % (Manual) Band Neuts % (Manual) Lymphocytes % (Manual) Atypical Lymphs % (Man) Monocytes % (Manual) Eosinophils % (Manual) Basophils % (Manual) Metamyelocytes % (Man) Myelocytes % (Man) Promyelocytes % (Man) Blast Cells % (Manual) Plasma Cell % (Manual) Other Cells % Abs Neuts (Manual) Nucleated RBCs/100 WBC Differential Comment Auto diff final Hypersegmented Neuts Smudge Cells Toxic Granulation Toxic Vacuolation Dohle Bodies Platelet Estimate Platelet Morphology RBC Morphology Dimorphic RBCs Polychromasia Basophilic Stippling Spherocytes Pappenheimer Bodies Sickle Cells Target Cells Tear Drop Cells Ovalocytes Stomatocytes Helmet Cells Horner-Utting Bodies Trace Cells Acanthocytes (Spur) Rouleaux Keratocytes Hematology Comments PT 18.1 H INR 1.8 APTT 43.0 H Sodium 143 Potassium 3.7 Chloride 111 H Carbon Dioxide 24.2 Anion Gap 8 BUN 11 Creatinine 0.76 Estimated GFR 84 L POC Glucose Random Glucose 90 Calcium 6.5 L* Prot Corrected Calcium 7.9 L Phosphorus Magnesium Total Protein 4.4 L Albumin Blood Type Antibody Screen MTS Gel Crossmatch 12/27/17 12/27/17 12/27/17 00:44 03:41 04:35 CBC w Diff WBC 5.7 Corrected WBC RBC 4.25 Hgb 12.5 Hct 37.4 MCV 88.0 MCH 29.4 MCHC 33.4 RDW 18.7 H Plt Count 133 L MPV 7.2 Prelim Diff (Auto) Immature Gran % (Auto) Neut % (Auto) Lymph % (Auto) [place] % (Auto) Eos % (Auto) Baso % (Auto) Immature Gran # (Auto) Neut # (Auto) Lymph # (Auto) [place] # (Auto) Eos # (Auto) Baso # (Auto) WBC Differential Diff Scan Seg Neuts % (Manual) Band Neuts % (Manual) Lymphocytes % (Manual) Atypical Lymphs % (Man) Monocytes % (Manual) Eosinophils % (Manual) Basophils % (Manual) Metamyelocytes % (Man) Myelocytes % (Man) Promyelocytes % (Man) Blast Cells % (Manual) Plasma Cell % (Manual) Other Cells % Abs Neuts (Manual) Nucleated RBCs/100 WBC Differential Comment Hypersegmented Neuts Smudge Cells Toxic Granulation Toxic Vacuolation Dohle Bodies Platelet Estimate Platelet Morphology RBC Morphology Dimorphic RBCs Polychromasia Basophilic Stippling Spherocytes Pappenheimer Bodies Sickle Cells Target Cells Tear Drop Cells Ovalocytes Stomatocytes Helmet Cells Horner-Utting Bodies [place] Cells Acanthocytes (Spur) Rouleaux Keratocytes Hematology Comments PT INR APTT Greater than 277.5 H* Greater than 277.5 H* Sodium Potassium Chloride Carbon Dioxide Anion Gap BUN Creatinine Estimated GFR POC Glucose Random Glucose Calcium Prot Corrected Calcium Phosphorus Magnesium Total Protein Albumin Blood Type Antibody Screen MTS Gel Crossmatch 12/27/17 12/27/17 12/27/17 06:58 23:26 23:26 CBC w Diff WBC 4.4 Corrected WBC RBC 3.11 L Hgb 9.2 L D Hct 27.5 L MCV 88.3 MCH 29.5 MCHC 33.4 RDW 18.8 H Plt Count 95 L MPV 6.7 L Prelim Diff (Auto) Slide review pending Immature Gran % (Auto) Neut % (Auto) 53.7 Lymph % (Auto) 35.3 [place] % (Auto) 10.5 H Eos % (Auto) 0.2 Baso % (Auto) 0.3 Immature Gran # (Auto) Neut # (Auto) 2.4 Lymph # (Auto) 1.6 [place] # (Auto) 0.5 Eos # (Auto) 0.0 Baso # (Auto) 0.0 WBC Differential . Diff Scan Auto diff confirmed Seg Neuts % (Manual) Band Neuts % (Manual) Lymphocytes % (Manual) Atypical Lymphs % (Man) Monocytes % (Manual) Eosinophils % (Manual) Basophils % (Manual) Metamyelocytes % (Man) Myelocytes % (Man) Promyelocytes % (Man) Blast Cells % (Manual) Plasma Cell % (Manual) Other Cells % Abs Neuts (Manual) Nucleated RBCs/100 WBC Differential Comment . Hypersegmented Neuts Smudge Cells Toxic Granulation Toxic Vacuolation Dohle Bodies Platelet Estimate Low L Platelet Morphology Normal RBC Morphology Dimorphic RBCs Polychromasia Basophilic Stippling Spherocytes Pappenheimer Bodies Sickle Cells Target Cells Tear Drop Cells Ovalocytes 1+ H Stomatocytes Helmet Cells Horner-Utting Bodies Trace Cells Acanthocytes (Spur) Rouleaux Keratocytes Hematology Comments PT INR APTT 72.8 H D Sodium 143 Potassium 4.1 Chloride 111 H Carbon Dioxide 24.0 Anion Gap 8 BUN 10 Creatinine 0.59 Estimated GFR Greater than 89 POC Glucose Random Glucose 73 L Calcium 6.1 L* Prot Corrected Calcium 8.1 L Phosphorus Magnesium Total Protein 3.2 L D Albumin Blood Type Antibody Screen MTS Gel Crossmatch 12/28/17 12/28/17 12/28/17 00:03 00:42 02:00 CBC w Diff WBC Corrected WBC RBC Hgb Hct MCV MCH MCHC RDW Plt Count MPV Prelim Diff (Auto) Immature Gran % (Auto) Neut % (Auto) Lymph % (Auto) [place] % (Auto) Eos % (Auto) Baso % (Auto) Immature Gran # (Auto) Neut # (Auto) Lymph # (Auto) [place] # (Auto) Eos # (Auto) Baso # (Auto) WBC Differential Diff Scan Seg Neuts % (Manual) Band Neuts % (Manual) Lymphocytes % (Manual) Atypical Lymphs % (Man) Monocytes % (Manual) Eosinophils % (Manual) Basophils % (Manual) Metamyelocytes % (Man) Myelocytes % (Man) Promyelocytes % (Man) Blast Cells % (Manual) Plasma Cell % (Manual) Other Cells % Abs Neuts (Manual) Nucleated RBCs/100 WBC Differential Comment Hypersegmented Neuts Smudge Cells Toxic Granulation Toxic Vacuolation Dohle Bodies Platelet Estimate Platelet Morphology RBC Morphology Dimorphic RBCs Polychromasia Basophilic Stippling Spherocytes Pappenheimer Bodies Sickle Cells Target Cells Tear Drop Cells Ovalocytes Stomatocytes Helmet Cells Horner-Utting Bodies [place] Cells Acanthocytes (Spur) Rouleaux Keratocytes Hematology Comments PT INR APTT Sodium 142 Potassium 3.9 Chloride 110 H Carbon Dioxide 23.5 Anion Gap 9 BUN 10 Creatinine 0.73 Estimated GFR 88 L POC Glucose Random Glucose 134 H Calcium 6.1 L* Prot Corrected Calcium 8.1 L Phosphorus Magnesium Total Protein 3.3 L Albumin Blood Type AB Positive Antibody Screen Negative MTS Gel Crossmatch See Detail 12/28/17 12/28/17 12/28/17 02:00 02:00 05:52 CBC w Diff WBC 4.8 Corrected WBC RBC 3.69 L Hgb 11.2 L D Hct 32.7 L MCV 88.6 MCH 30.4 MCHC 34.3 RDW 18.6 H Plt Count 121 L MPV 6.9 L Prelim Diff (Auto) Immature Gran % (Auto) Neut % (Auto) 63.7 Lymph % (Auto) 28.1 [place] % (Auto) 7.5 Eos % (Auto) 0.2 Baso % (Auto) 0.5 Immature Gran # (Auto) Neut # (Auto) 3.1 Lymph # (Auto) 1.4 [place] # (Auto) 0.4 Eos # (Auto) 0.0 Baso # (Auto) 0.0 WBC Differential . Diff Scan Seg Neuts % (Manual) Band Neuts % (Manual) Lymphocytes % (Manual) Atypical Lymphs % (Man) Monocytes % (Manual) Eosinophils % (Manual) Basophils % (Manual) Metamyelocytes % (Man) Myelocytes % (Man) Promyelocytes % (Man) Blast Cells % (Manual) Plasma Cell % (Manual) Other Cells % Abs Neuts (Manual) Nucleated RBCs/100 WBC Differential Comment Auto diff final Hypersegmented Neuts Smudge Cells Toxic Granulation Toxic Vacuolation Dohle Bodies Platelet Estimate Platelet Morphology RBC Morphology Dimorphic RBCs Polychromasia Basophilic Stippling Spherocytes Pappenheimer Bodies Sickle Cells Target Cells Tear Drop Cells Ovalocytes Stomatocytes Helmet Cells Horner-Utting Bodies Trace Cells Acanthocytes (Spur) Rouleaux Keratocytes Hematology Comments PT INR APTT Sodium Potassium Chloride Carbon Dioxide Anion Gap BUN Creatinine Estimated GFR POC Glucose 107 Random Glucose Calcium Prot Corrected Calcium Phosphorus 3.0 Magnesium 1.1 L Total Protein Albumin Blood Type Antibody Screen MTS Gel Crossmatch 12/28/17 12/28/17 12/28/17 07:35 07:41 07:41 CBC w Diff Legal Collector WBC 7.2 Corrected WBC Legal Collector RBC 4.70 Hgb 14.1 D Hct 42.6 MCV 90.6 MCH 30.0 MCHC 33.1 RDW 16.9 Plt Count 101 L MPV 7.3 Prelim Diff (Auto) Legal Collector Immature Gran % (Auto) Legal Collector Neut % (Auto) 82.8 H Lymph % (Auto) 9.8 [place] % (Auto) 7.2 Eos % (Auto) 0.1 Baso % (Auto) 0.1 Immature Gran # (Auto) Legal Collector Neut # (Auto) 6.0 Lymph # (Auto) 0.7 L [place] # (Auto) 0.5 Eos # (Auto) 0.0 Baso # (Auto) 0.0 WBC Differential . Diff Scan Legal Collector Seg Neuts % (Manual) Legal Collector Band Neuts % (Manual) Legal Collector Lymphocytes % (Manual) Legal Collector Atypical Lymphs % (Man) Legal Collector Monocytes % (Manual) Legal Collector Eosinophils % (Manual) Legal Collector Basophils % (Manual) Legal Collector Metamyelocytes % (Man) Legal Collector Myelocytes % (Man) Legal Collector Promyelocytes % (Man) Legal Collector Blast Cells % (Manual) Legal Collector Plasma Cell % (Manual) Legal Collector Other Cells % Legal Collector Abs Neuts (Manual) Legal Collector Nucleated RBCs/100 WBC Legal Collector Differential Comment Auto diff final Hypersegmented Neuts Legal Collector Smudge Cells Legal Collector Toxic Granulation Legal Collector Toxic Vacuolation Legal Collector Dohle Bodies Legal Collector Platelet Estimate Legal Collector Platelet Morphology Legal Collector RBC Morphology Legal Collector Dimorphic RBCs Legal Collector Polychromasia Legal Collector Basophilic Stippling Legal Collector Spherocytes Legal Collector Pappenheimer Bodies Legal Collector Sickle Cells Legal Collector Target Cells Legal Collector Tear Drop Cells Legal Collector Ovalocytes Legal Collector Stomatocytes Legal Collector Helmet Cells Legal Collector Horner-Utting Bodies Legal Collector Trace Cells Legal Collector Acanthocytes (Spur) Legal Collector Rouleaux Legal Collector Keratocytes Legal Collector Hematology Comments Legal Collector PT 14.7 H INR 1.5 APTT 56.8 H D Sodium 140 Potassium 4.3 Chloride 110 H Carbon Dioxide 23.4 Anion Gap 7 BUN 9 Creatinine 0.61 Estimated GFR Greater than 89 POC Glucose Random Glucose 137 H Calcium 7.8 L D Prot Corrected Calcium Phosphorus 3.9 Magnesium 2.4 D Total Protein Albumin 1.8 L Blood Type Antibody Screen MTS Gel Crossmatch Result Diagrams: 12/28/17 07:41 12/28/17 07:41 Microbiology: Microbiology 12/27/17 00:15 Stool Occult Blood (FANNIE) - Final Stool Hemoccult positive Imaging: Chest X-Ray 12/18/17 00:00 CONCLUSION: Significant elevation of the left hemidiaphragm and submaximal inspiration both lungs. Abdomen/Pelvis CT 12/18/17 12:58 CONCLUSION: 1. Compared with October 28 there is interval development of small bowel dilatation to about 5.5 cm with distal terminal ileum and colonic decompression characteristic of a distal small bowel obstruction. 2. Multiloculated ascites is similar in appearance to prior exam. 3. Previous right pleural effusion has decreased in size. 4. Increase in fatty infiltration of the liver since October 28. Small Bowel X-Ray 12/20/17 00:00 CONCLUSION: Small bowel obstruction. Venous Doppler Study 12/26/17 00:00 CONCLUSION: 1. Nonocclusive thrombus in the very distal aspect of the left common femoral vein extending into the proximal superficial femoral vein. 2. Deep venous system is otherwise patent. No SVT. Abdomen X-Ray 12/26/17 06:00 CONCLUSION: Residual contrast in large bowel. Procedures: * 12/28/17 - ex lap with resection of distal small bowel, end-ileostomy, lysis of adhesions and evacuation of 4.5 L of ascites, G tube placement. Assessment and Plan - Disease Oriented Problem List (1) Small bowel obstruction (2) Hypocalcemia (3) Dehydration (4) Ovarian cancer - Symptom Scale (1) Pain 0-10 Scale: 8 (2) Nausea & vomiting 0-10 Scale: Unable to quantify (3) Weakness 0-10 Scale: Unable to quantify Pertinent Non-Medical Issues: Psychosocial: Single. Has 2 sons (Khris 21 in [place] and Ed age 9 lives with patient). She is supported by friends and family. 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 Spiritual: [employer]. Legal:Patient is currently capacitated to make her own health care decisions. She is considering completion of written advanced directives. She verbalizes she would want her mother to serve as HCS should she lose capacity. Left Living Will and Designation of Health Care Surrogate forms at bedside per her request for completion. Ethical issues impacting care: No known concerns at this time. Important Contacts: * Niesha Gloria, mother: [phone] Prognosis: Patient is sweet, unfortunate 42 year old with progressive ovarian cancer despite Line 4 of chemotherapy, admitted with SBO. Overall prognosis is poor. Treatment is palliative. Hospice appropriate if goals are comfort oriented. Code Status: Full Code Plan: * Patient is currently capacitated to make her own health care decisions. Completed written advanced directives 12/27/17 (LW, HCS and POA), copies requested. She previously verbalized she would want her mother to serve as HCS should she lose capacity. * FULL CODE * Post surgery, desires continued aggressive care including surgical intervention for SBO in hopes to recover enough to return to treatment for ovarian cancer. She is realistic and wants medical team to be open and honest regarding her condition. She DOES NOT want to in the hospital. * SYMPTOMS: Pain: abdominal pain secondary to progressive ovarian cancer with peritoneal carcinomatosis, small bowel obstruction, DVT, debility, dehydration, etc. Will defer pain medication to surgery at this time. Will continue to monitor and make recommendations as needed. * Palliative care will continue to follow to assist with symptom management and further clarification of medical treatment goals throughout hospital course. Attestation Attestation: To help prompt me to consider important information that might be impacting today's encounter and assessment, information from prior notes written by myself or my colleagues may have been "brought forward" into today's note. My signature on this note, however, is an attestation that I personally performed the exam, history, and/or decision-making noted today, and, unless otherwise indicated, the interactions with patient, family, and staff as well as the review of records all occurred today. I also attest that the listed assessment and stated plan reflect my best clinical judgment today based on the combination of historical information, prior notes, and today's exam/ interactions. When time spent is documented, it refers only to time spent today by the signer, or if indicated, combined time spent today by collaborating physician/nurse practitioner.
[2017-12-28] MEDS: HYDROmorphone PF Inj 2 MG/ML Vial IV.PUSH PRN (16:58)
--- NOTE | 2017-12-28 17:47 | P.PNWCN ---
Wound Care Nurse Consult Description: Patient seen for new ileostomy teaching, Communicated with: RAYRAY HOLLIDAY, and patient Recommendation: Please empty effluent from pouch when 1 /3 to 1/2 full. Monitor stoma for color and output. Please change ileostomy appliance every 3 days or if leaking, do not reinforce with tape. Incision - Incision Midline Abdomen Other Cover Dressing: jose cruz Bowel Diversion Stoma - Bowel Stoma Right Lower Abdomen Stoma Appearance: Dark Red, Irregular Shape Collection Device: Two-piece Drainage Description: Liquid, Blood-Tinged [place]-Stomal Surrounding Tissue Sensation Description: No Symptoms - Additional Information Additional Information: Patient is laying in bed and is responsive, but very tired. Patient having pain and is not ready for teaching at this time. Stoma was visualized through transparent pouch and appears dark red and has an irregular shape and is located on R lower quadrant of abdomen. Ileostomy education kit left in patient' s room. Spoke with RAYRAY HOLLIDAY, when patient is more alert and ready, RN will encourage patient to read booklet provided in kit. Will follow up with patient tomorrow for ileostomy teaching.
--- NOTE | 2017-12-28 20:53 | P.PNGS ---
Subjective Patient reports: no new complaints, no flatus Physical Exam Vital signs: Vital Signs 12/28/17 01:15 12/28/17 01:27 12/28/17 01:30 Temperature 97.4 F L 97.4 F L Pulse Rate 118 H 112 H 111 H Respiratory Rate 16 15 16 Blood Pressure 92/61 L 91/66 L 97/66 L Pulse Oximetry 100 100 100 12/28/17 01:45 12/28/17 02:00 12/28/17 02:15 Temperature Pulse Rate 109 H 110 H 113 H Respiratory Rate 12 12 12 Blood Pressure 100/66 108/70 102/72 Pulse Oximetry 100 100 100 12/28/17 02:30 12/28/17 02:45 12/28/17 03:00 Temperature 97.6 F Pulse Rate 119 H 115 H 116 H Respiratory Rate 16 16 16 Blood Pressure 100/66 110/70 102/68 Pulse Oximetry 100 100 100 12/28/17 03:37 12/28/17 04:00 12/28/17 05:06 Temperature 97.8 F 97.8 F Pulse Rate 110 H 114 H 110 H Respiratory Rate 12 12 10 L Blood Pressure 108/73 116/80 Pulse Oximetry 100 99 12/28/17 08:00 12/28/17 12:00 12/28/17 16:00 Temperature 97.5 F L 97.7 F 97.2 F L Pulse Rate 110 H 108 H 106 H Respiratory Rate 10 L 10 L 10 L Blood Pressure 109/72 115/73 98/72 L Pulse Oximetry 98 99 100 12/28/17 17:28 Temperature Pulse Rate Respiratory Rate 10 L Blood Pressure Pulse Oximetry Intake & Output 12/28/17 12/28/17 12/29/17 06:59 18:59 06:59 Intake Total 4670 / 4670 2500 / 2500 Output Total 1100 / 1100 1010 / 1010 Balance 3570 / 3570 1490 / 1490 Weight 93.9 kg 93.9 kg Intake: IV 1320 / 1320 2500 / 2500 D5W/LR Inj 1,000 ML @ 125 mls/ 1000 / 1000 hr IV.CONT .Q8H [facility] Rx#: [id number] Calcium Chloride Inj 2 GM In 120 / 120 D5W Inj 100 ML @ 120 mls/hr IV. SIG ONCE ONE Rx#:[id number] LR 1000 mL Inj 1,000 ML @ Wide 1000 / 1000 1000 / 1000 Open IV.SIG BOLUS ONE Rx#: [id number] Magnesium Sulfate Inj 4 GM In 100 / 100 NS Inj 92 ML @ 50 mls/hr IV.SIG UNSCH PRN Rx#:[id number] Ancef Inj 2,000 MG In NS Inj 80 100 / 100 200 / 200 ML @ 200 mls/hr IV.SIG Q8H [facility] Rx#:[id number] Flagyl 500 MG Inj 100 ML @ 100 100 / 100 200 / 200 mls/hr IV.SIG Q8H [facility] Rx#: [id number] Anesthesia Amount 2700 / 2700 Other 250 / 250 Rbc As-3 Leukoreduced Unit 250 / 250 [id number] Intake (Blood Product) Amt 400 / 400 Rbc As-3 Leukoreduced Unit 400 / 400 [id number] Rbc As-3 Leukoreduced Unit 0 / 0 [id number] Output: Estimated Blood Loss 200 / 200 Urine Amount (Catheter) 280 / 280 400 / 400 Indwelling Urethral Catheter 280 / 280 400 / 400 Stool Amount (Stoma) 100 / 100 125 / 125 Right Lower Abdomen 100 / 100 125 / 125 Gastric Drainage 150 / 150 75 / 75 Gastrostomy Tube (PEG) 150 / 150 75 / 75 Wound Drainage 370 / 370 410 / 410 # 1 Abdomen 370 / 370 410 / 410 Other: Other Intake Source Rbc As-3 Leukoreduced Unit Saline Solution [id number] Date of Last Bowel Movement 12/27/17 # Bowel Movements 1 Weight On Admission 93.9 kg - Routine Abdominal Exam Present: soft (jose cruz in place ostomy dark pink, humberto serosang) - Urinary Catheter Management Indwelling Urethral Catheter Cath placed during this visit: yes Reason for continuing: Hourly intake/output Insertion date: 12/27/17 Insertion time: 21:10 Assessment and Plan - Assessment (1) Small bowel obstruction Code(s): K56.609 - Unspecified intestinal obstruction, unspecified as to partial versus complete obstruction Status: Acute Plan: 42 year old female with ovarian cancer; small bowel obstruction, s/p dx lap, ex lap perlita, sb resection ileostomy, g tube us shows non occlusive dvt - g tube to gravity -OOB to chair - keep in icu - abx -heparin gtt per heme, monitor for post op bleeding -npo - palliative care following
[2017-12-29] MEDS: Dextrose 5%/Lactated Ringer's 1,000 ML IV.CONT SCH ×3 (01:50→21:52)
[2017-12-29] MEDS: ceFAZolin Inj 2,000 MG in Sodium Chlor 0.9% Inj 80 ML IV.SIG SCH ×3 (02:03→17:24)
[2017-12-29 04:17] LABS: Hematocrit 43.1 % (35.0-46.0); Hemoglobin 14.1 gm/dL (11.6-15.3); Mean Corpuscular HGB Conc 32.7 % (32.0-36.0); Mean Corpuscular Hemoglobin 29.9 pg (27.0-34.0); Mean Corpuscular Volume 91.3 fL (80.0-100.0); Mean Platelet Volume 7.5 fL (7.0-11.0); Platelet Count 95 th/mm3 (150-450); Red Blood Count 4.73 mil/mm3 (4.00-5.30); White Blood Count 10.2 th/mm3 (4.0-11.0)
--- NOTE | 2017-12-29 07:23 | P.PNWCN ---
Wound Care Nurse Consult Description: Consult for Ostomy Management per Dr Rushing Communicated with: RAYRAY Lee Recommendation: Please empty effluent from pouch when 1 /3 to 1/2 full. Monitor stoma for color and output. Please change ileostomy appliance every 3 days or if leaking, do not reinforce with tape. Additional information: Patient seen on [facility] sleeping earlier this morning. Son in room at bedside. Spoke with RN regarding patient status and ileostomy. Bowel Diversion Stoma - Additional Information Additional Information: Patient is laying in bed sleeping, not disturbed by insurance writer at this time. Will follow up with patient later today for ileostomy assessment and teaching.
[2017-12-29] MEDS: Ketorolac Inj 30 MG/ML (IVP) Vial IV.PUSH SCH ×4 (09:28→21:54)
[2017-12-29] MEDS: Clotrimazole 1% Cream 15 GM Tube TOPICAL SCH ×2 (09:29→21:53)
[2017-12-29] MEDS: Pantoprazole Inj 40 MG Vial IV.PUSH SCH ×2 (11:00→23:00)
--- NOTE | 2017-12-29 12:55 | P.PNCC ---
Subjective Subjective Remarks/Hospital Course: 12/28: 42-year-old female with past medical history of stage IIIc ovarian cancer (poorly differentiated adenocarcinoma) diagnosed in 06/2014 who underwent systemic chemotherapy and then RIRI and BSO with omentectomy in 2014. She underwent postoperative chemotherapy and then was in remission about 18 months when she developed recurrence treated with multiple chemo regimens. Prior to admission, she had received paclitaxel and Avastin started 12/15/17. She was admitted 12/18/17 after she presented with 1 week history of abdominal distension, obstipation and emesis with feculent odor. CT findings were consistent with SBO and previously diagnosed intraperitoneal carcinomatosis. She was managed conservatively with NGT but did not improve and diagnostic lap was planned. Meanwhile, she had BLE u/s on 12/26 that showed nonocclusive thrombus of the left distal common femoral and proximal superficial femoral veins. She was started on heparin drip and surgery was postponed pending 24 hours of heparin. She has now undergone ex lap with resection of distal small bowel, end-ileostomy, lysis of adhesions and evacuation of 4.5 L of ascites, G tube placement. Critical care management sent has been consulted to assist with her care. She received 2700 of crystalloid intraoperatively. EBL was 200. Urine output was 180. She was extubated in OR and is groggy post- extubation. She complains of 8/10 abdominal pain. Her hgb is 9.2 from 12.5 pre- op and she is receiving 2 units PRBC per surgery. Denies CP/SOB. 12/29: Normotensive. Breathing with relative comfort restricted minimally by abdominal pain. Hemoglobin 14, creatinine 0.6. Ileostomy stoma is pink and well-perfused. Objective Vital Signs / I&O: Vital Signs 12/28/17 16:00 12/28/17 17:28 12/28/17 20:00 Temperature 97.2 F L 98.5 F Pulse Rate 106 H 116 H Respiratory Rate 10 L 10 L 10 L Blood Pressure 98/72 L 106/63 Pulse Oximetry 100 98 12/29/17 00:00 12/29/17 04:00 12/29/17 08:00 Temperature 98.2 F 98 F 97.7 F Pulse Rate 109 H 120 H 121 H Respiratory Rate 10 L 11 L 10 L Blood Pressure 98/68 L 115/75 101/64 Pulse Oximetry 100 97 99 08/17/18 08:28 Temperature Pulse Rate Respiratory Rate Blood Pressure Pulse Oximetry 100 Intake & Output 12/28/17 12/29/17 12/29/17 18:59 06:59 18:59 Intake Total 2500 / 2500 1200 / 1200 1200 / 1200 Output Total 1010 / 1010 625 / 625 Balance 1490 / 1490 575 / 575 1200 / 1200 Weight 93.9 kg 96.5 kg Intake: IV 2500 / 2500 1200 / 1200 1200 / 1200 D5W/LR Inj 1,000 ML @ 125 mls/ 1000 / 1000 1000 / 1000 1000 / 1000 hr IV.CONT .Q8H [facility] Rx#: [id number] LR 1000 mL Inj 1,000 ML @ Wide 1000 / 1000 Open IV.SIG BOLUS ONE Rx#: [id number] Magnesium Sulfate Inj 4 GM In 100 / 100 NS Inj 92 ML @ 50 mls/hr IV.SIG UNSCH PRN Rx#:[id number] Ancef Inj 2,000 MG In NS Inj 80 200 / 200 100 / 100 100 / 100 ML @ 200 mls/hr IV.SIG Q8H [facility] Rx#:[id number] Flagyl 500 MG Inj 100 ML @ 100 200 / 200 100 / 100 100 / 100 mls/hr IV.SIG Q8H [facility] Rx#: [id number] Oral 0 / 0 Output: Urine Amount (Catheter) 400 / 400 300 / 300 Indwelling Urethral Catheter 400 / 400 300 / 300 Stool Amount (Stoma) 125 / 125 125 / 125 Right Lower Abdomen 125 / 125 125 / 125 Gastric Drainage 75 / 75 0 / 0 Gastrostomy Tube (PEG) 75 / 75 0 / 0 Wound Drainage 410 / 410 200 / 200 # 1 Abdomen 410 / 410 200 / 200 Other: Date of Last Bowel Movement 12/27/17 12/27/17 # Bowel Movements 1 Weight On Admission 93.9 kg Result Diagrams: 12/29/17 03:58 12/28/17 07:41 Objective Remarks: Narrative: GENERAL: Sleeping. SKIN: Warm and dry. Port access R chest. HEAD: Atraumatic. Normocephalic. EYES: Pupils equal and round, 2mm and sluggishly reactive bilateral. No scleral icterus. No injection or drainage. ENT: No nasal bleeding or discharge. Mucous membranes moist. NECK: Trachea midline. Airway widely patent, no obstructive noises. CARDIOVASCULAR: Regular rate and rhythm, no JVD. No murmurs rubs or gallops. RESPIRATORY: Breathing comfortably with no accessory muscle use. Clear to auscultation bilaterally. On 2 L nasal cannula. GASTROINTESTINAL: Abdominal binder in place. Dressing in place over midline vertical incision. Ileostomy right abdomen, pink. ARNOL drain left lower quadrant with serosanguineous output. G tube in place. Bowel sounds present. MUSCULOSKELETAL: Extremities without clubbing, cyanosis. 1+bipedal edema. Well- perfused. NEUROLOGICAL: Sleepy but arouses to voice and is oriented x3. Motor grossly within normal limits. Assessment and Plan - Problem List (1) S/P exploratory laparotomy Code(s): Z98.890 - Other specified postprocedural states Status: Acute (2) Small bowel obstruction Code(s): K56.609 - Unspecified intestinal obstruction, unspecified as to partial versus complete obstruction Status: Acute (3) Hypocalcemia Code(s): E83.51 - Hypocalcemia Status: Acute (4) Ovarian cancer Code(s): C56.9 - Malignant neoplasm of unspecified ovary Status: Chronic (5) History of hysterectomy Code(s): Z90.710 - Acquired absence of both cervix and uterus Status: Chronic (6) S/P ileostomy Code(s): Z93.2 - Ileostomy status Status: Acute (7) Acute blood loss anemia Code(s): D62 - Acute posthemorrhagic anemia Status: Acute (8) Ascites Code(s): R18.8 - Other ascites Status: Resolved (9) Gastrojejunostomy tube status Code(s): Z93.4 - Other artificial openings of gastrointestinal tract status Status: Acute (10) 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 (not getting relief with morphine) RESP: Routine airway. Nasal cannula wean as tolerated. Incentive spirometry every 2 hours while awake. CV: Monitor hemodynamics Appears BP 90s/60s, tachy 110s. Appears will need further fluid replacement. Start with LR bolus 1 L, D5L @ 125/hr, monitor UOP and give additional fluids as needed. GI: SBO s/p ex lap with partial SB resection, ileostomy, LEMUEL, G tube placement by Dr. Rushing 12/27/17. Intraperitoneal carcinomatosis GERD NPO G-tube in place. Monitor ARNOL output, management per gen surgery. Timing of diet advancement will be up to general surgery. Protonix as per below. Bowel regimen Monitor ileostomy stoma color. FEN/RENAL: Crowder in place. Monitor intake and output hourly. Check magnesium and phosphorus now and continue to monitor electrolytes and replace as indicated. ID: Perioperative cefazolin and Flagyl per general surgery. HEME: Nonocclusive thrombus left distal common femoral and proximal superficial femoral artery per u/s 12/26/17. Acute blood loss anemia Receiving 2 units packed red cells 12/28/17 per general surgery. Post-op labs pending, monitor CBC. On heparin drip per hematology recommendations. Dr. Rushing states resume heparin at 7 am 12/28/17. Resumed without bolus based on response to prior bolus , monitor to ensure she becomes therapeutic. Coagulopathy INR elevated, suspected secondary to vit K depletion due to poor po intake. Received Vitamin K 10 mg infusion 12/26 per hematology. Recurrent Ovarian Cancer Followed by Heme/onc and ripening room operator/onc Dr. James. ENDO: Added dextrose to MIVF as per above. PROPH: Heparin drip for DVT treatment/prophylaxis as per discussion above. Protonix IV for stress ulcer prophylaxis and history of GERD ACCESS: Port accessed R chest. Palliative care team was consulted by medical oncology and is following. Patients goals remain aggressive. Discussed with Dr. Rushing again this morning. Full code
--- NOTE | 2017-12-29 14:24 | P.PNGS ---
Subjective Patient reports: still having pain Physical Exam Vital signs: Vital Signs 12/28/17 16:00 12/28/17 17:28 12/28/17 20:00 Temperature 97.2 F L 98.5 F Pulse Rate 106 H 116 H Respiratory Rate 10 L 10 L 10 L Blood Pressure 98/72 L 106/63 Pulse Oximetry 100 98 12/29/17 00:00 12/29/17 04:00 12/29/17 08:00 Temperature 98.2 F 98 F 97.7 F Pulse Rate 109 H 120 H 121 H Respiratory Rate 10 L 11 L 10 L Blood Pressure 98/68 L 115/75 101/64 Pulse Oximetry 100 97 99 12/29/17 08:28 12/29/17 10:00 12/29/17 12:00 Temperature 97.6 F Pulse Rate 114 H 113 H Respiratory Rate 11 L Blood Pressure 111/71 Pulse Oximetry 100 100 Intake & Output 12/28/17 12/29/17 12/29/17 18:59 06:59 18:59 Intake Total 2500 / 2500 1200 / 1200 1200 / 1200 Output Total 1010 / 1010 625 / 625 Balance 1490 / 1490 575 / 575 1200 / 1200 Weight 93.9 kg 96.5 kg Intake: IV 2500 / 2500 1200 / 1200 1200 / 1200 D5W/LR Inj 1,000 ML @ 125 mls/ 1000 / 1000 1000 / 1000 1000 / 1000 hr IV.CONT .Q8H [facility] Rx#: [id number] LR 1000 mL Inj 1,000 ML @ Wide 1000 / 1000 Open IV.SIG BOLUS ONE Rx#: [id number] Magnesium Sulfate Inj 4 GM In 100 / 100 NS Inj 92 ML @ 50 mls/hr IV.SIG UNSCH PRN Rx#:[id number] Ancef Inj 2,000 MG In NS Inj 80 200 / 200 100 / 100 100 / 100 ML @ 200 mls/hr IV.SIG Q8H [facility] Rx#:[id number] Flagyl 500 MG Inj 100 ML @ 100 200 / 200 100 / 100 100 / 100 mls/hr IV.SIG Q8H [facility] Rx#: [id number] Oral 0 / 0 Output: Urine Amount (Catheter) 400 / 400 300 / 300 Indwelling Urethral Catheter 400 / 400 300 / 300 Stool Amount (Stoma) 125 / 125 125 / 125 Right Lower Abdomen 125 / 125 125 / 125 Gastric Drainage 75 / 75 0 / 0 Gastrostomy Tube (PEG) 75 / 75 0 / 0 Wound Drainage 410 / 410 200 / 200 # 1 Abdomen 410 / 410 200 / 200 Other: Date of Last Bowel Movement 12/27/17 12/27/17 # Bowel Movements 1 Weight On Admission 93.9 kg - Routine Abdominal Exam Present: soft, ostomy (g tube cd/i, humberto serosang, incision with jose cruz) - Urinary Catheter Management Indwelling Urethral Catheter Cath placed during this visit: yes Reason for continuing: Hourly intake/output Insertion date: 12/27/17 Insertion time: 21:10 Assessment and Plan - Assessment (1) Small bowel obstruction Code(s): K56.609 - Unspecified intestinal obstruction, unspecified as to partial versus complete obstruction Status: Acute Plan: 42 year old female with ovarian cancer; small bowel obstruction, s/p dx lap, ex lap perlita, sb resection ileostomy, g tube us shows non occlusive dvt - g tube to clamp -OOB to chair - keep in icu - abx -heparin gtt per heme, monitor for post op bleeding- restarted -clears diet - adjust pain meds - palliative care following
--- NOTE | 2017-12-29 15:20 | P.PNPAL ---
Met with Ms. Gloria for ongoing assistance with symptom management, goals of medical treatment, and support. Ms. Gloria currently sitting up in chair , alert, oriented, and able to make her needs known. On nasal canula, resting comfortably. Mother and friend at bedside. Ostomy nurse also present providing education and care. 3d technologist in to draw blood during my visit as well. Ms. Gloria verbalizes some discomfort, desires to be repositioned if possible, made RN aware. Reports she has coughing sensation but concerned about pain given recent surgery. She appears to be in better spirits than previous visit, more conversant. States her 21 year old son is currently in town visiting. Reports 9 year old son does not wish to come to the hospital, even the [place] bothers him to see. Offered emotional support. Ms. Gloria completed Power of Glass Cut Off Supervisor for Healthcare with commercial litigation attorney. Copies obtained and faxed to HIM to be scanned into EMR. She elected not to complete living will at this time stating she wishes to be resuscitated and continue with aggressive medical management. * Primary HCS: Nieshase Gloria (mother) * Alternate HCS: Charley Chapman. Palliative care will continue to follow along throughout hospitalization. Patient and family appreciative of time spent.
--- NOTE | 2017-12-29 15:33 | P.PNWCN ---
Wound Care Nurse Consult Description: Consult for Ostomy Management per Dr Rushing Communicated with: Patient Recommendation: Please empty effluent from pouch when 1/3 to 1/2 full. Monitor stoma for color and output. Please change ileostomy appliance every 3 days or if leaking, do not reinforce with tape. Additional information: Patient seen on for ostomy assessment, reinforcement of teaching. Bowel Diversion Stoma - Bowel Stoma Right Lower Abdomen Collection Device: Two-piece Drainage Description: Liquid, Blood-Tinged Wafer Size: 1 3/4 Moldable 45mm Keturah-Stomal Surrounding Tissue Sensation Description: No Symptoms - Additional Information Additional Information: Patient is up in chair. ileostomy is noted on right lower quadrant, red, protruding, sanguinous drainage noted with intact wafer, pouch found open at bottom. Pouch closed by marine underwriter.
--- NOTE | 2017-12-29 16:09 | P.PNONC ---
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 Jocelyn has met with Palliative Care. Objective Vital Signs/Intake & Output: Vital Signs 12/28/17 16:00 12/28/17 17:28 12/28/17 20:00 Temperature 97.2 F L 98.5 F Pulse Rate 106 H 116 H Respiratory Rate 10 L 10 L 10 L Blood Pressure 98/72 L 106/63 Pulse Oximetry 100 98 12/29/17 00:00 12/29/17 04:00 12/29/17 08:00 Temperature 98.2 F 98 F 97.7 F Pulse Rate 109 H 120 H 121 H Respiratory Rate 10 L 11 L 10 L Blood Pressure 98/68 L 115/75 101/64 Pulse Oximetry 100 97 99 12/29/17 08:28 18 10:00 12/29/17 12:00 Temperature 97.6 F Pulse Rate 114 H 113 H Respiratory Rate 11 L Blood Pressure 111/71 Pulse Oximetry 100 100 Intake & Output 12/28/17 12/29/17 12/29/17 18:59 06:59 18:59 Intake Total 2500 / 2500 1200 / 1200 1200 / 1200 Output Total 1010 / 1010 625 / 625 Balance 1490 / 1490 575 / 575 1200 / 1200 Weight 93.9 kg 96.5 kg Intake: IV 2500 / 2500 1200 / 1200 1200 / 1200 D5W/LR Inj 1,000 ML @ 125 mls/ 1000 / 1000 1000 / 1000 1000 / 1000 hr IV.CONT .Q8H [facility] Rx#: [id number] LR 1000 mL Inj 1,000 ML @ Wide 1000 / 1000 Open IV.SIG BOLUS ONE Rx#: [id number] Magnesium Sulfate Inj 4 GM In 100 / 100 NS Inj 92 ML @ 50 mls/hr IV.SIG UNSCH PRN Rx#:[id number] Ancef Inj 2,000 MG In NS Inj 80 200 / 200 100 / 100 100 / 100 ML @ 200 mls/hr IV.SIG Q8H [facility] Rx#:[id number] Flagyl 500 MG Inj 100 ML @ 100 200 / 200 100 / 100 100 / 100 mls/hr IV.SIG Q8H [facility] Rx#: [id number] Oral 0 / 0 Output: Urine Amount (Catheter) 400 / 400 300 / 300 Indwelling Urethral Catheter 400 / 400 300 / 300 Stool Amount (Stoma) 125 / 125 125 / 125 Right Lower Abdomen 125 / 125 125 / 125 Gastric Drainage 75 / 75 0 / 0 Gastrostomy Tube (PEG) 75 / 75 0 / 0 Wound Drainage 410 / 410 200 / 200 # 1 Abdomen 410 / 410 200 / 200 Other: Date of Last Bowel Movement 12/27/17 12/27/17 # Bowel Movements 1 Weight On Admission 93.9 kg Result Diagrams: 12/29/17 03:58 12/28/17 07:41 Laboratory Results: Laboratory Results - last 24 hr 12/28/17 12/28/17 12/28/17 14:30 18:30 23:07 WBC RBC Hgb Hct MCV MCH MCHC RDW Plt Count MPV APTT Greater than 277.5 H* 277.5 H* Nasal Screen MRSA (PCR) Not detected 12/29/17 12/29/17 03:58 03:58 WBC 10.2 RBC 4.73 Hgb 14.1 Hct 43.1 MCV 91.3 MCH 29.9 MCHC 32.7 RDW 17.0 Plt Count 95 L MPV 7.5 APTT 56.7 H D Nasal Screen MRSA (PCR) Culture Results: Microbiology 12/27/17 00:15 Stool Occult Blood (FANNIE) - Final Stool Hemoccult positive Medications: Active Medications Generic Name Dose Route Start Last Admin Trade Name Freq PRN Reason Stop Dose Admin Clotrimazole 1 applicatio 12/26/17 09:00 12/29/17 09:29 Lotrimin 1% Cream TOPICAL 1 applicatio BID [facility]IRA Administration Hydromorphone HCl 1 mg 12/28/17 03:31 12/28/17 16:58 Dilaudid Pf Inj IV.PUSH 1 mg Q4H PRN Administration pain 4-6 Metronidazole/Sodium Chloride 100 mls @ 100 mls/hr 12/28/17 02:00 12/29/17 11 :03 Flagyl 500 Mg Inj IV.SIG Infused Q8H [facility] Infusion Cefazolin Sodium 2,000 mg/ 100 mls @ 200 mls/hr 12/28/17 02:00 12/29/17 09:59 Sodium Chloride IV.SIG Infused Q8H [facility] Infusion Dextrose/Lactated Ringer's 1,000 mls @ 85 mls/hr 12/28/17 02:30 12/29/17 13: 36 D5w/Lr Inj IV.CONT 85 mls/hr .[id number] [facility] Infusion Magnesium Sulfate Inj 4 gm/ 100 mls @ 50 mls/hr 12/28/17 02:51 12/28/17 08:16 Sodium Chloride IV.SIG Infused UNSCH PRN Infusion For Magnesium 0.9 - 1.1 mg/dL Heparin Sodium/Dextrose 25,000 unit in 250 mls @ 17 mls/hr 12/28/17 07:00 06:42 Heparin/D5w 25,000 U/250 Ml IV.CONT 700 units/hr TITRATE PRN 7 mls/hr Per Protocol Titration Protocol 1,700 UNITS/HR Ketorolac Tromethamine 30 mg 12/29/17 10:00 12/29/17 12:10 Toradol Inj IV.PUSH 01/03/18 09:59 30 mg Q6H [facility] Administration Padimate O 1 applicatio 12/25/17 00:32 12/28/17 08:31 Chapstick TOPICAL 1 applicatio UNSCH PRN Administration DRY LIPS Pantoprazole Sodium 40 mg 12/20/17 11:00 12/29/17 11:00 Protonix Inj IV.PUSH 40 mg Q12H [facility] Administration Sodium Chloride 2 ml 12/18/17 12:58 12/26/17 22:37 Ns Flush IV.FLUSH 2 ml PRN PRN Administration FLUSH AFTER USING IV ACCESS Objective Remarks: GENERAL: Well-nourished, well-developed patient. SKIN: Warm and dry. HEAD: Normocephalic. EYES: No scleral icterus. No injection or drainage. CARDIOVASCULAR: tachycardia RESPIRATORY: No accessory muscle use. GASTROINTESTINAL: Abdomen with abdominal binder, G tube, ileostomy EXTREMITIES: edema bilat LE MUSCULOSKELETAL: Adequate muscle tone. NEUROLOGICAL: No obvious focal deficit. Awake, alert, and oriented x3. PSYCHIATRIC: Appropriate mood and affect; insight and judgment normal. Assessment/Plan (1) Ovarian cancer Code(s): C56.9 - Malignant neoplasm of unspecified ovary Status: Chronic (2) Small bowel obstruction Code(s): K56.609 - Unspecified intestinal obstruction, unspecified as to partial versus complete obstruction Status: Acute (3) DVT (deep venous thrombosis) Code(s): I82.409 - Acute embolism and thrombosis of unspecified deep veins of unspecified lower extremity Status: Acute - Plan s/p Ex Lap resection of SBO with ileostomy and g tube placement post op management per e commerce architect and general surgery cartography professor for ileostomy education supportive care OOB to chair today pain management supportive care Palliative care future IV chemotherapy based on patients overall recovery from surgery (1) Ovarian cancer Qualifiers: Laterality: bilateral Qualified Code(s): C56.1 - Malignant neoplasm of right ovary; C56.2 - Malignant neoplasm of left ovary
[2017-12-30] MEDS: ceFAZolin Inj 2,000 MG in Sodium Chlor 0.9% Inj 80 ML IV.SIG SCH ×3 (03:23→17:57)
[2017-12-30] MEDS: Ketorolac Inj 30 MG/ML (IVP) Vial IV.PUSH SCH ×4 (03:24→21:53)
[2017-12-30 06:34] LABS: Hematocrit 37.4 % (35.0-46.0); Hemoglobin 12.7 gm/dL (11.6-15.3); Mean Corpuscular HGB Conc 33.9 % (32.0-36.0); Mean Corpuscular Hemoglobin 30.4 pg (27.0-34.0); Mean Corpuscular Volume 89.7 fL (80.0-100.0); Mean Platelet Volume 7.8 fL (7.0-11.0); Platelet Count 81 th/mm3 (150-450); Red Blood Count 4.17 mil/mm3 (4.00-5.30); White Blood Count 7.7 th/mm3 (4.0-11.0)
[2017-12-30 07:21] LABS: Anion Gap 9 meq/L (5-15); Blood Urea Nitrogen 9 mg/dL (7-18); Calcium 6.7 mg/dL (8.5-10.1); Carbon Dioxide 23.9 meq/L (21.0-32.0); Chloride 109 meq/L (98-107); Glomerular Filtration Rate Greater Than 89 mL/min (>89); Glucose,Random 83 mg/dL (74-106); Potassium 3.7 meq/L (3.5-5.1); Sodium 142 meq/L (136-145)
[2017-12-30 08:03] LABS: Total Protein 3.2 g/dL (6.4-8.2)
[2017-12-30] MEDS: Clotrimazole 1% Cream 15 GM Tube TOPICAL SCH ×2 (09:39→23:07)
[2017-12-30] MEDS: Dextrose 5%/Lactated Ringer's 1,000 ML IV.CONT SCH ×2 (10:17→23:55)
--- NOTE | 2017-12-30 10:20 | P.PNCC ---
Subjective Subjective Remarks/Hospital Course: 12/28: 42-year-old female with past medical history of stage IIIc ovarian cancer (poorly differentiated adenocarcinoma) diagnosed in 06/2014 who underwent systemic chemotherapy and then RIRI and BSO with omentectomy in 2014. She underwent postoperative chemotherapy and then was in remission about 18 months when she developed recurrence treated with multiple chemo regimens. Prior to admission, she had received paclitaxel and Avastin started 12/15/17. She was admitted 12/18/17 after she presented with 1 week history of abdominal distension, obstipation and emesis with feculent odor. CT findings were consistent with SBO and previously diagnosed intraperitoneal carcinomatosis. She was managed conservatively with NGT but did not improve and diagnostic lap was planned. Meanwhile, she had BLE u/s on 12/26 that showed nonocclusive thrombus of the left distal common femoral and proximal superficial femoral veins. She was started on heparin drip and surgery was postponed pending 24 hours of heparin. She has now undergone ex lap with resection of distal small bowel, end-ileostomy, lysis of adhesions and evacuation of 4.5 L of ascites, G tube placement. Critical care management sent has been consulted to assist with her care. She received 2700 of crystalloid intraoperatively. EBL was 200. Urine output was 180. She was extubated in OR and is groggy post- extubation. She complains of 8/10 abdominal pain. Her hgb is 9.2 from 12.5 pre- op and she is receiving 2 units PRBC per surgery. Denies CP/SOB. 12/29: Normotensive. Breathing with relative comfort restricted minimally by abdominal pain. Hemoglobin 14, creatinine 0.6. Ileostomy stoma is pink and well-perfused. 12/30: Pain well controlled. Breathing comfortably. Hemoglobin stable. Patient is expressing her desire to get strong and undergo another round of chemotherapy. PTT is in therapeutic range on continuous infusion heparin drip, made necessary by left leg femoral venous thrombus. Ileostomy output is large and urine output dropping, will increase IV fluids until PO intake improves. Objective Vital Signs / I&O: Vital Signs 12/29/17 12:00 12/29/17 14:00 12/29/17 16:00 Temperature 97.6 F 97.3 F L Pulse Rate 113 H 109 H 111 H Respiratory Rate 11 L 11 L Blood Pressure 111/71 108/75 Pulse Oximetry 100 100 08/17/18 20:00 12/29/17 21:30 12/30/17 00:00 Temperature 97.6 F 97.8 F Pulse Rate 102 H 104 H Respiratory Rate 13 16 Blood Pressure 106/74 100/70 Pulse Oximetry 100 100 100 12/30/17 04:00 12/30/17 08:00 12/30/17 09:39 Temperature 97.6 F 97.5 F L Pulse Rate 94 H 96 H Respiratory Rate 10 L 12 Blood Pressure 116/73 102/72 Pulse Oximetry 100 100 Intake & Output 12/29/17 12/30/17 12/30/17 18:59 06:59 18:59 Intake Total 1540 / 1540 1440 / 1440 Output Total 620 / 620 1650 / 1650 Balance 920 / 920 -210 / -210 Weight 96.7 kg Intake: IV 1300 / 1300 1200 / 1200 D5W/LR Inj 1,000 ML @ 85 mls/hr 1000 / 1000 900 / 900 IV.CONT .[id number] AMIRA Rx#: [id number] Ancef Inj 2,000 MG In NS Inj 80 200 / 200 100 / 100 ML @ 200 mls/hr IV.SIG Q8H AMIRA Rx#:[id number] Flagyl 500 MG Inj 100 ML @ 100 100 / 100 200 / 200 mls/hr IV.SIG Q8H AMIRA Rx#: [id number] Oral 240 / 240 240 / 240 Output: Urine Amount (Catheter) 225 / 225 250 / 250 Indwelling Urethral Catheter 225 / 225 250 / 250 Stool Amount (Stoma) 200 / 200 1150 / 1150 Right Lower Abdomen 200 / 200 1150 / 1150 Gastric Drainage 75 / 75 Gastrostomy Tube (PEG) 75 / 75 Wound Drainage 120 / 120 250 / 250 # 1 Abdomen 120 / 120 250 / 250 Other: Date of Last Bowel Movement 12/29/17 12/30/17 12/30/17 Result Diagrams: 12/30/17 06:00 12/30/17 06:00 Objective Remarks: Narrative: GENERAL: Alert, calm SKIN: Warm and dry. Port access R chest. HEAD: Atraumatic. Normocephalic. EYES: Pupils equal and round, 2mm and sluggishly reactive bilateral. No scleral icterus. No injection or drainage. ENT: No nasal bleeding or discharge. Mucous membranes moist. NECK: Trachea midline. Airway widely patent. CARDIOVASCULAR: Regular rate and rhythm, no JVD. No murmurs rubs or gallops. RESPIRATORY: Breathing comfortably with no accessory muscle use. Clear to auscultation bilaterally. On 2 L nasal cannula. GASTROINTESTINAL: Abdominal binder in place. Dressing in place over midline vertical incision. Ileostomy right abdomen, pink. ARNOL drain left lower quadrant with serosanguineous output. G tube in place. Bowel sounds present. MUSCULOSKELETAL: Extremities without clubbing, cyanosis. 1+ bipedal edema. Warm , well-perfused. NEUROLOGICAL: Alert, conversant, oriented x3. Motor grossly within normal limits. Assessment and Plan - Problem List (1) S/P exploratory laparotomy Code(s): Z98.890 - Other specified postprocedural states Status: Acute (2) Small bowel obstruction Code(s): K56.609 - Unspecified intestinal obstruction, unspecified as to partial versus complete obstruction Status: Acute (3) Hypocalcemia Code(s): E83.51 - Hypocalcemia Status: Acute (4) Ovarian cancer Code(s): C56.9 - Malignant neoplasm of unspecified ovary Status: Chronic (5) History of hysterectomy Code(s): Z90.710 - Acquired absence of both cervix and uterus Status: Chronic (6) S/P ileostomy Code(s): Z93.2 - Ileostomy status Status: Acute (7) Acute blood loss anemia Code(s): D62 - Acute posthemorrhagic anemia Status: Acute (8) Ascites Code(s): R18.8 - Other ascites Status: Resolved (9) Gastrojejunostomy tube status Code(s): Z93.4 - Other artificial openings of gastrointestinal tract status Status: Acute (10) 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 Better controlled today 12/30. RESP: Routine airway. Nasal cannula wean as tolerated. Incentive spirometry every 2 hours while awake. CV: Monitor hemodynamics Normotensive GI: SBO s/p ex lap with partial SB resection, ileostomy, LEMUEL, G tube placement by Dr. Rushing 12/27/17. Intraperitoneal carcinomatosis GERD NPO G-tube in place. Monitor ARNOL output, management per gen surgery. Timing of diet advancement will be up to general surgery. Protonix as per below. Bowel regimen Monitor ileostomy stoma color. FEN/RENAL: Crowder in place. Monitor intake and output hourly. Check magnesium and phosphorus now and continue to monitor electrolytes and replace as indicated. ID: Perioperative cefazolin and Flagyl per general surgery. HEME: Nonocclusive thrombus left distal common femoral and proximal superficial femoral artery per u/s 12/26/17. Acute blood loss anemia Receiving 2 units packed red cells 12/28/17 per general surgery. Post-op labs pending, monitor CBC. On heparin drip per hematology recommendations. Dr. Rushing states resume heparin at 7 am 12/28/17. Resumed without bolus based on response to prior bolus , monitor to ensure she becomes therapeutic. Coagulopathy INR elevated, suspected secondary to vit K depletion due to poor po intake. Received Vitamin K 10 mg infusion 12/26 per hematology. Recurrent Ovarian Cancer Followed by Heme/onc and employee relations consultant/onc Dr. James. ENDO: Added dextrose to MIVF as per above. PROPH: Heparin drip for DVT treatment/prophylaxis as per discussion above. Protonix IV for stress ulcer prophylaxis and history of GERD ACCESS: Port accessed R chest. Palliative care team was consulted by medical oncology and is following. Patients goals remain aggressive. Discussed with Dr. Rushing again this morning. Full code Overall impression: This woman is recovering well following a laparotomy with small bowel resection for extensive carcinomatosis from ovarian cancer. She is tolerating liquids with normal ileostomy output. (4) Ovarian cancer Qualifiers: Laterality: bilateral Qualified Code(s): C56.1 - Malignant neoplasm of right ovary; C56.2 - Malignant neoplasm of left ovary
[2017-12-30] MEDS: Pantoprazole Inj 40 MG Vial IV.PUSH SCH ×2 (11:00→23:08)
--- NOTE | 2017-12-30 11:27 | P.PNGS ---
Subjective Patient reports: feels better, pain is less, tolerating liquids well (ostomy working, 1L per RN last 24 hours) Physical Exam Vital signs: Vital Signs 12/29/17 12:00 12/29/17 14:00 12/29/17 16:00 Temperature 97.6 F 97.3 F L Pulse Rate 113 H 109 H 111 H Respiratory Rate 11 L 11 L Blood Pressure 111/71 108/75 Pulse Oximetry 100 100 12/29/17 20:00 12/29/17 21:30 12/30/17 00:00 Temperature 97.6 F 97.8 F Pulse Rate 102 H 104 H Respiratory Rate 13 16 Blood Pressure 106/74 100/70 Pulse Oximetry 100 100 100 12/30/17 04:00 12/30/17 08:00 12/30/17 09:39 Temperature 97.6 F 97.5 F L Pulse Rate 94 H 96 H Respiratory Rate 10 L 12 Blood Pressure 116/73 102/72 Pulse Oximetry 100 100 Intake & Output 12/29/17 12/30/17 12/30/17 18:59 06:59 18:59 Intake Total 1540 / 1540 1440 / 1440 1100 / 1100 Output Total 620 / 620 1650 / 1650 Balance 920 / 920 -210 / -210 1100 / 1100 Weight 96.7 kg Intake: IV 1300 / 1300 1200 / 1200 1100 / 1100 D5W/LR Inj 1,000 ML @ 85 mls/hr 1000 / 1000 900 / 900 1000 / 1000 IV.CONT .[id number] AMIRA Rx#: [id number] Ancef Inj 2,000 MG In NS Inj 80 200 / 200 100 / 100 100 / 100 ML @ 200 mls/hr IV.SIG Q8H AMIRA Rx#:[id number] Flagyl 500 MG Inj 100 ML @ 100 100 / 100 200 / 200 mls/hr IV.SIG Q8H AMIRA Rx#: [id number] Oral 240 / 240 240 / 240 Output: Urine Amount (Catheter) 225 / 225 250 / 250 Indwelling Urethral Catheter 225 / 225 250 / 250 Stool Amount (Stoma) 200 / 200 1150 / 1150 Right Lower Abdomen 200 / 200 1150 / 1150 Gastric Drainage 75 / 75 Gastrostomy Tube (PEG) 75 / 75 Wound Drainage 120 / 120 250 / 250 # 1 Abdomen 120 / 120 250 / 250 Other: Date of Last Bowel Movement 12/29/17 12/30/17 12/30/17 - Routine Abdominal Exam Present: soft, wound, drain, ostomy Comments: dressing clean and dry, ostomy viable, drain in LLQ with serosang - Urinary Catheter Management Indwelling Urethral Catheter Cath placed during this visit: yes Reason for continuing: Hourly intake/output Insertion date: 12/27/17 Insertion time: 21:10 Assessment and Plan - Assessment (1) Small bowel obstruction Code(s): K56.609 - Unspecified intestinal obstruction, unspecified as to partial versus complete obstruction Status: Acute Plan: 42 year old female with ovarian cancer; small bowel obstruction, s/p dx lap, ex lap perlita, sb resection ileostomy, g tube us shows non occlusive dvt - g tube to clamp -OOB to chair - keep in icu - abx -heparin gtt per heme, monitor for post op bleeding- restarted -clears diet - adjust pain meds - palliative care following - Plan supportive care unclamp G tube prn N/V pain improved and controlled palliative care following
[2017-12-30] MEDS ORDERED: Sod Chloride 0.9% Inj 1,000 ML IV.SIG ONE (16:44)
[2017-12-30] MEDS: Simethicone 80 MG Chew Tablet PO PRN (17:31)
[2017-12-31] MEDS: HYDROmorphone PF Inj 2 MG/ML Vial IV.PUSH PRN ×2 (01:02→23:55)
[2017-12-31] MEDS: ceFAZolin Inj 2,000 MG in Sodium Chlor 0.9% Inj 80 ML IV.SIG SCH ×3 (02:00→18:27)
[2017-12-31] MEDS: Ketorolac Inj 30 MG/ML (IVP) Vial IV.PUSH SCH ×4 (03:25→21:38)
[2017-12-31] MEDS: Heparin Drip 25,000 UNIT/250 ML BAG IV.CONT PRN (03:27)
[2017-12-31 04:47] LABS: Anion Gap 10 meq/L (5-15); Blood Urea Nitrogen 10 mg/dL (7-18); Calcium 6.4 mg/dL (8.5-10.1); Carbon Dioxide 21.2 meq/L (21.0-32.0); Chloride 109 meq/L (98-107); Glomerular Filtration Rate Greater Than 89 mL/min (>89); Glucose,Random 93 mg/dL (74-106); Potassium 3.7 meq/L (3.5-5.1); Sodium 140 meq/L (136-145)
[2017-12-31 05:02] LABS: Total Protein 3.2 g/dL (6.4-8.2)
[2017-12-31] MEDS: Clotrimazole 1% Cream 15 GM Tube TOPICAL SCH ×2 (09:23→21:38)
--- NOTE | 2017-12-31 09:57 | P.PNIM ---
Subjective Interval history: 12/28: 42-year-old female with past medical history of stage IIIc ovarian cancer (poorly differentiated adenocarcinoma) diagnosed in 06/2014 who underwent systemic chemotherapy and then RIRI and BSO with omentectomy in 2014. She underwent postoperative chemotherapy and then was in remission about 18 months when she developed recurrence treated with multiple chemo regimens. Prior to admission, she had received paclitaxel and Avastin started 12/15/17. She was admitted 12/18/17 after she presented with 1 week history of abdominal distension, obstipation and emesis with feculent odor. CT findings were consistent with SBO and previously diagnosed intraperitoneal carcinomatosis. She was managed conservatively with NGT but did not improve and diagnostic lap was planned. Meanwhile, she had BLE u/s on 12/26 that showed nonocclusive thrombus of the left distal common femoral and proximal superficial femoral veins. She was started on heparin drip and surgery was postponed pending 24 hours of heparin. She has now undergone ex lap with resection of distal small bowel, end-ileostomy, lysis of adhesions and evacuation of 4.5 L of ascites, G tube placement. Critical care management sent has been consulted to assist with her care. She received 2700 of crystalloid intraoperatively. EBL was 200. Urine output was 180. She was extubated in OR and is groggy post- extubation. She complains of 8/10 abdominal pain. Her hgb is 9.2 from 12.5 pre- op and she is receiving 2 units PRBC per surgery. Denies CP/SOB. 12/29: Normotensive. Breathing with relative comfort restricted minimally by abdominal pain. Hemoglobin 14, creatinine 0.6. Ileostomy stoma is pink and well-perfused. 12/30: Pain well controlled. Breathing comfortably. Hemoglobin stable. Patient is expressing her desire to get strong and undergo another round of chemotherapy. PTT is in therapeutic range on continuous infusion heparin drip, made necessary by left leg femoral venous thrombus. Ileostomy output is large and urine output dropping, will increase IV fluids until PO intake improves. - TRANSFERRED BACK TO OUR SERVICE TODAY POOR ORAL INTAKE GOOD OUTPUT FROM ILEOSTOMY DW RN AND PT AM LABS INCREASE ACTIVITY PT AND OT Physical Exam Vital signs: Vital Signs 12/30/17 12:00 12/30/17 16:00 12/30/17 16:38 Temperature 97.5 F L 96.5 F L Pulse Rate 100 H 93 H Respiratory Rate 12 12 12 Blood Pressure 109/67 97/67 L Pulse Oximetry 100 100 12/30/17 20:00 12/31/17 00:00 12/31/17 04:00 Temperature 97.6 F 97.7 F 97.9 F Pulse Rate 102 H 106 H 114 H Respiratory Rate 13 11 L Blood Pressure 101/65 101/59 L 101/60 Pulse Oximetry 99 98 97 12/31/17 08:00 Temperature 98.2 F Pulse Rate 119 H Respiratory Rate 10 L Blood Pressure 92/60 L Pulse Oximetry 97 Intake & Output 12/30/17 12/31/17 12/31/17 18:59 06:59 18:59 Intake Total 2520 / 2520 1930 / 1930 Output Total 1060 / 1060 2170 / 2170 Balance 1460 / 1460 -240 / -240 Weight 98.8 kg Intake: IV 2400 / 2400 1450 / 1450 D5W/LR Inj 1,000 ML @ 100 mls/ 1000 / 1000 1000 / 1000 hr IV.CONT .Q10H AMIRA Rx#: [id number] Heparin/D5W 25,000 U/250 mL 25, 250 / 250 000 unit In 250 ml @ 1,700 UNITS/HR 17 mls/hr IV.CONT TITRATE PRN Rx#:[id number] NS Inj 1,000 ML @ Wide Open IV. 1000 / 1000 SIG BOLUS ONE Rx#:[id number] Ancef Inj 2,000 MG In NS Inj 80 200 / 200 100 / 100 ML @ 200 mls/hr IV.SIG Q8H AMIRA Rx#:[id number] Flagyl 500 MG Inj 100 ML @ 100 200 / 200 100 / 100 mls/hr IV.SIG Q8H AMIRA Rx#: [id number] Oral 120 / 120 480 / 480 Output: Urine Amount (Catheter) 125 / 125 150 / 150 Indwelling Urethral Catheter 125 / 125 150 / 150 Stool Amount (Stoma) 500 / 500 950 / 950 Right Lower Abdomen 500 / 500 950 / 950 Gastric Drainage 450 / 450 Gastrostomy Tube (PEG) 450 / 450 Wound Drainage 435 / 435 620 / 620 # 1 Abdomen 435 / 435 620 / 620 Other: Date of Last Bowel Movement 12/30/17 12/31/17 12/31/17 Narrative: GENERAL: Well-nourished, well-developed patient, pale appearing, laying in PACU bed, sleepy but arouses to voice. SKIN: Warm and dry. Port accessed R chest. HEAD: Atraumatic. Normocephalic. EYES: Pupils equal and round, 2mm and sluggishly reactive bilateral. No scleral icterus. No injection or drainage. ENT: No nasal bleeding or discharge. Mucous membranes moist. NECK: Trachea midline. No JVD. CARDIOVASCULAR: Tachycardic, regular, sinus tach on the monitor rate 110s. No murmurs rubs or gallops. RESPIRATORY: Breathing comfortably with no accessory muscle use. Clear to auscultation bilaterally. On 3 L nasal cannula. GASTROINTESTINAL: Abdominal binder in place. Dressing in place over midline vertical incision. Ileostomy right abdomen, BROWN LIQUID STOOL. ARNOL drain left lower quadrant with serosanguineous output. G tube in place. Bowel sounds present, hypoactive. MUSCULOSKELETAL: Extremities without clubbing, cyanosis. 2+bipedal edema. NEUROLOGICAL: Sleepy but arouses to voice and is oriented x3. No obvious cranial nerve deficits. Motor grossly within normal limits. - Urinary Catheter Management Indwelling Urethral Catheter Cath placed during this visit: yes Reason for continuing: Hourly intake/output Insertion date: 12/27/17 Insertion time: 21:10 Results - Labs CBC & Chem 7: 12/30/17 06:00 12/31/17 03:50 Laboratory Results - last 24 hr 12/30/17 12/30/17 12/31/17 13:50 20:45 03:50 APTT 69.0 H D 65.5 H Sodium 140 Potassium 3.7 Chloride 109 H Carbon Dioxide 21.2 Anion Gap 10 BUN 10 Creatinine 0.68 Estimated GFR Greater than 89 Random Glucose 93 Calcium 6.4 L* Prot Corrected Calcium 8.5 Total Protein 3.2 L 12/31/17 03:50 APTT 67.2 H Sodium Potassium Chloride Carbon Dioxide Anion Gap BUN Creatinine Estimated GFR Random Glucose Calcium Prot Corrected Calcium Total Protein Assessment and Plan - Assessment (1) Small bowel obstruction Code(s): K56.609 - Unspecified intestinal obstruction, unspecified as to partial versus complete obstruction Status: Acute (2) Ovarian cancer Code(s): C56.9 - Malignant neoplasm of unspecified ovary Status: Chronic - Plan NEURO: Postoperative pain Dilaudid prn pain. Better controlled today 12/30. RESP: Routine airway. Nasal cannula wean as tolerated. Incentive spirometry every 2 hours while awake. CV: Monitor hemodynamics Normotensive GI: SBO s/p ex lap with partial SB resection, ileostomy, LEMUEL, G tube placement by Dr. Rushing 12/27/17. Intraperitoneal carcinomatosis GERD NPO G-tube in place. Monitor ARNOL output, management per gen surgery. Timing of diet advancement will be up to general surgery. Protonix as per below. Bowel regimen Monitor ileostomy stoma color. FEN/RENAL: Crowder in place. Monitor intake and output hourly. Check magnesium and phosphorus now and continue to monitor electrolytes and replace as indicated. ID: Perioperative cefazolin and Flagyl per general surgery. HEME: Nonocclusive thrombus left distal common femoral and proximal superficial femoral artery per u/s 12/26/17. Acute blood loss anemia Receiving 2 units packed red cells 12/28/17 per general surgery. Post-op labs pending, monitor CBC. On heparin drip per hematology recommendations. Dr. Rushing states resume heparin at 7 am 12/28/17. Resumed without bolus based on response to prior bolus , monitor to ensure she becomes therapeutic. Coagulopathy INR elevated, suspected secondary to vit K depletion due to poor po intake. Received Vitamin K 10 mg infusion 12/26 per hematology. Recurrent Ovarian Cancer Followed by Heme/onc and anatomic pathology assistant/onc Dr. James. ENDO: Added dextrose to MIVF as per above. PROPH: Heparin drip for DVT treatment/prophylaxis as per discussion above. Protonix IV for stress ulcer prophylaxis and history of GERD ACCESS: Port accessed R chest. Palliative care team was consulted by medical oncology and is following. Patients goals remain aggressive. PT AND OT TO EVAL AND TREAT AM LABS WATCH OUTPUT FOLLOW ELECTROLYTES Full code Overall impression: This woman is recovering well following a laparotomy with small bowel resection for extensive carcinomatosis from ovarian cancer. She is tolerating liquids with normal ileostomy output. Code Status: FULL CODE Discussed Condition With: RN AND PT AND FAMILY Discharge Planning: PENDING IMPROVEMENT AND CLEARANCE BY ALL (2) Ovarian cancer Qualifiers: Laterality: bilateral Qualified Code(s): C56.1 - Malignant neoplasm of right ovary; C56.2 - Malignant neoplasm of left ovary
[2017-12-31] MEDS: Pantoprazole Inj 40 MG Vial IV.PUSH SCH ×2 (11:42→23:12)
[2017-12-31] MEDS: Sod Chloride 0.9% Inj 1,000 ML IV.CONT SCH ×2 (12:10→22:20)
[2017-12-31] MEDS: Albumin Human 25% Inj 100 ML IV.SIG SCH ×2 (12:27→21:37)
[2017-12-31] MEDS ORDERED: Sod Chloride 0.9% Inj 1,000 ML IV.SIG ONE (16:52)
--- NOTE | 2017-12-31 16:54 | P.PNGS ---
Subjective Patient reports: feels better, tolerating liquids well Physical Exam Vital signs: Vital Signs 12/30/17 20:00 12/31/17 00:00 12/31/17 04:00 Temperature 97.6 F 97.7 F 97.9 F Pulse Rate 102 H 106 H 114 H Respiratory Rate 13 11 L Blood Pressure 101/65 101/59 L 101/60 Pulse Oximetry 99 98 97 12/31/17 08:00 12/31/17 12:00 12/31/17 16:00 Temperature 98.2 F 98.3 F 98.2 F Pulse Rate 119 H 122 H 114 H Respiratory Rate 10 L 18 18 Blood Pressure 92/60 L 85/55 L 85/54 L Pulse Oximetry 97 97 99 Intake & Output 12/30/17 12/31/17 12/31/17 18:59 06:59 18:59 Intake Total 2520 / 2520 1930 / 1930 200 / 200 Output Total 1060 / 1060 2170 / 2170 Balance 1460 / 1460 -240 / -240 200 / 200 Weight 98.8 kg Intake: IV 2400 / 2400 1450 / 1450 200 / 200 D5W/LR Inj 1,000 ML @ 100 mls/ 1000 / 1000 1000 / 1000 hr IV.CONT .Q10H AMIRA Rx#: [id number] Heparin/D5W 25,000 U/250 mL 25, 250 / 250 000 unit In 250 ml @ 1,700 UNITS/HR 17 mls/hr IV.CONT TITRATE PRN Rx#:[id number] NS Inj 1,000 ML @ Wide Open IV. 1000 / 1000 SIG BOLUS ONE Rx#:[id number] Ancef Inj 2,000 MG In NS Inj 80 200 / 200 100 / 100 100 / 100 ML @ 200 mls/hr IV.SIG Q8H AMIRA Rx#:[id number] Flagyl 500 MG Inj 100 ML @ 100 200 / 200 100 / 100 100 / 100 mls/hr IV.SIG Q8H AMIRA Rx#: [id number] Oral 120 / 120 480 / 480 Output: Urine Amount (Catheter) 125 / 125 150 / 150 Indwelling Urethral Catheter 125 / 125 150 / 150 Stool Amount (Stoma) 500 / 500 950 / 950 Right Lower Abdomen 500 / 500 950 / 950 Gastric Drainage 450 / 450 Gastrostomy Tube (PEG) 450 / 450 Wound Drainage 435 / 435 620 / 620 # 1 Abdomen 435 / 435 620 / 620 Other: Date of Last Bowel Movement 12/30/17 12/31/17 12/31/17 Narrative: Patient up in chair López dressing intact Ileostomy with high output ARNOL with clear output Urine very concentrated low output - Additional findings Additional findings: ITS Impressions Chest X-Ray 12/18/17 00:00 CONCLUSION: Significant elevation of the left hemidiaphragm and submaximal inspiration both lungs. Abdomen/Pelvis CT 12/18/17 12:58 CONCLUSION: 1. Compared with October 28 there is interval development of small bowel dilatation to about 5.5 cm with distal terminal ileum and colonic decompression characteristic of a distal small bowel obstruction. 2. Multiloculated ascites is similar in appearance to prior exam. 3. Previous right pleural effusion has decreased in size. 4. Increase in fatty infiltration of the liver since October 28. Small Bowel X-Ray 12/20/17 00:00 CONCLUSION: Small bowel obstruction. Venous Doppler Study 12/26/17 00:00 CONCLUSION: 1. Nonocclusive thrombus in the very distal aspect of the left common femoral vein extending into the proximal superficial femoral vein. 2. Deep venous system is otherwise patent. No SVT. Abdomen X-Ray 12/26/17 06:00 CONCLUSION: Residual contrast in large bowel. - Urinary Catheter Management Indwelling Urethral Catheter Cath placed during this visit: yes Reason for continuing: Hourly intake/output Insertion date: 12/27/17 Insertion time: 21:10 Assessment and Plan - Assessment (1) Small bowel obstruction Code(s): K56.609 - Unspecified intestinal obstruction, unspecified as to partial versus complete obstruction Status: Acute Plan: 42 year old female with ovarian cancer; small bowel obstruction, s/p dx lap, ex lap perlita, sb resection ileostomy, g tube us shows non occlusive dvt - g tube to clamp -OOB to chair - keep in icu - abx -heparin gtt per heme, monitor for post op bleeding- restarted -clears diet - adjust pain meds - palliative care following Advance diet Patient has low urine output Fluid bolus ARNOL to wall suction (2) Ileostomy, has currently Code(s): Z93.2 - Ileostomy status Status: Acute (3) Urine output low Code(s): R34 - Anuria and oliguria Status: Acute
[2017-12-31] MEDS: Simethicone 80 MG Chew Tablet PO PRN (23:44)
[2018-01-01] MEDS ORDERED: Aluminum/Magnesium/Simethacone Susp 30 ML UDC PO PRN (00:14)
[2018-01-01] MEDS ORDERED: Sodium Chlor 0.9% Inj 500 ML IV.SIG ONE (00:16)
[2018-01-01] MEDS: ceFAZolin Inj 2,000 MG in Sodium Chlor 0.9% Inj 80 ML IV.SIG SCH ×3 (02:42→17:09)
[2018-01-01] MEDS: Ketorolac Inj 30 MG/ML (IVP) Vial IV.PUSH SCH ×4 (04:10→21:46)
[2018-01-01] MEDS: Albumin Human 25% Inj 100 ML IV.SIG SCH (04:11)
[2018-01-01 04:44] LABS: Baso % (Auto) 0.5 % (0.0-2.0); Eos % (Auto) 0.1 % (0.0-4.0); Hemoglobin 10.1 gm/dL (11.6-15.3); Lymph # (Auto) 0.7 th/mm3 (1.0-4.8); Lymph % (Auto) 21.3 % (9.0-44.0); Mean Corpuscular HGB Conc 33.7 % (32.0-36.0); Mean Corpuscular Hemoglobin 30.4 pg (27.0-34.0); Mean Corpuscular Volume 90.2 fL (80.0-100.0); Mono # (Auto) 0.2 th/mm3 (0.0-0.9); Mono % (Auto) 6.3 % (0.0-8.0); Neut # (Auto) 2.5 th/mm3 (1.8-7.7); Neut % (Auto) 71.8 % (16.0-70.0); Platelet Count 69 th/mm3 (150-450); Red Blood Count 3.33 mil/mm3 (4.00-5.30); Red Cell Distribution Width 17.9 % (11.6-17.2); White Blood Count 3.4 th/mm3 (4.0-11.0)
[2018-01-01] MEDS: Dextrose 5%/Lactated Ringer's 1,000 ML IV.CONT SCH ×4 (04:49→11:33)
[2018-01-01 05:15] LABS: Albumin 1.9 g/dL (3.4-5.0); Alkaline Phosphatase 86 U/L (45-117); Anion Gap 9 meq/L (5-15); Aspartate Aminotransferase 17 U/L (15-37); Blood Urea Nitrogen 10 mg/dL (7-18); Calcium 6.1 mg/dL (8.5-10.1); Carbon Dioxide 23.2 meq/L (21.0-32.0); Chloride 108 meq/L (98-107); Free T4 (Free Thyroxine) 0.66 ng/dL (0.76-1.46); Glomerular Filtration Rate Greater Than 89 mL/min (>89); Glucose,Random 67 mg/dL (74-106); Magnesium 1.2 mg/dL (1.5-2.5); Phosphorus 1.8 mg/dL (2.5-4.9); Potassium 3.5 meq/L (3.5-5.1); Sodium 140 meq/L (136-145); Total Protein 3.6 g/dL (6.4-8.2)
[2018-01-01 05:51] LABS: Platelet Morphology Normal (Normal); Stomatocytes 3+
[2018-01-01] MEDS: Clotrimazole 1% Cream 15 GM Tube TOPICAL SCH ×2 (09:05→20:57)
[2018-01-01] MEDS: Sod Chloride 0.9% Inj 1,000 ML IV.CONT SCH (09:06)
--- NOTE | 2018-01-01 09:25 | P.PNONC ---
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 is resting in bed no complaints at this time has been working with PT and is concerned about ambulating for the first time with PT taking in clear liquids and tolerating denies any nausea or vomiting, G tube is clamped Objective Vital Signs/Intake & Output: Vital Signs 12/31/17 12:00 12/31/17 16:00 12/31/17 20:00 Temperature 98.3 F 98.2 F 97.8 F Pulse Rate 122 H 114 H 113 H Respiratory Rate 18 18 12 Blood Pressure 85/55 L 85/54 L 84/54 L Pulse Oximetry 97 99 98 01/01/18 00:00 01/01/18 04:00 Temperature 97.5 F L 97.3 F L Pulse Rate 108 H 108 H Respiratory Rate 12 14 Blood Pressure 95/57 L 92/58 L Pulse Oximetry 98 100 Intake & Output 12/31/17 01/01/18 01/01/18 18:59 06:59 18:59 Intake Total 1740 / 1740 2140 / 2140 1000 / 1000 Output Total 1100 / 1100 925 / 925 Balance 640 / 640 1215 / 1215 1000 / 1000 Weight 102.2 kg Intake: IV 1500 / 1500 1900 / 1900 1000 / 1000 NS Inj 1,000 ML @ 100 mls/hr IV 1000 / 1000 1000 / 1000 .CONT .Q10H [facility] Rx#:[id number] Flexbumin 25% Inj 100 ML @ 60 100 / 100 200 / 200 mls/hr IV.SIG Q8H [facility] Rx#: [id number] NS Inj 1,000 ML @ Wide Open IV. 1000 / 1000 SIG BOLUS ONE Rx#:[id number] NS Inj 500 ML @ Wide Open IV. 500 / 500 SIG BOLUS ONE Rx#:[id number] Ancef Inj 2,000 MG In NS Inj 80 200 / 200 100 / 100 ML @ 200 mls/hr IV.SIG Q8H [facility] Rx#:[id number] Flagyl 500 MG Inj 100 ML @ 100 200 / 200 100 / 100 mls/hr IV.SIG Q8H [facility] Rx#: [id number] Oral 240 / 240 240 / 240 Output: Urine Amount (Catheter) 100 / 100 250 / 250 Indwelling Urethral Catheter 100 / 100 250 / 250 Stool Amount (Stoma) 100 / 100 325 / 325 Right Lower Abdomen 100 / 100 325 / 325 Gastric Drainage 0 / 0 Gastrostomy Tube (PEG) 0 / 0 Wound Drainage 900 / 900 350 / 350 # 1 Abdomen 900 / 900 350 / 350 Other: Date of Last Bowel Movement 12/31/17 12/31/17 Result Diagrams: 01/01/18 04:23 01/01/18 04:23 Laboratory Results: Laboratory Results - last 24 hr 01/01/18 01/01/18 01/01/18 04:23 04:23 04:23 WBC 3.4 L RBC 3.33 L Hgb 10.1 L D Hct 30.0 L MCV 90.2 MCH 30.4 MCHC 33.7 RDW 17.9 H Plt Count 69 L MPV 8.0 Prelim Diff (Auto) Slide review pending Neut % (Auto) 71.8 H Lymph % (Auto) 21.3 Price % (Auto) 6.3 Eos % (Auto) 0.1 Baso % (Auto) 0.5 Neut # (Auto) 2.5 Lymph # (Auto) 0.7 L Price # (Auto) 0.2 Eos # (Auto) 0.0 Baso # (Auto) 0.0 WBC Differential . Diff Scan Auto diff confirmed Differential Comment . Platelet Estimate Low L Platelet Morphology Normal Stomatocytes 3+ H APTT 134.0 H* D Sodium 140 Potassium 3.5 Chloride 108 H Carbon Dioxide 23.2 Anion Gap 9 BUN 10 Creatinine 0.70 Estimated GFR Greater than 89 Random Glucose 67 L Calcium 6.1 L* Prot Corrected Calcium 7.9 L Phosphorus 1.8 L Magnesium 1.2 L Total Bilirubin 1.1 H AST 17 ALT Less than 6 L Alkaline Phosphatase 86 Total Protein 3.6 L Albumin 1.9 L TSH 5.140 H Free T4 0.66 L 01/01/18 05:20 WBC RBC Hgb Hct MCV MCH MCHC RDW Plt Count MPV Prelim Diff (Auto) Neut % (Auto) Lymph % (Auto) Price % (Auto) Eos % (Auto) Baso % (Auto) Neut # (Auto) Lymph # (Auto) Price # (Auto) Eos # (Auto) Baso # (Auto) WBC Differential Diff Scan Differential Comment Platelet Estimate Platelet Morphology Stomatocytes APTT 109.2 H* Sodium Potassium Chloride Carbon Dioxide Anion Gap BUN Creatinine Estimated GFR Random Glucose Calcium Prot Corrected Calcium Phosphorus Magnesium Total Bilirubin AST ALT Alkaline Phosphatase Total Protein Albumin TSH Free T4 Medications: Active Medications Generic Name Dose Route Start Last Admin Trade Name Freq PRN Reason Stop Dose Admin Clotrimazole 1 applicatio 12/26/17 09:00 01/01/18 09:05 Lotrimin 1% Cream TOPICAL 1 applicatio BID AMIRA Administration Hydromorphone HCl 1 mg 12/28/17 03:31 12/31/17 23:55 Dilaudid Pf Inj IV.PUSH 1 mg Q4H PRN Administration pain 4-6 Metronidazole/Sodium Chloride 100 mls @ 100 mls/hr 12/28/17 02:00 01/01/18 09 :05 Flagyl 500 Mg Inj IV.SIG 100 mls/hr Q8H AMIRA Administration Cefazolin Sodium 2,000 mg/ 100 mls @ 200 mls/hr 12/28/17 02:00 01/01/18 09:04 Sodium Chloride IV.SIG 200 mls/hr Q8H AMIRA Administration Dextrose/Lactated Ringer's 1,000 mls @ 100 mls/hr 12/28/17 02:30 01/01/18 04: 55 D5w/Lr Inj IV.CONT Not Given .Q10H AMIRA Magnesium Sulfate Inj 4 gm/ 100 mls @ 50 mls/hr 12/28/17 02:51 12/28/17 08:16 Sodium Chloride IV.SIG Infused UNSCH PRN Infusion For Magnesium 0.9 - 1.1 mg/dL Heparin Sodium/Dextrose 25,000 unit in 250 mls @ 17 mls/hr 12/28/17 07:00 03:27 Heparin/D5w 25,000 U/250 Ml IV.CONT 100 units/hr TITRATE PRN 1 mls/hr Per Protocol Administration Protocol 1,700 UNITS/HR Sodium Chloride 1,000 mls @ 100 mls/hr 12/31/17 12:15 01/01/18 09:06 Ns Inj IV.CONT 100 mls/hr .Q10H AM[facility]A Administration Ketorolac Tromethamine 30 mg 12/29/17 10:00 01/01/18 09:04 Toradol Inj IV.PUSH 01/03/18 09:59 30 mg Q6H AMIRA Administration Magnesium Oxide 800 mg 12/28/17 02:51 01/01/18 09:06 Mag-Ox PO 800 mg UNSCH PRN Administration For Magnesium 1.2 - 1.6 mg/dL Padimate O 1 applicatio 12/25/17 00:32 12/28/17 08:31 Chapstick TOPICAL 1 applicatio UNSCH PRN Administration DRY LIPS Pantoprazole Sodium 40 mg 12/20/17 11:00 12/31/17 23:12 Protonix Inj IV.PUSH 40 mg Q12H AMIRA Administration Potassium Phosphate 2,000 mg 12/28/17 02:51 01/01/18 09:07 K-Phos Original PO 2,000 mg Q4H PRN Administration Phosphorus Less Than 2.5 mg/dL Simethicone 80 mg 12/30/17 16:43 12/31/17 23:44 Mylicon Chew PO 80 mg Q8H PRN Administration BLOATING Sodium Chloride 2 ml 12/18/17 12:58 12/26/17 22:37 Ns Flush IV.FLUSH 2 ml PRN PRN Administration FLUSH AFTER USING IV ACCESS Objective Remarks: GENERAL: Well-nourished, well-developed patient but ill appearing SKIN: Warm and dry. HEAD: Normocephalic. EYES: No scleral icterus. No injection or drainage. CARDIOVASCULAR: tachycardia without MMR RESPIRATORY: Breath sounds equal bilaterally. No accessory muscle use. GASTROINTESTINAL: Abdomen binder, ileostomy with brownish liquid EXTREMITIES:bilat LE edema MUSCULOSKELETAL: Adequate muscle tone. NEUROLOGICAL: No obvious focal deficit. Awake, alert, and oriented x3. PSYCHIATRIC: Appropriate mood and affect; insight and judgment normal. Assessment/Plan (1) Ovarian cancer Code(s): C56.9 - Malignant neoplasm of unspecified ovary Status: Chronic (2) Small bowel obstruction Code(s): K56.609 - Unspecified intestinal obstruction, unspecified as to partial versus complete obstruction Status: Acute (3) DVT (deep venous thrombosis) Code(s): I82.409 - Acute embolism and thrombosis of unspecified deep veins of unspecified lower extremity Status: Acute - Plan s/p Ex Lap resection of SBO with ileostomy and g tube placement post op management per trauma program manager and general surgery pediatric dental assistant for ileostomy education supportive care OOB to chair today pain management supportive care Palliative care future IV chemotherapy based on patients overall recovery from surgery 01/01/18 heparin gtt is restarted, increased aPTT management per hem/onc Dr. Rey following electrolyte replacement remaining on ICU per general surgery PT supportive care Palliative Care following plan is to restart IV chemotherapy once she is recovered, Avastin has to be held for >28 after surgery (1) Ovarian cancer Qualifiers: Laterality: bilateral Qualified Code(s): C56.1 - Malignant neoplasm of right ovary; C56.2 - Malignant neoplasm of left ovary
[2018-01-01] MEDS: Pantoprazole Inj 40 MG Vial IV.PUSH SCH ×2 (11:34→22:06)
[2018-01-01] MEDS ORDERED: Magnesium Sulfate Inj 4 GM in Dextrose 5% in Water Inj 100 ML IV.SIG ONE ×2 (12:00)
[2018-01-01] MEDS ORDERED: Dextrose 50% in Water Syringe 50 ML ONE (12:03)
[2018-01-01] MEDS: Dextrose 10% in Water Inj 1,000 ML IV.SIG SCH ×2 (12:30→23:42)
--- NOTE | 2018-01-01 13:35 | P.PNGS ---
Subjective Patient reports: no new complaints (no fevers, good ostomy output) Physical Exam Vital signs: Vital Signs 12/31/17 16:00 12/31/17 20:00 01/01/18 00:00 Temperature 98.2 F 97.8 F 97.5 F L Pulse Rate 114 H 113 H 108 H Respiratory Rate 18 12 12 Blood Pressure 85/54 L 84/54 L 95/57 L Pulse Oximetry 99 98 98 01/01/18 04:00 01/01/18 10:36 Temperature 97.3 F L Pulse Rate 108 H Respiratory Rate 14 18 Blood Pressure 92/58 L Pulse Oximetry 100 Intake & Output 12/31/17 01/01/18 01/01/18 18:59 06:59 18:59 Intake Total 1740 / 1740 2140 / 2140 2200 / 2200 Output Total 1100 / 1100 925 / 925 Balance 640 / 640 1215 / 1215 2200 / 2200 Weight 102.2 kg Intake: IV 1500 / 1500 1900 / 1900 2200 / 2200 D5W/LR Inj 1,000 ML @ 100 mls/ 1000 / 1000 hr IV.CONT .Q10H [facility] Rx#: [id number] NS Inj 1,000 ML @ 100 mls/hr IV 1000 / 1000 1000 / 1000 .CONT .Q10H [facility] Rx#:[id number] Flexbumin 25% Inj 100 ML @ 60 100 / 100 200 / 200 mls/hr IV.SIG Q8H [facility] Rx#: [id number] NS Inj 1,000 ML @ Wide Open IV. 1000 / 1000 SIG BOLUS ONE Rx#:[id number] NS Inj 500 ML @ Wide Open IV. 500 / 500 SIG BOLUS ONE Rx#:[id number] Ancef Inj 2,000 MG In NS Inj 80 200 / 200 100 / 100 100 / 100 ML @ 200 mls/hr IV.SIG Q8H [facility] Rx#:[id number] Flagyl 500 MG Inj 100 ML @ 100 200 / 200 100 / 100 100 / 100 mls/hr IV.SIG Q8H [facility] Rx#: [id number] Oral 240 / 240 240 / 240 Output: Urine Amount (Catheter) 100 / 100 250 / 250 Indwelling Urethral Catheter 100 / 100 250 / 250 Stool Amount (Stoma) 100 / 100 325 / 325 Right Lower Abdomen 100 / 100 325 / 325 Gastric Drainage 0 / 0 Gastrostomy Tube (PEG) 0 / 0 Wound Drainage 900 / 900 350 / 350 # 1 Abdomen 900 / 900 350 / 350 Other: Date of Last Bowel Movement 12/31/17 12/31/17 - Constitutional no acute distress - Routine Abdominal Exam Present: soft (incision with jose cruz, humberto high output serous, g tube clamp) - Urinary Catheter Management Indwelling Urethral Catheter Cath placed during this visit: yes Reason for continuing: Hourly intake/output Insertion date: 12/27/17 Insertion time: 21:10 Assessment and Plan - Assessment (1) Small bowel obstruction Code(s): K56.609 - Unspecified intestinal obstruction, unspecified as to partial versus complete obstruction Status: Acute Plan: 42 year old female with ovarian cancer; small bowel obstruction, s/p dx lap, ex lap perlita, sb resection ileostomy, g tube us shows non occlusive dvt - g tube to clamp -OOB to chair, encourage ambulation with PT today - keep in icu - abx -heparin gtt per heme, monitor for post op bleeding- restarted - diet - adjust pain meds - palliative care following - HUMBERTO to wall suction (2) Ileostomy, has currently Code(s): Z93.2 - Ileostomy status Status: Acute (3) Urine output low Code(s): R34 - Anuria and oliguria Status: Acute
[2018-01-01 14:39] LABS: Hemoglobin A1c 5.3 % (4.3-6.0)
--- NOTE | 2018-01-01 15:34 | P.PNONC ---
Subjective Interval history: Afebrile Patient reports she has a feeling of fullness and at times reflux in her abdomen Per PLANT PRODUCTION MANAGER the heparin drip has remained on hold due to elevated APTT Her ostomy bag has a very small amount of maroon tinged drainage Objective Vital Signs/Intake & Output: Vital Signs 12/31/17 16:00 12/31/17 20:00 01/01/18 00:00 Temperature 98.2 F 97.8 F 97.5 F L Pulse Rate 114 H 113 H 108 H Respiratory Rate 18 12 12 Blood Pressure 85/54 L 84/54 L 95/57 L Pulse Oximetry 99 98 98 01/01/18 04:00 01/01/18 08:00 01/01/18 10:36 Temperature 97.3 F L Pulse Rate 108 H 110 H Respiratory Rate 14 18 Blood Pressure 92/58 L Pulse Oximetry 100 Intake & Output 12/31/17 01/01/18 01/01/18 18:59 06:59 18:59 Intake Total 1740 / 1740 2140 / 2140 2200 / 2200 Output Total 1100 / 1100 925 / 925 Balance 640 / 640 1215 / 1215 2200 / 2200 Weight 225 lb 4.999 oz Intake: IV 1500 / 1500 1900 / 1900 2200 / 2200 D5W/LR Inj 1,000 ML @ 100 mls/ 1000 / 1000 hr IV.CONT .Q10H [facility] Rx#: [id number] NS Inj 1,000 ML @ 100 mls/hr IV 1000 / 1000 1000 / 1000 .CONT .Q10H [facility] Rx#:[id number] Flexbumin 25% Inj 100 ML @ 60 100 / 100 200 / 200 mls/hr IV.SIG Q8H [facility] Rx#: [id number] NS Inj 1,000 ML @ Wide Open IV. 1000 / 1000 SIG BOLUS ONE Rx#:[id number] NS Inj 500 ML @ Wide Open IV. 500 / 500 SIG BOLUS ONE Rx#:[id number] Ancef Inj 2,000 MG In NS Inj 80 200 / 200 100 / 100 100 / 100 ML @ 200 mls/hr IV.SIG Q8H [facility] Rx#:[id number] Flagyl 500 MG Inj 100 ML @ 100 200 / 200 100 / 100 100 / 100 mls/hr IV.SIG Q8H [facility] Rx#: [id number] Oral 240 / 240 240 / 240 Output: Urine Amount (Catheter) 100 / 100 250 / 250 Indwelling Urethral Catheter 100 / 100 250 / 250 Stool Amount (Stoma) 100 / 100 325 / 325 Right Lower Abdomen 100 / 100 325 / 325 Gastric Drainage 0 / 0 Gastrostomy Tube (PEG) 0 / 0 Wound Drainage 900 / 900 350 / 350 # 1 Abdomen 900 / 900 350 / 350 Other: Date of Last Bowel Movement 12/31/17 12/31/17 Result Diagrams: 01/02/18 05:10 01/02/18 05:10 Laboratory Results: Laboratory Results - last 24 hr 01/01/18 01/01/18 01/01/18 04:23 04:23 04:23 WBC 3.4 L RBC 3.33 L Hgb 10.1 L D Hct 30.0 L MCV 90.2 MCH 30.4 MCHC 33.7 RDW 17.9 H Plt Count 69 L MPV 8.0 Prelim Diff (Auto) Slide review pending Neut % (Auto) 71.8 H Lymph % (Auto) 21.3 [place] % (Auto) 6.3 Eos % (Auto) 0.1 Baso % (Auto) 0.5 Neut # (Auto) 2.5 Lymph # (Auto) 0.7 L [place] # (Auto) 0.2 Eos # (Auto) 0.0 Baso # (Auto) 0.0 WBC Differential . Diff Scan Auto diff confirmed Differential Comment . Platelet Estimate Low L Platelet Morphology Normal Stomatocytes 3+ H APTT 134.0 H* D Sodium 140 Potassium 3.5 Chloride 108 H Carbon Dioxide 23.2 Anion Gap 9 BUN 10 Creatinine 0.70 Estimated GFR Greater than 89 POC Glucose Random Glucose 67 L Calcium 6.1 L* Prot Corrected Calcium 7.9 L Phosphorus 1.8 L Magnesium 1.2 L Total Bilirubin 1.1 H AST 17 ALT Less than 6 L Alkaline Phosphatase 86 Total Protein 3.6 L Albumin 1.9 L TSH 5.140 H Free T4 0.66 L 01/01/18 01/01/18 01/01/18 05:20 09:40 10:32 WBC RBC Hgb Hct MCV MCH MCHC RDW Plt Count MPV Prelim Diff (Auto) Neut % (Auto) Lymph % (Auto) [place] % (Auto) Eos % (Auto) Baso % (Auto) Neut # (Auto) Lymph # (Auto) [place] # (Auto) Eos # (Auto) Baso # (Auto) WBC Differential Diff Scan Differential Comment Platelet Estimate Platelet Morphology Stomatocytes APTT 109.2 H* 95.5 H* Sodium Potassium Chloride Carbon Dioxide Anion Gap BUN Creatinine Estimated GFR POC Glucose 32 L* Random Glucose Calcium Prot Corrected Calcium Phosphorus Magnesium Total Bilirubin AST ALT Alkaline Phosphatase Total Protein Albumin TSH Free T4 01/01/18 01/01/18 01/01/18 11:45 11:57 12:30 WBC RBC Hgb Hct MCV MCH MCHC RDW Plt Count MPV Prelim Diff (Auto) Neut % (Auto) Lymph % (Auto) [place] % (Auto) Eos % (Auto) Baso % (Auto) Neut # (Auto) Lymph # (Auto) [place] # (Auto) Eos # (Auto) Baso # (Auto) WBC Differential Diff Scan Differential Comment Platelet Estimate Platelet Morphology Stomatocytes APTT 101.4 H* Sodium Potassium Chloride Carbon Dioxide Anion Gap BUN Creatinine Estimated GFR POC Glucose 33 L* 32 L* Random Glucose Calcium Prot Corrected Calcium Phosphorus Magnesium Total Bilirubin AST ALT Alkaline Phosphatase Total Protein Albumin TSH Free T4 01/01/18 01/01/18 13:44 15:23 WBC RBC Hgb Hct MCV MCH MCHC RDW Plt Count MPV Prelim Diff (Auto) Neut % (Auto) Lymph % (Auto) [place] % (Auto) Eos % (Auto) Baso % (Auto) Neut # (Auto) Lymph # (Auto) [place] # (Auto) Eos # (Auto) Baso # (Auto) WBC Differential Diff Scan Differential Comment Platelet Estimate Platelet Morphology Stomatocytes APTT Sodium Potassium Chloride Carbon Dioxide Anion Gap BUN Creatinine Estimated GFR POC Glucose 100 109 Random Glucose Calcium Prot Corrected Calcium Phosphorus Magnesium Total Bilirubin AST ALT Alkaline Phosphatase Total Protein Albumin TSH Free T4 Medications: Active Medications Generic Name Dose Route Start Last Admin Trade Name Freq PRN Reason Stop Dose Admin Clotrimazole 1 applicatio 12/26/17 09:00 01/01/18 09:05 Lotrimin 1% Cream TOPICAL 1 applicatio BID AMIRA Administration Hydromorphone HCl 1 mg 12/28/17 03:31 12/31/17 23:55 Dilaudid Pf Inj IV.PUSH 1 mg Q4H PRN Administration pain 4-6 Metronidazole/Sodium Chloride 100 mls @ 100 mls/hr 12/28/17 02:00 01/01/18 10 :00 Flagyl 500 Mg Inj IV.SIG Infused Q8H AMIRA Infusion Cefazolin Sodium 2,000 mg/ 100 mls @ 200 mls/hr 12/28/17 02:00 01/01/18 09:45 Sodium Chloride IV.SIG Infused Q8H AMIRA Infusion Dextrose/Lactated Ringer's 1,000 mls @ 100 mls/hr 12/28/17 02:30 01/01/18 11: 33 D5w/Lr Inj IV.CONT 100 mls/hr .Q10H AMIRA Administration Magnesium Sulfate Inj 4 gm/ 100 mls @ 50 mls/hr 12/28/17 02:51 12/28/17 08:16 Sodium Chloride IV.SIG Infused UNSCH PRN Infusion For Magnesium 0.9 - 1.1 mg/dL Heparin Sodium/Dextrose 25,000 unit in 250 mls @ 17 mls/hr 12/28/17 07:00 07:00 Heparin/D5w 25,000 U/250 Ml IV.CONT 0 units/hr TITRATE PRN 0 mls/hr Per Protocol Titration Protocol 1,700 UNITS/HR Sodium Chloride 1,000 mls @ 100 mls/hr 12/31/17 12:15 01/01/18 11:24 Ns Inj IV.CONT 0 mls/hr .Q10H AMIRA Infusion Magnesium Sulfate Inj 4 gm/ 108 mls @ 25 mls/hr 01/01/18 12:00 01/01/18 11:33 Dextrose IV.SIG 01/01/18 16:19 25 mls/hr ONCE ONE Administration Dextrose 1,000 mls @ 100 mls/hr 01/01/18 14:00 01/01/18 12:30 D10w Inj IV.SIG 100 mls/hr .Q10H AMIRA Administration Ketorolac Tromethamine 30 mg 12/29/17 10:00 01/01/18 09:04 Toradol Inj IV.PUSH 01/03/18 09:59 30 mg Q6H AMIRA Administration Padimate O 1 applicatio 12/25/17 00:32 12/28/17 08:31 Chapstick TOPICAL 1 applicatio UNSCH PRN Administration DRY LIPS Pantoprazole Sodium 40 mg 12/20/17 11:00 01/01/18 11:34 Protonix Inj IV.PUSH 40 mg Q12H AMIRA Administration Simethicone 80 mg 12/30/17 16:43 12/31/17 23:44 Mylicon Chew PO 80 mg Q8H PRN Administration BLOATING Sodium Chloride 2 ml 12/18/17 12:58 12/26/17 22:37 Ns Flush IV.FLUSH 2 ml PRN PRN Administration FLUSH AFTER USING IV ACCESS Objective Remarks: GENERAL: Middle-aged female resting in bed with eyes closed. She is quiet and reserved. SKIN: Warm and dry. HEAD: Normocephalic. EYES: No scleral icterus. No injection or drainage. NECK: Supple, trachea midline. No JVD or lymphadenopathy. CARDIOVASCULAR: + S1/S2. Tachycardic. RESPIRATORY: Clear anteriorly. Breathing unlabored at rest. GASTROINTESTINAL: Abdomen soft, non-tender, nondistended. EXTREMITIES: Generalized edema. NEUROLOGICAL: Sleepy but awakens to verbal stimuli. Moving all extremities. No obvious focal deficit. Assessment/Plan (1) Ovarian cancer Code(s): C56.9 - Malignant neoplasm of unspecified ovary Status: Chronic (2) Small bowel obstruction Code(s): K56.609 - Unspecified intestinal obstruction, unspecified as to partial versus complete obstruction Status: Acute (3) DVT (deep venous thrombosis) Code(s): I82.409 - Acute embolism and thrombosis of unspecified deep veins of unspecified lower extremity Status: Acute - Plan 42-year-old female with metastatic ovarian cancer found to have a DVT. The patient had exploratory laparotomy with resection of small bowel obstruction, lysis of adhesions, ileostomy and G-tube placement on 12/27/17 1. Heparin drip currently on hold for supra therapeutic APTT. She has a very small amount of maroon output in her ostomy. I will check her fibrinogen. 2. Closely monitor her CBC as she has had a 2 g drop in her hemoglobin in the last 2 days. Last chemotherapy given on December 15. Part of the decrease of her blood counts may be due to being in her jefe period, however she should be near the end of this by now. Monitor for bleeding. Hold anticoagulation for platelet count less than 50k or for any active bleeding. (1) Ovarian cancer Qualifiers: Laterality: bilateral Qualified Code(s): C56.1 - Malignant neoplasm of right ovary; C56.2 - Malignant neoplasm of left ovary
--- NOTE | 2018-01-01 16:00 | P.PNPAL ---
Reason for Visit Reason for visit: a. To assist with evaluation and management of symptoms including: pain, weakness. b. To assist medical decision maker(s) with: better understanding of current medical conditions; weighing benefits/burdens of medical treatment options; making medical treatment decisions. Subjective Subjective/Interval History: Patient seen and examined in ICU. Mother, Niesha at bedside. Also present [facility] LCSW. POD # 4 diagnostic laparoscopy, exploratory laparotomy, small bowel resection, end ileostomy, lysis of adhesions, evacuation of 4L ascites and gastrostomy tube placement. Patient is listening to us talk with eyes closed. She is aggravated "by the amount of people coming in the room." She does not want to engage in conversation at this time. Spoke with mother at bedside. Questions answered. Today is the patient's birthday and her eldest son is returning home ([place] ) later today. She has generalized intermittent abdominal pain, rates 7/10. She reports pain is being controlled with medication. On Toradol 30mg IV every 6 hours ATC. Has PRN hydromorphone available, none since 12/31/17 at 2355. Clinical data: * Afebrile. Heart rate 110, respiratory rate 14-18, blood pressure 92/58 * WBC 3.4, hemoglobin 10.1, hematocrit 30.0, platelet 69, neutrophil 71.8% * APTT 95.5 * Sodium 140, potassium 3.5, chloride 108, carbon dioxide 23.2, BUN 9, creatinine 0.70, GFR greater than 89, calcium 6.1, portien corrected calcium 7.9 , phosphorus 1.8, magnesium 1.2 * Albumin 1.9 Will continue to follow. Family/Friend Interactions: See interval note above. Advance Directives Health Care Surrogate: Copy in medical record Advance Directives Date on File: 12/29/17 Health Care Surrogate Name and Number: Niesha Gloria [phone] (primary [facility] ) Charley Chapman [phone]([facility]) Documented care wishes:: Patient is currently capacitated to make her own health care decisions. Should she lose capacity she completed Healthcare Power of Emission Specialist on 12/29/17, copy scanned into EMR. Designated health care agent Niesha Gloria as primary and Charley Chapman as alternate healthcare agent. Significant change in goals:: Patient desires continued aggressive care in hopes to recover enough to return to treatment for ovarian cancer. She is realistic and wants medical team to be open and honest regarding her condition. She DOES NOT want to in the hospital. Objective Vital Signs: Vital Signs 12/31/17 16:00 12/31/17 20:00 01/01/18 00:00 Temperature 98.2 F 97.8 F 97.5 F L Pulse Rate 114 H 113 H 108 H Respiratory Rate 18 12 12 Blood Pressure 85/54 L 84/54 L 95/57 L Pulse Oximetry 99 98 98 01/01/18 04:00 01/01/18 08:00 01/01/18 10:36 Temperature 97.3 F L Pulse Rate 108 H 110 H Respiratory Rate 14 18 Blood Pressure 92/58 L Pulse Oximetry 100 Intake & Output 12/31/17 01/01/18 01/01/18 18:59 06:59 18:59 Intake Total 1740 / 1740 2140 / 2140 2200 / 2200 Output Total 1100 / 1100 925 / 925 Balance 640 / 640 1215 / 1215 2200 / 2200 Weight 102.2 kg Intake: IV 1500 / 1500 1900 / 1900 2200 / 2200 D5W/LR Inj 1,000 ML @ 100 mls/ 1000 / 1000 hr IV.CONT .Q10H AMIRA Rx#: [id number] NS Inj 1,000 ML @ 100 mls/hr IV 1000 / 1000 1000 / 1000 .CONT .Q10H AMIRA Rx#:[id number] Flexbumin 25% Inj 100 ML @ 60 100 / 100 200 / 200 mls/hr IV.SIG Q8H AMIRA Rx#: [id number] NS Inj 1,000 ML @ Wide Open IV. 1000 / 1000 SIG BOLUS ONE Rx#:[id number] NS Inj 500 ML @ Wide Open IV. 500 / 500 SIG BOLUS ONE Rx#:[id number] Ancef Inj 2,000 MG In NS Inj 80 200 / 200 100 / 100 100 / 100 ML @ 200 mls/hr IV.SIG Q8H AMIRA Rx#:[id number] Flagyl 500 MG Inj 100 ML @ 100 200 / 200 100 / 100 100 / 100 mls/hr IV.SIG Q8H AMIRA Rx#: [id number] Oral 240 / 240 240 / 240 Output: Urine Amount (Catheter) 100 / 100 250 / 250 Indwelling Urethral Catheter 100 / 100 250 / 250 Stool Amount (Stoma) 100 / 100 325 / 325 Right Lower Abdomen 100 / 100 325 / 325 Gastric Drainage 0 / 0 Gastrostomy Tube (PEG) 0 / 0 Wound Drainage 900 / 900 350 / 350 # 1 Abdomen 900 / 900 350 / 350 Other: Date of Last Bowel Movement 12/31/17 12/31/17 Physical Exam: CONSTITUTIONAL/GENERAL: This is an adequately nourished patient, in no apparent distress. TUBES/LINES/DRAINS: NC, right Port, gastrostomy tube, ileostomy, ARNOL drain. SKIN: No jaundice, rashes, or lesions. Ecchymoses on upper extremities. Pale. HEAD: Hair thinning noted. EYES: eyes closed. ENT: Hearing grossly normal. dry mucous membranes. CARDIOVASCULAR: heart rate 108. RESPIRATORY/CHEST: unlabored respirations at rest. GASTROINTESTINAL: Ileostomy right abdomen. G tube, clamped. GENITOURINARY: Voiding adequately. MUSCULOSKELETAL: Extremities with edema noted. NEUROLOGICAL: Lethargic, arouses briefly. Moves all extremities. PSYCHIATRIC: Lethargic. Diagnostic Tests Laboratory: Laboratory Results - last 72 hr 12/29/17 12/29/17 12/29/17 14:59 18:24 20:30 WBC RBC Hgb Hct MCV MCH MCHC RDW Plt Count MPV Prelim Diff (Auto) Neut % (Auto) Lymph % (Auto) [place] % (Auto) Eos % (Auto) Baso % (Auto) Neut # (Auto) Lymph # (Auto) [place] # (Auto) Eos # (Auto) Baso # (Auto) WBC Differential Diff Scan Differential Comment Platelet Estimate Platelet Morphology Stomatocytes APTT 252.3 H* Greater than 277.5 H* 98.7 H* D Sodium Potassium Chloride Carbon Dioxide Anion Gap BUN Creatinine Estimated GFR POC Glucose Random Glucose Calcium Prot Corrected Calcium Phosphorus Magnesium Total Bilirubin AST ALT Alkaline Phosphatase Total Protein Albumin TSH Free T4 12/29/17 12/30/17 12/30/17 23:57 06:00 06:00 WBC 7.7 RBC 4.17 Hgb 12.7 Hct 37.4 MCV 89.7 MCH 30.4 MCHC 33.9 RDW 17.0 Plt Count 81 L MPV 7.8 Prelim Diff (Auto) Neut % (Auto) Lymph % (Auto) [place] % (Auto) Eos % (Auto) Baso % (Auto) Neut # (Auto) Lymph # (Auto) [place] # (Auto) Eos # (Auto) Baso # (Auto) WBC Differential Diff Scan Differential Comment Platelet Estimate Platelet Morphology Stomatocytes APTT 72.4 H D Sodium 142 Potassium 3.7 Chloride 109 H Carbon Dioxide 23.9 Anion Gap 9 BUN 9 Creatinine 0.58 Estimated GFR Greater than 89 POC Glucose Random Glucose 83 Calcium 6.7 L* D Prot Corrected Calcium 8.9 Phosphorus Magnesium Total Bilirubin AST ALT Alkaline Phosphatase Total Protein 3.2 L Albumin TSH Free T4 12/30/17 12/30/17 12/30/17 06:00 13:50 20:45 WBC RBC Hgb Hct MCV MCH MCHC RDW Plt Count MPV Prelim Diff (Auto) Neut % (Auto) Lymph % (Auto) [place] % (Auto) Eos % (Auto) Baso % (Auto) Neut # (Auto) Lymph # (Auto) [place] # (Auto) Eos # (Auto) Baso # (Auto) WBC Differential Diff Scan Differential Comment Platelet Estimate Platelet Morphology Stomatocytes APTT 87.1 H D 69.0 H D 65.5 H Sodium Potassium Chloride Carbon Dioxide Anion Gap BUN Creatinine Estimated GFR POC Glucose Random Glucose Calcium Prot Corrected Calcium Phosphorus Magnesium Total Bilirubin AST ALT Alkaline Phosphatase Total Protein Albumin TSH Free T4 12/31/17 12/31/17 01/01/18 03:50 03:50 04:23 WBC RBC Hgb Hct MCV MCH MCHC RDW Plt Count MPV Prelim Diff (Auto) Neut % (Auto) Lymph % (Auto) [place] % (Auto) Eos % (Auto) Baso % (Auto) Neut # (Auto) Lymph # (Auto) [place] # (Auto) Eos # (Auto) Baso # (Auto) WBC Differential Diff Scan Differential Comment Platelet Estimate Platelet Morphology Stomatocytes APTT 67.2 H Sodium 140 140 Potassium 3.7 3.5 Chloride 109 H 108 H Carbon Dioxide 21.2 23.2 Anion Gap 10 9 BUN 10 10 Creatinine 0.68 0.70 Estimated GFR Greater than 89 Greater than 89 POC Glucose Random Glucose 93 67 L Calcium 6.4 L* 6.1 L* Prot Corrected Calcium 8.5 7.9 L Phosphorus 1.8 L Magnesium 1.2 L Total Bilirubin 1.1 H AST 17 ALT Less than 6 L Alkaline Phosphatase 86 Total Protein 3.2 L 3.6 L Albumin 1.9 L TSH 5.140 H Free T4 0.66 L 01/01/18 01/01/18 01/01/18 04:23 04:23 05:20 WBC 3.4 L RBC 3.33 L Hgb 10.1 L D Hct 30.0 L MCV 90.2 MCH 30.4 MCHC 33.7 RDW 17.9 H Plt Count 69 L MPV 8.0 Prelim Diff (Auto) Slide review pending Neut % (Auto) 71.8 H Lymph % (Auto) 21.3 [place] % (Auto) 6.3 Eos % (Auto) 0.1 Baso % (Auto) 0.5 Neut # (Auto) 2.5 Lymph # (Auto) 0.7 L [place] # (Auto) 0.2 Eos # (Auto) 0.0 Baso # (Auto) 0.0 WBC Differential . Diff Scan Auto diff confirmed Differential Comment . Platelet Estimate Low L Platelet Morphology Normal Stomatocytes 3+ H APTT 134.0 H* D 109.2 H* Sodium Potassium Chloride Carbon Dioxide Anion Gap BUN Creatinine Estimated GFR POC Glucose Random Glucose Calcium Prot Corrected Calcium Phosphorus Magnesium Total Bilirubin AST ALT Alkaline Phosphatase Total Protein Albumin TSH Free T4 01/01/18 01/01/18 01/01/18 09:40 10:32 11:45 WBC RBC Hgb Hct MCV MCH MCHC RDW Plt Count MPV Prelim Diff (Auto) Neut % (Auto) Lymph % (Auto) [place] % (Auto) Eos % (Auto) Baso % (Auto) Neut # (Auto) Lymph # (Auto) [place] # (Auto) Eos # (Auto) Baso # (Auto) WBC Differential Diff Scan Differential Comment Platelet Estimate Platelet Morphology Stomatocytes APTT 95.5 H* Sodium Potassium Chloride Carbon Dioxide Anion Gap BUN Creatinine Estimated GFR POC Glucose 32 L* 33 L* Random Glucose Calcium Prot Corrected Calcium Phosphorus Magnesium Total Bilirubin AST ALT Alkaline Phosphatase Total Protein Albumin TSH Free T4 01/01/18 01/01/18 01/01/18 11:57 12:30 13:44 WBC RBC Hgb Hct MCV MCH MCHC RDW Plt Count MPV Prelim Diff (Auto) Neut % (Auto) Lymph % (Auto) [place] % (Auto) Eos % (Auto) Baso % (Auto) Neut # (Auto) Lymph # (Auto) [place] # (Auto) Eos # (Auto) Baso # (Auto) WBC Differential Diff Scan Differential Comment Platelet Estimate Platelet Morphology Stomatocytes APTT 101.4 H* Sodium Potassium Chloride Carbon Dioxide Anion Gap BUN Creatinine Estimated GFR POC Glucose 32 L* 100 Random Glucose Calcium Prot Corrected Calcium Phosphorus Magnesium Total Bilirubin AST ALT Alkaline Phosphatase Total Protein Albumin TSH Free T4 01/01/18 15:23 WBC RBC Hgb Hct MCV MCH MCHC RDW Plt Count MPV Prelim Diff (Auto) Neut % (Auto) Lymph % (Auto) [place] % (Auto) Eos % (Auto) Baso % (Auto) Neut # (Auto) Lymph # (Auto) [place] # (Auto) Eos # (Auto) Baso # (Auto) WBC Differential Diff Scan Differential Comment Platelet Estimate Platelet Morphology Stomatocytes APTT Sodium Potassium Chloride Carbon Dioxide Anion Gap BUN Creatinine Estimated GFR POC Glucose 109 Random Glucose Calcium Prot Corrected Calcium Phosphorus Magnesium Total Bilirubin AST ALT Alkaline Phosphatase Total Protein Albumin TSH Free T4 Result Diagrams: 01/01/18 04:23 01/01/18 04:23 Imaging: Chest X-Ray 12/18/17 00:00 CONCLUSION: Significant elevation of the left hemidiaphragm and submaximal inspiration both lungs. Abdomen/Pelvis CT 12/18/17 12:58 CONCLUSION: 1. Compared with October 28 there is interval development of small bowel dilatation to about 5.5 cm with distal terminal ileum and colonic decompression characteristic of a distal small bowel obstruction. 2. Multiloculated ascites is similar in appearance to prior exam. 3. Previous right pleural effusion has decreased in size. 4. Increase in fatty infiltration of the liver since October 28. Small Bowel X-Ray 12/20/17 00:00 CONCLUSION: Small bowel obstruction. Venous Doppler Study 12/26/17 00:00 CONCLUSION: 1. Nonocclusive thrombus in the very distal aspect of the left common femoral vein extending into the proximal superficial femoral vein. 2. Deep venous system is otherwise patent. No SVT. Abdomen X-Ray 12/26/17 06:00 CONCLUSION: Residual contrast in large bowel. Procedures: * 12/28/17 - ex lap with resection of distal small bowel, end-ileostomy, lysis of adhesions and evacuation of 4.5 L of ascites, G tube placement. Assessment and Plan - Disease Oriented Problem List (1) Small bowel obstruction (2) Hypocalcemia (3) Dehydration (4) Ovarian cancer Pertinent Non-Medical Issues: Psychosocial: Single. Has 2 sons (Khris 21 in [place] and Ed age 9 lives with patient). She is supported by friends and family. 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 Spiritual: [employer] El[employer]. Legal: Patient is currently capacitated to make her own health care decisions. Should she lose capacity she completed Healthcare Power of Emission Specialist on 12/29/17, copy scanned into EMR. Designated health care agent Niesha Gloria as primary and Charley Chapman as alternate healthcare agent. Ethical issues impacting care: No known concerns at this time. Important Contacts: * Niesha Gloria, mother/ primary health care surrogate: [phone] * Charley Chapman, friend/ alternate HCS: [phone] Prognosis: Patient is sweet, unfortunate 42 year old with progressive ovarian cancer despite Line 4 of chemotherapy, admitted with SBO. Overall prognosis is poor. Treatment is palliative. Hospice appropriate if goals are comfort oriented. Code Status: Full Code Plan: * Patient is currently capacitated to make her own health care decisions. Should she lose capacity she completed Healthcare Power of Emission Specialist on 12/29/17, copy scanned into EMR. Designated health care agent Niesha Gloria as primary and Charley Chapman as alternate healthcare agent. * FULL CODE * Patient desires continued aggressive care in hopes to recover enough to return to treatment for ovarian cancer. She is realistic and wants medical team to be open and honest regarding her condition. She DOES NOT want to in the hospital. * SYMPTOMS: Pain: abdominal pain secondary to progressive ovarian cancer with peritoneal carcinomatosis, small bowel obstruction, DVT, debility, dehydration, etc. Pain controlled with current meds. Will defer pain medication to surgery at this time. Will continue to monitor and make recommendations as needed. * Palliative care will continue to follow to assist with symptom management and further clarification of medical treatment goals throughout hospital course. Attestation Attestation: To help prompt me to consider important information that might be impacting today's encounter and assessment, information from prior notes written by myself or my colleagues may have been "brought forward" into today's note. My signature on this note, however, is an attestation that I personally performed the exam, history, and/or decision-making noted today, and, unless otherwise indicated, the interactions with patient, family, and staff as well as the review of records all occurred today. I also attest that the listed assessment and stated plan reflect my best clinical judgment today based on the combination of historical information, prior notes, and today's exam/ interactions. When time spent is documented, it refers only to time spent today by the signer, or if indicated, combined time spent today by collaborating physician/nurse practitioner.
--- NOTE | 2018-01-01 16:11 | P.PNIM ---
Subjective Interval history: 12/28: 42-year-old female with past medical history of stage IIIc ovarian cancer (poorly differentiated adenocarcinoma) diagnosed in 06/2014 who underwent systemic chemotherapy and then RIRI and BSO with omentectomy in 2014. She underwent postoperative chemotherapy and then was in remission about 18 months when she developed recurrence treated with multiple chemo regimens. Prior to admission, she had received paclitaxel and Avastin started 12/15/17. She was admitted 12/18/17 after she presented with 1 week history of abdominal distension, obstipation and emesis with feculent odor. CT findings were consistent with SBO and previously diagnosed intraperitoneal carcinomatosis. She was managed conservatively with NGT but did not improve and diagnostic lap was planned. Meanwhile, she had BLE u/s on 12/26 that showed nonocclusive thrombus of the left distal common femoral and proximal superficial femoral veins. She was started on heparin drip and surgery was postponed pending 24 hours of heparin. She has now undergone ex lap with resection of distal small bowel, end-ileostomy, lysis of adhesions and evacuation of 4.5 L of ascites, G tube placement. Critical care management sent has been consulted to assist with her care. She received 2700 of crystalloid intraoperatively. EBL was 200. Urine output was 180. She was extubated in OR and is groggy post- extubation. She complains of 8/10 abdominal pain. Her hgb is 9.2 from 12.5 pre- op and she is receiving 2 units PRBC per surgery. Denies CP/SOB. 12/29: Normotensive. Breathing with relative comfort restricted minimally by abdominal pain. Hemoglobin 14, creatinine 0.6. Ileostomy stoma is pink and well-perfused. 12/30: Pain well controlled. Breathing comfortably. Hemoglobin stable. Patient is expressing her desire to get strong and undergo another round of chemotherapy. PTT is in therapeutic range on continuous infusion heparin drip, made necessary by left leg femoral venous thrombus. Ileostomy output is large and urine output dropping, will increase IV fluids until PO intake improves. - TRANSFERRED BACK TO OUR SERVICE TODAY POOR ORAL INTAKE GOOD OUTPUT FROM ILEOSTOMY DW RN AND PT AM LABS INCREASE ACTIVITY PT AND OT 8-20 PATIENT HAD ISSUES WITH HYPOGLYCEMIA TODAY POOR URINE OUTPUT EVEN WITH ALBUMIN MAY NEED LOW DOSE LASIX HAS HYPOKALEMIA AND HYPOMAGNESIA AND HYPOPHOSPHATEMIA WILL REPLACE AM LABS HAS SOME ABDOMINAL PAIN HAVING OUTPUT THRU OSTOMY BUT BLOOD TINGED DW RN AND PT AND FAMILY AM LABS Physical Exam Vital signs: Vital Signs 12/31/17 20:00 01/01/18 00:00 01/01/18 04:00 Temperature 97.8 F 97.5 F L 97.3 F L Pulse Rate 113 H 108 H 108 H Respiratory Rate 12 12 14 Blood Pressure 84/54 L 95/57 L 92/58 L Pulse Oximetry 98 98 100 01/01/18 08:00 01/01/18 10:36 Temperature Pulse Rate 110 H Respiratory Rate 18 Blood Pressure Pulse Oximetry Intake & Output 12/31/17 01/01/18 01/01/18 18:59 06:59 18:59 Intake Total 1740 / 1740 2140 / 2140 2200 / 2200 Output Total 1100 / 1100 925 / 925 Balance 640 / 640 1215 / 1215 2200 / 2200 Weight 102.2 kg Intake: IV 1500 / 1500 1900 / 1900 2200 / 2200 D5W/LR Inj 1,000 ML @ 100 mls/ 1000 / 1000 hr IV.CONT .Q10H AMIRA Rx#: [id number] NS Inj 1,000 ML @ 100 mls/hr IV 1000 / 1000 1000 / 1000 .CONT .Q10H AMIRA Rx#:[id number] Flexbumin 25% Inj 100 ML @ 60 100 / 100 200 / 200 mls/hr IV.SIG Q8H AMIRA Rx#: [id number] NS Inj 1,000 ML @ Wide Open IV. 1000 / 1000 SIG BOLUS ONE Rx#:[id number] NS Inj 500 ML @ Wide Open IV. 500 / 500 SIG BOLUS ONE Rx#:[id number] Ancef Inj 2,000 MG In NS Inj 80 200 / 200 100 / 100 100 / 100 ML @ 200 mls/hr IV.SIG Q8H AMIRA Rx#:[id number] Flagyl 500 MG Inj 100 ML @ 100 200 / 200 100 / 100 100 / 100 mls/hr IV.SIG Q8H AMIRA Rx#: [id number] Oral 240 / 240 240 / 240 Output: Urine Amount (Catheter) 100 / 100 250 / 250 Indwelling Urethral Catheter 100 / 100 250 / 250 Stool Amount (Stoma) 100 / 100 325 / 325 Right Lower Abdomen 100 / 100 325 / 325 Gastric Drainage 0 / 0 Gastrostomy Tube (PEG) 0 / 0 Wound Drainage 900 / 900 350 / 350 # 1 Abdomen 900 / 900 350 / 350 Other: Date of Last Bowel Movement 12/31/17 12/31/17 Narrative: GENERAL: Well-nourished, well-developed patient, pale appearing, laying in PACU bed, sleepy but arouses to voice. SKIN: Warm and dry. Port accessed R chest. HEAD: Atraumatic. Normocephalic. EYES: Pupils equal and round, 2mm and sluggishly reactive bilateral. No scleral icterus. No injection or drainage. ENT: No nasal bleeding or discharge. Mucous membranes moist. NECK: Trachea midline. No JVD. CARDIOVASCULAR: Tachycardic, regular, sinus tach on the monitor rate 110s. No murmurs rubs or gallops. RESPIRATORY: Breathing comfortably with no accessory muscle use. Clear to auscultation bilaterally. On 3 L nasal cannula. GASTROINTESTINAL: Abdominal binder in place. Dressing in place over midline vertical incision. Ileostomy right abdomen, BROWN LIQUID--STOOL..ALYSA DRESSING IN PLACE . ARNOL drain left lower quadrant with serosanguineous output. G tube in place. Bowel sounds present, hypoactive. MUSCULOSKELETAL: Extremities without clubbing, cyanosis. 2+ 3 bipedal edema. NEUROLOGICAL: Sleepy but arouses to voice and is oriented x3. No obvious cranial nerve deficits. Motor grossly within normal limits. - Urinary Catheter Management Indwelling Urethral Catheter Cath placed during this visit: yes Reason for continuing: Hourly intake/output Insertion date: 12/27/17 Insertion time: 21:10 Results - Labs CBC & Chem 7: 01/01/18 04:23 01/01/18 04:23 Laboratory Results - last 24 hr 01/01/18 01/01/18 01/01/18 04:23 04:23 04:23 WBC 3.4 L RBC 3.33 L Hgb 10.1 L D Hct 30.0 L MCV 90.2 MCH 30.4 MCHC 33.7 RDW 17.9 H Plt Count 69 L MPV 8.0 Prelim Diff (Auto) Slide review pending Neut % (Auto) 71.8 H Lymph % (Auto) 21.3 [place] % (Auto) 6.3 Eos % (Auto) 0.1 Baso % (Auto) 0.5 Neut # (Auto) 2.5 Lymph # (Auto) 0.7 L [place] # (Auto) 0.2 Eos # (Auto) 0.0 Baso # (Auto) 0.0 WBC Differential . Diff Scan Auto diff confirmed Differential Comment . Platelet Estimate Low L Platelet Morphology Normal Stomatocytes 3+ H APTT 134.0 H* D Sodium 140 Potassium 3.5 Chloride 108 H Carbon Dioxide 23.2 Anion Gap 9 BUN 10 Creatinine 0.70 Estimated GFR Greater than 89 POC Glucose Random Glucose 67 L Calcium 6.1 L* Prot Corrected Calcium 7.9 L Phosphorus 1.8 L Magnesium 1.2 L Total Bilirubin 1.1 H AST 17 ALT Less than 6 L Alkaline Phosphatase 86 Total Protein 3.6 L Albumin 1.9 L TSH 5.140 H Free T4 0.66 L 01/01/18 01/01/18 01/01/18 05:20 09:40 10:32 WBC RBC Hgb Hct MCV MCH MCHC RDW Plt Count MPV Prelim Diff (Auto) Neut % (Auto) Lymph % (Auto) [place] % (Auto) Eos % (Auto) Baso % (Auto) Neut # (Auto) Lymph # (Auto) [place] # (Auto) Eos # (Auto) Baso # (Auto) WBC Differential Diff Scan Differential Comment Platelet Estimate Platelet Morphology Stomatocytes APTT 109.2 H* 95.5 H* Sodium Potassium Chloride Carbon Dioxide Anion Gap BUN Creatinine Estimated GFR POC Glucose 32 L* Random Glucose Calcium Prot Corrected Calcium Phosphorus Magnesium Total Bilirubin AST ALT Alkaline Phosphatase Total Protein Albumin TSH Free T4 01/01/18 01/01/18 01/01/18 11:45 11:57 12:30 WBC RBC Hgb Hct MCV MCH MCHC RDW Plt Count MPV Prelim Diff (Auto) Neut % (Auto) Lymph % (Auto) [place] % (Auto) Eos % (Auto) Baso % (Auto) Neut # (Auto) Lymph # (Auto) [place] # (Auto) Eos # (Auto) Baso # (Auto) WBC Differential Diff Scan Differential Comment Platelet Estimate Platelet Morphology Stomatocytes APTT 101.4 H* Sodium Potassium Chloride Carbon Dioxide Anion Gap BUN Creatinine Estimated GFR POC Glucose 33 L* 32 L* Random Glucose Calcium Prot Corrected Calcium Phosphorus Magnesium Total Bilirubin AST ALT Alkaline Phosphatase Total Protein Albumin TSH Free T4 01/01/18 01/01/18 13:44 15:23 WBC RBC Hgb Hct MCV MCH MCHC RDW Plt Count MPV Prelim Diff (Auto) Neut % (Auto) Lymph % (Auto) [place] % (Auto) Eos % (Auto) Baso % (Auto) Neut # (Auto) Lymph # (Auto) [place] # (Auto) Eos # (Auto) Baso # (Auto) WBC Differential Diff Scan Differential Comment Platelet Estimate Platelet Morphology Stomatocytes APTT Sodium Potassium Chloride Carbon Dioxide Anion Gap BUN Creatinine Estimated GFR POC Glucose 100 109 Random Glucose Calcium Prot Corrected Calcium Phosphorus Magnesium Total Bilirubin AST ALT Alkaline Phosphatase Total Protein Albumin TSH Free T4 - Imaging Chest X-Ray 12/18/17 00:00 CONCLUSION: Significant elevation of the left hemidiaphragm and submaximal inspiration both lungs. Abdomen/Pelvis CT 12/18/17 12:58 CONCLUSION: 1. Compared with October 28 there is interval development of small bowel dilatation to about 5.5 cm with distal terminal ileum and colonic decompression characteristic of a distal small bowel obstruction. 2. Multiloculated ascites is similar in appearance to prior exam. 3. Previous right pleural effusion has decreased in size. 4. Increase in fatty infiltration of the liver since October 28. Abdomen X-Ray 12/19/17 00:00 CONCLUSION: Dilated small bowel loops in the left abdomen again seen. Small Bowel X-Ray 12/20/17 00:00 CONCLUSION: Small bowel obstruction. Abdomen X-Ray 12/21/17 00:00 CONCLUSION: Findings typical of high-grade small bowel obstruction again noted. Still no contrast convincingly seen in the colon. Venous Doppler Study 12/26/17 00:00 CONCLUSION: 1. Nonocclusive thrombus in the very distal aspect of the left common femoral vein extending into the proximal superficial femoral vein. 2. Deep venous system is otherwise patent. No SVT. Abdomen X-Ray 12/26/17 06:00 CONCLUSION: Residual contrast in large bowel. - Procedures (1) Small bowel obstruction Date of procedure: 12/28/17 Procedure: dx lap ex lap small bowel resection end ileostomy extensive LEMUEL >60 minutes g tube Anesthesia: GETA Surgeon: Dg Rushing MD Estimated blood loss (mL): 100 Pathology: other (small bowel) Operation and Findings: extensive carcinomatosis multiple involved small bowel loops adhesions distal obstruction Assessment and Plan - Assessment (1) Small bowel obstruction Code(s): K56.609 - Unspecified intestinal obstruction, unspecified as to partial versus complete obstruction Status: Acute (2) Ovarian cancer Code(s): C56.9 - Malignant neoplasm of unspecified ovary Status: Chronic - Plan NEURO: Postoperative pain Dilaudid prn pain. Better controlled today 12/30. RESP: Routine airway. Nasal cannula wean as tolerated. Incentive spirometry every 2 hours while awake. CV: Monitor hemodynamics Normotensive GI: SBO s/p ex lap with partial SB resection, ileostomy, LEMUEL, G tube placement by Dr. Rushing 12/27/17. Intraperitoneal carcinomatosis GERD NPO G-tube in place. Monitor ARNOL output, management per gen surgery. Timing of diet advancement will be up to general surgery. Protonix as per below. Bowel regimen Monitor ileostomy stoma color. FEN/RENAL: Crowder in place. Monitor intake and output hourly. Check magnesium and phosphorus now and continue to monitor electrolytes and replace as indicated. ID: Perioperative cefazolin and Flagyl per general surgery. HEME: Nonocclusive thrombus left distal common femoral and proximal superficial femoral artery per u/s 12/26/17. Acute blood loss anemia Receiving 2 units packed red cells 12/28/17 per general surgery. Post-op labs pending, monitor CBC. On heparin drip per hematology recommendations. Dr. Rushing states resume heparin at 7 am 12/28/17. Resumed without bolus based on response to prior bolus , monitor to ensure she becomes therapeutic. Coagulopathy INR elevated, suspected secondary to vit K depletion due to poor po intake. Received Vitamin K 10 mg infusion 12/26 per hematology. Recurrent Ovarian Cancer Followed by Heme/onc and clerk guide/onc Dr. James. ENDO: Added dextrose to MIVF as per above. PROPH: Heparin drip for DVT treatment/prophylaxis as per discussion above. Protonix IV for stress ulcer prophylaxis and history of GERD ACCESS: Port accessed R chest. Palliative care team was consulted by medical oncology and is following. Patients goals remain aggressive. PT AND OT TO EVAL AND TREAT AM LABS WATCH OUTPUT FOLLOW ELECTROLYTES HYPOGLYCEMIA EARLIER TODAY- HAD D50 IV HYPOMAGNESIA WILL REPLACE HYPOKALEMIA WILL REPLACE HYPOPHOSPHATEMIA WILL REPLACE AM LABS Full code Overall impression: This woman is recovering well following a laparotomy with small bowel resection for extensive carcinomatosis from ovarian cancer. She is tolerating liquids with normal ileostomy output. Code Status: FULL CODE Discussed Condition With: RN AND PT AND FAMILY Discharge Planning: PENDING IMPROVEMENT AND CLEARANCE BY ALL (2) Ovarian cancer Qualifiers: Laterality: bilateral Qualified Code(s): C56.1 - Malignant neoplasm of right ovary; C56.2 - Malignant neoplasm of left ovary
[2018-01-01] MEDS ORDERED: Magnesium Sulfate Inj 2 GM in Sodium Chlor 0.9% Inj 96 ML IV.SIG PRN (16:12)
[2018-01-01] MEDS ORDERED: Magnesium Sulfate Inj 4 GM in Sodium Chlor 0.9% Inj 92 ML IV.SIG PRN (16:12)
[2018-01-01] MEDS ORDERED: Potassium Phosphate 500 MG Soluble Tablet PO PRN ×2 (16:12)
[2018-01-01] MEDS ORDERED: Potassium Chloride 25 MEQ Effervescent Tablet PO PRN (16:12)
[2018-01-01] MEDS ORDERED: Magnesium Oxide 400 MG Tablet PO PRN (16:12)
[2018-01-01] MEDS ORDERED: Potassium Phosphate Inj 30 MMOL in Sodium Chlor 0.9% Inj 250 ML IV.SIG PRN (16:12)
[2018-01-01] MEDS ORDERED: Potassium Chlor 40 mEq Premix 40 MEQ/100 ML PIGGYBACK IV.SIG PRN ×2 (16:12)
[2018-01-01] MEDS ORDERED: Sodium Phosphate Inj 30 MMOL in Sodium Chlor 0.9% Inj 250 ML IV.SIG PRN (16:12)
[2018-01-01] MEDS ORDERED: Potassium Chlor 20 mEq Premix 20 MEQ/100 ML PIGGYBACK IV.SIG PRN ×2 (16:12)
--- NOTE | 2018-01-01 18:14 | P.PNWCN ---
Wound Care Nurse Consult Description: Consult for Ostomy Management per Dr Rushing Communicated with: RAYRAY Cadena Patient Judy ESTELLA Elizabeth Recommendation: Please empty effluent from pouch when 1/3 to 1/2 full. Monitor stoma for color, moisture, and output. For any color other than red or pink, please notify surgeon. Please change ileostomy appliance every 3 days &PRN for leaking. Please do not reinforce with tape. Additional information: Patient seen on [facility] for ostomy assessment, teaching, and changing of pouching system. Incision - Incision Midline Abdomen Other Cover Dressing: ALYSA Bowel Diversion Stoma - Bowel Stoma Right Lower Abdomen Stoma Appearance: Black, Dark Red, Flush to Skin, Irregular Shape, Retracted ( from 11-2 o'clock), Slough (at mucocutaneous junction from 12-1 o'clock) Collection Device: Two-piece Drainage Description: Liquid (75ml output on entire day shift today), Blood- Tinged Wafer Size: 1 3/4 Moldable 45mm (used due to 2 1/4" being unavailable through [employer]) Stoma Care: Pouch and Wafer Changed, Skin Care (Mucocutaneous junction is noted with separation from 3-5 and 6-10 o'clock.) Keturah-Stomal Skin Appearance: Ecchymosis Keturah-Stomal Surrounding Tissue Sensation Description: Burning - Additional Information Additional Information: Ileostomy is noted on right lower quadrant, sanguinous drainage noted, pouch and wafer changed using dannie seal to assist in helping stoma protrude, stoma is retracting. Pouch closed by designer writer. Patient tolerated ostomy pouching change fairly, complaining of pain in abdomen.
--- NOTE | 2018-01-01 21:41 | XR ---
EXAM DATE: 01/01/2018 9:18 PM EDT AGE/SEX: 43 years / Female INDICATIONS: Abdominal pain. CLINICAL DATA: This is the patient's subsequent encounter. Patient reports that signs and symptoms h ave been present for 1 week and indicates a pain score of 10/10. MEDICAL/SURGICAL HISTORY: . Carcinoma, ovarian. Hypertension. None. COMPARISON: [facility] [place], ABDOMEN 1V KUB, 12/26/2017. . FINDINGS: There are multiple dilated loops of bowel throughout the abdomen measuring up to 5.6 cm in dimension . Multiple skin christi at the vertical Excision. There is a catheter which courses from the left lower quadrant to the right hypogastric reg ion. There is consolidation in the left lower lung with loss of delineation of the left hemidiaphragm . CONCLUSION: Multiple dilated loops of bowel measuring up to 5.7 cm. Electronically signed by: Kristopher Baer MD 01/01/2018 9:40 PM EDT
[2018-01-01] MEDS: Simethicone 80 MG Chew Tablet PO PRN (21:46)
[2018-01-02] MEDS: ceFAZolin Inj 2,000 MG in Sodium Chlor 0.9% Inj 80 ML IV.SIG SCH ×3 (01:00→17:02)
[2018-01-02] MEDS: Ketorolac Inj 30 MG/ML (IVP) Vial IV.PUSH SCH ×5 (03:33→22:35)
[2018-01-02 05:21] LABS: Baso % (Auto) 0.5 % (0.0-2.0); Eos % (Auto) 0.3 % (0.0-4.0); Hemoglobin 10.9 gm/dL (11.6-15.3); Lymph # (Auto) 0.7 th/mm3 (1.0-4.8); Lymph % (Auto) 12.7 % (9.0-44.0); Mean Corpuscular HGB Conc 34.2 % (32.0-36.0); Mean Corpuscular Volume 90.7 fL (80.0-100.0); Mean Platelet Volume 8.4 fL (7.0-11.0); Mono # (Auto) 0.2 th/mm3 (0.0-0.9); Mono % (Auto) 3.8 % (0.0-8.0); Neut # (Auto) 4.8 th/mm3 (1.8-7.7); Neut % (Auto) 82.7 % (16.0-70.0); Platelet Count 65 th/mm3 (150-450); Red Blood Count 3.52 mil/mm3 (4.00-5.30); Red Cell Distribution Width 17.6 % (11.6-17.2); White Blood Count 5.8 th/mm3 (4.0-11.0)
[2018-01-02 05:39] LABS: Albumin 1.9 g/dL (3.4-5.0); Alkaline Phosphatase 106 U/L (45-117); Anion Gap 10 meq/L (5-15); Aspartate Aminotransferase 23 U/L (15-37); Blood Urea Nitrogen 9 mg/dL (7-18); Calcium 6.2 mg/dL (8.5-10.1); Carbon Dioxide 21.5 meq/L (21.0-32.0); Chloride 107 meq/L (98-107); Glomerular Filtration Rate 70 mL/min (>89); Glucose,Random 122 mg/dL (74-106); Phosphorus 0.9 mg/dL (2.5-4.9); Potassium 3.1 meq/L (3.5-5.1); Sodium 138 meq/L (136-145); Total Protein 3.8 g/dL (6.4-8.2)
[2018-01-02] MEDS: Potassium Chlor 40 mEq Premix 40 MEQ/100 ML PIGGYBACK IV.SIG PRN ×2 (06:31→10:27)
[2018-01-02 06:52] LABS: Lymphocytes 5 % (9-44); Monocytes 2 % (0-8); Tallied Nucleated RBC 1 (0-0); Toxic Vacuolation Present
[2018-01-02 06:53] LABS: Platelet Morphology Normal (Normal)
[2018-01-02] MEDS: Dextrose 5%/Lactated Ringer's 1,000 ML IV.CONT SCH ×2 (07:00→16:43)
[2018-01-02] MEDS ORDERED: Potassium Chlor 20 mEq Premix 20 MEQ/100 ML PIGGYBACK IV.SIG SCH (09:00)
[2018-01-02] MEDS: Clotrimazole 1% Cream 15 GM Tube TOPICAL SCH ×2 (09:03→20:09)
--- NOTE | 2018-01-02 09:54 | P.PNGS ---
Subjective Patient reports: still having pain (c/o back and abdominal pain, tachy 120s, high humberto output, ostomy with 400cc in bag) Physical Exam Vital signs: Vital Signs 01/01/18 10:36 01/01/18 12:00 01/01/18 16:00 Temperature 98.2 F 98.4 F Pulse Rate 124 H 104 H Respiratory Rate 18 14 14 Blood Pressure 90/57 L 99/66 L Pulse Oximetry 97 98 01/01/18 20:00 01/02/18 00:00 01/02/18 04:00 Temperature 98.0 F 98.4 F 98.2 F Pulse Rate 101 H 100 H 110 H Respiratory Rate 12 17 12 Blood Pressure 94/59 L 91/60 L 101/67 Pulse Oximetry 01/02/18 08:00 01/02/18 08:03 Temperature 97.9 F Pulse Rate 124 H Respiratory Rate Blood Pressure 92/66 L Pulse Oximetry 99 99 Intake & Output 01/01/18 01/02/18 01/02/18 18:59 06:59 18:59 Intake Total 3048 / 3048 1440 / 1440 Output Total 625 / 625 1655 / 1655 Balance 2423 / 2423 -215 / -215 Weight 103.4 kg Intake: IV 2808 / 2808 1200 / 1200 D50W Syringe 50 ML @ 0 mls/hr . 50 / 50 ROUTE .STK-MED ONE Rx#:[id number] D5W/LR Inj 1,000 ML @ 100 mls/ 1000 / 1000 hr IV.CONT .Q10H AMIRA Rx#: [id number] NS Inj 1,000 ML @ 100 mls/hr IV 1000 / 1000 .CONT .Q10H AMIRA Rx#:[id number] D10W Inj 1,000 ML @ 100 mls/hr 1000 / 1000 IV.SIG .Q10H AMIRA Rx#:[id number] Magnesium Sulfate Inj 4 GM In 108 / 108 D5W Inj 100 ML @ 25 mls/hr IV. SIG ONCE ONE Rx#:[id number] Ancef Inj 2,000 MG In NS Inj 80 200 / 200 100 / 100 ML @ 200 mls/hr IV.SIG Q8H AMIRA Rx#:[id number] Flagyl 500 MG Inj 100 ML @ 100 200 / 200 100 / 100 mls/hr IV.SIG Q8H AMIRA Rx#: [id number] Oral 240 / 240 240 / 240 Output: Urine Amount (Catheter) 300 / 300 550 / 550 Indwelling Urethral Catheter 300 / 300 550 / 550 Stool Amount (Stoma) 75 / 75 5 / 5 Right Lower Abdomen 75 / 75 5 / 5 Wound Drainage 250 / 250 1100 / 1100 # 1 Abdomen 250 / 250 1100 / 1100 Other: Date of Last Bowel Movement 01/01/18 01/01/18 - Routine Respiratory Exam Present: CTA bilaterally - Routine Cardiovascular Exam Present: RRR (tachy) - Routine Abdominal Exam Present: soft (jose cruz in place, humberto serus, ostomy dark pink, +stool) - Urinary Catheter Management Indwelling Urethral Catheter Cath placed during this visit: yes Reason for continuing: Hourly intake/output Insertion date: 12/27/17 Insertion time: 21:10 Assessment and Plan - Assessment (1) Small bowel obstruction Code(s): K56.609 - Unspecified intestinal obstruction, unspecified as to partial versus complete obstruction Status: Acute Plan: 42 year old female with ovarian cancer; small bowel obstruction, s/p dx lap, ex lap perlita, sb resection ileostomy, g tube, ostomy dark, digitalized this am- patent stool in bag us shows non occlusive dvt - g tube to clamp -OOB to chair, encourage ambulation with PT today- re emphysized the need to be oob - keep in icu- monitor tachy, may benefit from lopressor - abx -heparin gtt per heme, monitor for post op bleeding- defer to heme low plts, consider sobia panel if continuing to drop - diet- ok for fulls slowly advance - palliative care following - HUMBERTO to wall suction - add reglan (2) Ileostomy, has currently Code(s): Z93.2 - Ileostomy status Status: Acute (3) Urine output low Code(s): R34 - Anuria and oliguria Status: Acute
[2018-01-02] MEDS: Pantoprazole Inj 40 MG Vial IV.PUSH SCH ×2 (11:05→22:34)
[2018-01-02] MEDS: Dextrose 10% in Water Inj 1,000 ML IV.SIG SCH (12:10)
--- NOTE | 2018-01-02 12:23 | P.PNIM ---
Subjective Interval history: 12/28: 42-year-old female with past medical history of stage IIIc ovarian cancer (poorly differentiated adenocarcinoma) diagnosed in 06/2014 who underwent systemic chemotherapy and then RIRI and BSO with omentectomy in 2014. She underwent postoperative chemotherapy and then was in remission about 18 months when she developed recurrence treated with multiple chemo regimens. Prior to admission, she had received paclitaxel and Avastin started 12/15/17. She was admitted 12/18/17 after she presented with 1 week history of abdominal distension, obstipation and emesis with feculent odor. CT findings were consistent with SBO and previously diagnosed intraperitoneal carcinomatosis. She was managed conservatively with NGT but did not improve and diagnostic lap was planned. Meanwhile, she had BLE u/s on 12/26 that showed nonocclusive thrombus of the left distal common femoral and proximal superficial femoral veins. She was started on heparin drip and surgery was postponed pending 24 hours of heparin. She has now undergone ex lap with resection of distal small bowel, end-ileostomy, lysis of adhesions and evacuation of 4.5 L of ascites, G tube placement. Critical care management sent has been consulted to assist with her care. She received 2700 of crystalloid intraoperatively. EBL was 200. Urine output was 180. She was extubated in OR and is groggy post- extubation. She complains of 8/10 abdominal pain. Her hgb is 9.2 from 12.5 pre- op and she is receiving 2 units PRBC per surgery. Denies CP/SOB. 12/29: Normotensive. Breathing with relative comfort restricted minimally by abdominal pain. Hemoglobin 14, creatinine 0.6. Ileostomy stoma is pink and well-perfused. 12/30: Pain well controlled. Breathing comfortably. Hemoglobin stable. Patient is expressing her desire to get strong and undergo another round of chemotherapy. PTT is in therapeutic range on continuous infusion heparin drip, made necessary by left leg femoral venous thrombus. Ileostomy output is large and urine output dropping, will increase IV fluids until PO intake improves. - TRANSFERRED BACK TO OUR SERVICE TODAY POOR ORAL INTAKE GOOD OUTPUT FROM ILEOSTOMY DW RN AND PT AM LABS INCREASE ACTIVITY PT AND OT 8-20 PATIENT HAD ISSUES WITH HYPOGLYCEMIA TODAY POOR URINE OUTPUT EVEN WITH ALBUMIN MAY NEED LOW DOSE LASIX HAS HYPOKALEMIA AND HYPOMAGNESIA AND HYPOPHOSPHATEMIA WILL REPLACE AM LABS HAS SOME ABDOMINAL PAIN HAVING OUTPUT THRU OSTOMY BUT BLOOD TINGED DW RN AND PT AND FAMILY AM LABS 8- NO HYPOGLYCEMIA TODAY DIET PER SURGERY SOME TACHYCARDIA HYPOKALEMIA WILL REPLACE OUTPUT THROUGH OSTOMY DW RN AND PT AND FAMILY AM LABS Physical Exam Vital signs: Vital Signs 01/01/18 16:00 01/01/18 20:00 01/02/18 00:00 Temperature 98.4 F 98.0 F 98.4 F Pulse Rate 104 H 101 H 100 H Respiratory Rate 14 12 17 Blood Pressure 99/66 L 94/59 L 91/60 L Pulse Oximetry 98 01/02/18 04:00 01/02/18 08:00 01/02/18 08:03 Temperature 98.2 F 97.9 F Pulse Rate 110 H 124 H Respiratory Rate 12 Blood Pressure 101/67 92/66 L Pulse Oximetry 99 99 01/02/18 12:00 Temperature 98.1 F Pulse Rate 134 H Respiratory Rate 22 Blood Pressure 93/53 L Pulse Oximetry 99 Intake & Output 01/01/18 01/02/18 01/02/18 18:59 06:59 18:59 Intake Total 3048 / 3048 1440 / 1440 1300 / 1300 Output Total 625 / 625 1655 / 1655 Balance 2423 / 2423 -215 / -215 1300 / 1300 Weight 103.4 kg Intake: IV 2808 / 2808 1200 / 1200 1300 / 1300 D50W Syringe 50 ML @ 0 mls/hr . 50 / 50 ROUTE .STK-MED ONE Rx#:[id number] D5W/LR Inj 1,000 ML @ 100 mls/ 1000 / 1000 hr IV.CONT .Q10H AMIRA Rx#: [id number] NS Inj 1,000 ML @ 100 mls/hr IV 1000 / 1000 .CONT .Q10H AMIRA Rx#:[id number] D10W Inj 1,000 ML @ 100 mls/hr 1000 / 1000 1000 / 1000 IV.SIG .Q10H AMIRA Rx#:[id number] Magnesium Sulfate Inj 4 GM In 108 / 108 D5W Inj 100 ML @ 25 mls/hr IV. SIG ONCE ONE Rx#:[id number] KCl 40 mEq Premix Inj 40 meq In 100 / 100 100 ml @ 25 mls/hr IV.SIG Q2H PRN Rx#:[id number] Ancef Inj 2,000 MG In NS Inj 80 200 / 200 100 / 100 100 / 100 ML @ 200 mls/hr IV.SIG Q8H AMIRA Rx#:[id number] Flagyl 500 MG Inj 100 ML @ 100 200 / 200 100 / 100 100 / 100 mls/hr IV.SIG Q8H AMIRA Rx#: [id number] Oral 240 / 240 240 / 240 Output: Urine Amount (Catheter) 300 / 300 550 / 550 Indwelling Urethral Catheter 300 / 300 550 / 550 Stool Amount (Stoma) 75 / 75 5 / 5 Right Lower Abdomen 75 / 75 5 / 5 Wound Drainage 250 / 250 1100 / 1100 # 1 Abdomen 250 / 250 1100 / 1100 Other: Date of Last Bowel Movement 01/01/18 01/01/18 Narrative: GENERAL: Well-nourished, well-developed patient, pale appearing, laying in PACU bed, sleepy but arouses to voice. SKIN: Warm and dry. Port accessed R chest. HEAD: Atraumatic. Normocephalic. EYES: Pupils equal and round, 2mm and sluggishly reactive bilateral. No scleral icterus. No injection or drainage. ENT: No nasal bleeding or discharge. Mucous membranes moist. NECK: Trachea midline. No JVD. CARDIOVASCULAR: Tachycardic, regular, sinus tach on the monitor rate 110s. No murmurs rubs or gallops. RESPIRATORY: Breathing comfortably with no accessory muscle use. Clear to auscultation bilaterally. On 3 L nasal cannula. GASTROINTESTINAL: Abdominal binder in place. Dressing in place over midline vertical incision. Ileostomy right abdomen, BROWN LIQUID--STOOL..ALYSA DRESSING IN PLACE . ARNOL drain left lower quadrant with serosanguineous output. G tube in place. Bowel sounds present, hypoactive. MUSCULOSKELETAL: Extremities without clubbing, cyanosis. 2+ 3 bipedal edema. NEUROLOGICAL: Sleepy but arouses to voice and is oriented x3. No obvious cranial nerve deficits. Motor grossly within normal limits. - Urinary Catheter Management Indwelling Urethral Catheter Cath placed during this visit: yes Reason for continuing: Hourly intake/output Insertion date: 12/27/17 Insertion time: 21:10 Results - Labs CBC & Chem 7: 01/02/18 05:10 01/02/18 05:10 Laboratory Results - last 24 hr 01/01/18 01/01/18 01/01/18 04:23 12:30 12:30 WBC RBC Hgb Hct MCV MCH MCHC RDW Plt Count MPV Prelim Diff (Auto) Neut % (Auto) Lymph % (Auto) [place] % (Auto) Eos % (Auto) Baso % (Auto) Neut # (Auto) Lymph # (Auto) [place] # (Auto) Eos # (Auto) Baso # (Auto) WBC Differential Seg Neuts % (Manual) Band Neuts % (Manual) Lymphocytes % (Manual) Monocytes % (Manual) Abs Neuts (Manual) Nucleated RBCs/100 WBC Differential Comment Toxic Vacuolation Platelet Estimate Platelet Morphology APTT 101.4 H* Fibrinogen 246 Sodium Potassium Chloride Carbon Dioxide Anion Gap BUN Creatinine Estimated GFR POC Glucose Random Glucose Hemoglobin A1c 5.3 Calcium Prot Corrected Calcium Phosphorus Magnesium Total Bilirubin AST ALT Alkaline Phosphatase Total Protein Albumin 01/01/18 01/01/18 01/01/18 13:44 15:23 16:57 WBC RBC Hgb Hct MCV MCH MCHC RDW Plt Count MPV Prelim Diff (Auto) Neut % (Auto) Lymph % (Auto) Montgomery % (Auto) Eos % (Auto) Baso % (Auto) Neut # (Auto) Lymph # (Auto) [place] # (Auto) Eos # (Auto) Baso # (Auto) WBC Differential Seg Neuts % (Manual) Band Neuts % (Manual) Lymphocytes % (Manual) Monocytes % (Manual) Abs Neuts (Manual) Nucleated RBCs/100 WBC Differential Comment Toxic Vacuolation Platelet Estimate Platelet Morphology APTT Fibrinogen Sodium Potassium Chloride Carbon Dioxide Anion Gap BUN Creatinine Estimated GFR POC Glucose 100 109 123 H Random Glucose Hemoglobin A1c Calcium Prot Corrected Calcium Phosphorus Magnesium Total Bilirubin AST ALT Alkaline Phosphatase Total Protein Albumin 01/01/18 01/01/18 01/01/18 16:58 18:47 18:55 WBC RBC Hgb Hct MCV MCH MCHC RDW Plt Count MPV Prelim Diff (Auto) Neut % (Auto) Lymph % (Auto) Montgomery % (Auto) Eos % (Auto) Baso % (Auto) Neut # (Auto) Lymph # (Auto) [place] # (Auto) Eos # (Auto) Baso # (Auto) WBC Differential Seg Neuts % (Manual) Band Neuts % (Manual) Lymphocytes % (Manual) Monocytes % (Manual) Abs Neuts (Manual) Nucleated RBCs/100 WBC Differential Comment Toxic Vacuolation Platelet Estimate Platelet Morphology APTT 98.3 H* 176.0 H* D Fibrinogen Sodium Potassium Chloride Carbon Dioxide Anion Gap BUN Creatinine Estimated GFR POC Glucose 125 H Random Glucose Hemoglobin A1c Calcium Prot Corrected Calcium Phosphorus Magnesium Total Bilirubin AST ALT Alkaline Phosphatase Total Protein Albumin 01/01/18 01/01/18 01/01/18 19:37 22:00 22:01 WBC RBC Hgb Hct MCV MCH MCHC RDW Plt Count MPV Prelim Diff (Auto) Neut % (Auto) Lymph % (Auto) Montgomery % (Auto) Eos % (Auto) Baso % (Auto) Neut # (Auto) Lymph # (Auto) [place] # (Auto) Eos # (Auto) Baso # (Auto) WBC Differential Seg Neuts % (Manual) Band Neuts % (Manual) Lymphocytes % (Manual) Monocytes % (Manual) Abs Neuts (Manual) Nucleated RBCs/100 WBC Differential Comment Toxic Vacuolation Platelet Estimate Platelet Morphology APTT 98.7 H* D Fibrinogen Sodium Potassium Chloride Carbon Dioxide Anion Gap BUN Creatinine Estimated GFR POC Glucose 123 H 126 H Random Glucose Hemoglobin A1c Calcium Prot Corrected Calcium Phosphorus Magnesium Total Bilirubin AST ALT Alkaline Phosphatase Total Protein Albumin 01/02/18 01/02/18 01/02/18 00:45 02:45 05:10 WBC 5.8 RBC 3.52 L Hgb 10.9 L Hct 32.0 L MCV 90.7 MCH 31.0 MCHC 34.2 RDW 17.6 H Plt Count 65 L MPV 8.4 Prelim Diff (Auto) Slide review pending Neut % (Auto) 82.7 H Lymph % (Auto) 12.7 Montgomery % (Auto) 3.8 Eos % (Auto) 0.3 Baso % (Auto) 0.5 Neut # (Auto) 4.8 Lymph # (Auto) 0.7 L Montgomery # (Auto) 0.2 Eos # (Auto) 0.0 Baso # (Auto) 0.0 WBC Differential Manual diff final Seg Neuts % (Manual) 80 H Band Neuts % (Manual) 13 H Lymphocytes % (Manual) 5 L Monocytes % (Manual) 2 Abs Neuts (Manual) 5.4 Nucleated RBCs/100 WBC 1 H Differential Comment . Toxic Vacuolation Present H Platelet Estimate Low L Platelet Morphology Normal APTT 102.7 H* 94.2 H* Fibrinogen Sodium Potassium Chloride Carbon Dioxide Anion Gap BUN Creatinine Estimated GFR POC Glucose Random Glucose Hemoglobin A1c Calcium Prot Corrected Calcium Phosphorus Magnesium Total Bilirubin AST ALT Alkaline Phosphatase Total Protein Albumin 01/02/18 01/02/18 01/02/18 05:10 05:10 08:06 WBC RBC Hgb Hct MCV MCH MCHC RDW Plt Count MPV Prelim Diff (Auto) Neut % (Auto) Lymph % (Auto) Montgomery % (Auto) Eos % (Auto) Baso % (Auto) Neut # (Auto) Lymph # (Auto) [place] # (Auto) Eos # (Auto) Baso # (Auto) WBC Differential Seg Neuts % (Manual) Band Neuts % (Manual) Lymphocytes % (Manual) Monocytes % (Manual) Abs Neuts (Manual) Nucleated RBCs/100 WBC Differential Comment Toxic Vacuolation Platelet Estimate Platelet Morphology APTT 91.2 H* Fibrinogen Sodium 138 Potassium 3.1 L Chloride 107 Carbon Dioxide 21.5 Anion Gap 10 BUN 9 Creatinine 0.88 Estimated GFR 70 L POC Glucose 82 Random Glucose 122 H Hemoglobin A1c Calcium 6.2 L* Prot Corrected Calcium 7.9 L Phosphorus 0.9 L Magnesium 2.0 D Total Bilirubin 0.9 AST 23 ALT Less than 6 L Alkaline Phosphatase 106 Total Protein 3.8 L Albumin 1.9 L 01/02/18 08:15 WBC RBC Hgb Hct MCV MCH MCHC RDW Plt Count MPV Prelim Diff (Auto) Neut % (Auto) Lymph % (Auto) Montgomery % (Auto) Eos % (Auto) Baso % (Auto) Neut # (Auto) Lymph # (Auto) [place] # (Auto) Eos # (Auto) Baso # (Auto) WBC Differential Seg Neuts % (Manual) Band Neuts % (Manual) Lymphocytes % (Manual) Monocytes % (Manual) Abs Neuts (Manual) Nucleated RBCs/100 WBC Differential Comment Toxic Vacuolation Platelet Estimate Platelet Morphology APTT 85.4 H Fibrinogen Sodium Potassium Chloride Carbon Dioxide Anion Gap BUN Creatinine Estimated GFR POC Glucose Random Glucose Hemoglobin A1c Calcium Prot Corrected Calcium Phosphorus Magnesium Total Bilirubin AST ALT Alkaline Phosphatase Total Protein Albumin - Imaging Impressions Abdomen X-Ray 01/01/18 00:00 CONCLUSION: Multiple dilated loops of bowel measuring up to 5.7 cm. - Procedures (1) Small bowel obstruction Date of procedure: 12/28/17 Procedure: dx lap ex lap small bowel resection end ileostomy extensive LEMUEL >60 minutes g tube Anesthesia: GETA Surgeon: Dg Rushing MD Estimated blood loss (mL): 100 Pathology: other (small bowel) Operation and Findings: extensive carcinomatosis multiple involved small bowel loops adhesions distal obstruction Assessment and Plan - Assessment (1) Small bowel obstruction Code(s): K56.609 - Unspecified intestinal obstruction, unspecified as to partial versus complete obstruction Status: Acute (2) Ovarian cancer Code(s): C56.9 - Malignant neoplasm of unspecified ovary Status: Chronic - Plan NEURO: Postoperative pain Dilaudid prn pain. Better controlled today 12/30. RESP: Routine airway. Nasal cannula wean as tolerated. Incentive spirometry every 2 hours while awake. CV: Monitor hemodynamics Normotensive GI: SBO s/p ex lap with partial SB resection, ileostomy, LEMUEL, G tube placement by Dr. Rushing 12/27/17. Intraperitoneal carcinomatosis GERD NPO G-tube in place. Monitor ARNOL output, management per gen surgery. Timing of diet advancement will be up to general surgery. Protonix as per below. Bowel regimen Monitor ileostomy stoma color. FEN/RENAL: Stroud in place. Monitor intake and output hourly. Check magnesium and phosphorus now and continue to monitor electrolytes and replace as indicated. ID: Perioperative cefazolin and Flagyl per general surgery. HEME: Nonocclusive thrombus left distal common femoral and proximal superficial femoral artery per u/s 12/26/17. Acute blood loss anemia Receiving 2 units packed red cells 12/28/17 per general surgery. Post-op labs pending, monitor CBC. On heparin drip per hematology recommendations. Dr. Rushing states resume heparin at 7 am 12/28/17. Resumed without bolus based on response to prior bolus , monitor to ensure she becomes therapeutic. Coagulopathy INR elevated, suspected secondary to vit K depletion due to poor po intake. Received Vitamin K 10 mg infusion 12/26 per hematology. Recurrent Ovarian Cancer Followed by Heme/onc and intraoperative neuro tech/onc Dr. James. ENDO: Added dextrose to MIVF as per above. PROPH: Heparin drip for DVT treatment/prophylaxis as per discussion above. Protonix IV for stress ulcer prophylaxis and history of GERD ACCESS: Port accessed R chest. Palliative care team was consulted by medical oncology and is following. Patients goals remain aggressive. PT AND OT TO EVAL AND TREAT AM LABS WATCH OUTPUT FOLLOW ELECTROLYTES HYPOGLYCEMIA EARLIER TODAY- HAD D50 IV HYPOMAGNESIA WILL REPLACE HYPOKALEMIA WILL REPLACE- AGAIN 01-02 HYPOPHOSPHATEMIA WILL REPLACE SEVERE PCM WILL LOW ALBUMIN AND PROTEIN STATUS CONTINUE STROUD AM LABS Full code This woman is SLOWLY recovering well following a laparotomy with small bowel resection for extensive carcinomatosis from ovarian cancer. She is tolerating liquids with normal ileostomy output. Code Status: FULL CODE Discussed Condition With: RN AND PT AND FAMILY Discharge Planning: PENDING IMPROVEMENT AND CLEARANCE BY ALL (2) Ovarian cancer Qualifiers: Laterality: bilateral Qualified Code(s): C56.1 - Malignant neoplasm of right ovary; C56.2 - Malignant neoplasm of left ovary
--- NOTE | 2018-01-02 15:05 | P.PNPAL ---
Palliative care received a call from patient's mother. She expressed question and concern regarding Ms. Gloria's overall prognosis, kidney function ( states she doesn't seem to be making much urine), and requests overall update. Family is looking into patient affairs including continuing her apartment, car payments, etc and would like a realistic expectation of prognosis, ongoing medical condition, etc. Offered emotional support through active listening. Plan for family meeting Wednesday 01/03 around 11-1130am. Palliative care will continue to follow throughout hospitalization.
[2018-01-02] MEDS: HYDROmorphone PF Inj 2 MG/ML Vial IV.PUSH PRN (16:09)
[2018-01-02] MEDS: Heparin Drip 25,000 UNIT/250 ML BAG IV.CONT PRN (17:20)
--- NOTE | 2018-01-02 18:52 | P.PNWCN ---
Wound Care Nurse Consult Description: Consult for Ostomy Management per Dr Rushing Recommendation: Please empty effluent from pouch when 1/3 to 1/2 full. Monitor stoma for color, moisture, and output. For any color other than red or pink, please notify surgeon. Please change ileostomy appliance every 3 days &PRN for leaking. Please do not reinforce with tape. Bowel Diversion Stoma - Bowel Stoma Right Lower Abdomen Stoma Appearance: Dark Red Loop Supporting Jesus: No Collection Device: Two-piece Drainage Description: Liquid, Brown, Green Keturah-Stomal Skin Appearance: Intact - Additional Information Additional Information: Ileostomy is noted on right lower quadrant. Stoma presents as dark red visible through transparent pouch. Stoma appear retracted. Appliance in place is dry and intact. Patient is not ready for teaching at this moment. Ostomy nurse will follow up for continued teaching tomorrow.
[2018-01-02] MEDS: Metoprolol Inj 5 MG/5 ML Vial IV.PUSH PRN (20:09)
[2018-01-02] MEDS: Dextrose 10% in Water Inj 500 ML IV.SIG SCH (22:46)
[2018-01-03] MEDS: ceFAZolin Inj 2,000 MG in Sodium Chlor 0.9% Inj 80 ML IV.SIG SCH ×3 (01:53→18:22)
[2018-01-03] MEDS: Dextrose 5%/Lactated Ringer's 1,000 ML IV.CONT SCH ×2 (03:19→23:58)
[2018-01-03 05:04] LABS: INR 2.3 Ratio; Prothrombin Time 23.3 sec (9.8-11.6)
[2018-01-03 05:24] LABS: Activated Partial Thrombo Time 123.4 sec (24.3-30.1)
[2018-01-03] MEDS: Ketorolac Inj 30 MG/ML (IVP) Vial IV.PUSH SCH (05:59)
[2018-01-03] MEDS ORDERED: Sodium Chlor 0.9% Inj 500 ML IV.SIG ONE (06:18)
[2018-01-03 06:27] LABS: Baso % (Auto) 0.2 % (0.0-2.0); Eos % (Auto) 0.1 % (0.0-4.0); Hematocrit 31.7 % (35.0-46.0); Hemoglobin 10.5 gm/dL (11.6-15.3); Lymph % (Auto) 14.1 % (9.0-44.0); Mean Corpuscular HGB Conc 33.2 % (32.0-36.0); Mean Corpuscular Hemoglobin 30.3 pg (27.0-34.0); Mean Corpuscular Volume 91.4 fL (80.0-100.0); Mean Platelet Volume 8.6 fL (7.0-11.0); Mono # (Auto) 0.3 th/mm3 (0.0-0.9); Mono % (Auto) 4.3 % (0.0-8.0); Neut # (Auto) 5.9 th/mm3 (1.8-7.7); Neut % (Auto) 81.3 % (16.0-70.0); Platelet Count 41 th/mm3 (150-450); Red Blood Count 3.47 mil/mm3 (4.00-5.30); White Blood Count 7.3 th/mm3 (4.0-11.0)
[2018-01-03] MEDS: Dextrose 10% in Water Inj 500 ML IV.SIG SCH ×4 (06:31→23:59)
[2018-01-03 06:55] LABS: Albumin 1.4 g/dL (3.4-5.0); Anion Gap 16 meq/L (5-15); Aspartate Aminotransferase 22 U/L (15-37); Blood Urea Nitrogen 12 mg/dL (7-18); Calcium 6.1 mg/dL (8.5-10.1); Carbon Dioxide 15.5 meq/L (21.0-32.0); Chloride 104 meq/L (98-107); Glomerular Filtration Rate 45 mL/min (>89); Glucose,Random 107 mg/dL (74-106); Magnesium 1.8 mg/dL (1.5-2.5); Potassium 3.9 meq/L (3.5-5.1); Sodium 135 meq/L (136-145)
[2018-01-03 06:57] LABS: Alkaline Phosphatase 95 U/L (45-117); Phosphorus 0.5 mg/dL (2.5-4.9); Total Protein 3.3 g/dL (6.4-8.2)
[2018-01-03 07:55] LABS: Dohle Bodies Present; Lymphocytes 4 % (9-44); Metamyelocytes 8 % (0-1); Monocytes 2 % (0-8); Plasma Cells 1 % (0-0); Tallied Nucleated RBC 1 (0-0)
[2018-01-03 07:57] LABS: Platelet Morphology Normal (Normal)
[2018-01-03] MEDS: Pantoprazole Inj 40 MG Vial IV.PUSH SCH (10:00)
[2018-01-03] MEDS: Clotrimazole 1% Cream 15 GM Tube TOPICAL SCH ×2 (10:01→23:17)
--- NOTE | 2018-01-03 12:07 | P.PNGS ---
Subjective Patient reports: still having pain (still with reflux, no vomiting) Physical Exam Vital signs: Vital Signs 01/02/18 16:00 01/02/18 20:00 01/02/18 20:07 Temperature 97.9 F 98.2 F Pulse Rate 126 H 142 H Respiratory Rate 21 14 Blood Pressure 105/63 115/75 Pulse Oximetry 98 95 93 L 01/03/18 00:00 01/03/18 04:00 01/03/18 07:53 Temperature 98.3 F 97.8 F Pulse Rate 120 H 120 H Respiratory Rate 16 16 Blood Pressure 91/66 L 86/56 L Pulse Oximetry 94 L 94 L 98 01/03/18 08:00 Temperature 98.6 F Pulse Rate 118 H Respiratory Rate 17 Blood Pressure 96/62 L Pulse Oximetry 95 Intake & Output 01/02/18 01/03/18 01/03/18 18:59 06:59 18:59 Intake Total 1740 / 1740 1900 / 1900 200 / 200 Output Total 1930 / 1930 1025 / 1025 Balance -190 / -190 875 / 875 200 / 200 Weight 101 kg Intake: IV 1740 / 1740 1800 / 1800 200 / 200 Heparin/D5W 25,000 U/250 mL 25, 240 / 240 000 unit In 250 ml @ 1,700 UNITS/HR 17 mls/hr IV.CONT TITRATE PRN Rx#:[id number] D10W Inj 1,000 ML @ 100 mls/hr 1000 / 1000 1000 / 1000 IV.SIG .Q10H AMIRA Rx#:[id number] D10W Inj 500 ML @ 100 mls/hr IV 500 / 500 .SIG .Q5H AMIRA Rx#:[id number] KCl 40 mEq Premix Inj 40 meq In 200 / 200 100 ml @ 25 mls/hr IV.SIG Q2H PRN Rx#:[id number] Ancef Inj 2,000 MG In NS Inj 80 200 / 200 100 / 100 100 / 100 ML @ 200 mls/hr IV.SIG Q8H AMIRA Rx#:[id number] Flagyl 500 MG Inj 100 ML @ 100 100 / 100 200 / 200 100 / 100 mls/hr IV.SIG Q8H AMIRA Rx#: [id number] Oral 100 / 100 Output: Urine Amount (Catheter) 180 / 180 125 / 125 Indwelling Urethral Catheter 180 / 180 125 / 125 Stool Amount (Stoma) 750 / 750 Right Lower Abdomen 750 / 750 Wound Drainage 1000 / 1000 900 / 900 # 1 Abdomen 1000 / 1000 900 / 900 Other: Date of Last Bowel Movement 01/01/18 01/01/18 - Routine Abdominal Exam Present: soft (humberto still high output, ostomy dark pink) - Urinary Catheter Management Indwelling Urethral Catheter Cath placed during this visit: yes Reason for continuing: Hourly intake/output Insertion date: 12/27/17 Insertion time: 21:10 Assessment and Plan - Assessment (1) Small bowel obstruction Code(s): K56.609 - Unspecified intestinal obstruction, unspecified as to partial versus complete obstruction Status: Acute Plan: 42 year old female with ovarian cancer; small bowel obstruction, s/p dx lap, ex lap perlita, sb resection ileostomy, g tube, ostomy dark, digitalized this am- patent stool in bag us shows non occlusive dvt - g tube to gravity bag for 24 hours to see if symptom improvement -OOB to chair, encourage ambulation with PT today- re emphysized the need to be oob - keep in icu- - abx -heparin gtt per heme, monitor for post op bleeding- defer to heme low plts, consider sobia panel if continuing to drop - diet- ok for fulls slowly advance - palliative care following- await further recs today -case mgnt planning today - HUMBERTO to wall suction (2) Ileostomy, has currently Code(s): Z93.2 - Ileostomy status Status: Acute (3) Urine output low Code(s): R34 - Anuria and oliguria Status: Acute
--- NOTE | 2018-01-03 13:05 | P.PNONC ---
Subjective Interval history: Patient lying in bed, lethargic. Wakes to verbal stimuli, reports that she does not feel good, stating "I cannot really explain it". She then falls back to sleep and does not answer any further questions. Patient's mother is at the bedside and we have discussed anticoagulation for DVT. All questions were answered. Objective Vital Signs/Intake & Output: Vital Signs 01/02/18 16:00 01/02/18 20:00 01/02/18 20:07 Temperature 97.9 F 98.2 F Pulse Rate 126 H 142 H Respiratory Rate 21 14 Blood Pressure 105/63 115/75 Pulse Oximetry 98 95 93 L 01/03/18 00:00 01/03/18 04:00 01/03/18 07:53 Temperature 98.3 F 97.8 F Pulse Rate 120 H 120 H Respiratory Rate 16 16 Blood Pressure 91/66 L 86/56 L Pulse Oximetry 94 L 94 L 98 01/03/18 08:00 01/03/18 12:00 Temperature 98.6 F 97.6 F Pulse Rate 118 H 114 H Respiratory Rate 17 17 Blood Pressure 96/62 L 85/54 L Pulse Oximetry 95 100 Intake & Output 01/02/18 01/03/18 01/03/18 18:59 06:59 18:59 Intake Total 1740 / 1740 1900 / 1900 700 / 700 Output Total 1930 / 1930 1025 / 1025 Balance -190 / -190 875 / 875 700 / 700 Weight 101 kg Intake: IV 1740 / 1740 1800 / 1800 700 / 700 Heparin/D5W 25,000 U/250 mL 25, 240 / 240 000 unit In 250 ml @ 1,700 UNITS/HR 17 mls/hr IV.CONT TITRATE PRN Rx#:[id number] D10W Inj 1,000 ML @ 100 mls/hr 1000 / 1000 1000 / 1000 IV.SIG .Q10H AMIRA Rx#:[id number] D10W Inj 500 ML @ 100 mls/hr IV 500 / 500 500 / 500 .SIG .Q5H AMIRA Rx#:[id number] KCl 40 mEq Premix Inj 40 meq In 200 / 200 100 ml @ 25 mls/hr IV.SIG Q2H PRN Rx#:[id number] Ancef Inj 2,000 MG In NS Inj 80 200 / 200 100 / 100 100 / 100 ML @ 200 mls/hr IV.SIG Q8H AMIRA Rx#:[id number] Flagyl 500 MG Inj 100 ML @ 100 100 / 100 200 / 200 100 / 100 mls/hr IV.SIG Q8H AMIRA Rx#: [id number] Oral 100 / 100 Output: Urine Amount (Catheter) 180 / 180 125 / 125 Indwelling Urethral Catheter 180 / 180 125 / 125 Stool Amount (Stoma) 750 / 750 Right Lower Abdomen 750 / 750 Wound Drainage 1000 / 1000 900 / 900 # 1 Abdomen 1000 / 1000 900 / 900 Other: Date of Last Bowel Movement 01/01/18 01/01/18 Result Diagrams: 01/03/18 06:00 01/03/18 06:00 Laboratory Results: Laboratory Results - last 24 hr 01/02/18 01/02/18 01/03/18 18:05 23:59 02:02 WBC RBC Hgb Hct MCV MCH MCHC RDW Plt Count MPV Prelim Diff (Auto) Neut % (Auto) Lymph % (Auto) [place] % (Auto) Eos % (Auto) Baso % (Auto) Neut # (Auto) Lymph # (Auto) [place] # (Auto) Eos # (Auto) Baso # (Auto) WBC Differential Seg Neuts % (Manual) Band Neuts % (Manual) Lymphocytes % (Manual) Monocytes % (Manual) Metamyelocytes % (Man) Plasma Cell % (Manual) Abs Neuts (Manual) Nucleated RBCs/100 WBC Differential Comment Dohle Bodies Platelet Estimate Platelet Morphology PT INR APTT Greater than 277.5 H* 112.7 H* D Sodium Potassium 4.1 D Chloride Carbon Dioxide Anion Gap BUN Creatinine Estimated GFR Random Glucose Calcium Prot Corrected Calcium Phosphorus Magnesium Total Bilirubin AST ALT Alkaline Phosphatase Total Protein Albumin 01/03/18 01/03/18 01/03/18 04:40 06:00 06:00 WBC 7.3 RBC 3.47 L Hgb 10.5 L Hct 31.7 L MCV 91.4 MCH 30.3 MCHC 33.2 RDW 18.0 H Plt Count 41 L D MPV 8.6 Prelim Diff (Auto) Slide review pending Neut % (Auto) 81.3 H Lymph % (Auto) 14.1 [place] % (Auto) 4.3 Eos % (Auto) 0.1 Baso % (Auto) 0.2 Neut # (Auto) 5.9 Lymph # (Auto) 1.0 [place] # (Auto) 0.3 Eos # (Auto) 0.0 Baso # (Auto) 0.0 WBC Differential Manual diff final Seg Neuts % (Manual) 57 Band Neuts % (Manual) 28 H Lymphocytes % (Manual) 4 L Monocytes % (Manual) 2 Metamyelocytes % (Man) 8 H Plasma Cell % (Manual) 1 H Abs Neuts (Manual) 6.8 Nucleated RBCs/100 WBC 1 H Differential Comment . Dohle Bodies Present H Platelet Estimate Low L Platelet Morphology Normal PT 23.3 H INR 2.3 APTT 123.4 H* Sodium 135 L Potassium 3.9 Chloride 104 Carbon Dioxide 15.5 L Anion Gap 16 H BUN 12 Creatinine 1.31 H Estimated GFR 45 L Random Glucose 107 H Calcium 6.1 L* Prot Corrected Calcium 8.1 L Phosphorus 0.5 L Magnesium 1.8 Total Bilirubin 1.1 H AST 22 ALT Less than 6 L Alkaline Phosphatase 95 Total Protein 3.3 L Albumin 1.4 L 01/03/18 01/03/18 01/03/18 06:00 08:20 10:12 WBC RBC Hgb Hct MCV MCH MCHC RDW Plt Count MPV Prelim Diff (Auto) Neut % (Auto) Lymph % (Auto) [place] % (Auto) Eos % (Auto) Baso % (Auto) Neut # (Auto) Lymph # (Auto) [place] # (Auto) Eos # (Auto) Baso # (Auto) WBC Differential Seg Neuts % (Manual) Band Neuts % (Manual) Lymphocytes % (Manual) Monocytes % (Manual) Metamyelocytes % (Man) Plasma Cell % (Manual) Abs Neuts (Manual) Nucleated RBCs/100 WBC Differential Comment Dohle Bodies Platelet Estimate Platelet Morphology PT INR APTT 121.1 H* 126.5 H* 131.2 H* Sodium Potassium Chloride Carbon Dioxide Anion Gap BUN Creatinine Estimated GFR Random Glucose Calcium Prot Corrected Calcium Phosphorus Magnesium Total Bilirubin AST ALT Alkaline Phosphatase Total Protein Albumin Medications: Active Medications Generic Name Dose Route Start Last Admin Trade Name Freq PRN Reason Stop Dose Admin Al Hydrox/Mg Hydrox/Simethicone 30 ml 01/01/18 00:14 01/01/18 19:54 Mag-Al Plus Susp Liq PO 30 ml Q6H PRN Administration HEARTBURN Clotrimazole 1 applicatio 12/26/17 09:00 01/03/18 10:01 Lotrimin 1% Cream TOPICAL 1 applicatio BID AMIRA Administration Hydromorphone HCl 1 mg 12/28/17 03:31 12/31/17 23:55 Dilaudid Pf Inj IV.PUSH 1 mg Q4H PRN Administration pain 4-6 Hydromorphone HCl 2 mg 12/28/17 03:32 01/02/18 16:09 Dilaudid Pf Inj IV.PUSH 2 mg Q4H PRN Administration pain 8-10 Metronidazole/Sodium Chloride 100 mls @ 100 mls/hr 12/28/17 02:00 01/03/18 11 :00 Flagyl 500 Mg Inj IV.SIG Infused Q8H AMIRA Infusion Cefazolin Sodium 2,000 mg/ 100 mls @ 200 mls/hr 12/28/17 02:00 01/03/18 10:30 Sodium Chloride IV.SIG Infused Q8H AMIRA Infusion Dextrose/Lactated Ringer's 1,000 mls @ 100 mls/hr 12/28/17 02:30 01/03/18 03: 19 D5w/Lr Inj IV.CONT Not Given .Q10H AMIRA Magnesium Sulfate Inj 4 gm/ 100 mls @ 50 mls/hr 12/28/17 02:51 12/28/17 08:16 Sodium Chloride IV.SIG Infused UNSCH PRN Infusion For Magnesium 0.9 - 1.1 mg/dL Potassium Chloride 40 meq in 100 mls @ 25 mls/hr 12/28/17 02:51 01/02/18 14: 30 Kcl 40 Meq Premix Inj IV.SIG Infused Q2H PRN Infusion For Potassium 2.8 - 3.2 mEq/L Heparin Sodium/Dextrose 25,000 unit in 250 mls @ 17 mls/hr 12/28/17 07:00 00:30 Heparin/D5w 25,000 U/250 Ml IV.CONT 0 units/hr TITRATE PRN 0 mls/hr Per Protocol Titration Protocol 1,700 UNITS/HR Sodium Chloride 1,000 mls @ 100 mls/hr 12/31/17 12:15 01/01/18 18:46 Ns Inj IV.CONT Infused .Q10H AMIRA Infusion Dextrose 500 mls @ 100 mls/hr 01/02/18 22:45 01/03/18 12:37 D10w Inj IV.SIG 100 mls/hr .Q5H AMIRA Administration Lorazepam 0.5 mg 12/27/17 07:52 01/02/18 11:04 Ativan Inj IV.PUSH 0.5 mg Q6H PRN Administration ANXIETY Metoclopramide HCl 10 mg 01/02/18 09:00 01/03/18 09:59 Reglan Inj IV.PUSH 10 mg Q6H AMIRA Administration Metoprolol Tartrate 5 mg 01/02/18 19:07 01/02/18 20:09 Lopressor Inj IV.PUSH 5 mg Q6H PRN Administration SEE LABEL COMMENTS Ondansetron HCl 4 mg 12/18/17 17:59 01/02/18 09:48 Zofran Inj IV.PUSH 4 mg Q6H PRN Administration NAUSEA OR VOMITING Padimate O 1 applicatio 12/25/17 00:32 12/28/17 08:31 Chapstick TOPICAL 1 applicatio UNSCH PRN Administration DRY LIPS Pantoprazole Sodium 40 mg 12/20/17 11:00 01/03/18 10:00 Protonix Inj IV.PUSH 40 mg Q12H AMIRA Administration Simethicone 80 mg 12/30/17 16:43 01/01/18 21:46 Mylicon Chew PO 80 mg Q8H PRN Administration BLOATING Sodium Chloride 2 ml 12/18/17 12:58 12/26/17 22:37 Ns Flush IV.FLUSH 2 ml PRN PRN Administration FLUSH AFTER USING IV ACCESS Objective Remarks: GENERAL: Ill-appearing female patient, in no acute distress.+ Lethargic SKIN: Pale, warm and dry. HEAD: Normocephalic. EYES: No scleral icterus. No injection or drainage. NECK: Supple, trachea midline. CARDIOVASCULAR: Regular rate and rhythm without murmurs. RESPIRATORY: Anterior breath sounds equal bilaterally. No accessory muscle use. GASTROINTESTINAL: Abdomen with Velcro brace in place, ostomy to RLQ. EXTREMITIES: No cyanosis. 1+ bilateral edema. MUSCULOSKELETAL: Adequate muscle tone. NEUROLOGICAL: Lethargic, no obvious focal deficits. PSYCHIATRIC: Lethargic. Assessment/Plan (1) Ovarian cancer Code(s): C56.9 - Malignant neoplasm of unspecified ovary Status: Chronic (2) Small bowel obstruction Code(s): K56.609 - Unspecified intestinal obstruction, unspecified as to partial versus complete obstruction Status: Acute (3) DVT (deep venous thrombosis) Code(s): I82.409 - Acute embolism and thrombosis of unspecified deep veins of unspecified lower extremity Status: Acute - Plan 42-year-old female with metastatic ovarian cancer found to have a DVT. The patient had exploratory laparotomy with resection of small bowel obstruction, lysis of adhesions, ileostomy and G-tube placement on 12/27/17 1. Heparin drip currently on hold for supra therapeutic APTT, platelet count also 41,000. S/P ostomy with moderate amount of dark green liquid discharge. 2. Continue to monitor closely for bleeding. 3. Hemoglobin appears stable at 10.5. Platelets have continued to drop to 41, 000. This could be secondary to chemotherapy, given on December 15, however we need to watch this closely. Hold anticoagulation for platelet count less than 50K or for any active bleeding. (1) Ovarian cancer Qualifiers: Laterality: bilateral Qualified Code(s): C56.1 - Malignant neoplasm of right ovary; C56.2 - Malignant neoplasm of left ovary
--- NOTE | 2018-01-03 13:25 | P.PNIM ---
Subjective Interval history: 12/28: 42-year-old female with past medical history of stage IIIc ovarian cancer (poorly differentiated adenocarcinoma) diagnosed in 06/2014 who underwent systemic chemotherapy and then RIRI and BSO with omentectomy in 2014. She underwent postoperative chemotherapy and then was in remission about 18 months when she developed recurrence treated with multiple chemo regimens. Prior to admission, she had received paclitaxel and Avastin started 12/15/17. She was admitted 12/18/17 after she presented with 1 week history of abdominal distension, obstipation and emesis with feculent odor. CT findings were consistent with SBO and previously diagnosed intraperitoneal carcinomatosis. She was managed conservatively with NGT but did not improve and diagnostic lap was planned. Meanwhile, she had BLE u/s on 12/26 that showed nonocclusive thrombus of the left distal common femoral and proximal superficial femoral veins. She was started on heparin drip and surgery was postponed pending 24 hours of heparin. She has now undergone ex lap with resection of distal small bowel, end-ileostomy, lysis of adhesions and evacuation of 4.5 L of ascites, G tube placement. Critical care management sent has been consulted to assist with her care. She received 2700 of crystalloid intraoperatively. EBL was 200. Urine output was 180. She was extubated in OR and is groggy post- extubation. She complains of 8/10 abdominal pain. Her hgb is 9.2 from 12.5 pre- op and she is receiving 2 units PRBC per surgery. Denies CP/SOB. 12/29: Normotensive. Breathing with relative comfort restricted minimally by abdominal pain. Hemoglobin 14, creatinine 0.6. Ileostomy stoma is pink and well-perfused. 12/30: Pain well controlled. Breathing comfortably. Hemoglobin stable. Patient is expressing her desire to get strong and undergo another round of chemotherapy. PTT is in therapeutic range on continuous infusion heparin drip, made necessary by left leg femoral venous thrombus. Ileostomy output is large and urine output dropping, will increase IV fluids until PO intake improves. - TRANSFERRED BACK TO OUR SERVICE TODAY POOR ORAL INTAKE GOOD OUTPUT FROM ILEOSTOMY DW RN AND PT AM LABS INCREASE ACTIVITY PT AND OT 8-20 PATIENT HAD ISSUES WITH HYPOGLYCEMIA TODAY POOR URINE OUTPUT EVEN WITH ALBUMIN MAY NEED LOW DOSE LASIX HAS HYPOKALEMIA AND HYPOMAGNESIA AND HYPOPHOSPHATEMIA WILL REPLACE AM LABS HAS SOME ABDOMINAL PAIN HAVING OUTPUT THRU OSTOMY BUT BLOOD TINGED DW RN AND PT AND FAMILY AM LABS 01-02 NO HYPOGLYCEMIA TODAY DIET PER SURGERY SOME TACHYCARDIA HYPOKALEMIA WILL REPLACE OUTPUT THROUGH OSTOMY DW RN AND PT AND FAMILY AM LABS 01-03 has ARNOL TO WALL SUCTION FAMILY MET WITH PALLIATIVE CARE TODAY G TUBE TO GRAVITY NO ORAL INTAKE RENAL INSUFFICIENCY STILL HAVING SOME OUTPUT FROM OSTOMY DOES NOT FEEL WELL VERY LETHARGIC IS THIRD SPACING WORSE DW RN AND PT RESTART ALBUMIN, LASIX AND IV NS Physical Exam Vital signs: Vital Signs 01/02/18 16:00 01/02/18 20:00 01/02/18 20:07 Temperature 97.9 F 98.2 F Pulse Rate 126 H 142 H Respiratory Rate 21 14 Blood Pressure 105/63 115/75 Pulse Oximetry 98 95 93 L 01/03/18 00:00 01/03/18 04:00 01/03/18 07:53 Temperature 98.3 F 97.8 F Pulse Rate 120 H 120 H Respiratory Rate 16 16 Blood Pressure 91/66 L 86/56 L Pulse Oximetry 94 L 94 L 98 01/03/18 08:00 01/03/18 12:00 Temperature 98.6 F 97.6 F Pulse Rate 118 H 114 H Respiratory Rate 17 17 Blood Pressure 96/62 L 85/54 L Pulse Oximetry 95 100 Intake & Output 01/02/18 01/03/18 01/03/18 18:59 06:59 18:59 Intake Total 1740 / 1740 1900 / 1900 700 / 700 Output Total 1930 / 1930 1025 / 1025 Balance -190 / -190 875 / 875 700 / 700 Weight 101 kg Intake: IV 1740 / 1740 1800 / 1800 700 / 700 Heparin/D5W 25,000 U/250 mL 25, 240 / 240 000 unit In 250 ml @ 1,700 UNITS/HR 17 mls/hr IV.CONT TITRATE PRN Rx#:[id number] D10W Inj 1,000 ML @ 100 mls/hr 1000 / 1000 1000 / 1000 IV.SIG .Q10H AMIRA Rx#:[id number] D10W Inj 500 ML @ 100 mls/hr IV 500 / 500 500 / 500 .SIG .Q5H AMIRA Rx#:[id number] KCl 40 mEq Premix Inj 40 meq In 200 / 200 100 ml @ 25 mls/hr IV.SIG Q2H PRN Rx#:[id number] Ancef Inj 2,000 MG In NS Inj 80 200 / 200 100 / 100 100 / 100 ML @ 200 mls/hr IV.SIG Q8H AMIRA Rx#:[id number] Flagyl 500 MG Inj 100 ML @ 100 100 / 100 200 / 200 100 / 100 mls/hr IV.SIG Q8H AMIRA Rx#: [id number] Oral 100 / 100 Output: Urine Amount (Catheter) 180 / 180 125 / 125 Indwelling Urethral Catheter 180 / 180 125 / 125 Stool Amount (Stoma) 750 / 750 Right Lower Abdomen 750 / 750 Wound Drainage 1000 / 1000 900 / 900 # 1 Abdomen 1000 / 1000 900 / 900 Other: Date of Last Bowel Movement 01/01/18 01/01/18 Narrative: GENERAL: THIRD-SPACING ALL OVER -patient, pale appearing, laying in PACU bed, sleepy but arouses to voice. SKIN: Warm and dry. Port accessed R chest. HEAD: Atraumatic. Normocephalic. EYES: Pupils equal and round, 2mm and sluggishly reactive bilateral. No scleral icterus. No injection or drainage. ENT: No nasal bleeding or discharge. Mucous membranes moist. NECK: Trachea midline. No JVD. CARDIOVASCULAR: Tachycardic, regular, sinus tach on the monitor rate 110s. No murmurs rubs or gallops. RESPIRATORY: Breathing comfortably with no accessory muscle use. Clear to auscultation bilaterally. On 3 L nasal cannula. GASTROINTESTINAL: Abdominal binder in place. Dressing in place over midline vertical incision. Ileostomy right abdomen, BROWN LIQUID--STOOL..ALYSA DRESSING IN PLACE . ARNOL drain left lower quadrant with serosanguineous output. G tube in place TO GRAVITY. Bowel sounds present, hypoactive. MUSCULOSKELETAL: Extremities without clubbing, cyanosis. PLUS 4 PITTING edema. NEUROLOGICAL: Sleepy but arouses to voice and VERY LETHARGIC. No obvious cranial nerve deficits. Motor grossly within normal limits. - Urinary Catheter Management Indwelling Urethral Catheter Cath placed during this visit: yes Reason for continuing: Hourly intake/output Insertion date: 12/27/17 Insertion time: 21:10 Results - Labs CBC & Chem 7: 01/03/18 06:00 01/03/18 06:00 Laboratory Results - last 24 hr 01/02/18 01/02/18 01/03/18 18:05 23:59 02:02 WBC RBC Hgb Hct MCV MCH MCHC RDW Plt Count MPV Prelim Diff (Auto) Neut % (Auto) Lymph % (Auto) [place] % (Auto) Eos % (Auto) Baso % (Auto) Neut # (Auto) Lymph # (Auto) [place] # (Auto) Eos # (Auto) Baso # (Auto) WBC Differential Seg Neuts % (Manual) Band Neuts % (Manual) Lymphocytes % (Manual) Monocytes % (Manual) Metamyelocytes % (Man) Plasma Cell % (Manual) Abs Neuts (Manual) Nucleated RBCs/100 WBC Differential Comment Dohle Bodies Platelet Estimate Platelet Morphology PT INR APTT Greater than 277.5 H* 112.7 H* D Sodium Potassium 4.1 D Chloride Carbon Dioxide Anion Gap BUN Creatinine Estimated GFR Random Glucose Calcium Prot Corrected Calcium Phosphorus Magnesium Total Bilirubin AST ALT Alkaline Phosphatase Total Protein Albumin 01/03/18 01/03/18 01/03/18 04:40 06:00 06:00 WBC 7.3 RBC 3.47 L Hgb 10.5 L Hct 31.7 L MCV 91.4 MCH 30.3 MCHC 33.2 RDW 18.0 H Plt Count 41 L D MPV 8.6 Prelim Diff (Auto) Slide review pending Neut % (Auto) 81.3 H Lymph % (Auto) 14.1 [place] % (Auto) 4.3 Eos % (Auto) 0.1 Baso % (Auto) 0.2 Neut # (Auto) 5.9 Lymph # (Auto) 1.0 [place] # (Auto) 0.3 Eos # (Auto) 0.0 Baso # (Auto) 0.0 WBC Differential Manual diff final Seg Neuts % (Manual) 57 Band Neuts % (Manual) 28 H Lymphocytes % (Manual) 4 L Monocytes % (Manual) 2 Metamyelocytes % (Man) 8 H Plasma Cell % (Manual) 1 H Abs Neuts (Manual) 6.8 Nucleated RBCs/100 WBC 1 H Differential Comment . Dohle Bodies Present H Platelet Estimate Low L Platelet Morphology Normal PT 23.3 H INR 2.3 APTT 123.4 H* Sodium 135 L Potassium 3.9 Chloride 104 Carbon Dioxide 15.5 L Anion Gap 16 H BUN 12 Creatinine 1.31 H Estimated GFR 45 L Random Glucose 107 H Calcium 6.1 L* Prot Corrected Calcium 8.1 L Phosphorus 0.5 L Magnesium 1.8 Total Bilirubin 1.1 H AST 22 ALT Less than 6 L Alkaline Phosphatase 95 Total Protein 3.3 L Albumin 1.4 L 01/03/18 01/03/18 01/03/18 06:00 08:20 10:12 WBC RBC Hgb Hct MCV MCH MCHC RDW Plt Count MPV Prelim Diff (Auto) Neut % (Auto) Lymph % (Auto) [place] % (Auto) Eos % (Auto) Baso % (Auto) Neut # (Auto) Lymph # (Auto) [place] # (Auto) Eos # (Auto) Baso # (Auto) WBC Differential Seg Neuts % (Manual) Band Neuts % (Manual) Lymphocytes % (Manual) Monocytes % (Manual) Metamyelocytes % (Man) Plasma Cell % (Manual) Abs Neuts (Manual) Nucleated RBCs/100 WBC Differential Comment Dohle Bodies Platelet Estimate Platelet Morphology PT INR APTT 121.1 H* 126.5 H* 131.2 H* Sodium Potassium Chloride Carbon Dioxide Anion Gap BUN Creatinine Estimated GFR Random Glucose Calcium Prot Corrected Calcium Phosphorus Magnesium Total Bilirubin AST ALT Alkaline Phosphatase Total Protein Albumin - Imaging Chest X-Ray 12/18/17 00:00 CONCLUSION: Significant elevation of the left hemidiaphragm and submaximal inspiration both lungs. Abdomen/Pelvis CT 12/18/17 12:58 CONCLUSION: 1. Compared with October 28 there is interval development of small bowel dilatation to about 5.5 cm with distal terminal ileum and colonic decompression characteristic of a distal small bowel obstruction. 2. Multiloculated ascites is similar in appearance to prior exam. 3. Previous right pleural effusion has decreased in size. 4. Increase in fatty infiltration of the liver since October 28. Abdomen X-Ray 12/19/17 00:00 CONCLUSION: Dilated small bowel loops in the left abdomen again seen. Small Bowel X-Ray 12/20/17 00:00 CONCLUSION: Small bowel obstruction. Abdomen X-Ray 12/21/17 00:00 CONCLUSION: Findings typical of high-grade small bowel obstruction again noted. Still no contrast convincingly seen in the colon. Venous Doppler Study 12/26/17 00:00 CONCLUSION: 1. Nonocclusive thrombus in the very distal aspect of the left common femoral vein extending into the proximal superficial femoral vein. 2. Deep venous system is otherwise patent. No SVT. Abdomen X-Ray 12/26/17 06:00 CONCLUSION: Residual contrast in large bowel. Abdomen X-Ray 01/01/18 00:00 CONCLUSION: Multiple dilated loops of bowel measuring up to 5.7 cm. - Procedures (1) Small bowel obstruction Date of procedure: 12/28/17 Procedure: dx lap ex lap small bowel resection end ileostomy extensive LEMUEL >60 minutes g tube Anesthesia: GETA Surgeon: Dg Rushing MD Estimated blood loss (mL): 100 Pathology: other (small bowel) Operation and Findings: extensive carcinomatosis multiple involved small bowel loops adhesions distal obstruction Assessment and Plan - Assessment (1) Small bowel obstruction Code(s): K56.609 - Unspecified intestinal obstruction, unspecified as to partial versus complete obstruction Status: Acute (2) Ovarian cancer Code(s): C56.9 - Malignant neoplasm of unspecified ovary Status: Chronic - Plan NEURO: Postoperative pain Dilaudid prn pain. Better controlled today 12/30. RESP: Routine airway. Nasal cannula wean as tolerated. Incentive spirometry every 2 hours while awake. CV: Monitor hemodynamics Normotensive GI: SBO s/p ex lap with partial SB resection, ileostomy, LEMUEL, G tube placement by Dr. Rushing 12/27/17. Intraperitoneal carcinomatosis GERD NPO G-tube in place. Monitor ARNOL output, management per gen surgery. Timing of diet advancement will be up to general surgery. Protonix as per below. Bowel regimen Monitor ileostomy stoma color. NO ORAL INTAKE SOME OUTPUT DARK URINE FEN/RENAL: [place] in place. Monitor intake and output hourly. Check magnesium and phosphorus now and continue to monitor electrolytes and replace as indicated. DARK URINE DECREASED URINE OUTPUT ON D10 AT 100ML/HOUR NEEDS MORE ALBUMIN AND FLUIDS THIRD-SPACING ID: Perioperative cefazolin and Flagyl per general surgery. HEME: Nonocclusive thrombus left distal common femoral and proximal superficial femoral artery per u/s 12/26/17. Acute blood loss anemia Receiving 2 units packed red cells 12/28/17 per general surgery. Post-op labs pending, monitor CBC. On heparin drip per hematology recommendations. Dr. Rushing states resume heparin at 7 am 12/28/17. Resumed without bolus based on response to prior bolus , monitor to ensure she becomes therapeutic. Coagulopathy INR elevated, suspected secondary to vit K depletion due to poor po intake. Received Vitamin K 10 mg infusion 12/26 per hematology. 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 James. ENDO: Added dextrose to MIVF as per above. PROPH: Heparin drip for DVT treatment/prophylaxis as per discussion above. Protonix IV for stress ulcer prophylaxis and history of GERD ACCESS: Port accessed R chest. Palliative care team was consulted by medical oncology and is following. Patients goals remain aggressive. PT AND OT TO EVAL AND TREAT AM LABS WATCH OUTPUT FOLLOW ELECTROLYTES HYPOGLYCEMIA EARLIER TODAY- HAD D50 IV HYPOMAGNESIA WILL REPLACE HYPOKALEMIA WILL REPLACE- AGAIN 01-02 HYPOPHOSPHATEMIA WILL REPLACE SEVERE PCM WILL LOW ALBUMIN AND PROTEIN STATUS CONTINUE STROUD AM LABS Full code Code Status: FULL CODE Discussed Condition With: RN AND PT Discharge Planning: PENDING IMPROVEMENT AND CLEARANCE BY ALL (2) Ovarian cancer Qualifiers: Laterality: bilateral Qualified Code(s): C56.1 - Malignant neoplasm of right ovary; C56.2 - Malignant neoplasm of left ovary
[2018-01-03] MEDS: HYDROmorphone PF Inj 2 MG/ML Vial IV.PUSH PRN (13:37)
[2018-01-03] MEDS: Sod Chloride 0.9% Inj 1,000 ML IV.CONT SCH (13:40)
[2018-01-03] MEDS: Albumin Human 25% Inj 50 ML IV.SIG SCH ×2 (13:40→21:12)
--- NOTE | 2018-01-03 16:39 | P.PNWCN ---
Wound Care Nurse Consult Description: Consult for Ostomy Management per Dr Rushing Communicated with: Patient mother at bedside Recommendation: Please empty effluent from pouch when 1/3 to 1/2 full. Monitor stoma for color, moisture, and output. For any color other than red or pink, please notify surgeon. Please change ileostomy appliance every 3 days &PRN for leaking. Please do not reinforce with tape. Additional information: Patient seen on for ostomy assessment. Incision - Incision Midline Abdomen Other Cover Dressing: López Bowel Diversion Stoma - Additional Information Additional Information: Ileostomy was just emptied by RN prior to arrival. Appliance intact.
--- NOTE | 2018-01-03 19:04 | P.PNPAL ---
Reason for Visit Reason for visit: a. To assist with evaluation and management of symptoms including: pain, weakness. b. To assist medical decision maker(s) with: better understanding of current medical conditions; weighing benefits/burdens of medical treatment options; making medical treatment decisions. Subjective Subjective/Interval History: Patient seen in ICU. Mother, Niesha at bedside who requested meeting to today to discuss prognosis. Also present [facility] LCSW. Discussed with nurse at bedside. POD # 6 diagnostic laparoscopy, exploratory laparotomy, small bowel resection, end ileostomy, lysis of adhesions, evacuation of 4L ascites and gastrostomy tube placement. Patient is asleep during my visit. She does not arouse to conversation in room. Nurse reports she has been sleepy in the mornings, more alert during the afternoon. She had a dose of hydromorphone overnight, no pain medication during day shift today. Nurse indicates patient reported no significant relief in abdominal pain with Toradol, which was previously controlling pain. She has been complaining of a reflux type upper quadrant pain. G. tube to gravity for 24 hours per general surgery recommendations in attempt to relieve pain. Only eating drinking bites/ sips. No reported nausea or vomiting. Ostomy patent. Patient has been getting out of bed to chair in afternoon otherwise spending much time in bed sleeping per nursing and family report. She has generalized edema. Decreased urine output. Clinical data: * Afebrile. Heart rate 120s, respiratory rate 18, blood pressure 96/6. * WBC 7.3, hemoglobin 10.5, hematocrit 31.7, platelet 41 (dropping), neutrophil 81.3% * APTT 129.1 * Sodium 135, potassium 3.9, chloride 104, carbon dioxide 15.5, BUN 12, creatinine 1.31, GFR 45, calcium 6.1, protein corrected calcium 8.1, phosphorus 0.5, magnesium 1.8 * Total bilirubin 1.1, AST 22, ALT less than 6, alkaline phosphatase 95 * Total protein 3.3, albumin 1.4 Will continue to follow. Family/Friend Interactions: [facility] and I met with patient's mother outside of room. She is asking appropriate questions regarding overall prognosis. She requests that the medical team again be honest with her. Reviewed my conversation with [facility] oncology regarding prognosis. Patient has likely limited life expectancy even in best case scenario. She understands cancer is not curable. I reviewed concern that Jocelyn will not be able to return to treatment. Advised we are concerned about decreased UOP and will need to monitor renal function closely. I again promised her I would be honest if and when I thought Jocelyn is dying and time to transition to comfort. I explained time will answer these hard questions. I encouraged giving her a few more days as some of problems Jocelyn is having are part of the post operative recovery though are complicated by ovarian cancer. We agreed to monitor on a daily basis and reevaluate as condition changes. She is concerned about what to do with Jocelyn's apartment and car, concerned she will not be able to return home which I believe is realistic. She is going to speak with the landlord to see if they can do a month to month lease for now. Will provide a letter if needed. She will also try to speak with Jocelyn about her wishes to allow her to maintain some level of control. For now goals remain aggressive. Mother has a realistic understanding of condition and wants to give her a chance. She also wants to honor her wish to NOT in the hospital should her condition worsen. She is appreciative of continued palliative care visits and support. Number previously provided. Advance Directives Health Care Surrogate: Copy in medical record Advance Directives Date on File: 12/29/17 Health Care Surrogate Name and Number: Niesha Gloria [phone] (primary [facility] ) Charley Chapman [phone]([facility]) Documented care wishes:: Patient is currently capacitated to make her own health care decisions. Should she lose capacity she completed Healthcare Power of Intern on 12/29/17, copy scanned into EMR. Designated health care agent Niesha Gloria as primary and Charley Chapman as alternate healthcare agent. Significant change in goals:: FULL CODE. Goals remain aggressive in hopes to recovery from surgery, in hopes to restart chemo. Patient and family have a good understanding of condition, possible obstacles and that patient has a terminal condition. Objective Vital Signs: Vital Signs 01/02/18 20:00 01/02/18 20:07 01/03/18 00:00 Temperature 98.2 F 98.3 F Pulse Rate 142 H 120 H Respiratory Rate 14 16 Blood Pressure 115/75 91/66 L Pulse Oximetry 95 93 L 94 L 01/03/18 04:00 01/03/18 07:53 01/03/18 08:00 Temperature 97.8 F 98.6 F Pulse Rate 120 H 118 H Respiratory Rate 16 17 Blood Pressure 86/56 L 96/62 L Pulse Oximetry 94 L 98 95 01/03/18 12:00 01/03/18 16:00 Temperature 97.6 F 98.2 F Pulse Rate 114 H 121 H Respiratory Rate 17 18 Blood Pressure 85/54 L 95/66 L Pulse Oximetry 100 99 Intake & Output 01/02/18 01/03/18 01/03/18 18:59 06:59 18:59 Intake Total 1740 / 1740 1900 / 1900 1590 / 1590 Output Total 1930 / 1930 1025 / 1025 1575 / 1575 Balance -190 / -190 875 / 875 15 / 15 Weight 101 kg Intake: IV 1740 / 1740 1800 / 1800 1250 / 1250 Heparin/D5W 25,000 U/250 mL 25, 240 / 240 000 unit In 250 ml @ 1,700 UNITS/HR 17 mls/hr IV.CONT TITRATE PRN Rx#:[id number] Flexbumin 25% Inj 50 ML @ 60 50 / 50 mls/hr IV.SIG Q8H AMIRA Rx#: [id number] D10W Inj 1,000 ML @ 100 mls/hr 1000 / 1000 1000 / 1000 IV.SIG .Q10H AMIRA Rx#:[id number] D10W Inj 500 ML @ 100 mls/hr IV 500 / 500 1000 / 1000 .SIG .Q5H AMIRA Rx#:[id number] KCl 40 mEq Premix Inj 40 meq In 200 / 200 100 ml @ 25 mls/hr IV.SIG Q2H PRN Rx#:[id number] Ancef Inj 2,000 MG In NS Inj 80 200 / 200 100 / 100 100 / 100 ML @ 200 mls/hr IV.SIG Q8H AMIRA Rx#:[id number] Flagyl 500 MG Inj 100 ML @ 100 100 / 100 200 / 200 100 / 100 mls/hr IV.SIG Q8H AMIRA Rx#: [id number] Oral 100 / 100 340 / 340 Output: Urine Amount (Catheter) 180 / 180 125 / 125 200 / 200 Indwelling Urethral Catheter 180 / 180 125 / 125 200 / 200 Stool Amount (Stoma) 750 / 750 275 / 275 Right Lower Abdomen 750 / 750 275 / 275 Gastric Drainage 400 / 400 Gastrostomy Tube (PEG) 400 / 400 Wound Drainage 1000 / 1000 900 / 900 700 / 700 # 1 Abdomen 1000 / 1000 900 / 900 700 / 700 Other: Date of Last Bowel Movement 01/01/18 01/03/18 Physical Exam: CONSTITUTIONAL/GENERAL: This is an adequately nourished patient, in no apparent distress. TUBES/LINES/DRAINS: NC, right Port, gastrostomy tube, ileostomy, ARNOL drain. SKIN: No jaundice, rashes, or lesions. Ecchymoses on upper extremities. Pale. HEAD: Hair thinning noted. EYES: eyes closed. ENT: Hearing grossly normal. dry mucous membranes. CARDIOVASCULAR: heart rate 108. RESPIRATORY/CHEST: unlabored respirations at rest. GASTROINTESTINAL: Ileostomy right abdomen. G tube, clamped. GENITOURINARY: Voiding adequately. MUSCULOSKELETAL: Extremities with edema noted. NEUROLOGICAL: Lethargic, arouses briefly. Moves all extremities. PSYCHIATRIC: Lethargic. Diagnostic Tests Laboratory: Laboratory Results - last 72 hr 01/01/18 01/01/18 01/01/18 04:23 04:23 04:23 WBC 3.4 L RBC 3.33 L Hgb 10.1 L D Hct 30.0 L MCV 90.2 MCH 30.4 MCHC 33.7 RDW 17.9 H Plt Count 69 L MPV 8.0 Prelim Diff (Auto) Slide review pending Neut % (Auto) 71.8 H Lymph % (Auto) 21.3 [place] % (Auto) 6.3 Eos % (Auto) 0.1 Baso % (Auto) 0.5 Neut # (Auto) 2.5 Lymph # (Auto) 0.7 L [place] # (Auto) 0.2 Eos # (Auto) 0.0 Baso # (Auto) 0.0 WBC Differential . Diff Scan Auto diff confirmed Seg Neuts % (Manual) Band Neuts % (Manual) Lymphocytes % (Manual) Monocytes % (Manual) Metamyelocytes % (Man) Plasma Cell % (Manual) Abs Neuts (Manual) Nucleated RBCs/100 WBC Differential Comment . Toxic Vacuolation Dohle Bodies Platelet Estimate Low L Platelet Morphology Normal Stomatocytes 3+ H PT INR APTT Fibrinogen Sodium 140 Potassium 3.5 Chloride 108 H Carbon Dioxide 23.2 Anion Gap 9 BUN 10 Creatinine 0.70 Estimated GFR Greater than 89 POC Glucose Random Glucose 67 L Hemoglobin A1c 5.3 Calcium 6.1 L* Prot Corrected Calcium 7.9 L Phosphorus 1.8 L Magnesium 1.2 L Total Bilirubin 1.1 H AST 17 ALT Less than 6 L Alkaline Phosphatase 86 Total Protein 3.6 L Albumin 1.9 L TSH 5.140 H Free T4 0.66 L 01/01/18 01/01/18 01/01/18 04:23 05:20 09:40 WBC RBC Hgb Hct MCV MCH MCHC RDW Plt Count MPV Prelim Diff (Auto) Neut % (Auto) Lymph % (Auto) [place] % (Auto) Eos % (Auto) Baso % (Auto) Neut # (Auto) Lymph # (Auto) [place] # (Auto) Eos # (Auto) Baso # (Auto) WBC Differential Diff Scan Seg Neuts % (Manual) Band Neuts % (Manual) Lymphocytes % (Manual) Monocytes % (Manual) Metamyelocytes % (Man) Plasma Cell % (Manual) Abs Neuts (Manual) Nucleated RBCs/100 WBC Differential Comment Toxic Vacuolation Dohle Bodies Platelet Estimate Platelet Morphology Stomatocytes PT INR APTT 134.0 H* D 109.2 H* 95.5 H* Fibrinogen Sodium Potassium Chloride Carbon Dioxide Anion Gap BUN Creatinine Estimated GFR POC Glucose Random Glucose Hemoglobin A1c Calcium Prot Corrected Calcium Phosphorus Magnesium Total Bilirubin AST ALT Alkaline Phosphatase Total Protein Albumin TSH Free T4 01/01/18 01/01/18 01/01/18 10:32 11:45 11:57 WBC RBC Hgb Hct MCV MCH MCHC RDW Plt Count MPV Prelim Diff (Auto) Neut % (Auto) Lymph % (Auto) [place] % (Auto) Eos % (Auto) Baso % (Auto) Neut # (Auto) Lymph # (Auto) [place] # (Auto) Eos # (Auto) Baso # (Auto) WBC Differential Diff Scan Seg Neuts % (Manual) Band Neuts % (Manual) Lymphocytes % (Manual) Monocytes % (Manual) Metamyelocytes % (Man) Plasma Cell % (Manual) Abs Neuts (Manual) Nucleated RBCs/100 WBC Differential Comment Toxic Vacuolation Dohle Bodies Platelet Estimate Platelet Morphology Stomatocytes PT INR APTT Fibrinogen Sodium Potassium Chloride Carbon Dioxide Anion Gap BUN Creatinine Estimated GFR POC Glucose 32 L* 33 L* 32 L* Random Glucose Hemoglobin A1c Calcium Prot Corrected Calcium Phosphorus Magnesium Total Bilirubin AST ALT Alkaline Phosphatase Total Protein Albumin TSH Free T4 01/01/18 01/01/18 01/01/18 12:30 12:30 13:44 WBC RBC Hgb Hct MCV MCH MCHC RDW Plt Count MPV Prelim Diff (Auto) Neut % (Auto) Lymph % (Auto) [place] % (Auto) Eos % (Auto) Baso % (Auto) Neut # (Auto) Lymph # (Auto) [place] # (Auto) Eos # (Auto) Baso # (Auto) WBC Differential Diff Scan Seg Neuts % (Manual) Band Neuts % (Manual) Lymphocytes % (Manual) Monocytes % (Manual) Metamyelocytes % (Man) Plasma Cell % (Manual) Abs Neuts (Manual) Nucleated RBCs/100 WBC Differential Comment Toxic Vacuolation Dohle Bodies Platelet Estimate Platelet Morphology Stomatocytes PT INR APTT 101.4 H* Fibrinogen 246 Sodium Potassium Chloride Carbon Dioxide Anion Gap BUN Creatinine Estimated GFR POC Glucose 100 Random Glucose Hemoglobin A1c Calcium Prot Corrected Calcium Phosphorus Magnesium Total Bilirubin AST ALT Alkaline Phosphatase Total Protein Albumin TSH Free T4 01/01/18 01/01/18 01/01/18 15:23 16:57 16:58 WBC RBC Hgb Hct MCV MCH MCHC RDW Plt Count MPV Prelim Diff (Auto) Neut % (Auto) Lymph % (Auto) [place] % (Auto) Eos % (Auto) Baso % (Auto) Neut # (Auto) Lymph # (Auto) [place] # (Auto) Eos # (Auto) Baso # (Auto) WBC Differential Diff Scan Seg Neuts % (Manual) Band Neuts % (Manual) Lymphocytes % (Manual) Monocytes % (Manual) Metamyelocytes % (Man) Plasma Cell % (Manual) Abs Neuts (Manual) Nucleated RBCs/100 WBC Differential Comment Toxic Vacuolation Dohle Bodies Platelet Estimate Platelet Morphology Stomatocytes PT INR APTT 98.3 H* Fibrinogen Sodium Potassium Chloride Carbon Dioxide Anion Gap BUN Creatinine Estimated GFR POC Glucose 109 123 H Random Glucose Hemoglobin A1c Calcium Prot Corrected Calcium Phosphorus Magnesium Total Bilirubin AST ALT Alkaline Phosphatase Total Protein Albumin TSH Free T4 01/01/18 01/01/18 01/01/18 18:47 18:55 19:37 WBC RBC Hgb Hct MCV MCH MCHC RDW Plt Count MPV Prelim Diff (Auto) Neut % (Auto) Lymph % (Auto) [place] % (Auto) Eos % (Auto) Baso % (Auto) Neut # (Auto) Lymph # (Auto) [place] # (Auto) Eos # (Auto) Baso # (Auto) WBC Differential Diff Scan Seg Neuts % (Manual) Band Neuts % (Manual) Lymphocytes % (Manual) Monocytes % (Manual) Metamyelocytes % (Man) Plasma Cell % (Manual) Abs Neuts (Manual) Nucleated RBCs/100 WBC Differential Comment Toxic Vacuolation Dohle Bodies Platelet Estimate Platelet Morphology Stomatocytes PT INR APTT 176.0 H* D Fibrinogen Sodium Potassium Chloride Carbon Dioxide Anion Gap BUN Creatinine Estimated GFR POC Glucose 125 H 123 H Random Glucose Hemoglobin A1c Calcium Prot Corrected Calcium Phosphorus Magnesium Total Bilirubin AST ALT Alkaline Phosphatase Total Protein Albumin TSH Free T4 01/01/18 01/01/18 01/02/18 22:00 22:01 00:45 WBC RBC Hgb Hct MCV MCH MCHC RDW Plt Count MPV Prelim Diff (Auto) Neut % (Auto) Lymph % (Auto) [place] % (Auto) Eos % (Auto) Baso % (Auto) Neut # (Auto) Lymph # (Auto) [place] # (Auto) Eos # (Auto) Baso # (Auto) WBC Differential Diff Scan Seg Neuts % (Manual) Band Neuts % (Manual) Lymphocytes % (Manual) Monocytes % (Manual) Metamyelocytes % (Man) Plasma Cell % (Manual) Abs Neuts (Manual) Nucleated RBCs/100 WBC Differential Comment Toxic Vacuolation Dohle Bodies Platelet Estimate Platelet Morphology Stomatocytes PT INR APTT 98.7 H* D 102.7 H* Fibrinogen Sodium Potassium Chloride Carbon Dioxide Anion Gap BUN Creatinine Estimated GFR POC Glucose 126 H Random Glucose Hemoglobin A1c Calcium Prot Corrected Calcium Phosphorus Magnesium Total Bilirubin AST ALT Alkaline Phosphatase Total Protein Albumin TSH Free T4 01/02/18 01/02/18 01/02/18 02:45 05:10 05:10 WBC 5.8 RBC 3.52 L Hgb 10.9 L Hct 32.0 L MCV 90.7 MCH 31.0 MCHC 34.2 RDW 17.6 H Plt Count 65 L MPV 8.4 Prelim Diff (Auto) Slide review pending Neut % (Auto) 82.7 H Lymph % (Auto) 12.7 [place] % (Auto) 3.8 Eos % (Auto) 0.3 Baso % (Auto) 0.5 Neut # (Auto) 4.8 Lymph # (Auto) 0.7 L [place] # (Auto) 0.2 Eos # (Auto) 0.0 Baso # (Auto) 0.0 WBC Differential Manual diff final Diff Scan Seg Neuts % (Manual) 80 H Band Neuts % (Manual) 13 H Lymphocytes % (Manual) 5 L Monocytes % (Manual) 2 Metamyelocytes % (Man) Plasma Cell % (Manual) Abs Neuts (Manual) 5.4 Nucleated RBCs/100 WBC 1 H Differential Comment . Toxic Vacuolation Present H Dohle Bodies Platelet Estimate Low L Platelet Morphology Normal Stomatocytes PT INR APTT 94.2 H* Fibrinogen Sodium 138 Potassium 3.1 L Chloride 107 Carbon Dioxide 21.5 Anion Gap 10 BUN 9 Creatinine 0.88 Estimated GFR 70 L POC Glucose Random Glucose 122 H Hemoglobin A1c Calcium 6.2 L* Prot Corrected Calcium 7.9 L Phosphorus 0.9 L Magnesium 2.0 D Total Bilirubin 0.9 AST 23 ALT Less than 6 L Alkaline Phosphatase 106 Total Protein 3.8 L Albumin 1.9 L TSH Free T4 01/02/18 01/02/18 01/02/18 05:10 08:06 08:15 WBC RBC Hgb Hct MCV MCH MCHC RDW Plt Count MPV Prelim Diff (Auto) Neut % (Auto) Lymph % (Auto) [place] % (Auto) Eos % (Auto) Baso % (Auto) Neut # (Auto) Lymph # (Auto) [place] # (Auto) Eos # (Auto) Baso # (Auto) WBC Differential Diff Scan Seg Neuts % (Manual) Band Neuts % (Manual) Lymphocytes % (Manual) Monocytes % (Manual) Metamyelocytes % (Man) Plasma Cell % (Manual) Abs Neuts (Manual) Nucleated RBCs/100 WBC Differential Comment Toxic Vacuolation Dohle Bodies Platelet Estimate Platelet Morphology Stomatocytes PT INR APTT 91.2 H* 85.4 H Fibrinogen Sodium Potassium Chloride Carbon Dioxide Anion Gap BUN Creatinine Estimated GFR POC Glucose 82 Random Glucose Hemoglobin A1c Calcium Prot Corrected Calcium Phosphorus Magnesium Total Bilirubin AST ALT Alkaline Phosphatase Total Protein Albumin TSH Free T4 01/02/18 01/02/18 01/03/18 18:05 23:59 02:02 WBC RBC Hgb Hct MCV MCH MCHC RDW Plt Count MPV Prelim Diff (Auto) Neut % (Auto) Lymph % (Auto) [place] % (Auto) Eos % (Auto) Baso % (Auto) Neut # (Auto) Lymph # (Auto) [place] # (Auto) Eos # (Auto) Baso # (Auto) WBC Differential Diff Scan Seg Neuts % (Manual) Band Neuts % (Manual) Lymphocytes % (Manual) Monocytes % (Manual) Metamyelocytes % (Man) Plasma Cell % (Manual) Abs Neuts (Manual) Nucleated RBCs/100 WBC Differential Comment Toxic Vacuolation Dohle Bodies Platelet Estimate Platelet Morphology Stomatocytes PT INR APTT Greater than 277.5 H* 112.7 H* D Fibrinogen Sodium Potassium 4.1 D Chloride Carbon Dioxide Anion Gap BUN Creatinine Estimated GFR POC Glucose Random Glucose Hemoglobin A1c Calcium Prot Corrected Calcium Phosphorus Magnesium Total Bilirubin AST ALT Alkaline Phosphatase Total Protein Albumin TSH Free T4 01/03/18 01/03/18 01/03/18 04:40 06:00 06:00 WBC 7.3 RBC 3.47 L Hgb 10.5 L Hct 31.7 L MCV 91.4 MCH 30.3 MCHC 33.2 RDW 18.0 H Plt Count 41 L D MPV 8.6 Prelim Diff (Auto) Slide review pending Neut % (Auto) 81.3 H Lymph % (Auto) 14.1 [place] % (Auto) 4.3 Eos % (Auto) 0.1 Baso % (Auto) 0.2 Neut # (Auto) 5.9 Lymph # (Auto) 1.0 [place] # (Auto) 0.3 Eos # (Auto) 0.0 Baso # (Auto) 0.0 WBC Differential Manual diff final Diff Scan Seg Neuts % (Manual) 57 Band Neuts % (Manual) 28 H Lymphocytes % (Manual) 4 L Monocytes % (Manual) 2 Metamyelocytes % (Man) 8 H Plasma Cell % (Manual) 1 H Abs Neuts (Manual) 6.8 Nucleated RBCs/100 WBC 1 H Differential Comment . Toxic Vacuolation Dohle Bodies Present H Platelet Estimate Low L Platelet Morphology Normal Stomatocytes PT 23.3 H INR 2.3 APTT 123.4 H* Fibrinogen Sodium 135 L Potassium 3.9 Chloride 104 Carbon Dioxide 15.5 L Anion Gap 16 H BUN 12 Creatinine 1.31 H Estimated GFR 45 L POC Glucose Random Glucose 107 H Hemoglobin A1c Calcium 6.1 L* Prot Corrected Calcium 8.1 L Phosphorus 0.5 L Magnesium 1.8 Total Bilirubin 1.1 H AST 22 ALT Less than 6 L Alkaline Phosphatase 95 Total Protein 3.3 L Albumin 1.4 L TSH Free T4 01/03/18 01/03/18 01/03/18 06:00 08:20 10:12 WBC RBC Hgb Hct MCV MCH MCHC RDW Plt Count MPV Prelim Diff (Auto) Neut % (Auto) Lymph % (Auto) [place] % (Auto) Eos % (Auto) Baso % (Auto) Neut # (Auto) Lymph # (Auto) [place] # (Auto) Eos # (Auto) Baso # (Auto) WBC Differential Diff Scan Seg Neuts % (Manual) Band Neuts % (Manual) Lymphocytes % (Manual) Monocytes % (Manual) Metamyelocytes % (Man) Plasma Cell % (Manual) Abs Neuts (Manual) Nucleated RBCs/100 WBC Differential Comment Toxic Vacuolation Dohle Bodies Platelet Estimate Platelet Morphology Stomatocytes PT INR APTT 121.1 H* 126.5 H* 131.2 H* Fibrinogen Sodium Potassium Chloride Carbon Dioxide Anion Gap BUN Creatinine Estimated GFR POC Glucose Random Glucose Hemoglobin A1c Calcium Prot Corrected Calcium Phosphorus Magnesium Total Bilirubin AST ALT Alkaline Phosphatase Total Protein Albumin TSH Free T4 01/03/18 01/03/18 01/03/18 12:32 14:10 14:12 WBC RBC Hgb Hct MCV MCH MCHC RDW Plt Count MPV Prelim Diff (Auto) Neut % (Auto) Lymph % (Auto) [place] % (Auto) Eos % (Auto) Baso % (Auto) Neut # (Auto) Lymph # (Auto) [place] # (Auto) Eos # (Auto) Baso # (Auto) WBC Differential Diff Scan Seg Neuts % (Manual) Band Neuts % (Manual) Lymphocytes % (Manual) Monocytes % (Manual) Metamyelocytes % (Man) Plasma Cell % (Manual) Abs Neuts (Manual) Nucleated RBCs/100 WBC Differential Comment Toxic Vacuolation Dohle Bodies Platelet Estimate Platelet Morphology Stomatocytes PT INR APTT 118.6 H* 121.8 H* Fibrinogen Sodium Potassium Chloride Carbon Dioxide Anion Gap BUN Creatinine Estimated GFR POC Glucose Greater than 600 H* Random Glucose Hemoglobin A1c Calcium Prot Corrected Calcium Phosphorus Magnesium Total Bilirubin AST ALT Alkaline Phosphatase Total Protein Albumin TSH Free T4 01/03/18 01/03/18 14:12 16:30 WBC RBC Hgb Hct MCV MCH MCHC RDW Plt Count MPV Prelim Diff (Auto) Neut % (Auto) Lymph % (Auto) [place] % (Auto) Eos % (Auto) Baso % (Auto) Neut # (Auto) Lymph # (Auto) [place] # (Auto) Eos # (Auto) Baso # (Auto) WBC Differential Diff Scan Seg Neuts % (Manual) Band Neuts % (Manual) Lymphocytes % (Manual) Monocytes % (Manual) Metamyelocytes % (Man) Plasma Cell % (Manual) Abs Neuts (Manual) Nucleated RBCs/100 WBC Differential Comment Toxic Vacuolation Dohle Bodies Platelet Estimate Platelet Morphology Stomatocytes PT INR APTT 129.1 H* Fibrinogen Sodium Potassium Chloride Carbon Dioxide Anion Gap BUN Creatinine Estimated GFR POC Glucose 141 H Random Glucose Hemoglobin A1c Calcium Prot Corrected Calcium Phosphorus Magnesium Total Bilirubin AST ALT Alkaline Phosphatase Total Protein Albumin TSH Free T4 Result Diagrams: 01/03/18 06:00 01/03/18 06:00 Procedures: * 12/28/17 - ex lap with resection of distal small bowel, end-ileostomy, lysis of adhesions and evacuation of 4.5 L of ascites, G tube placement. Assessment and Plan - Disease Oriented Problem List (1) Small bowel obstruction (2) Hypocalcemia (3) Dehydration (4) Ovarian cancer Pertinent Non-Medical Issues: Psychosocial: Single. Has 2 sons (Khris 21 in [place] and Ed age 9 lives with patient). She is supported by friends and family. 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 Spiritual: [employer]. Legal: Patient is currently capacitated to make her own health care decisions. Should she lose capacity she completed Healthcare Power of Intern on 12/29/17, copy scanned into EMR. Designated health care agent Niesha Gloria as primary and Charley Chapman as alternate healthcare agent. Ethical issues impacting care: No known concerns at this time. Important Contacts: * Niesha Gloria, mother/ primary health care surrogate: [phone] * Charley Chapman, friend/ alternate HCS: [phone] Prognosis: Patient is sweet, unfortunate 42 year old with progressive ovarian cancer despite Line 4 of chemotherapy, admitted with SBO. Overall prognosis is poor. Treatment is palliative, patient has a terminal condition. Hospice appropriate if goals are comfort oriented. Code Status: Full Code Plan: * Patient is currently capacitated to make her own health care decisions. Should she lose capacity she completed Healthcare Power of Intern on 12/29/17, copy scanned into EMR. Designated health care agent Niesha Gloria as primary and Charley Chapman as alternate healthcare agent. * FULL CODE * Goals remain aggressive in hopes to recovery from surgery, in hopes to restart chemo. Patient and family have a good understanding of condition, possible obstacles and that patient has a terminal condition. She DOES NOT want to in the hospital. * SYMPTOMS: Pain: abdominal pain secondary to progressive ovarian cancer with peritoneal carcinomatosis, small bowel obstruction, DVT, debility, dehydration, etc. Pain controlled with current meds. Will defer pain medication to surgery at this time. Will continue to monitor and make recommendations as needed. * Palliative care will continue to follow to assist with symptom management and further clarification of medical treatment goals throughout hospital course. Attestation Attestation: To help prompt me to consider important information that might be impacting today's encounter and assessment, information from prior notes written by myself or my colleagues may have been "brought forward" into today's note. My signature on this note, however, is an attestation that I personally performed the exam, history, and/or decision-making noted today, and, unless otherwise indicated, the interactions with patient, family, and staff as well as the review of records all occurred today. I also attest that the listed assessment and stated plan reflect my best clinical judgment today based on the combination of historical information, prior notes, and today's exam/ interactions. When time spent is documented, it refers only to time spent today by the signer, or if indicated, combined time spent today by collaborating physician/nurse practitioner.
[2018-01-03] MEDS: Metoprolol Inj 5 MG/5 ML Vial IV.PUSH PRN (21:13)
[2018-01-04] MEDS: ceFAZolin Inj 2,000 MG in Sodium Chlor 0.9% Inj 80 ML IV.SIG SCH ×2 (01:42→10:30)
[2018-01-04 04:21] LABS: Hematocrit 26.5 % (35.0-46.0); Hemoglobin 8.9 gm/dL (11.6-15.3); Mean Corpuscular HGB Conc 33.5 % (32.0-36.0); Mean Corpuscular Volume 89.6 fL (80.0-100.0); Platelet Count 22 th/mm3 (150-450); Red Blood Count 2.96 mil/mm3 (4.00-5.30); Red Cell Distribution Width 17.5 % (11.6-17.2)
[2018-01-04 04:53] LABS: Albumin 1.6 g/dL (3.4-5.0); Alkaline Phosphatase 65 U/L (45-117); Anion Gap 17 meq/L (5-15); Aspartate Aminotransferase 18 U/L (15-37); Blood Urea Nitrogen 11 mg/dL (7-18); Calcium 5.9 mg/dL (8.5-10.1); Carbon Dioxide 14.3 meq/L (21.0-32.0); Chloride 103 meq/L (98-107); Glomerular Filtration Rate 52 mL/min (>89); Glucose,Random 93 mg/dL (74-106); Magnesium 1.5 mg/dL (1.5-2.5); Phosphorus 0.1 mg/dL (2.5-4.9); Potassium 3.6 meq/L (3.5-5.1); Sodium 134 meq/L (136-145); Total Protein 3.3 g/dL (6.4-8.2)
[2018-01-04] MEDS: Dextrose 10% in Water Inj 500 ML IV.SIG SCH ×4 (05:05→14:58)
[2018-01-04] MEDS: Albumin Human 25% Inj 50 ML IV.SIG SCH ×2 (05:25→14:56)
[2018-01-04 07:47] LABS: Lymphocytes 13 % (9-44); Metamyelocytes 1 % (0-1); Monocytes 9 % (0-8); Plasma Cells 1 % (0-0); Tallied Nucleated RBC 1 (0-0)
[2018-01-04 07:48] LABS: Dohle Bodies Present; Ovalocytes 1+; Toxic Vacuolation Present
[2018-01-04 07:49] LABS: Platelet Morphology Normal (Normal)
[2018-01-04] MEDS: Dextrose 5%/Lactated Ringer's 1,000 ML IV.CONT SCH (08:27)
[2018-01-04] MEDS: Sod Chloride 0.9% Inj 1,000 ML IV.CONT SCH ×3 (08:28→14:57)
[2018-01-04] MEDS: Clotrimazole 1% Cream 15 GM Tube TOPICAL SCH (08:53)
[2018-01-04] MEDS: HYDROmorphone PF Inj 2 MG/ML Vial IV.PUSH PRN ×2 (08:59→16:51)
[2018-01-04] MEDS: Pantoprazole Inj 40 MG Vial IV.PUSH SCH ×2 (10:22)
[2018-01-04] MEDS ORDERED: Dextrose 50% in Water Syringe 50 ML ONE (10:48)
[2018-01-04] MEDS ORDERED: Midazolam Inj 5 MG/ML 1 ML Vial ONE (10:57)
[2018-01-04] MEDS ORDERED: Sodium Bicarbonate 8.4% Inj 50 MEQ/50 ML Syringe ONE (11:09)
[2018-01-04] MEDS ORDERED: fentaNYL Citrate Inj 100 MCG/2 ML Ampul ONE (11:24)
[2018-01-04 11:33] LABS: ABG Base Excess -18.9 mmol/L (-2-2); ABG PCO2 18 mmHg (38-42); ABG PO2 78 mmHg (61-120)
--- NOTE | 2018-01-04 11:37 | XR ---
EXAM DATE: 01/04/2018 11:28 AM EDT AGE/SEX: 43 years / Female INDICATIONS: Post intubation. CLINICAL DATA: This is the patient's subsequent encounter. Patient reports that signs and symptoms h ave been present for 1 day and indicates a pain score of Nonresponsive. MEDICAL/SURGICAL HISTORY: . Carcinoma, ovarian. Hypertension. None. COMPARISON: C, CHEST 1V SINGLE AP, 12/18/2017. . FINDINGS: ETT at the level of the clavicles. NGT removed in the interval. Right IJ port is stable in position. Diffuse hazy opacity bilaterally, more prominent on the left. Cardiomediastinal contours are stable. Bony thorax is intact. CONCLUSION: 1. ETT in good position. 2. Moderate bilateral, left greater than right, probable pleural effusions with associated airspace disease in the lower lobes. Electronically signed by: Cristofer Perez MD 01/04/2018 11:36 AM EDT
[2018-01-04] MEDS ORDERED: fentaNYL 10 mcg/mL Premix Drip 2,500 MCG/250 ML BAG IV.SIG PRN (11:39)
[2018-01-04] MEDS: Metoprolol Inj 5 MG/5 ML Vial IV.PUSH PRN (11:42)
[2018-01-04] MEDS ORDERED: Sodium Bicarbonate 8.4% Inj 50 MEQ/50 ML Syringe IV.PUSH ONE (11:45)
[2018-01-04] MEDS ORDERED: Sodium Bicarbonate 8.4% Inj 150 MEQ in Dextrose 5%/NaCl 0.9% Inj 850 ML IV.CONT SCH (11:55)
[2018-01-04] MEDS ORDERED: fentaNYL Citrate Inj 100 MCG/2 ML Ampul IV.PUSH ONE ×3 (12:00→17:00)
[2018-01-04] MEDS ORDERED: Midazolam Inj 5 MG/ML 1 ML Vial IV.PUSH ONE (12:00)
[2018-01-04 12:14] LABS: ABG Base Excess -8.3 mmol/L (-2-2); ABG PCO2 38 mmHg (38-42); ABG PO2 46 mmHg (61-120)
--- NOTE | 2018-01-04 12:17 | P.PNCC ---
Subjective Subjective Remarks/Hospital Course: 12/28: 42-year-old female with past medical history of stage IIIc ovarian cancer (poorly differentiated adenocarcinoma) diagnosed in 06/2014 who underwent systemic chemotherapy and then RIRI and BSO with omentectomy in 2014. She underwent postoperative chemotherapy and then was in remission about 18 months when she developed recurrence treated with multiple chemo regimens. Prior to admission, she had received paclitaxel and Avastin started 12/15/17. She was admitted 12/18/17 after she presented with 1 week history of abdominal distension, obstipation and emesis with feculent odor. CT findings were consistent with SBO and previously diagnosed intraperitoneal carcinomatosis. She was managed conservatively with NGT but did not improve and diagnostic lap was planned. Meanwhile, she had BLE u/s on 12/26 that showed nonocclusive thrombus of the left distal common femoral and proximal superficial femoral veins. She was started on heparin drip and surgery was postponed pending 24 hours of heparin. She has now undergone ex lap with resection of distal small bowel, end-ileostomy, lysis of adhesions and evacuation of 4.5 L of ascites, G tube placement. Critical care management sent has been consulted to assist with her care. She received 2700 of crystalloid intraoperatively. EBL was 200. Urine output was 180. She was extubated in OR and is groggy post- extubation. She complains of 8/10 abdominal pain. Her hgb is 9.2 from 12.5 pre- op and she is receiving 2 units PRBC per surgery. Denies CP/SOB. 12/29: Normotensive. Breathing with relative comfort restricted minimally by abdominal pain. Hemoglobin 14, creatinine 0.6. Ileostomy stoma is pink and well-perfused. 12/30: Pain well controlled. Breathing comfortably. Hemoglobin stable. Patient is expressing her desire to get strong and undergo another round of chemotherapy. PTT is in therapeutic range on continuous infusion heparin drip, made necessary by left leg femoral venous thrombus. Ileostomy output is large and urine output dropping, will increase IV fluids until PO intake improves. 12/31-: Up in chair daily. Generally edematous but otherwise breathing comfortably. 01/04: I was called to see patient emergently for deteriorating neurologic function, agonal respirations and severe metabolic acidosis. She required emergency intubation and the institution of mechanical ventilation. A central line was placed for the monitoring of central venous pressure and the infusion of potent vasopressor agents. 5 A of sodium bicarbonate was infused to correct for a severe base deficit. The gastrostomy tube is hooked to decompression. She is requiring 20 mcg/min of norepinephrine and 0.04 U/min of vasopressin. She is hemodynamically unstable. Objective Vital Signs / I&O: Vital Signs 01/03/18 16:00 01/03/18 20:00 01/03/18 20:35 Temperature 98.2 F 98.1 F Pulse Rate 121 H 135 H Respiratory Rate 18 15 Blood Pressure 95/66 L 97/67 L Pulse Oximetry 99 96 95 01/04/18 00:00 01/04/18 04:00 01/04/18 11:00 Temperature 98.5 F 98.7 F Pulse Rate 135 H 125 H Respiratory Rate 19 22 28 H Blood Pressure 93/53 L 86/54 L Pulse Oximetry 97 96 99 Intake & Output 01/03/18 01/04/18 01/04/18 18:59 06:59 18:59 Intake Total 1690 / 1690 2400 / 2400 1500 / 1500 Output Total 1575 / 1575 1725 / 1725 Balance 115 / 115 675 / 675 1500 / 1500 Weight 102 kg Intake: IV 1350 / 1350 2400 / 2400 1500 / 1500 NS Inj 1,000 ML @ 125 mls/hr IV 1000 / 1000 1000 / 1000 .CONT .Q8H AMIRA Rx#:[id number] Flexbumin 25% Inj 50 ML @ 60 50 / 50 100 / 100 mls/hr IV.SIG Q8H AMIRA Rx#: [id number] D10W Inj 500 ML @ 100 mls/hr IV 1000 / 1000 1000 / 1000 500 / 500 .SIG .Q5H AMIRA Rx#:[id number] Ancef Inj 2,000 MG In NS Inj 80 200 / 200 100 / 100 ML @ 200 mls/hr IV.SIG Q8H AMIRA Rx#:[id number] Flagyl 500 MG Inj 100 ML @ 100 100 / 100 200 / 200 mls/hr IV.SIG Q8H AMIRA Rx#: [id number] Oral 340 / 340 Output: Urine Amount (Catheter) 200 / 200 850 / 850 Indwelling Urethral Catheter 200 / 200 850 / 850 Stool Amount (Stoma) 275 / 275 225 / 225 Right Lower Abdomen 275 / 275 225 / 225 Gastric Drainage 400 / 400 250 / 250 Gastrostomy Tube (PEG) 400 / 400 250 / 250 Wound Drainage 700 / 700 400 / 400 # 1 Abdomen 700 / 700 400 / 400 Other: Date of Last Bowel Movement 01/03/18 01/03/18 Result Diagrams: 01/04/18 04:10 01/04/18 04:10 Objective Remarks: Narrative: GENERAL: Obtunded, agonal respirations. SKIN: Warm and dry. Port access R chest. HEAD: Atraumatic. Normocephalic. EYES: Pupils equal and round, 3 mm and sluggishly reactive bilateral. No scleral icterus. No injection or drainage. ENT: No nasal bleeding or discharge. Mucous membranes moist. NECK: Trachea midline. Airway widely patent. Mild obstruction. CARDIOVASCULAR: Tachycardic rate and rhythm, no JVD. No murmurs rubs or gallops. No JVD. RESPIRATORY: Agonal respiratory pattern, shallow breaths. Scattered bilateral rhonchi. Nonrebreathing mask. GASTROINTESTINAL: Abdominal binder in place. Dressing in place over midline vertical incision. Ileostomy right abdomen. ARNOL drain left lower quadrant with serosanguineous output. G tube in place. Bowel sounds present. MUSCULOSKELETAL: Extremities without clubbing, cyanosis. 2+ bipedal edema. Tepid, poorly perfused NEUROLOGICAL: Unresponsive, agonal respirations. She does not groan to noxious stimulation. Pupils 3 mm sluggishly reactive. Cough and gag reflex intact. Assessment and Plan - Problem List (1) S/P exploratory laparotomy Code(s): Z98.890 - Other specified postprocedural states Status: Acute (2) Small bowel obstruction Code(s): K56.609 - Unspecified intestinal obstruction, unspecified as to partial versus complete obstruction Status: Acute (3) Hypocalcemia Code(s): E83.51 - Hypocalcemia Status: Acute (4) Ovarian cancer Code(s): C56.9 - Malignant neoplasm of unspecified ovary Status: Chronic (5) History of hysterectomy Code(s): Z90.710 - Acquired absence of both cervix and uterus Status: Chronic (6) S/P ileostomy Code(s): Z93.2 - Ileostomy status Status: Acute (7) Acute blood loss anemia Code(s): D62 - Acute posthemorrhagic anemia Status: Acute (8) Ascites Code(s): R18.8 - Other ascites Status: Resolved (9) Gastrojejunostomy tube status Code(s): Z93.4 - Other artificial openings of gastrointestinal tract status Status: Acute (10) Carcinomatosis peritonei Code(s): C78.6 - Secondary malignant neoplasm of retroperitoneum and peritoneum ; C80.1 - Malignant (primary) neoplasm, unspecified Status: Chronic - Assessment and Plan Plan: NEURO: Unresponsive RESP: Required intubation and mechanical ventilation Severe metabolic acidosis with incomplete respiratory compensation CV: Severe hypotension Levo fed 20 mics per minute, vasopressin 0.04 U/min, starting Papo-Synephrine quadruple strength GI: SBO s/p ex lap with partial SB resection, ileostomy, LEMUEL, G tube placement by Dr. Rushing 12/27/17. Intraperitoneal carcinomatosis GERD NPO G-tube in place. Monitor ARNOL output, management per gen surgery. Timing of diet advancement will be up to general surgery. Protonix as per below. Bowel regimen Monitor ileostomy stoma color. Gastrostomy tube to decompressive suction FEN/RENAL: Crowder in place. Monitor intake and output hourly. Check magnesium and phosphorus now and continue to monitor electrolytes and replace as indicated. Oliguric ID: Cultures and start broad-spectrum antibiotics HEME: Nonocclusive thrombus left distal common femoral and proximal superficial femoral artery per u/s 12/26/17. Acute blood loss anemia Receiving 2 units packed red cells 12/28/17 per general surgery. Post-op labs pending, monitor CBC. On heparin drip per hematology recommendations. Dr. Rushing states resume heparin at 7 am 12/28/17. Resumed without bolus based on response to prior bolus , monitor to ensure she becomes therapeutic. Coagulopathy INR elevated, suspected secondary to vit K depletion due to poor po intake. Received Vitamin K 10 mg infusion 12/26 per hematology. Thrombocytopenia, prolonged PTT. H ITT panel Recurrent Ovarian Cancer Followed by Heme/onc and paper sorter/onc Dr. James. ENDO: Persistent hypoglycemia. Added dextrose to MIVF as per above. PROPH: Heparin has been stopped, fear HIT, Protonix, SCDs. ACCESS: Port accessed R chest. Palliative care team was consulted by medical oncology and is following. Patients goals remain aggressive. Discussed with Dr. Rushing again this morning. Full code Overall impression: This neutropenic patient is in shock probably septic in etiology. She is hemodynamically unstable requiring numerous vasopressors for support. She is required intubation and mechanical ventilation for respiratory failure. She will require continuous and ongoing manipulation of ventilator settings and vasopressor drips over the next 12-24 hours. Her prognosis is guarded. Critical care time 60 minutes aside from invasive procedures. Code Status: Full code.
[2018-01-04] MEDS ORDERED: Vancomycin Consult Pharmacy OTHER PRN (12:22)
--- NOTE | 2018-01-04 12:42 | MB ---
cc: Haley James MD DATE: 01/03/2018 INTERVAL HISTORY: I visited with Jocelyn Gloria, reviewing the findings in her case to date. I am sorry she is feeling so poorly. She shows some minimal improvement after surgery as she is still recovering from surgery, but the symptoms that were associated from the small-bowel obstruction have improved. She reports that her performance status, energy and motivation are low and she is frustrated by her set of circumstances, understandably. She reports that she is adequately comfortable and has not recently been up out of bed as she does not feel she has the stamina. We spent time discussing the difficult nature of her situation with the recurrent ovarian cancer that has not completely been responding to treatment. As the recent initiation of Avastin resulted in a significant drop in her CA-125, it is uncertain if this is reflective of true response to treatment, but that is our hope. Nevertheless, despite that recent initiation of treatment, she still has a symptomatic reaccumulation of ascites and multifocal carcinomatosis with intestinal obstruction that did not respond to prolonged efforts at conservative management. I explained again the findings at the time of surgery and the steps taken by Dr. Rushing, and she is at the present time uncertain if she feels as though she wishes to continue treatment. But I have encouraged her to wait until she is feeling better to ensure that her decision-making is when she is feeling more like taking all of the pertinent aspects into consideration. I know she has spent a great deal of time thinking about the situation. I am sorry she is feeling poorly. Discussion ensued. Questions were asked and answered. She expressed good understanding and we wish her continued improvement. Fifteen minutes of this 15-minute [id number] encounter were spent in counseling and coordination of care. MD DRE Ruff/emerson/alma , 11:53 AM , 12:00 PM
[2018-01-04 12:55] LABS: Hematocrit 27.3 % (35.0-46.0); Mean Corpuscular Hemoglobin 30.2 pg (27.0-34.0); Mean Corpuscular Volume 91.7 fL (80.0-100.0); Mean Platelet Volume 9.1 fL (7.0-11.0); Red Blood Count 2.97 mil/mm3 (4.00-5.30); Red Cell Distribution Width 18.1 % (11.6-17.2); White Blood Count 1.1 th/mm3 (4.0-11.0)
[2018-01-04 12:57] LABS: Platelet Count 8 th/mm3 (150-450)
[2018-01-04] MEDS ORDERED: Vancomycin Inj 1,500 MG in Sodium Chlor 0.9% Inj 500 ML IV.SIG ONE ×2 (13:00→14:00)
[2018-01-04] MEDS ORDERED: Vasopressin Inj 40 UNIT in Dextrose 5% in Water Inj 98 ML IV.CONT SCH ×2 (13:00)
[2018-01-04] MEDS ORDERED: Phenylephrine Inj 160 MG in Dextrose 5% in Water Inj 484 ML IV.CONT PRN ×2 (13:00)
--- NOTE | 2018-01-04 13:00 | P.PNPAL ---
Reason for Visit Reason for visit: a. To assist with evaluation and management of symptoms including: pain, weakness, dyspnea b. To assist medical decision maker(s) with: better understanding of current medical conditions; weighing benefits/burdens of medical treatment options; making medical treatment decisions. Subjective Subjective/Interval History: LATE entry pt actually seen 11am. Patient seen in ICU to follow up with family, pt with acute condition change this morning. She had increasing work of breathing overnight, increased lethargy. WBC 2. H&H downtrending 8.9/ 26.5, plt 22. APtt 169, nursing reports HIT panel pending. She was intubated prior to my arrival by critical care, central line placed. + some hypotension during, started on Levophed, to be started on fentanyl for sedation. CXR pending. D/w critical care- likely neutropenic sepsis, possible if responds to tx can medically wean to extubate in the coming days. Dual visit [facility] [employer] palliative medical social worker. Met w pt mother Niesha, and mother's other daughter Ms Solorio at length. Review of overnight course, this morning's events, current labs/diagnostics and tx in place for possible sepsis. Explore conditions may be able to stabilized/improved towards medical extubation in the next few days. Alternatively review complications, decline could occur. Mother is tearful at times. She shares that last night pt told her she was getting tired. Explore that these additional complications make recovering to the point of getting chemo again less likely, and may make getting home more difficult. She would like continue maximized medical tx to work towards medical extubation in the coming days, and at that time explore w pt (if possible) going home with hospice/comfort before additional setbacks occur. We explored code status - she indicates NO cardiac resuscitation, intubation only. all questions answered. Provided w palliative contact information. 1600 UPDATE notified by critical care pt w no improvement in labs, family with questions about compassionate withdrawal of life support. Dual follow-up meeting [facility] palliative SW, with patient mother who is healthcare proxy, her friends who is alternate proxy and multiple other family members. Dr. Whitman also present for some of this meeting and reviewed today's ICU course interventions and current assessment and diagnostics. Exploration of patient's deteriorating condition today, and lack of response or signs of improvement to ongoing aggressive interventions initiated throughout the morning and day. Review lactic acid remains significantly elevated secondary to significant sepsis process. Review of very poor prognosis for survival and high risk for continued decline and even with continued artificial measures. Family speaks together regarding patient wishes: they indicate she would not want to be prolonged on artificial measures without good chance of meaningful recovery. They request compassionate withdrawal of life support today, with transition to comfort focus and comfort measures only as consistent with patient known wishes. They request to do this today as soon as able to. Anticipatory guidance provided. Exhibits B, C signed and placed in chart. Palliative care medical social worker provided family with additional information for bereavement support for her 9- year-old son. Advance Directives Health Care Surrogate: Copy in medical record Advance Directives Date on File: 12/29/17 Health Care Surrogate Name and Number: Niesha Gloria [phone] (primary HCS ) Charley Chapman [phone](altHCS) Documented care wishes:: Patient is currently capacitated to make her own health care decisions. Should she lose capacity she completed Healthcare Power of [employer] on 12/29/17, copy scanned into EMR. Designated health care agent Niesha Gloria as primary and Charley Chapman as alternate healthcare agent. Significant change in goals:: mother elected alt code- intubation only. Objective Vital Signs: Vital Signs 01/03/18 16:00 01/03/18 20:00 01/03/18 20:35 Temperature 98.2 F 98.1 F Pulse Rate 121 H 135 H Respiratory Rate 18 15 Blood Pressure 95/66 L 97/67 L Pulse Oximetry 99 96 95 01/04/18 00:00 01/04/18 04:00 01/04/18 11:00 Temperature 98.5 F 98.7 F Pulse Rate 135 H 125 H Respiratory Rate 19 22 28 H Blood Pressure 93/53 L 86/54 L Pulse Oximetry 97 96 99 Intake & Output 01/03/18 01/04/18 01/04/18 18:59 06:59 18:59 Intake Total 1690 / 1690 2400 / 2400 1500 / 1500 Output Total 1575 / 1575 1725 / 1725 Balance 115 / 115 675 / 675 1500 / 1500 Weight 102 kg Intake: IV 1350 / 1350 2400 / 2400 1500 / 1500 NS Inj 1,000 ML @ 125 mls/hr IV 1000 / 1000 1000 / 1000 .CONT .Q8H AMIRA Rx#:[id number] Flexbumin 25% Inj 50 ML @ 60 50 / 50 100 / 100 mls/hr IV.SIG Q8H AMIRA Rx#: [id number] D10W Inj 500 ML @ 100 mls/hr IV 1000 / 1000 1000 / 1000 500 / 500 .SIG .Q5H AMIRA Rx#:[id number] Ancef Inj 2,000 MG In NS Inj 80 200 / 200 100 / 100 ML @ 200 mls/hr IV.SIG Q8H AMIRA Rx#:[id number] Flagyl 500 MG Inj 100 ML @ 100 100 / 100 200 / 200 mls/hr IV.SIG Q8H AMIRA Rx#: [id number] Oral 340 / 340 Output: Urine Amount (Catheter) 200 / 200 850 / 850 Indwelling Urethral Catheter 200 / 200 850 / 850 Stool Amount (Stoma) 275 / 275 225 / 225 Right Lower Abdomen 275 / 275 225 / 225 Gastric Drainage 400 / 400 250 / 250 Gastrostomy Tube (PEG) 400 / 400 250 / 250 Wound Drainage 700 / 700 400 / 400 # 1 Abdomen 700 / 700 400 / 400 Other: Date of Last Bowel Movement 01/03/18 01/03/18 Physical Exam: CONSTITUTIONAL/GENERAL: This is an adequately nourished patient, sedated / nonresponsive on mech vent. TUBES/LINES/DRAINS: ETT, right Port, Lt SC central line, PIV LUE, gastrostomy tube, ileostomy, ARNOL drain. SKIN: No jaundice, rashes, or lesions. Ecchymoses on upper extremities. Pale. + edema, some skin peeling/sloughing from hands /feet HEAD: Hair thinning noted. EYES: eyes closed. pupils 3mm reactive to light ENT: dry mucous membranes- ETT present, unable to visualize oropharynx. No nasal drainage visible. CARDIOVASCULAR: Heart regular, no murmur. +3 edema to extremities. Periph pulses faint. RESPIRATORY/CHEST: agonal motion respirations via ETT to mech vent. On 100% fio2. Lungs clear. equal bilaterally. GASTROINTESTINAL: Ileostomy right abdomen. G tube, clamped. MUSCULOSKELETAL: Extremities with edema noted. NEUROLOGICAL: s/p sedatives for procedures. Nonresponsive to my exam, nursing starting fentanyl sedation. Eyes close. no movement to stimuli. PSYCHIATRIC: no evident anxiety, limited assess 2/2 clinical condition Diagnostic Tests Laboratory: Laboratory Results - last 72 hr 01/01/18 01/01/18 01/01/18 04:23 12:30 12:30 WBC RBC Hgb Hct MCV MCH MCHC RDW Plt Count MPV Prelim Diff (Auto) Neut % (Auto) Lymph % (Auto) Holt % (Auto) Eos % (Auto) Baso % (Auto) Neut # (Auto) Lymph # (Auto) Holt # (Auto) Eos # (Auto) Baso # (Auto) WBC Differential Seg Neuts % (Manual) Band Neuts % (Manual) Lymphocytes % (Manual) Monocytes % (Manual) Metamyelocytes % (Man) Plasma Cell % (Manual) Abs Neuts (Manual) Nucleated RBCs/100 WBC Differential Comment Toxic Vacuolation Dohle Bodies Platelet Estimate Platelet Morphology Ovalocytes PT INR APTT 101.4 H* Fibrinogen 246 Puncture Site Patient Temperature O2 Saturation ABG pH ABG pCO2 ABG pO2 ABG HCO3 ABG O2 Content ABG Base Excess ABG Methemoglobin Donaldo Test Hemoglobin Carboxyhemoglobin O2 Delivery Device Liter Flow Vent Setting Inspired O2 Critical Value Sodium Potassium Chloride Carbon Dioxide Anion Gap BUN Creatinine Estimated GFR POC Glucose Random Glucose Hemoglobin A1c 5.3 Calcium Prot Corrected Calcium Phosphorus Magnesium Total Bilirubin AST ALT Alkaline Phosphatase Total Protein Albumin 01/01/18 01/01/18 01/01/18 13:44 15:23 16:57 WBC RBC Hgb Hct MCV MCH MCHC RDW Plt Count MPV Prelim Diff (Auto) Neut % (Auto) Lymph % (Auto) Holt % (Auto) Eos % (Auto) Baso % (Auto) Neut # (Auto) Lymph # (Auto) Holt # (Auto) Eos # (Auto) Baso # (Auto) WBC Differential Seg Neuts % (Manual) Band Neuts % (Manual) Lymphocytes % (Manual) Monocytes % (Manual) Metamyelocytes % (Man) Plasma Cell % (Manual) Abs Neuts (Manual) Nucleated RBCs/100 WBC Differential Comment Toxic Vacuolation Dohle Bodies Platelet Estimate Platelet Morphology Ovalocytes PT INR APTT Fibrinogen Puncture Site Patient Temperature O2 Saturation ABG pH ABG pCO2 ABG pO2 ABG HCO3 ABG O2 Content ABG Base Excess ABG Methemoglobin Donaldo Test Hemoglobin Carboxyhemoglobin O2 Delivery Device Liter Flow Vent Setting Inspired O2 Critical Value Sodium Potassium Chloride Carbon Dioxide Anion Gap BUN Creatinine Estimated GFR POC Glucose 100 109 123 H Random Glucose Hemoglobin A1c Calcium Prot Corrected Calcium Phosphorus Magnesium Total Bilirubin AST ALT Alkaline Phosphatase Total Protein Albumin 01/01/18 01/01/18 01/01/18 16:58 18:47 18:55 WBC RBC Hgb Hct MCV MCH MCHC RDW Plt Count MPV Prelim Diff (Auto) Neut % (Auto) Lymph % (Auto) Holt % (Auto) Eos % (Auto) Baso % (Auto) Neut # (Auto) Lymph # (Auto) Holt # (Auto) Eos # (Auto) Baso # (Auto) WBC Differential Seg Neuts % (Manual) Band Neuts % (Manual) Lymphocytes % (Manual) Monocytes % (Manual) Metamyelocytes % (Man) Plasma Cell % (Manual) Abs Neuts (Manual) Nucleated RBCs/100 WBC Differential Comment Toxic Vacuolation Dohle Bodies Platelet Estimate Platelet Morphology Ovalocytes PT INR APTT 98.3 H* 176.0 H* D Fibrinogen Puncture Site Patient Temperature O2 Saturation ABG pH ABG pCO2 ABG pO2 ABG HCO3 ABG O2 Content ABG Base Excess ABG Methemoglobin Donaldo Test Hemoglobin Carboxyhemoglobin O2 Delivery Device Liter Flow Vent Setting Inspired O2 Critical Value Sodium Potassium Chloride Carbon Dioxide Anion Gap BUN Creatinine Estimated GFR POC Glucose 125 H Random Glucose Hemoglobin A1c Calcium Prot Corrected Calcium Phosphorus Magnesium Total Bilirubin AST ALT Alkaline Phosphatase Total Protein Albumin 01/01/18 01/01/18 01/01/18 19:37 22:00 22:01 WBC RBC Hgb Hct MCV MCH MCHC RDW Plt Count MPV Prelim Diff (Auto) Neut % (Auto) Lymph % (Auto) Holt % (Auto) Eos % (Auto) Baso % (Auto) Neut # (Auto) Lymph # (Auto) Holt # (Auto) Eos # (Auto) Baso # (Auto) WBC Differential Seg Neuts % (Manual) Band Neuts % (Manual) Lymphocytes % (Manual) Monocytes % (Manual) Metamyelocytes % (Man) Plasma Cell % (Manual) Abs Neuts (Manual) Nucleated RBCs/100 WBC Differential Comment Toxic Vacuolation Dohle Bodies Platelet Estimate Platelet Morphology Ovalocytes PT INR APTT 98.7 H* D Fibrinogen Puncture Site Patient Temperature O2 Saturation ABG pH ABG pCO2 ABG pO2 ABG HCO3 ABG O2 Content ABG Base Excess ABG Methemoglobin Donaldo Test Hemoglobin Carboxyhemoglobin O2 Delivery Device Liter Flow Vent Setting Inspired O2 Critical Value Sodium Potassium Chloride Carbon Dioxide Anion Gap BUN Creatinine Estimated GFR POC Glucose 123 H 126 H Random Glucose Hemoglobin A1c Calcium Prot Corrected Calcium Phosphorus Magnesium Total Bilirubin AST ALT Alkaline Phosphatase Total Protein Albumin 01/02/18 01/02/18 01/02/18 00:45 02:45 05:10 WBC 5.8 RBC 3.52 L Hgb 10.9 L Hct 32.0 L MCV 90.7 MCH 31.0 MCHC 34.2 RDW 17.6 H Plt Count 65 L MPV 8.4 Prelim Diff (Auto) Slide review pending Neut % (Auto) 82.7 H Lymph % (Auto) 12.7 Holt % (Auto) 3.8 Eos % (Auto) 0.3 Baso % (Auto) 0.5 Neut # (Auto) 4.8 Lymph # (Auto) 0.7 L Holt # (Auto) 0.2 Eos # (Auto) 0.0 Baso # (Auto) 0.0 WBC Differential Manual diff final Seg Neuts % (Manual) 80 H Band Neuts % (Manual) 13 H Lymphocytes % (Manual) 5 L Monocytes % (Manual) 2 Metamyelocytes % (Man) Plasma Cell % (Manual) Abs Neuts (Manual) 5.4 Nucleated RBCs/100 WBC 1 H Differential Comment . Toxic Vacuolation Present H Dohle Bodies Platelet Estimate Low L Platelet Morphology Normal Ovalocytes PT INR APTT 102.7 H* 94.2 H* Fibrinogen Puncture Site Patient Temperature O2 Saturation ABG pH ABG pCO2 ABG pO2 ABG HCO3 ABG O2 Content ABG Base Excess ABG Methemoglobin Donaldo Test Hemoglobin Carboxyhemoglobin O2 Delivery Device Liter Flow Vent Setting Inspired O2 Critical Value Sodium Potassium Chloride Carbon Dioxide Anion Gap BUN Creatinine Estimated GFR POC Glucose Random Glucose Hemoglobin A1c Calcium Prot Corrected Calcium Phosphorus Magnesium Total Bilirubin AST ALT Alkaline Phosphatase Total Protein Albumin 01/02/18 01/02/18 01/02/18 05:10 05:10 08:06 WBC RBC Hgb Hct MCV MCH MCHC RDW Plt Count MPV Prelim Diff (Auto) Neut % (Auto) Lymph % (Auto) Holt % (Auto) Eos % (Auto) Baso % (Auto) Neut # (Auto) Lymph # (Auto) Holt # (Auto) Eos # (Auto) Baso # (Auto) WBC Differential Seg Neuts % (Manual) Band Neuts % (Manual) Lymphocytes % (Manual) Monocytes % (Manual) Metamyelocytes % (Man) Plasma Cell % (Manual) Abs Neuts (Manual) Nucleated RBCs/100 WBC Differential Comment Toxic Vacuolation Dohle Bodies Platelet Estimate Platelet Morphology Ovalocytes PT INR APTT 91.2 H* Fibrinogen Puncture Site Patient Temperature O2 Saturation ABG pH ABG pCO2 ABG pO2 ABG HCO3 ABG O2 Content ABG Base Excess ABG Methemoglobin Donaldo Test Hemoglobin Carboxyhemoglobin O2 Delivery Device Liter Flow Vent Setting Inspired O2 Critical Value Sodium 138 Potassium 3.1 L Chloride 107 Carbon Dioxide 21.5 Anion Gap 10 BUN 9 Creatinine 0.88 Estimated GFR 70 L POC Glucose 82 Random Glucose 122 H Hemoglobin A1c Calcium 6.2 L* Prot Corrected Calcium 7.9 L Phosphorus 0.9 L Magnesium 2.0 D Total Bilirubin 0.9 AST 23 ALT Less than 6 L Alkaline Phosphatase 106 Total Protein 3.8 L Albumin 1.9 L 01/02/18 01/02/18 01/02/18 08:15 18:05 23:59 WBC RBC Hgb Hct MCV MCH MCHC RDW Plt Count MPV Prelim Diff (Auto) Neut % (Auto) Lymph % (Auto) Holt % (Auto) Eos % (Auto) Baso % (Auto) Neut # (Auto) Lymph # (Auto) Holt # (Auto) Eos # (Auto) Baso # (Auto) WBC Differential Seg Neuts % (Manual) Band Neuts % (Manual) Lymphocytes % (Manual) Monocytes % (Manual) Metamyelocytes % (Man) Plasma Cell % (Manual) Abs Neuts (Manual) Nucleated RBCs/100 WBC Differential Comment Toxic Vacuolation Dohle Bodies Platelet Estimate Platelet Morphology Ovalocytes PT INR APTT 85.4 H Greater than 277.5 H* Fibrinogen Puncture Site Patient Temperature O2 Saturation ABG pH ABG pCO2 ABG pO2 ABG HCO3 ABG O2 Content ABG Base Excess ABG Methemoglobin Donaldo Test Hemoglobin Carboxyhemoglobin O2 Delivery Device Liter Flow Vent Setting Inspired O2 Critical Value Sodium Potassium 4.1 D Chloride Carbon Dioxide Anion Gap BUN Creatinine Estimated GFR POC Glucose Random Glucose Hemoglobin A1c Calcium Prot Corrected Calcium Phosphorus Magnesium Total Bilirubin AST ALT Alkaline Phosphatase Total Protein Albumin 01/03/18 01/03/18 01/03/18 02:02 04:40 06:00 WBC 7.3 RBC 3.47 L Hgb 10.5 L Hct 31.7 L MCV 91.4 MCH 30.3 MCHC 33.2 RDW 18.0 H Plt Count 41 L D MPV 8.6 Prelim Diff (Auto) Slide review pending Neut % (Auto) 81.3 H Lymph % (Auto) 14.1 Holt % (Auto) 4.3 Eos % (Auto) 0.1 Baso % (Auto) 0.2 Neut # (Auto) 5.9 Lymph # (Auto) 1.0 Holt # (Auto) 0.3 Eos # (Auto) 0.0 Baso # (Auto) 0.0 WBC Differential Manual diff final Seg Neuts % (Manual) 57 Band Neuts % (Manual) 28 H Lymphocytes % (Manual) 4 L Monocytes % (Manual) 2 Metamyelocytes % (Man) 8 H Plasma Cell % (Manual) 1 H Abs Neuts (Manual) 6.8 Nucleated RBCs/100 WBC 1 H Differential Comment . Toxic Vacuolation Dohle Bodies Present H Platelet Estimate Low L Platelet Morphology Normal Ovalocytes PT 23.3 H INR 2.3 APTT 112.7 H* D 123.4 H* Fibrinogen Puncture Site Patient Temperature O2 Saturation ABG pH ABG pCO2 ABG pO2 ABG HCO3 ABG O2 Content ABG Base Excess ABG Methemoglobin Donaldo Test Hemoglobin Carboxyhemoglobin O2 Delivery Device Liter Flow Vent Setting Inspired O2 Critical Value Sodium Potassium Chloride Carbon Dioxide Anion Gap BUN Creatinine Estimated GFR POC Glucose Random Glucose Hemoglobin A1c Calcium Prot Corrected Calcium Phosphorus Magnesium Total Bilirubin AST ALT Alkaline Phosphatase Total Protein Albumin 01/03/18 01/03/18 01/03/18 06:00 06:00 08:20 WBC RBC Hgb Hct MCV MCH MCHC RDW Plt Count MPV Prelim Diff (Auto) Neut % (Auto) Lymph % (Auto) Holt % (Auto) Eos % (Auto) Baso % (Auto) Neut # (Auto) Lymph # (Auto) Holt # (Auto) Eos # (Auto) Baso # (Auto) WBC Differential Seg Neuts % (Manual) Band Neuts % (Manual) Lymphocytes % (Manual) Monocytes % (Manual) Metamyelocytes % (Man) Plasma Cell % (Manual) Abs Neuts (Manual) Nucleated RBCs/100 WBC Differential Comment Toxic Vacuolation Dohle Bodies Platelet Estimate Platelet Morphology Ovalocytes PT INR APTT 121.1 H* 126.5 H* Fibrinogen Puncture Site Patient Temperature O2 Saturation ABG pH ABG pCO2 ABG pO2 ABG HCO3 ABG O2 Content ABG Base Excess ABG Methemoglobin Donaldo Test Hemoglobin Carboxyhemoglobin O2 Delivery Device Liter Flow Vent Setting Inspired O2 Critical Value Sodium 135 L Potassium 3.9 Chloride 104 Carbon Dioxide 15.5 L Anion Gap 16 H BUN 12 Creatinine 1.31 H Estimated GFR 45 L POC Glucose Random Glucose 107 H Hemoglobin A1c Calcium 6.1 L* Prot Corrected Calcium 8.1 L Phosphorus 0.5 L Magnesium 1.8 Total Bilirubin 1.1 H AST 22 ALT Less than 6 L Alkaline Phosphatase 95 Total Protein 3.3 L Albumin 1.4 L 01/03/18 01/03/18 01/03/18 10:12 12:32 14:10 WBC RBC Hgb Hct MCV MCH MCHC RDW Plt Count MPV Prelim Diff (Auto) Neut % (Auto) Lymph % (Auto) Holt % (Auto) Eos % (Auto) Baso % (Auto) Neut # (Auto) Lymph # (Auto) Holt # (Auto) Eos # (Auto) Baso # (Auto) WBC Differential Seg Neuts % (Manual) Band Neuts % (Manual) Lymphocytes % (Manual) Monocytes % (Manual) Metamyelocytes % (Man) Plasma Cell % (Manual) Abs Neuts (Manual) Nucleated RBCs/100 WBC Differential Comment Toxic Vacuolation Dohle Bodies Platelet Estimate Platelet Morphology Ovalocytes PT INR APTT 131.2 H* 118.6 H* Fibrinogen Puncture Site Patient Temperature O2 Saturation ABG pH ABG pCO2 ABG pO2 ABG HCO3 ABG O2 Content ABG Base Excess ABG Methemoglobin Donaldo Test Hemoglobin Carboxyhemoglobin O2 Delivery Device Liter Flow Vent Setting Inspired O2 Critical Value Sodium Potassium Chloride Carbon Dioxide Anion Gap BUN Creatinine Estimated GFR POC Glucose Greater than 600 H* Random Glucose Hemoglobin A1c Calcium Prot Corrected Calcium Phosphorus Magnesium Total Bilirubin AST ALT Alkaline Phosphatase Total Protein Albumin 01/03/18 01/03/18 01/03/18 14:12 14:12 16:30 WBC RBC Hgb Hct MCV MCH MCHC RDW Plt Count MPV Prelim Diff (Auto) Neut % (Auto) Lymph % (Auto) Holt % (Auto) Eos % (Auto) Baso % (Auto) Neut # (Auto) Lymph # (Auto) Holt # (Auto) Eos # (Auto) Baso # (Auto) WBC Differential Seg Neuts % (Manual) Band Neuts % (Manual) Lymphocytes % (Manual) Monocytes % (Manual) Metamyelocytes % (Man) Plasma Cell % (Manual) Abs Neuts (Manual) Nucleated RBCs/100 WBC Differential Comment Toxic Vacuolation Dohle Bodies Platelet Estimate Platelet Morphology Ovalocytes PT INR APTT 121.8 H* 129.1 H* Fibrinogen Puncture Site Patient Temperature O2 Saturation ABG pH ABG pCO2 ABG pO2 ABG HCO3 ABG O2 Content ABG Base Excess ABG Methemoglobin Donaldo Test Hemoglobin Carboxyhemoglobin O2 Delivery Device Liter Flow Vent Setting Inspired O2 Critical Value Sodium Potassium Chloride Carbon Dioxide Anion Gap BUN Creatinine Estimated GFR POC Glucose 141 H Random Glucose Hemoglobin A1c Calcium Prot Corrected Calcium Phosphorus Magnesium Total Bilirubin AST ALT Alkaline Phosphatase Total Protein Albumin 01/03/18 01/03/18 01/03/18 18:30 21:30 23:45 WBC RBC Hgb Hct MCV MCH MCHC RDW Plt Count MPV Prelim Diff (Auto) Neut % (Auto) Lymph % (Auto) Holt % (Auto) Eos % (Auto) Baso % (Auto) Neut # (Auto) Lymph # (Auto) Holt # (Auto) Eos # (Auto) Baso # (Auto) WBC Differential Seg Neuts % (Manual) Band Neuts % (Manual) Lymphocytes % (Manual) Monocytes % (Manual) Metamyelocytes % (Man) Plasma Cell % (Manual) Abs Neuts (Manual) Nucleated RBCs/100 WBC Differential Comment Toxic Vacuolation Dohle Bodies Platelet Estimate Platelet Morphology Ovalocytes PT INR APTT 127.4 H* 119.3 H* 120.4 H* Fibrinogen Puncture Site Patient Temperature O2 Saturation ABG pH ABG pCO2 ABG pO2 ABG HCO3 ABG O2 Content ABG Base Excess ABG Methemoglobin Donaldo Test Hemoglobin Carboxyhemoglobin O2 Delivery Device Liter Flow Vent Setting Inspired O2 Critical Value Sodium Potassium Chloride Carbon Dioxide Anion Gap BUN Creatinine Estimated GFR POC Glucose Random Glucose Hemoglobin A1c Calcium Prot Corrected Calcium Phosphorus Magnesium Total Bilirubin AST ALT Alkaline Phosphatase Total Protein Albumin 01/04/18 01/04/18 01/04/18 01:50 04:10 04:10 WBC 2.0 L D RBC 2.96 L Hgb 8.9 L Hct 26.5 L MCV 89.6 MCH 30.0 MCHC 33.5 RDW 17.5 H Plt Count 22 L D MPV 9.0 Prelim Diff (Auto) Manual diff required Neut % (Auto) Lymph % (Auto) Holt % (Auto) Eos % (Auto) Baso % (Auto) Neut # (Auto) Lymph # (Auto) Holt # (Auto) Eos # (Auto) Baso # (Auto) WBC Differential Manual diff final Seg Neuts % (Manual) 36 Band Neuts % (Manual) 40 H Lymphocytes % (Manual) 13 Monocytes % (Manual) 9 H Metamyelocytes % (Man) 1 Plasma Cell % (Manual) 1 H Abs Neuts (Manual) 1.5 L Nucleated RBCs/100 WBC 1 H Differential Comment . Toxic Vacuolation Present H Dohle Bodies Present H Platelet Estimate Low L Platelet Morphology Normal Ovalocytes 1+ H PT INR APTT 132.3 H* Fibrinogen Puncture Site Patient Temperature O2 Saturation ABG pH ABG pCO2 ABG pO2 ABG HCO3 ABG O2 Content ABG Base Excess ABG Methemoglobin Donaldo Test Hemoglobin Carboxyhemoglobin O2 Delivery Device Liter Flow Vent Setting Inspired O2 Critical Value Sodium 134 L Potassium 3.6 Chloride 103 Carbon Dioxide 14.3 L Anion Gap 17 H BUN 11 Creatinine 1.14 H Estimated GFR 52 L POC Glucose Random Glucose 93 Hemoglobin A1c Calcium 5.9 L* Prot Corrected Calcium 7.8 L Phosphorus 0.1 L Magnesium 1.5 Total Bilirubin 1.9 H AST 18 ALT Less than 6 L Alkaline Phosphatase 65 Total Protein 3.3 L Albumin 1.6 L 01/04/18 01/04/18 01/04/18 04:10 07:00 09:18 WBC RBC Hgb Hct MCV MCH MCHC RDW Plt Count MPV Prelim Diff (Auto) Neut % (Auto) Lymph % (Auto) Holt % (Auto) Eos % (Auto) Baso % (Auto) Neut # (Auto) Lymph # (Auto) Holt # (Auto) Eos # (Auto) Baso # (Auto) WBC Differential Seg Neuts % (Manual) Band Neuts % (Manual) Lymphocytes % (Manual) Monocytes % (Manual) Metamyelocytes % (Man) Plasma Cell % (Manual) Abs Neuts (Manual) Nucleated RBCs/100 WBC Differential Comment Toxic Vacuolation Dohle Bodies Platelet Estimate Platelet Morphology Ovalocytes PT INR APTT 146.6 H* 147.3 H* 169.0 H* Fibrinogen Puncture Site Patient Temperature O2 Saturation ABG pH ABG pCO2 ABG pO2 ABG HCO3 ABG O2 Content ABG Base Excess ABG Methemoglobin Donaldo Test Hemoglobin Carboxyhemoglobin O2 Delivery Device Liter Flow Vent Setting Inspired O2 Critical Value Sodium Potassium Chloride Carbon Dioxide Anion Gap BUN Creatinine Estimated GFR POC Glucose Random Glucose Hemoglobin A1c Calcium Prot Corrected Calcium Phosphorus Magnesium Total Bilirubin AST ALT Alkaline Phosphatase Total Protein Albumin 01/04/18 01/04/18 01/04/18 10:44 10:45 11:55 WBC RBC Hgb Hct MCV MCH MCHC RDW Plt Count MPV Prelim Diff (Auto) Neut % (Auto) Lymph % (Auto) Holt % (Auto) Eos % (Auto) Baso % (Auto) Neut # (Auto) Lymph # (Auto) Holt # (Auto) Eos # (Auto) Baso # (Auto) WBC Differential Seg Neuts % (Manual) Band Neuts % (Manual) Lymphocytes % (Manual) Monocytes % (Manual) Metamyelocytes % (Man) Plasma Cell % (Manual) Abs Neuts (Manual) Nucleated RBCs/100 WBC Differential Comment Toxic Vacuolation Dohle Bodies Platelet Estimate Platelet Morphology Ovalocytes PT INR APTT Fibrinogen Puncture Site Right radial Right radial Patient Temperature 98.6 98.6 O2 Saturation 92 75 L* ABG pH 7.24 L* 7.28 L* ABG pCO2 18 L* 38 ABG pO2 78 46 L* ABG HCO3 7 L* 17 L ABG O2 Content 11.8 L 9.0 L ABG Base Excess -18.9 L -8.3 L ABG Methemoglobin 1.5 1.4 Donaldo Test Present + Hemoglobin 9.1 L 8.5 L Carboxyhemoglobin 1.0 1.1 O2 Delivery Device Nrbr Ventilator Liter Flow 15.00 Vent Setting Aprv?ac Inspired O2 100 100 Critical Value Yes Yes Sodium Potassium Chloride Carbon Dioxide Anion Gap BUN Creatinine Estimated GFR POC Glucose 65 L Random Glucose Hemoglobin A1c Calcium Prot Corrected Calcium Phosphorus Magnesium Total Bilirubin AST ALT Alkaline Phosphatase Total Protein Albumin Result Diagrams: 01/04/18 12:25 01/04/18 12:25 Imaging: Impressions Chest X-Ray 01/04/18 10:52 CONCLUSION: 1. ETT in good position. 2. Moderate bilateral, left greater than right, probable pleural effusions with associated airspace disease in the lower lobes. Procedures: * 12/28/17 - ex lap with resection of distal small bowel, end-ileostomy, lysis of adhesions and evacuation of 4.5 L of ascites, G tube placement. Assessment and Plan - Disease Oriented Problem List (1) Small bowel obstruction (2) Hypocalcemia (3) Dehydration (4) Ovarian cancer Pertinent Non-Medical Issues: Psychosocial: Single. Has 2 sons (Khris 21 in [place] and Ed age 9 lives with patient). She is supported by friends and family. 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 Spiritual: Baptism Elenita. Legal: Patient is currently capacitated to make her own health care decisions. Should she lose capacity she completed Healthcare Power of Associate [employer] on 12/29/17, copy scanned into EMR. Designated health care agent Niesha Gloria as primary and Charley Chapman as alternate healthcare agent. Ethical issues impacting care: No known concerns at this time. Important Contacts: * Niesha Gloria, mother/ primary health care surrogate: [phone] * Charley Chapman, friend/ alternate HCS: [phone] Prognosis: Patient is sweet, unfortunate 42 year old with progressive ovarian cancer despite Line 4 of chemotherapy, admitted with SBO. Overall prognosis is poor. Treatment is palliative, patient has a terminal condition. Hospice appropriate if goals are comfort oriented. Code Status: Alternative Code (intub only) Plan: * Patient is currently capacitated to make her own health care decisions. Should she lose capacity she completed Healthcare Power of [employer] on 12/29/17, copy scanned into EMR. Designated health care agent Niesha Gloria as primary and Charley Chapman as alternate healthcare agent. * FULL CODE * Goals: Pt now intubated. Met with mother/HCS Niesha. She would like to work towards medical extubation in the coming days, and at that time explore w pt ( if possible) going home with hospice/comfort before additional setbacks occur. We explored code status - she indicates NO cardiac resuscitation, intubation only. (pt DOES NOT want to in the hospital) * SYMPTOMS: Pain: abdominal pain secondary to progressive ovarian cancer with peritoneal carcinomatosis, small bowel obstruction, DVT, debility, dehydration, etc. Pain controlled with current meds- now on fentanyl drip per critical care. Post op pain prev. well controlled. Will continue to monitor and make recommendations as needed. Dyspnea- worsening resp status overnight,required increasing FIo2 , urgently intubated this am. Now on mechanical vent, nursing starting sedation. Still w agonal type pattern on vent. * Palliative care will continue to follow to assist with symptom management and further clarification of medical treatment goals throughout hospital course. 1600 UPDATE Family speaks together regarding patient wishes: they indicate she would not want to be prolonged on artificial measures without good chance of meaningful recovery. They request compassionate withdrawal of life support today, with transition to comfort focus and comfort measures only as consistent with patient known wishes. They request to do this today as soon as able to. Anticipatory guidance provided. Exhibits B, C signed and placed in chart. Palliative care medical social worker provided family with additional information for bereavement support for her 9- year-old son. comfort orders for pre withdrawal, time of withdrawal, and post withdrawal entered. DNR entered. discussed at length w critical care, primary rn Time Spent Total Floor Time (mins): 45 (chart review, PE, dw/ critical care, dw nursing, dw family ) Attestation Attestation: To help prompt me to consider important information that might be impacting today's encounter and assessment, information from prior notes written by myself or my colleagues may have been "brought forward" into today's note. My signature on this note, however, is an attestation that I personally performed the exam, history, and/or decision-making noted today, and, unless otherwise indicated, the interactions with patient, family, and staff as well as the review of records all occurred today. I also attest that the listed assessment and stated plan reflect my best clinical judgment today based on the combination of historical information, prior notes, and today's exam/ interactions. When time spent is documented, it refers only to time spent today by the signer, or if indicated, combined time spent today by collaborating physician/nurse practitioner.
[2018-01-04 13:18] LABS: Calcium 5.6 mg/dL (8.5-10.1); Carbon Dioxide 14.1 meq/L (21.0-32.0); Potassium 3.6 meq/L (3.5-5.1)
--- NOTE | 2018-01-04 13:45 | P.PCN ---
Procedure: Diagnosis: Septic shock, acute respiratory failure, acute kidney injury Procedure: 1. Orotracheal intubation with #8 tube 2. Insertion left subclavian central venous line Narrative: Timeout performed and patient properly identified. Bag mask ventilation necessary because of an adequate gas exchange. Versed 5 mg IV to assist with ventilation. Intubated orally using #8 tube. Position confirmed with CO2 detection, bilateral breath sounds, improved oxygen saturation. Left chest prepped and draped. Infraclavicular region and clavicle on the left side infiltrated with 1% Xylocaine anesthetic 4 cc. Using a thin-walled needle the subclavian vein was easily cannulated and a wire advanced without resistance. A dilator was passed then the triple-lumen catheter was advanced over the wire to a distance of 18 cm. Biopatch and sterile dressing was applied, StatLock was used to attach the skin. Chest x-ray confirmed position of both tube and line.
[2018-01-04] MEDS ORDERED: Calcium Chloride Inj 2 GM in Dextrose 5% in Water Inj 100 ML IV.SIG ONE ×2 (15:00)
[2018-01-04 15:57] LABS: VBG Base Excess -18.9 mmol/L (-2-2); VBG Blood Gas Oxygen Content 7.9 Vol % (9.0-17.0); VBG PCO2 35 mmHG (44-48); VBG PH 7.06 (7.360-7.400); VBG PO2 48 mmHG (35-40)
[2018-01-04] MEDS ORDERED: Oral Hygiene Kit OROPHARYNG SCH (16:00)
[2018-01-04] MEDS ORDERED: Morphine Inj 4 MG/ML Vial IV.PUSH PRN (16:17)
[2018-01-04] MEDS ORDERED: Hyoscyamine Inj 0.5 MG/ML Ampul IV.PUSH PRN (16:17)
--- NOTE | 2018-01-04 16:20 | P.PNCC ---
Subjective Subjective Remarks/Hospital Course: 12/28: 42-year-old female with past medical history of stage IIIc ovarian cancer (poorly differentiated adenocarcinoma) diagnosed in 06/2014 who underwent systemic chemotherapy and then RIRI and BSO with omentectomy in 2014. She underwent postoperative chemotherapy and then was in remission about 18 months when she developed recurrence treated with multiple chemo regimens. Prior to admission, she had received paclitaxel and Avastin started 12/15/17. She was admitted 12/18/17 after she presented with 1 week history of abdominal distension, obstipation and emesis with feculent odor. CT findings were consistent with SBO and previously diagnosed intraperitoneal carcinomatosis. She was managed conservatively with NGT but did not improve and diagnostic lap was planned. Meanwhile, she had BLE u/s on 12/26 that showed nonocclusive thrombus of the left distal common femoral and proximal superficial femoral veins. She was started on heparin drip and surgery was postponed pending 24 hours of heparin. She has now undergone ex lap with resection of distal small bowel, end-ileostomy, lysis of adhesions and evacuation of 4.5 L of ascites, G tube placement. Critical care management sent has been consulted to assist with her care. She received 2700 of crystalloid intraoperatively. EBL was 200. Urine output was 180. She was extubated in OR and is groggy post- extubation. She complains of 8/10 abdominal pain. Her hgb is 9.2 from 12.5 pre- op and she is receiving 2 units PRBC per surgery. Denies CP/SOB. 12/29: Normotensive. Breathing with relative comfort restricted minimally by abdominal pain. Hemoglobin 14, creatinine 0.6. Ileostomy stoma is pink and well-perfused. 12/30: Pain well controlled. Breathing comfortably. Hemoglobin stable. Patient is expressing her desire to get strong and undergo another round of chemotherapy. PTT is in therapeutic range on continuous infusion heparin drip, made necessary by left leg femoral venous thrombus. Ileostomy output is large and urine output dropping, will increase IV fluids until PO intake improves. 12/31-: Up in chair daily. Generally edematous but otherwise breathing comfortably. 01/04: I was called to see patient emergently for deteriorating neurologic function, agonal respirations and severe metabolic acidosis. She required emergency intubation and the institution of mechanical ventilation. A central line was placed for the monitoring of central venous pressure and the infusion of potent vasopressor agents. 5 A of sodium bicarbonate was infused to correct for a severe base deficit. The gastrostomy tube is hooked to decompression. She is requiring 20 mcg/min of norepinephrine and 0.04 U/min of vasopressin. She is hemodynamically unstable. Update 1600 hours: Patient continues clinical deterioration requiring increasing amounts vasopressor support and mechanical ventilation. Lactic acid is unchanged from previous level of 13.9, now 13.7. Central venous pH is 7.05 with a base deficit of 18.9. Oxygen delivery is acceptable, as evidenced by a mixed venous oxygen saturation of 68%. Clearly she has had adequate fluid resuscitation. This appears to be overwhelming sepsis in the context of a markedly impaired immune system. Objective Vital Signs / I&O: Vital Signs 01/03/18 20:00 01/03/18 20:35 01/04/18 00:00 Temperature 98.1 F 98.5 F Pulse Rate 135 H 135 H Respiratory Rate 15 19 Blood Pressure 97/67 L 93/53 L Pulse Oximetry 96 95 97 01/04/18 04:00 01/04/18 11:00 01/04/18 15:13 Temperature 98.7 F 97.8 F Pulse Rate 125 H 135 H Respiratory Rate 22 28 H 28 H Blood Pressure 86/54 L 87/54 L Pulse Oximetry 96 99 94 L 01/04/18 15:14 Temperature Pulse Rate Respiratory Rate 20 Blood Pressure Pulse Oximetry 93 L Intake & Output 01/03/18 01/04/18 01/04/18 18:59 06:59 18:59 Intake Total 1690 / 1690 2400 / 2400 2099 / 2099 Output Total 1575 / 1575 1725 / 1725 Balance 115 / 115 675 / 675 2099 / 2099 Weight 102 kg Intake: IV 1350 / 1350 2400 / 2400 2099 / 2099 NS Inj 1,000 ML @ 125 mls/hr IV 1000 / 1000 1000 / 1000 .CONT .Q8H [facility] Rx#:[id number] Flexbumin 25% Inj 50 ML @ 60 50 / 50 100 / 100 mls/hr IV.SIG Q8H [facility] Rx#: [id number] D10W Inj 500 ML @ 100 mls/hr IV 1000 / 1000 1000 / 1000 1000 / 1000 .SIG .Q5H [facility] Rx#:[id number] Ancef Inj 2,000 MG In NS Inj 80 200 / 200 100 / 100 ML @ 200 mls/hr IV.SIG Q8H [facility] Rx#:[id number] Flagyl 500 MG Inj 100 ML @ 100 100 / 100 200 / 200 100 / 100 mls/hr IV.SIG Q8H [facility] Rx#: [id number] Oral 340 / 340 Intake (Blood Product) Amt 0 / 0 Plt Pheresis B Leukoreduced 0 / 0 Unit [id number] Output: Urine Amount (Catheter) 200 / 200 850 / 850 Indwelling Urethral Catheter 200 / 200 850 / 850 Stool Amount (Stoma) 275 / 275 225 / 225 Right Lower Abdomen 275 / 275 225 / 225 Gastric Drainage 400 / 400 250 / 250 Gastrostomy Tube (PEG) 400 / 400 250 / 250 Wound Drainage 700 / 700 400 / 400 # 1 Abdomen 700 / 700 400 / 400 Other: Date of Last Bowel Movement 01/03/18 01/03/18 Result Diagrams: 01/04/18 12:25 01/04/18 12:25 Objective Remarks: Narrative: GENERAL: Obtunded, agonal respirations despite mechanical ventilation. SKIN: Warm and dry. Port access R chest. HEAD: Atraumatic. Normocephalic. EYES: Pupils equal and round, 3 mm and sluggishly reactive bilateral. No scleral icterus. No injection or drainage. ENT: No nasal bleeding or discharge. Mucous membranes moist. NECK: Trachea midline. Orotracheal intubation with #8 tube. CARDIOVASCULAR: Tachycardic rate 125 and rhythm, no JVD. No murmurs rubs or gallops. No JVD. RESPIRATORY: Agonal respiratory pattern. Ventilator breaths with good air entry bilaterally scattered bilateral rhonchi. On mechanical ventilation. GASTROINTESTINAL: Abdominal binder in place. Dressing in place over midline vertical incision. Ileostomy right abdomen. ARNOL drain left lower quadrant with serosanguineous output. G tube in place. Bowel sounds absent. MUSCULOSKELETAL: Extremities without clubbing, cyanosis. 2+ bipedal edema. Tepid, remains poorly perfused NEUROLOGICAL: Unresponsive, agonal respirations above ventilator rate of 28. Pupils 1 mm sluggishly reactive. Gag absent cough reflex week. Assessment and Plan - Problem List (1) Septic shock Code(s): A41.9 - Sepsis, unspecified organism; R65.21 - Severe sepsis with septic shock Status: Acute (2) Acute respiratory failure Code(s): J96.00 - Acute respiratory failure, unspecified whether with hypoxia or hypercapnia Status: Acute (3) Carcinomatosis peritonei Code(s): C78.6 - Secondary malignant neoplasm of retroperitoneum and peritoneum ; C80.1 - Malignant (primary) neoplasm, unspecified Status: Chronic (4) Small bowel obstruction Code(s): K56.609 - Unspecified intestinal obstruction, unspecified as to partial versus complete obstruction Status: Acute (5) Hypocalcemia Code(s): E83.51 - Hypocalcemia Status: Acute (6) Ovarian cancer Code(s): C56.9 - Malignant neoplasm of unspecified ovary Status: Chronic (7) History of hysterectomy Code(s): Z90.710 - Acquired absence of both cervix and uterus Status: Chronic (8) S/P ileostomy Code(s): Z93.2 - Ileostomy status Status: Acute (9) Acute blood loss anemia Code(s): D62 - Acute posthemorrhagic anemia Status: Acute (10) Ascites Code(s): R18.8 - Other ascites Status: Resolved (11) Metabolic acidosis Code(s): E87.2 - Acidosis Status: Acute - Assessment and Plan Plan: NEURO: Unresponsive Radiant RESP: Required intubation and mechanical ventilation Severe metabolic acidosis with incomplete respiratory compensation Persistent hypoxemia CV: Severe hypotension Levo fed 20 mics per minute, vasopressin 0.04 U/min, starting Papo-Synephrine quadruple strength Persistent hypotension despite 3 vasopressor support GI: SBO s/p ex lap with partial SB resection, ileostomy, LEMUEL, G tube placement by Dr. Rushing 12/27/17. Intraperitoneal carcinomatosis GERD NPO G-tube in place. Monitor ARNOL output, management per gen surgery. Timing of diet advancement will be up to general surgery. Protonix as per below. Bowel regimen Monitor ileostomy stoma color. Gastrostomy tube to decompressive suction FEN/RENAL: Crowder in place. Monitor intake and output hourly. Check magnesium and phosphorus now and continue to monitor electrolytes and replace as indicated. Oliguric Acute kidney injury ID: Cultures and start broad-spectrum antibiotics HEME: Nonocclusive thrombus left distal common femoral and proximal superficial femoral artery per u/s 12/26/17. Acute blood loss anemia Receiving 2 units packed red cells 12/28/17 per general surgery. Post-op labs pending, monitor CBC. On heparin drip per hematology recommendations. Dr. Rushing states resume heparin at 7 am 12/28/17. Resumed without bolus based on response to prior bolus , monitor to ensure she becomes therapeutic. Coagulopathy INR elevated, suspected secondary to vit K depletion due to poor po intake. Received Vitamin K 10 mg infusion 12/26 per hematology. Thrombocytopenia, prolonged PTT. H ITT panel Recurrent Ovarian Cancer Followed by Heme/onc and client development consultant/onc Dr. James. ENDO: Persistent hypoglycemia. Added dextrose to MIVF as per above. Added dextrose to all vasopressors and bicarb infusion PROPH: Heparin has been stopped, fear HIT, Protonix, SCDs. ACCESS: Port accessed R chest. New left subclavian vein central venous line placed January 04 Palliative care team was consulted by medical oncology and is following. Patients goals remain aggressive. Discussed with Dr. Rushing again this morning. Full code Overall impression: This neutropenic patient is in septic shock exacerbated by a compromised immune system. She is hemodynamically unstable requiring numerous vasopressors for support. She required intubation and mechanical ventilation for respiratory failure. She has required continuous and ongoing manipulation of ventilator settings and vasopressor drips over the last 8 hours. The severe persistent lactic acidosis and irreversible state of metabolic acidosis despite aggressive resuscitation indicates that this patient will not survive this disease process. We have initiated discussions between the family with Dr. Rushing and myself. The family has expressed a desire to discontinue artificial support and allow the patient to assume a natural . Critical care time 70 minutes aside from invasive procedures. Code Status: Alternative code Discussed Condition With: Dr. carina Rushing, family, close family friends with permission of the family, the palliative care team, bedside nursing staff.
[2018-01-04] MEDS ORDERED: Hyoscyamine Inj 0.5 MG/ML Ampul IV.PUSH ONE (17:00)
[2018-01-04] MEDS ORDERED: Chlorhexidine 0.12% Oral Kit 15 ML UDC OROPHARYNG SCH (20:00)
[2018-01-04 20:06] VITALS: BP 75/54; RESP 29; TEMP 97; O2SAT 90
[2018-01-04 20:12] VITALS: PULSE 0
[2018-01-04] MEDS ORDERED: Famotidine 20 MG Tablet NG/OG SCH (21:00)
[2018-01-04] MEDS ORDERED: Famotidine PF Inj 20 MG/2 ML Vial IV.PUSH SCH (21:00)
[2018-01-04] MEDS ORDERED: Famotidine 20 MG Tablet PO SCH (21:00)
--- NOTE | 2018-01-04 22:04 | P.PNGS ---
Subjective Patient reports: still having pain (altered ms this am, no responding to comands , ), shortness of breath Physical Exam Vital signs: Vital Signs 01/04/18 00:00 01/04/18 04:00 01/04/18 08:00 Temperature 98.5 F 98.7 F 97.8 F Pulse Rate 135 H 125 H 134 H Respiratory Rate 19 22 31 H Blood Pressure 93/53 L 86/54 L 80/50 L Pulse Oximetry 97 96 96 01/04/18 11:00 01/04/18 12:00 01/04/18 13:00 Temperature 98.2 F Pulse Rate 135 H 130 H Respiratory Rate 28 H 35 H 25 H Blood Pressure 78/47 L 90/66 L Pulse Oximetry 99 96 96 01/04/18 14:00 01/04/18 15:00 01/04/18 15:13 Temperature 97.8 F Pulse Rate 130 H 130 H 135 H Respiratory Rate 25 H 29 H 28 H Blood Pressure 99/60 L 86/66 L 87/54 L Pulse Oximetry 96 92 L 94 L 01/04/18 15:14 01/04/18 16:00 01/04/18 17:00 Temperature 97 F L Pulse Rate 130 H 80 Respiratory Rate 20 29 H 29 H Blood Pressure 75/54 L Pulse Oximetry 93 L 94 L 90 L 01/04/18 18:02 Temperature Pulse Rate 0 L Respiratory Rate Blood Pressure Pulse Oximetry Intake & Output 01/04/18 01/04/18 01/05/18 06:59 18:59 06:59 Intake Total 2400 / 2400 3045 / 3045 Output Total 1725 / 1725 Balance 675 / 675 3045 / 3045 Weight 102 kg Intake: IV 2400 / 2400 3045 / 3045 NS Inj 1,000 ML @ 125 mls/hr IV 1000 / 1000 1000 / 1000 .CONT .Q8H [facility] Rx#:[id number] Sodium Bicarbonate 8.4% Inj 150 200 / 200 MEQ In D5W/Normal Saline Inj 850 ML @ 150 mls/hr IV.CONT . Q6H40M [facility] Rx#:[id number] Pitressin Inj 40 UNIT In D5W 30 / 30 Inj 98 ML @ 0.04 UNITS/MIN 6 mls/hr IV.CONT CONT [facility] Rx#: [id number] Flexbumin 25% Inj 50 ML @ 60 100 / 100 mls/hr IV.SIG Q8H [facility] Rx#: [id number] Maxipime Inj 2,000 MG In NS Inj 100 / 100 100 ML @ 200 mls/hr IV.SIG Q8H [facility] Rx#:[id number] D10W Inj 500 ML @ 100 mls/hr IV 1000 / 1000 1000 / 1000 .SIG .Q5H [facility] Rx#:[id number] Mycamine Inj 100 MG In NS Inj 100 / 100 100 ML @ 100 mls/hr IV.SIG Q24H [facility] Rx#:[id number] Levophed-Dextrose 4 mg/250 ml 50 / 50 Drip 4 mg In 250 ml @ 0 mls/hr IV.SIG .STK[facility] Rx#: [id number] Vancomycin Inj 1,500 MG In NS 465 / 465 Inj 500 ML @ 250 mls/hr IV.SIG ONCE [facility] Rx#:[id number] Ancef Inj 2,000 MG In NS Inj 80 100 / 100 ML @ 200 mls/hr IV.SIG Q8H [facility] Rx#:[id number] Flagyl 500 MG Inj 100 ML @ 100 200 / 200 100 / 100 mls/hr IV.SIG Q8H [facility] Rx#: [id number] Intake (Blood Product) Amt 0 / 0 Plt Pheresis B Leukoreduced 0 / 0 Unit [id number] Output: Urine Amount (Catheter) 850 / 850 Indwelling Urethral Catheter 850 / 850 Stool Amount (Stoma) 225 / 225 Right Lower Abdomen 225 / 225 Gastric Drainage 250 / 250 Gastrostomy Tube (PEG) 250 / 250 Wound Drainage 400 / 400 # 1 Abdomen 400 / 400 Other: Date of Last Bowel Movement 01/03/18 01/04/18 - Constitutional moderate distress - Routine Respiratory Exam Present: respiratory distress - Routine Cardiovascular Exam Present: RRR, tachycardia - Routine Abdominal Exam Present: soft (incision c/d/i humberto serosang, ostomy pink) - Urinary Catheter Management Indwelling Urethral Catheter Cath placed during this visit: yes Reason for continuing: Hourly intake/output Insertion date: 12/27/17 Insertion time: 21:10 Assessment and Plan - Assessment (1) Small bowel obstruction Code(s): K56.609 - Unspecified intestinal obstruction, unspecified as to partial versus complete obstruction Status: Acute Plan: 42 year old female with ovarian cancer; small bowel obstruction, s/p dx lap, ex lap perlita, sb resection ileostomy, g tube, ostomy dark, digitalized this am- patent stool in bag us shows non occlusive dvt - g tube to gravity bag for 24 hours to see if symptom improvement -respiratory failure - discussed with ISC for intubation -discussed with family regarding guarded prognosis - will discuss with palliative - poor prognosis - acidotic- correct acid base derangement - aggressive support (2) Ileostomy, has currently Code(s): Z93.2 - Ileostomy status Status: Acute (3) Urine output low Code(s): R34 - Anuria and oliguria Status: Acute
[2018-01-05] MEDS ORDERED: Chlorhexidine Gluconate 2% 1 Pack (2 Cloths) TOPICAL PRN (04:00)
[2018-01-05] MEDS ORDERED: Chlorhexidine Gluconate 2% 1 Pack (2 Cloths) TOPICAL SCH (04:00)
--- NOTE | 2018-01-05 06:36 | P.DS ---
Date of admission: 12/18/17 17:46 Primary care physician: No Primary Care Physician Attending physician on discharge: Adolfo Smith Anticipated date of discharge: 01/04/18 Brief History from admission: 42 YOWF with history of ovarian cancer s/p hysterectomy and partial omentectomy in 2014 and now currently undergoing chemotherapy for recurrence presented to the ED with generalized abdominal pain, nausea, and vomiting. The patient reports she has had abdominal discomfort for months but in the last 2-3 days the pain has become unbearable. Her pain is especially worst in the epigastric region and she has had some associated fullness and distention. She has also had intermittent vomiting during the past couple months that she states has a fecal odor. In the past two days she hasn't been able to tolerate any oral intake because of the pressure in her abdomen. She states she hasn't passed flatus in "months." Her last BM was about a week ago and prior to that she was having small of amounts of liquid, nonbloody diarrhea. She endorses some shortness of breath that she attributes to her abdominal pressure. She states she has been belching frequently and even her belches are foul-smelling. Her oncologist is Dr. James and her last chemo was 3 days ago. 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 She was admitted back in October for similar abdominal pain and during that admission she had a paracentesis with 3.4L fluid removal as well as an EGD that showed esophagitis and multiple gastric ulcers. DS: Diagnosis - Discharge Diagnosis (1) Septic shock Status: Acute (2) Acute respiratory failure Status: Acute (3) Carcinomatosis peritonei Status: Chronic (4) Small bowel obstruction Status: Acute (5) Hypocalcemia Status: Acute (6) Ovarian cancer Status: Chronic (7) History of hysterectomy Status: Chronic (8) S/P ileostomy Status: Acute (9) Acute blood loss anemia Status: Acute (10) Metabolic acidosis Status: Acute DS: Summary Hospital Course: 12/28: 42-year-old female with past medical history of stage IIIc ovarian cancer (poorly differentiated adenocarcinoma) diagnosed in 06/2014 who underwent systemic chemotherapy and then RIRI and BSO with omentectomy in 2014. She underwent postoperative chemotherapy and then was in remission about 18 months when she developed recurrence treated with multiple chemo regimens. Prior to admission, she had received paclitaxel and Avastin started 12/15/17. She was admitted 12/18/17 after she presented with 1 week history of abdominal distension, obstipation and emesis with feculent odor. CT findings were consistent with SBO and previously diagnosed intraperitoneal carcinomatosis. She was managed conservatively with NGT but did not improve and diagnostic lap was planned. Meanwhile, she had BLE u/s on 12/26 that showed nonocclusive thrombus of the left distal common femoral and proximal superficial femoral veins. She was started on heparin drip and surgery was postponed pending 24 hours of heparin. She has now undergone ex lap with resection of distal small bowel, end-ileostomy, lysis of adhesions and evacuation of 4.5 L of ascites, G tube placement. Critical care management sent has been consulted to assist with her care. She received 2700 of crystalloid intraoperatively. EBL was 200. Urine output was 180. She was extubated in OR and is groggy post- extubation. She complains of 8/10 abdominal pain. Her hgb is 9.2 from 12.5 pre- op and she is receiving 2 units PRBC per surgery. Denies CP/SOB. 12/29: Normotensive. Breathing with relative comfort restricted minimally by abdominal pain. Hemoglobin 14, creatinine 0.6. Ileostomy stoma is pink and well-perfused. 12/30: Pain well controlled. Breathing comfortably. Hemoglobin stable. Patient is expressing her desire to get strong and undergo another round of chemotherapy. PTT is in therapeutic range on continuous infusion heparin drip, made necessary by left leg femoral venous thrombus. Ileostomy output is large and urine output dropping, will increase IV fluids until PO intake improves. 12/31-: Up in chair daily. Generally edematous but otherwise breathing comfortably. 01/04: I was called to see patient emergently for deteriorating neurologic function, agonal respirations and severe metabolic acidosis. She required emergency intubation and the institution of mechanical ventilation. A central line was placed for the monitoring of central venous pressure and the infusion of potent vasopressor agents. 5 A of sodium bicarbonate was infused to correct for a severe base deficit. The gastrostomy tube is hooked to decompression. She is requiring 20 mcg/min of norepinephrine and 0.04 U/min of vasopressin. She is hemodynamically unstable. Update 1600 hours: Patient continues clinical deterioration requiring increasing amounts vasopressor support and mechanical ventilation. Lactic acid is unchanged from previous level of 13.9, now 13.7. Central venous pH is 7.05 with a base deficit of 18.9. Oxygen delivery is acceptable, as evidenced by a mixed venous oxygen saturation of 68%. Clearly she has had adequate fluid resuscitation. This appears to be overwhelming sepsis in the context of a markedly impaired immune system. Family, with the assistance of the palliative care service, realizing that survival from this disease process was not possible, requested removal of all artificial support devices and vasoactive substances followed by comfort measures only. This was very appropriate in the context of this irreversible state of shock. Following extubation the patient at 1802 hours on January 04, 2018. Immediate cause of was septic shock. - Time Spent with Patient Total time spent providing and/or coordinating discharge services: 45 mins Greater than 30 minutes - Quality: VTE Deep Vein Thrombosis/Pulmonary Embolism Present on Admission: No Exam Vital signs: Vital Signs 01/04/18 08:00 01/04/18 11:00 01/04/18 12:00 Temperature 97.8 F 98.2 F Pulse Rate 134 H 135 H Respiratory Rate 31 H 28 H 35 H Blood Pressure 80/50 L 78/47 L Pulse Oximetry 96 99 96 01/04/18 13:00 01/04/18 14:00 01/04/18 15:00 Temperature Pulse Rate 130 H 130 H 130 H Respiratory Rate 25 H 25 H 29 H Blood Pressure 90/66 L 99/60 L 86/66 L Pulse Oximetry 96 96 92 L 01/04/18 15:13 01/04/18 15:14 01/04/18 16:00 Temperature 97.8 F 97 F L Pulse Rate 135 H 130 H Respiratory Rate 28 H 20 29 H Blood Pressure 87/54 L 75/54 L Pulse Oximetry 94 L 93 L 94 L 01/04/18 17:00 01/04/18 18:02 Temperature Pulse Rate 80 0 L Respiratory Rate 29 H Blood Pressure Pulse Oximetry 90 L Intake & Output 01/04/18 01/04/18 01/05/18 06:59 18:59 06:59 Intake Total 2400 / 2400 3045 / 3045 Output Total 1725 / 1725 Balance 675 / 675 3045 / 3045 Weight 102 kg Intake: IV 2400 / 2400 3045 / 3045 NS Inj 1,000 ML @ 125 mls/hr IV 1000 / 1000 1000 / 1000 .CONT .Q8H [facility] Rx#:[id number] Sodium Bicarbonate 8.4% Inj 150 200 / 200 MEQ In D5W/Normal Saline Inj 850 ML @ 150 mls/hr IV.CONT . Q6H40M [facility] Rx#:[id number] Pitressin Inj 40 UNIT In D5W 30 / 30 Inj 98 ML @ 0.04 UNITS/MIN 6 mls/hr IV.CONT CONT [facility] Rx#: [id number] Flexbumin 25% Inj 50 ML @ 60 100 / 100 mls/hr IV.SIG Q8H [facility] Rx#: [id number] Maxipime Inj 2,000 MG In NS Inj 100 / 100 100 ML @ 200 mls/hr IV.SIG Q8H [facility] Rx#:[id number] D10W Inj 500 ML @ 100 mls/hr IV 1000 / 1000 1000 / 1000 .SIG .Q5H [facility] Rx#:[id number] Mycamine Inj 100 MG In NS Inj 100 / 100 100 ML @ 100 mls/hr IV.SIG Q24H [facility] Rx#:[id number] Levophed-Dextrose 4 mg/250 ml 50 / 50 Drip 4 mg In 250 ml @ 0 mls/hr IV.SIG .STK-MED ONE Rx#: [id number] Vancomycin Inj 1,500 MG In NS 465 / 465 Inj 500 ML @ 250 mls/hr IV.SIG ONCE ONE Rx#:[id number] Ancef Inj 2,000 MG In NS Inj 80 100 / 100 ML @ 200 mls/hr IV.SIG Q8H [facility] Rx#:[id number] Flagyl 500 MG Inj 100 ML @ 100 200 / 200 100 / 100 mls/hr IV.SIG Q8H [facility] Rx#: [id number] Intake (Blood Product) Amt 0 / 0 Plt Pheresis B Leukoreduced 0 / 0 Unit [id number] Output: Urine Amount (Catheter) 850 / 850 Indwelling Urethral Catheter 850 / 850 Stool Amount (Stoma) 225 / 225 Right Lower Abdomen 225 / 225 Gastric Drainage 250 / 250 Gastrostomy Tube (PEG) 250 / 250 Wound Drainage 400 / 400 # 1 Abdomen 400 / 400 Other: Date of Last Bowel Movement 01/03/18 01/04/18 Narrative: . Results Procedures completed during hospitalization: (1) Small bowel obstruction Date of procedure: 12/28/17 Procedure: dx lap ex lap small bowel resection end ileostomy extensive LEMUEL >60 minutes g tube Anesthesia: GETA Surgeon: Dg Rushing MD Estimated blood loss (mL): 100 Pathology: other (small bowel) Operation and Findings: extensive carcinomatosis multiple involved small bowel loops adhesions distal obstruction Additional procedures: Intubation and mechanical ventilation Insertion of central venous access line Completed studies during hospitalization: Pending at discharge 12/27/17 08:09 Surgical [PTH] Routine Pending studies at discharge: None Labs on day of discharge: Labs from last 24 hours 01/04/18 01/04/18 01/04/18 15:52 14:40 13:28 WBC RBC Hgb Hct MCV MCH MCHC RDW Plt Count MPV WBC Differential Seg Neuts % (Manual) Band Neuts % (Manual) Lymphocytes % (Manual) Monocytes % (Manual) Metamyelocytes % (Man) Plasma Cell % (Manual) Abs Neuts (Manual) Nucleated RBCs/100 WBC Toxic Vacuolation Dohle Bodies Platelet Estimate Platelet Morphology Ovalocytes APTT D-Dimer Quant (PE/DVT) Puncture Site Peripheral line Patient Temperature 98.6 O2 Saturation ABG pH ABG pCO2 ABG pO2 ABG HCO3 ABG O2 Content ABG Base Excess ABG Methemoglobin Donaldo Test VBG pH 7.06 L* VBG pCO2 35 L VBG pO2 48 H VBG HCO3 9 L* VBG O2 Saturation 68 L VBG O2 Content 7.9 L VBG Base Excess -18.9 L VBG Carboxyhemoglobin 0.6 VBG Methemoglobin 1.5 Hemoglobin 8.2 L Carboxyhemoglobin O2 Delivery Device Ventilator Liter Flow Vent Setting Inspired O2 80 Critical Value Yes Sodium Potassium Chloride Carbon Dioxide Anion Gap BUN Creatinine Estimated GFR POC Glucose Random Glucose Lactic Acid 13.7 H* Calcium Prot Corrected Calcium Total Protein Nasal Screen MRSA (PCR) Heparin Dep Plt Ab OD Hep-Induced Plt Ab Fang MTS Gel Crossmatch Bld Prod Order Comment 01/04/18 01/04/18 01/04/18 12:49 12:25 12:25 WBC RBC Hgb Hct MCV MCH MCHC RDW Plt Count MPV WBC Differential Seg Neuts % (Manual) Band Neuts % (Manual) Lymphocytes % (Manual) Monocytes % (Manual) Metamyelocytes % (Man) Plasma Cell % (Manual) Abs Neuts (Manual) Nucleated RBCs/100 WBC Toxic Vacuolation Dohle Bodies Platelet Estimate Platelet Morphology Ovalocytes APTT D-Dimer Quant (PE/DVT) 4.20 H Puncture Site Patient Temperature O2 Saturation ABG pH ABG pCO2 ABG pO2 ABG HCO3 ABG O2 Content ABG Base Excess ABG Methemoglobin Donaldo Test VBG pH VBG pCO2 VBG pO2 VBG HCO3 VBG O2 Saturation VBG O2 Content VBG Base Excess VBG Carboxyhemoglobin VBG Methemoglobin Hemoglobin Carboxyhemoglobin O2 Delivery Device Liter Flow Vent Setting Inspired O2 Critical Value Sodium Potassium Chloride Carbon Dioxide Anion Gap BUN Creatinine Estimated GFR POC Glucose 84 Random Glucose Lactic Acid Calcium Prot Corrected Calcium Total Protein Nasal Screen MRSA (PCR) Not detected Heparin Dep Plt Ab OD Hep-Induced Plt Ab Fang MTS Gel Crossmatch Bld Prod Order Comment 01/04/18 01/04/18 01/04/18 12:25 12:25 12:25 WBC RBC Hgb Hct MCV MCH MCHC RDW Plt Count MPV WBC Differential Seg Neuts % (Manual) Band Neuts % (Manual) Lymphocytes % (Manual) Monocytes % (Manual) Metamyelocytes % (Man) Plasma Cell % (Manual) Abs Neuts (Manual) Nucleated RBCs/100 WBC Toxic Vacuolation Dohle Bodies Platelet Estimate Platelet Morphology Ovalocytes APTT D-Dimer Quant (PE/DVT) Puncture Site Patient Temperature O2 Saturation ABG pH ABG pCO2 ABG pO2 ABG HCO3 ABG O2 Content ABG Base Excess ABG Methemoglobin Donaldo Test VBG pH VBG pCO2 VBG pO2 VBG HCO3 VBG O2 Saturation VBG O2 Content VBG Base Excess VBG Carboxyhemoglobin VBG Methemoglobin Hemoglobin Carboxyhemoglobin O2 Delivery Device Liter Flow Vent Setting Inspired O2 Critical Value Sodium 137 Potassium 3.6 Chloride 103 Carbon Dioxide 14.1 L Anion Gap 20 H BUN 10 Creatinine 1.42 H Estimated GFR 41 L POC Glucose Random Glucose 103 Lactic Acid 13.9 H* Calcium 5.6 L* Prot Corrected Calcium 7.6 L Total Protein 3.0 L Nasal Screen MRSA (PCR) Heparin Dep Plt Ab OD Pending Hep-Induced Plt Ab Fang Pending MTS Gel Crossmatch Bld Prod Order Comment 01/04/18 01/04/18 01/04/18 12:25 12:25 11:55 WBC 1.1 L RBC 2.97 L Hgb 9.0 L Hct 27.3 L MCV 91.7 MCH 30.2 MCHC 33.0 RDW 18.1 H Plt Count 8 L* D MPV 9.1 WBC Differential Seg Neuts % (Manual) Band Neuts % (Manual) Lymphocytes % (Manual) Monocytes % (Manual) Metamyelocytes % (Man) Plasma Cell % (Manual) Abs Neuts (Manual) Nucleated RBCs/100 WBC Toxic Vacuolation Dohle Bodies Platelet Estimate Platelet Morphology Ovalocytes APTT 156.4 H* D-Dimer Quant (PE/DVT) Puncture Site Right radial Patient Temperature 98.6 O2 Saturation 75 L* ABG pH 7.28 L* ABG pCO2 38 ABG pO2 46 L* ABG HCO3 17 L ABG O2 Content 9.0 L ABG Base Excess -8.3 L ABG Methemoglobin 1.4 Donaldo Test + VBG pH VBG pCO2 VBG pO2 VBG HCO3 VBG O2 Saturation VBG O2 Content VBG Base Excess VBG Carboxyhemoglobin VBG Methemoglobin Hemoglobin 8.5 L Carboxyhemoglobin 1.1 O2 Delivery Device Ventilator Liter Flow Vent Setting Aprv?ac Inspired O2 100 Critical Value Yes Sodium Potassium Chloride Carbon Dioxide Anion Gap BUN Creatinine Estimated GFR POC Glucose Random Glucose Lactic Acid Calcium Prot Corrected Calcium Total Protein Nasal Screen MRSA (PCR) Heparin Dep Plt Ab OD Hep-Induced Plt Ab Fang MTS Gel Crossmatch Bld Prod Order Comment 01/04/18 01/04/18 01/04/18 10:45 10:44 09:18 WBC RBC Hgb Hct MCV MCH MCHC RDW Plt Count MPV WBC Differential Seg Neuts % (Manual) Band Neuts % (Manual) Lymphocytes % (Manual) Monocytes % (Manual) Metamyelocytes % (Man) Plasma Cell % (Manual) Abs Neuts (Manual) Nucleated RBCs/100 WBC Toxic Vacuolation Dohle Bodies Platelet Estimate Platelet Morphology Ovalocytes APTT 169.0 H* D-Dimer Quant (PE/DVT) Puncture Site Right radial Patient Temperature 98.6 O2 Saturation 92 ABG pH 7.24 L* ABG pCO2 18 L* ABG pO2 78 ABG HCO3 7 L* ABG O2 Content 11.8 L ABG Base Excess -18.9 L ABG Methemoglobin 1.5 Donaldo Test Present VBG pH VBG pCO2 VBG pO2 VBG HCO3 VBG O2 Saturation VBG O2 Content VBG Base Excess VBG Carboxyhemoglobin VBG Methemoglobin Hemoglobin 9.1 L Carboxyhemoglobin 1.0 O2 Delivery Device Nrbr Liter Flow 15.00 Vent Setting Inspired O2 100 Critical Value Yes Sodium Potassium Chloride Carbon Dioxide Anion Gap BUN Creatinine Estimated GFR POC Glucose 65 L Random Glucose Lactic Acid Calcium Prot Corrected Calcium Total Protein Nasal Screen MRSA (PCR) Heparin Dep Plt Ab OD Hep-Induced Plt Ab Fang MTS Gel Crossmatch Bld Prod Order Comment 01/04/18 01/04/18 12/28/17 07:00 04:10 00:03 WBC RBC Hgb Hct MCV MCH MCHC RDW Plt Count MPV WBC Differential Manual diff final Seg Neuts % (Manual) 36 Band Neuts % (Manual) 40 H Lymphocytes % (Manual) 13 Monocytes % (Manual) 9 H Metamyelocytes % (Man) 1 Plasma Cell % (Manual) 1 H Abs Neuts (Manual) 1.5 L Nucleated RBCs/100 WBC 1 H Toxic Vacuolation Present H Dohle Bodies Present H Platelet Estimate Low L Platelet Morphology Normal Ovalocytes 1+ H APTT 147.3 H* D-Dimer Quant (PE/DVT) Puncture Site Patient Temperature O2 Saturation ABG pH ABG pCO2 ABG pO2 ABG HCO3 ABG O2 Content ABG Base Excess ABG Methemoglobin Donaldo Test VBG pH VBG pCO2 VBG pO2 VBG HCO3 VBG O2 Saturation VBG O2 Content VBG Base Excess VBG Carboxyhemoglobin VBG Methemoglobin Hemoglobin Carboxyhemoglobin O2 Delivery Device Liter Flow Vent Setting Inspired O2 Critical Value Sodium Potassium Chloride Carbon Dioxide Anion Gap BUN Creatinine Estimated GFR POC Glucose Random Glucose Lactic Acid Calcium Prot Corrected Calcium Total Protein Nasal Screen MRSA (PCR) Heparin Dep Plt Ab OD Hep-Induced Plt Ab Fang MTS Gel Crossmatch See Detail Bld Prod Order Comment - Impressions ITS Impressions Abdomen/Pelvis CT 12/18/17 12:58 CONCLUSION: 1. Compared with October 28 there is interval development of small bowel dilatation to about 5.5 cm with distal terminal ileum and colonic decompression characteristic of a distal small bowel obstruction. 2. Multiloculated ascites is similar in appearance to prior exam. 3. Previous right pleural effusion has decreased in size. 4. Increase in fatty infiltration of the liver since October 28. Small Bowel X-Ray 12/20/17 00:00 CONCLUSION: Small bowel obstruction. Venous Doppler Study 12/26/17 00:00 CONCLUSION: 1. Nonocclusive thrombus in the very distal aspect of the left common femoral vein extending into the proximal superficial femoral vein. 2. Deep venous system is otherwise patent. No SVT. Abdomen X-Ray 01/01/18 00:00 CONCLUSION: Multiple dilated loops of bowel measuring up to 5.7 cm. Chest X-Ray 01/04/18 10:52 CONCLUSION: 1. ETT in good position. 2. Moderate bilateral, left greater than right, probable pleural effusions with associated airspace disease in the lower lobes. Discharge Plan - Discharge Disposition Patient Disposition: 20 - Discharge Details Anticipated Discharge Date: 01/04/18 Discharge Comment: . Date/Time: 01/04/18 19:52 - Physicians Team Primary Care Provider: Primary Care Physici,No Attending Provider: Adolfo Smith Other Providers: Dg Rushing MD ; Haley James MD ; Surgeons,[facility] ; Eber Aviles MD ; Bobbi Patricio MD ; Amadeo Taylor MD
[2018-01-05] MEDS ORDERED: Vancomycin Inj 1,500 MG in Sodium Chlor 0.9% Inj 500 ML IV.SIG SCH (15:00)
[2018-01-07] MEDS ORDERED: Pharmacy Ordered Lab Info OTHER ONE (14:45)
== END 2018-01-04 19:52 | disposition expired ==
LOC: NEPE 12:06 → NEDA 17:46 → N07 21:00 → HCIN 12-22 15:44 → N03 12-28 00:08
PROVIDERS: ADMIT Surgery Surgical Critical Care; ATTEND Surgery Surgical Critical Care